=== PATIENT | female | born 1945 | race Caucasian/White ===

== ENCOUNTER → 2023-05-02 08:07 | Outpatient (CLI) | payer MEDICARE, OTHER, SELFPAY ==
[2023-05-02 08:23] LABS: Microscopic, Urine URINE MICROSCOPIC (MICROSCOPIC)
[2023-05-02 08:55] LABS: Basophils % 0.5 % (0.1-2.0); Eosinophils # 0.2 K/mm3 (0.0-0.4); Eosinophils % 2.5 % (0.1-12.0); Hemoglobin 13.3 g/dL (12.2-16.2); Lymphocytes # 1.7 K/mm3 (0.7-4.5); Lymphocytes % 24.3 % (10-50); Mean Corpuscular HGB Conc 31.6 g/dL (31.8-35.4); Mean Corpuscular Hemoglobin 27.6 pg (27.0-31.2); Mean Corpuscular Volume 87.5 fl (81-99); Mean Platelet Volume 8.3 fl (7.4-10.4); Monocytes # 0.2 K/mm3 (0.1-1.0); Monocytes % 3.6 % (1.7-9.3); Neutrophils # 4.7 K/mm3 (1.8-7.8); Platelet Count 176 K/mm3 (142-424); Red Cell Distribution Width 14.9 % (11.5-17.5); White Blood Count 6.8 K/mm3 (4.8-10.8)
[2023-05-02 08:57] LABS: Appearance,Urine CLEAR (Clear); Bilirubin,Urine Negative (Negative); Blood, Urine Negative (Negative); Color,Urine YELLOW (Yellow); Glucose,Urine (UA) 3+ (Negative); Ketones,Urine Negative (Negative); Leukocyte Esterase,Urine Negative (Negative); Nitrate,Urine Negative (Negative); PH,Urine 5.5 (5.0-8.5); Protein,Urine Negative (Negative); Specific Gravity, Urine <= 1.005 (1.005-1.030); Urobilinogen,Urine 0.2 EU/dl (0.2)
[2023-05-02 09:17] LABS: Creatinine,Urine Random 35 mg/dL (Not Estab.)
[2023-05-02 09:28] LABS: Anion Gap 7.6 mEq/L (5-15); Blood Urea Nitrogen 21 mg/dl (7-17); Calcium 9.6 mg/dl (8.4-10.2); Carbon Dioxide 34 mmol/L (22.0-30.0); Chloride 103 mmol/L (98-107); Estimated Glomerular Filt Rate 70 ml/min (>60); GFR (African American) 85 ML/MIN (>60); Glucose 150 mg/dl (74-100); Phosphorous 4.1 mg/dl (2.5-4.5); Potassium 4.6 mmoL/L (3.5-5.1); Sodium 140 mmol/L (136-145)
[2023-05-02 09:40] LABS: Intact Parathyroid Hormone 90.6 pg/mL (7.5-53.5)
[2023-05-02 09:46] LABS: 25-OH Vitamin D, Total 40.6 ng/mL (30-100)
== END ==
PROVIDERS: PCP Nurse Practitioner Family; Visit Provider Internal Medicine Nephrology
DX: N18.31 Chronic kidney disease, stage 3a (principal)
CPT/HCPCS: 36415; 80069; 81001; 82306; 82570; 83970; 84155; 85025

== ENCOUNTER → 2023-08-15 10:05 | Outpatient (CLI) | payer MEDICARE, OTHER, SELFPAY ==
[2023-08-15 11:19] LABS: Basophils % 0.4 % (0.1-2.0); Eosinophils # 0.2 K/mm3 (0.0-0.4); Eosinophils % 2.5 % (0.1-12.0); Hematocrit 45.6 % (37.0-47.0); Hemoglobin 15.4 g/dL (12.2-16.2); Lymphocytes # 2.1 K/mm3 (0.7-4.5); Lymphocytes % 23.7 % (10-50); Mean Corpuscular HGB Conc 33.8 g/dL (31.8-35.4); Mean Corpuscular Hemoglobin 30.2 pg (27.0-31.2); Mean Corpuscular Volume 89.2 fl (81-99); Mean Platelet Volume 8.6 fl (7.4-10.4); Monocytes # 0.3 K/mm3 (0.1-1.0); Monocytes % 3.5 % (1.7-9.3); Neutrophils # 6.1 K/mm3 (1.8-7.8); Neutrophils % 69.9 % (37.0-80.0); Platelet Count 164 K/mm3 (142-424); Red Blood Count 5.11 M/mm3 (4.20-5.40); Red Cell Distribution Width 14.3 % (11.5-17.5); White Blood Count 8.7 K/mm3 (4.8-10.8)
[2023-08-15 12:16] LABS: Hemoglobin A1C 7.5 % (4.0-6.0)
[2023-08-15 12:22] LABS: Alanine Aminotransferase 21 U/L (12-78); Albumin Level 4.6 g/dl (3.5-5.0); Albumin/Globulin Ratio 1.7 (1.1-1.8); Alkaline Phosphatase 100 U/L (38-126); Anion Gap 16.4 mEq/L (5-15); Aspartate Amino Transferase 24 U/L (14-36); Bilirubin,Total 0.8 mg/dl (0.2-1.3); Blood Urea Nitrogen 19 mg/dl (7-17); Calcium 9.8 mg/dl (8.4-10.2); Carbon Dioxide 28 mmol/L (22.0-30.0); Chloride 99 mmol/L (98-107); Chol/HDL Ratio 2.4 (1-3.5); Cholesterol 127 mg/dl (140-200); Estimated Glomerular Filt Rate 61 ml/min (>60); GFR (African American) 74 ML/MIN (>60); Globulin 2.7 g/dL (1.3-3.2); Glucose 143 mg/dl (74-100); HDL Cholesterol 53 mg/dl (40-60); Potassium 4.4 mmoL/L (3.5-5.1); Sodium 139 mmol/L (136-145); Total Protein,Serum 7.3 g/dl (6.3-8.2); Triglycerides 151 mg/dl (30-150); VLDL Cholesterol 30 mg/dL (0-40)
[2023-08-15 12:33] LABS: Direct LDL Cholesterol 62.44 mg/dL (100-129)
[2023-08-15 13:22] LABS: Ferritin 103 ng/ml (11.1-264)
== END ==
PROVIDERS: PCP Nurse Practitioner Family; Visit Provider Nurse Practitioner Family
DX: D50.9 Iron deficiency anemia, unspecified (principal); E11.9 Type 2 diabetes mellitus without complications; E78.5 Hyperlipidemia, unspecified; Z79.84 Long term (current) use of oral hypoglycemic drugs
CPT/HCPCS: 80053; 80061; 82728; 83036; 85025

== ENCOUNTER 2023-11-16 14:52 | Outpatient (CLI) | payer MEDICARE, OTHER, SELFPAY ==
[2023-11-16 14:59] LABS: Basophils # 0.1 K/mm3 (0-0.2); Basophils % 0.8 % (0.1-2.0); Eosinophils # 0.1 K/mm3 (0.0-0.4); Eosinophils % 1.1 % (0.1-12.0); Hematocrit 46.5 % (37.0-47.0); Hemoglobin 15.5 g/dL (12.2-16.2); Lymphocytes # 3.3 K/mm3 (0.7-4.5); Lymphocytes % 33.9 % (10-50); Mean Corpuscular HGB Conc 33.4 g/dL (31.8-35.4); Mean Corpuscular Hemoglobin 29.4 pg (27.0-31.2); Mean Corpuscular Volume 88.2 fl (81-99); Mean Platelet Volume 8.5 fl (7.4-10.4); Monocytes # 0.5 K/mm3 (0.1-1.0); Neutrophils # 5.7 K/mm3 (1.8-7.8); Neutrophils % 59.1 % (37.0-80.0); Platelet Count 190 K/mm3 (142-424); Red Blood Count 5.28 M/mm3 (4.20-5.40); Red Cell Distribution Width 14.3 % (11.5-17.5); White Blood Count 9.6 K/mm3 (4.8-10.8)
[2023-11-16 15:25] LABS: Alanine Aminotransferase 17 U/L (12-78); Albumin Level 4.5 g/dl (3.5-5.0); Albumin/Globulin Ratio 1.8 (1.1-1.8); Alkaline Phosphatase 84 U/L (38-126); Anion Gap 13.7 mEq/L (5-15); Aspartate Amino Transferase 20 U/L (14-36); Bilirubin,Total 0.7 mg/dl (0.2-1.3); Blood Urea Nitrogen 25 mg/dl (7-17); Calcium 9.7 mg/dl (8.4-10.2); Carbon Dioxide 28 mmol/L (22.0-30.0); Chloride 104 mmol/L (98-107); Chol/HDL Ratio 2.6 (1-3.5); Cholesterol 141 mg/dl (140-200); Estimated Glomerular Filt Rate 61 ml/min (>60); GFR (African American) 74 ML/MIN (>60); Globulin 2.5 g/dL (1.3-3.2); Glucose 102 mg/dl (74-100); HDL Cholesterol 55 mg/dl (40-60); Potassium 3.7 mmoL/L (3.5-5.1); Sodium 142 mmol/L (136-145); Triglycerides 151 mg/dl (30-150); VLDL Cholesterol 30 mg/dL (0-40)
[2023-11-16 15:36] LABS: Direct LDL Cholesterol 61.45 mg/dL (100-129)
[2023-11-16 15:58] LABS: Hemoglobin A1C 7.6 % (4.0-6.0)
[2023-11-16 16:13] LABS: Vitamin B12 954 pg/mL (239-931)
[2023-11-16 17:53] LABS: Ferritin 82.6 ng/ml (11.1-264)
[2023-11-21 12:22] LABS: Antinuclear Antibodies (ANA) NEGATIVE
== END 2023-11-16 23:59 ==
LOC: LAB.DROPOF 14:52
PROVIDERS: PCP Nurse Practitioner Family; Visit Provider Nurse Practitioner Family
DX: D50.9 Iron deficiency anemia, unspecified (principal); R41.3 Other amnesia; E11.9 Type 2 diabetes mellitus without complications; R68.2 Dry mouth, unspecified; E78.5 Hyperlipidemia, unspecified; Z79.899 Other long term (current) drug therapy
CPT/HCPCS: 80053; 80061; 82043; 82607; 82728; 83036; 85025; 86038

== ENCOUNTER 2024-01-07 08:48 | Outpatient (CLI) | payer MEDICARE, OTHER, SELFPAY ==
--- NOTE | 2024-01-07 08:49 | MR_ITS ---
FINAL REPORT CLINICAL HISTORY: Changes of memory with short-term memory loss. HEADACHE COMPARISON: None FINDINGS: Multiplanar MR imaging of the brain was performed without contrast. There is motion on many sequences that somewhat limits overall image quality. There is mild age-appropriate atrophy. There are scattered foci of increased T2 signal in the cerebral white matter that have a nonspecific appearance but likely represent mild chronic ischemic/gliotic changes. There is no evidence of intracranial hemorrhage or mass. No abnormal ventricular dilatation is identified. No abnormal extra-axial fluid collection is seen. No abnormality is seen on the diffusion weighted images. The posterior fossa and brainstem are unremarkable. Normal major vessel vascular flow voids are seen. There is a fluid level in the sphenoid sinus, worrisome for sinusitis. There is mild soft tissue thickening and other paranasal sinuses. IMPRESSION: Age-appropriate atrophy and mild chronic ischemic/gliotic changes. Air-fluid level is present in the sphenoid sinus, worrisome for sinusitis. Reviewed, Interpreted and Dictated by Alfie Ramires III, MD Transcribed by Maryjo Walsh Authenticated and . [facility]
== END 2024-01-07 23:59 ==
LOC: RAD 08:49
PROVIDERS: PCP Nurse Practitioner Family; Visit Provider Nurse Practitioner Family
DX: R41.3 Other amnesia (principal)
CPT/HCPCS: 70551

== ENCOUNTER 2024-01-15 12:15 | Outpatient (CLI) | payer MEDICARE, OTHER, SELFPAY ==
--- NOTE | 2024-01-15 12:19 | XR_ITS ---
FINAL REPORT TECHNIQUE: Chest PA & Lateral CLINICAL HISTORY: cough, post COVID-19 infection 1 mo ago COMPARISON: None FINDINGS: 2 views of the chest were performed. The heart size is normal. The mediastinum is within normal limits. Coarse interstitial opacities are present bilaterally, likely secondary to chronic fibrosis. There are no pleural effusions. There is no pneumothorax. The bony thorax appears intact. IMPRESSION: No acute cardiopulmonary process. Coarse interstitial opacities likely secondary to chronic fibrosis. Reviewed, Interpreted and Dictated by Clay Silva MD Transcribed by Maryjo Walsh Authenticated and [facility]
[2024-01-15 13:14] LABS: Basophils # 0.1 K/mm3 (0-0.2); Basophils % 0.9 % (0.1-2.0); Eosinophils # 0.2 K/mm3 (0.0-0.4); Eosinophils % 1.9 % (0.1-12.0); Hematocrit 46.7 % (37.0-47.0); Hemoglobin 15.1 g/dL (12.2-16.2); Lymphocytes # 2.2 K/mm3 (0.7-4.5); Lymphocytes % 24.8 % (10-50); Mean Corpuscular HGB Conc 32.4 g/dL (31.8-35.4); Mean Corpuscular Hemoglobin 29.5 pg (27.0-31.2); Mean Corpuscular Volume 91.3 fl (81-99); Mean Platelet Volume 8.5 fl (7.4-10.4); Monocytes # 0.3 K/mm3 (0.1-1.0); Neutrophils # 6.2 K/mm3 (1.8-7.8); Neutrophils % 69.3 % (37.0-80.0); Platelet Count 211 K/mm3 (142-424); Red Blood Count 5.11 M/mm3 (4.20-5.40); Red Cell Distribution Width 14.8 % (11.5-17.5)
[2024-01-15 13:35] LABS: D-Dimer 0.72 ug/mL (0.0-0.5)
[2024-01-15 13:39] LABS: Chloride 102 mmol/L (98-107); Potassium 4.2 mmoL/L (3.5-5.1); Sodium 140 mmol/L (136-145)
[2024-01-15 13:42] LABS: Alanine Aminotransferase 15 U/L (12-78); Albumin Level 4.4 g/dl (3.5-5.0); Albumin/Globulin Ratio 1.7 (1.1-1.8); Alkaline Phosphatase 90 U/L (38-126); Anion Gap 11.2 mEq/L (5-15); Aspartate Amino Transferase 22 U/L (14-36); Bilirubin,Total 0.5 mg/dl (0.2-1.3); Blood Urea Nitrogen 22 mg/dl (7-17); Calcium 10.3 mg/dl (8.4-10.2); Carbon Dioxide 31 mmol/L (22.0-30.0); Estimated Glomerular Filt Rate 70 ml/min (>60); GFR (African American) 84 ML/MIN (>60); Globulin 2.6 g/dL (1.3-3.2); Glucose 192 mg/dl (74-100); Magnesium 1.9 mg/dl (1.6-2.3)
[2024-01-15 13:48] LABS: Hemoglobin A1C 8.4 % (4.0-6.0)
[2024-01-15 14:14] LABS: Thyroid Stimulating Hormone 1.16 uIU/mL (0.465-4.68)
[2024-01-15 15:46] LABS: Vitamin B12 998 pg/mL (239-931)
== END 2024-01-15 23:59 ==
LOC: LAB 12:16
PROVIDERS: PCP Nurse Practitioner Family; Visit Provider Nurse Practitioner Family
DX: R05.9 Cough, unspecified (principal); E11.9 Type 2 diabetes mellitus without complications; R51.9 Headache, unspecified; M62.838 Other muscle spasm; E78.5 Hyperlipidemia, unspecified; Z79.84 Long term (current) use of oral hypoglycemic drugs; R79.89 Other specified abnormal findings of blood chemistry
CPT/HCPCS: 36415; 71046; 80053; 82607; 82728; 83036; 83735; 84443; 85025; 85378

== ENCOUNTER 2024-01-15 14:48 | Outpatient (POV) | payer MEDICARE, OTHER, SELFPAY | END 2024-01-15 23:59 | disposition home or self-care (01) | LOC: SC 14:48 | PROVIDERS: PCP Nurse Practitioner Family; Visit Provider Dermatology | DX: Z00.00 Encounter for general adult medical examination without abnormal findings (principal) ==

== ENCOUNTER 2024-02-11 13:44 | Outpatient (CLI) | payer MEDICARE, OTHER, SELFPAY ==
--- NOTE | 2024-02-11 13:44 | CT_ITS ---
FINAL REPORT CLINICAL HISTORY: Abnormal chest x-ray possible fibrosis FINDINGS: CT CHEST WITHOUT CONTRAST TECHNIQUE: Axial images through the chest were performed by computed tomography without contrast. This study was performed with techniques to keep radiation doses as low as reasonably achievable, (ALARA). Individualized dose reduction techniques using automated exposure control or adjustment of mA and/or kV according to the patient's size were employed. FINDINGS: There is no axillary adenopathy. There is no hilar or mediastinal adenopathy. The heart size is normal. There are dense coronary artery calcifications. There is no pericardial or pleural effusion. Limited images of the upper abdomen demonstrate multiple calcified gallstones and a partially contracted gallbladder. There is scarring or fibrosis in both lung bases. There is a 1.1 x 0.5 cm noncalcified nodule in the right lung along the course of the minor fissure. IMPRESSION: Noncalcified nodule along the course of the minor fissure, indeterminate. 3-month follow-up chest CT or PET/CT is recommended for further evaluation. Scarring or fibrosis in both lung bases. Reviewed, Interpreted and Dictated by Clay Silva MD Transcribed by Nidia Fisher Authenticated and [facility]
== END 2024-02-11 23:59 | disposition home or self-care (01) ==
LOC: RAD 13:44
PROVIDERS: PCP Nurse Practitioner Family; Visit Provider Nurse Practitioner Family
DX: R93.89 Abnormal findings on diagnostic imaging of other specified body structures (principal); R05.1 Acute cough
CPT/HCPCS: 71250

== ENCOUNTER 2024-04-02 10:39 | Outpatient (CLI) | payer MEDICARE, OTHER, SELFPAY ==
--- NOTE | 2024-04-02 10:39 | CA_ITS ---
FINAL REPORT TECHNIQUE: Color Doppler, duplex Doppler and christianson scale sonography of the bilateral neck vasculature was performed. Velocities were measured in the carotid arteries. Stenosis evaluation based on velocity criteria. CLINICAL HISTORY: Dizziness, neck pain, HLD, DM. COMPARISON: None FINDINGS: The peak systolic velocity of the right common carotid artery is 77 cm/sec and internal carotid artery 75 cm/sec. The diastolic velocity in the internal carotid artery is 26 cm/sec. The ICA/CCA ratio is 1.3. Visually, a small amount of plaque is seen. These findings are consistent with less than 50% stenosis. The external carotid artery is patent. The right vertebral artery is patent with antegrade flow. The peak systolic velocity of the left common carotid artery is 74 cm/sec and internal carotid artery 85 cm/sec. The diastolic velocity in the internal carotid artery is 31 cm/sec. The ICA/CCA ratio is 1.14. Visually, a small amount of plaque is seen. These findings are consistent with less than 50% stenosis. The external carotid artery is patent. The left vertebral artery is patent with antegrade flow. IMPRESSION: No evidence of significant carotid stenosis. Bilateral patent vertebral arteries. If indicated, CTA or MRA could further evaluate. Reviewed, Interpreted and Dictated by Alfie Ramires III, MD Transcribed by Maryjo Walsh Authenticated and [facility]
== END 2024-04-02 23:59 | disposition home or self-care (01) ==
LOC: RT 10:39
PROVIDERS: PCP Nurse Practitioner Family; Visit Provider Nurse Practitioner Family
DX: R42 Dizziness and giddiness (principal)
CPT/HCPCS: 93880

== ENCOUNTER 2024-05-07 12:30 | Outpatient (CLI) | payer MEDICARE, OTHER, SELFPAY ==
[2024-05-07 12:53] LABS: Basophils % 0.6 % (0.1-2.0); Eosinophils # 0.2 K/mm3 (0.0-0.4); Eosinophils % 2.9 % (0.1-12.0); Hematocrit 42.6 % (37.0-47.0); Lymphocytes % 28.1 % (10-50); Mean Corpuscular HGB Conc 32.8 g/dL (31.8-35.4); Mean Corpuscular Hemoglobin 29.9 pg (27.0-31.2); Mean Corpuscular Volume 91.3 fl (81-99); Mean Platelet Volume 8.6 fl (7.4-10.4); Monocytes # 0.2 K/mm3 (0.1-1.0); Monocytes % 3.2 % (1.7-9.3); Neutrophils # 4.6 K/mm3 (1.8-7.8); Neutrophils % 65.1 % (37.0-80.0); Platelet Count 167 K/mm3 (142-424); Red Blood Count 4.66 M/mm3 (4.20-5.40); Red Cell Distribution Width 14.6 % (11.5-17.5)
[2024-05-07 13:14] LABS: Alanine Aminotransferase 14 U/L (12-78); Albumin Level 4.1 g/dl (3.5-5.0); Albumin/Globulin Ratio 1.6 (1.1-1.8); Alkaline Phosphatase 86 U/L (38-126); Anion Gap 12.6 mEq/L (5-15); Aspartate Amino Transferase 17 U/L (14-36); Bilirubin,Total 0.7 mg/dl (0.2-1.3); Blood Urea Nitrogen 21 mg/dl (7-17); Calcium 9.6 mg/dl (8.4-10.2); Carbon Dioxide 29 mmol/L (22.0-30.0); Chloride 105 mmol/L (98-107); Chol/HDL Ratio 2.5 (1-3.5); Cholesterol 115 mg/dl (140-200); Estimated Glomerular Filt Rate 81 ml/min (>60); GFR (African American) 98 ML/MIN (>60); Globulin 2.6 g/dL (1.3-3.2); Glucose 129 mg/dl (74-100); HDL Cholesterol 46 mg/dl (40-60); Potassium 4.6 mmoL/L (3.5-5.1); Sodium 142 mmol/L (136-145); Total Protein,Serum 6.7 g/dl (6.3-8.2); Triglycerides 125 mg/dl (30-150); VLDL Cholesterol 25 mg/dL (0-40)
[2024-05-07 13:44] LABS: Thyroid Stimulating Hormone 2.03 uIU/mL (0.465-4.68)
[2024-05-07 15:02] LABS: Hemoglobin A1C 8.2 % (4.0-6.0)
[2024-05-07 15:32] LABS: Ferritin 78.2 ng/ml (11.1-264)
== END 2024-05-07 23:59 | disposition home or self-care (01) ==
LOC: LAB.DROPOF 12:31
PROVIDERS: PCP Nurse Practitioner Family; Visit Provider Nurse Practitioner Family
DX: E11.9 Type 2 diabetes mellitus without complications (principal); E78.5 Hyperlipidemia, unspecified; D64.9 Anemia, unspecified; D50.9 Iron deficiency anemia, unspecified
CPT/HCPCS: 80053; 80061; 82043; 82728; 83036; 84443; 85025

== ENCOUNTER 2024-06-18 11:58 | Outpatient (CLI) | payer MEDICARE, OTHER, SELFPAY ==
--- NOTE | 2024-06-18 12:01 | XR_ITS ---
FINAL REPORT CLINICAL HISTORY: cervical neck pain FINDINGS: CERVICAL SPINE 3 views were obtained. There is no acute fracture. Vertebrae are normal height. There is no malalignment. There is moderate to space narrowing at C3-4, C4-5, C5-6, and C6-7 with moderate anterior osteophyte formation throughout these levels. There is no soft tissue abnormality. IMPRESSION: Degenerative changes with no acute bony abnormality. Reviewed, Interpreted and Dictated by Clay Silva MD Transcribed by Nidia Fisher Authenticated and . [facility]
== END 2024-06-18 23:59 | disposition home or self-care (01) ==
LOC: RAD 11:59
PROVIDERS: PCP Nurse Practitioner Family; Visit Provider Nurse Practitioner Family
DX: M54.2 Cervicalgia (principal)
CPT/HCPCS: 72040

== ENCOUNTER 2024-07-10 09:38 | Outpatient (CLI) | payer MEDICARE, OTHER, SELFPAY ==
--- NOTE | 2024-07-10 09:44 | MR_ITS ---
FINAL REPORT CLINICAL HISTORY: Cervicalgia, decreased ROM of neck COMPARISON: None FINDINGS: Multi planar MR imaging was obtained of the cervical spine. There is abnormal decreased signal throughout the cervical discs. There is moderate loss of height at the C3-4 level. There is no malalignment. The cervical cord demonstrates normal signal and configuration. C2-C3: There is no evidence of significant disc bulge or protrusion. There is no significant facet hypertrophy. C3-C4: Moderate diffuse disc bulge eccentric to the left. Moderate compromise left side of the spinal canal. Moderate to high-grade left neural foraminal narrowing. C4-C5: Moderate diffuse disc bulge. Endplate hypertrophy. Moderate left neural foraminal narrowing. C5-C6: Moderate diffuse disc bulge. Moderate right neural foraminal narrowing. C6-C7: Moderate diffuse disc bulge. Axok-to-nsxpwjwg bilateral neural foraminal narrowing. C7-T1: There is no evidence of significant disc bulge or protrusion. There is no significant facet hypertrophy. IMPRESSION: Multilevel changes of degenerative disc disease with spinal canal compromise most evident on the left at C3-4 and neural foraminal compromise most evident on the right at C5-6. Reviewed, Interpreted and Dictated by Clay Silva MD Transcribed by Jennifer Hilliard Authenticated and . [facility]
== END 2024-07-10 23:59 | disposition home or self-care (01) ==
LOC: RAD 09:39
PROVIDERS: PCP Nurse Practitioner Family; Visit Provider Nurse Practitioner Family
DX: M54.2 Cervicalgia (principal); M25.78 Osteophyte, vertebrae
CPT/HCPCS: 72141

== ENCOUNTER 2024-08-11 12:02 | Outpatient (CLI) | payer MEDICARE, OTHER, SELFPAY ==
--- NOTE | 2024-08-11 12:07 | CT_ITS ---
PROCEDURE INFORMATION: Exam: CT Head Without Contrast Exam date and time: 08/11/2024 12:26 PM Age: 79 years old Clinical indication: Syncope and collapse; Additional info: Lightheadedness, unsteadiness post fall TECHNIQUE: Imaging protocol: Computed tomography of the head without contrast. Radiation optimization: All CT scans at this facility use at least one of these dose optimization techniques: automated exposure control; mA and/or kV adjustment per patient size (includes targeted exams where dose is matched to clinical indication); or iterative reconstruction. COMPARISON: MR HEAD/BRAIN WO CON 01/07/2024 8:48 AM FINDINGS: Brain: No hemorrhage. Unremarkable white matter for the patient's age. No mass effect. No evolving territorial infarct. Cerebral ventricles: No ventriculomegaly. Paranasal sinuses: Mild sinus mucosal thickening. Mastoid air cells: Visualized mastoid air cells are well aerated. Orbital cavities: Thinning of the lenses of the globes consistent with prior lens surgery. Bones: Unremarkable. No acute fracture. Soft tissues: Unremarkable. IMPRESSION: No acute intracranial abnormality seen.
== END 2024-08-11 23:59 | disposition home or self-care (01) ==
PROVIDERS: PCP Nurse Practitioner Family; Visit Provider Nurse Practitioner Family
DX: R42 Dizziness and giddiness (principal); R26.81 Unsteadiness on feet; Z91.81 History of falling
CPT/HCPCS: 70450

== ENCOUNTER 2024-09-29 15:16 | Outpatient (CLI) | payer MEDICARE, OTHER, SELFPAY ==
--- NOTE | 2024-09-29 15:21 | XR_ITS ---
FINAL REPORT CLINICAL HISTORY: cough, choking sensation FINDINGS: 2 views of the chest were obtained . The heart is normal in size. The mediastinum is within normal limits. There is mild bronchial wall thickening consistent with bronchitis. There is no pneumothorax. Osseous structures demonstrate moderate degenerative changes. IMPRESSION: Mild bronchial wall thickening consistent with bronchitis. Reviewed, Interpreted and Dictated by Alfie Ramires III, MD Transcribed by Alexia Haro Authenticated and [facility]
== END 2024-09-29 23:59 | disposition home or self-care (01) ==
LOC: LAB 15:18
PROVIDERS: PCP Nurse Practitioner Family; Visit Provider Nurse Practitioner Family
DX: R09.89 Other specified symptoms and signs involving the circulatory and respiratory systems (principal); R42 Dizziness and giddiness; R53.83 Other fatigue
CPT/HCPCS: 71046; 87635

== ENCOUNTER 2024-12-22 15:50 | Outpatient (CLI) | payer MEDICARE, OTHER, SELFPAY ==
[2024-12-22 19:29] LABS: Creatinine,Urine Random 28 mg/dL (Not Estab.)
[2024-12-22 22:59] LABS: Albumin Level 4.7 g/dl (3.5-5.0); Chloride 100 mmol/L (98-107)
[2024-12-22 23:00] LABS: Potassium 4.5 mmoL/L (3.5-5.1); Sodium 138 mmol/L (136-145)
[2024-12-22 23:02] LABS: Alanine Aminotransferase 18 U/L (12-78); Albumin/Globulin Ratio 2.2 (1.1-1.8); Anion Gap 12.5 mEq/L (5-15); Aspartate Amino Transferase 18 U/L (14-36); Blood Urea Nitrogen 28 mg/dl (7-17); Carbon Dioxide 30 mmol/L (22.0-30.0); Estimated Glomerular Filt Rate 81 ml/min (>60); GFR (African American) 98 ML/MIN (>60); Globulin 2.1 g/dL (1.3-3.2); Total Protein,Serum 6.8 g/dl (6.3-8.2)
[2024-12-22 23:03] LABS: Alkaline Phosphatase 83 U/L (38-126); Bilirubin,Total 0.4 mg/dl (0.2-1.3); Chol/HDL Ratio 2.4 (1-3.5); Cholesterol 127 mg/dl (140-200); Glucose 208 mg/dl (74-100); HDL Cholesterol 54 mg/dl (40-60); Magnesium 1.9 mg/dl (1.6-2.3); Triglycerides 162 mg/dl (30-150); VLDL Cholesterol 32 mg/dL (0-40)
[2024-12-22 23:15] LABS: Direct LDL Cholesterol 46.24 mg/dL (100-129)
[2024-12-22 23:35] LABS: Thyroid Stimulating Hormone 1.21 uIU/mL (0.465-4.68)
[2024-12-22 23:39] LABS: Ferritin 61.2 ng/ml (11.1-264)
[2024-12-22 23:41] LABS: Hemoglobin A1C 9.1 % (4.0-6.0)
== END 2024-12-22 23:59 | disposition home or self-care (01) ==
LOC: LAB.DROPOF 12-24 12:39
PROVIDERS: PCP Nurse Practitioner Family; Visit Provider Nurse Practitioner Family
DX: E11.9 Type 2 diabetes mellitus without complications (principal); E61.1 Iron deficiency; E78.5 Hyperlipidemia, unspecified
CPT/HCPCS: 80053; 80061; 82043; 82570; 82728; 83036; 83735; 84443

== ENCOUNTER 2025-02-12 07:23 | Emergency (ER) | payer MEDICARE, OTHER, SELFPAY ==
[2025-02-12] VITALS (9 sets, daily range): BP systolic 123–172; BP diastolic 65–95; PULSE 45–66; RESP 11–22; TEMP 37.1; O2SAT 92–97; BMI 38.7
--- NOTE | 2025-02-12 07:27 | ECG_ITS ---
APPROVED REPORT Exam: Resting ECG HR:59 bpm ECG Measurements Heart Rate 59 AXES VT 195 P 48 QRSd 107 QRS 46 QT 404 T 38 QTc 403 Conclusion Sinus bradycardia Electronically signed by : GIULIANA AGUAYO, 02/12/2025 15:29:36
--- OUTSIDE RECORDS SUMMARY | 2025-02-12 07:31 | XMS_ITS | Continuity of Care Document ---
Author Name [facility] Organization [facility] Care Team Providers Care Form Building Supervisor Name Role Phone [facility] Unavailable Unavailable Problems Combined list of problems from Department of [facility] [place] and [facility] facilities. It does not include entries that were removed or entered in error. Problem Status Onset Date Problem Type Date of Resolution Comments Source Diagnosis: ICD-10-CM Z71.0 Prsn encntr uk healthcare serv to consult on behalf of another person Active Diagnosis [facility] Medications Combined list of outpatient medications from Department of [facility], [place] and [facility] facilities.Medications provided include 1) outpatient medications from the last 15 months, and 2) patient-reported medications. Medication Details Route Status Patient Instructions Prescription Expires Prescription Number Last Dispense Date Ordering Provider Order Date Order Qty Source AZELASTINE HCL (AZELASTINE HCL), 137 MCG, SPRAY/PUMP, NASAL, [facility], 30 ml SQUEEZ BTL Active [id number] 4 2023 30 Pharmac y Data Transac tion Service Facilit y CEFDINIR (cefdinir), 300 MG, CAPSULE, ORAL, [facility], 60 ea. BOTTLE Active [id number] 4 2023 20 Pharmac y Data Transac tion Service Facilit y CEPHALEXIN (CEPHALEXIN MONOHYDRATE ), 500MG, CAPSULE, ORAL, [facility], 500 ea. BOTTLE Active [id number] 4 2023 30 Pharmac y Data Transac tion Service Facilit y CETIRIZINE HCL (cetirizine HCl), 10 MG, TABLET, ORAL, [facility], 90 ea. BOTTLE Active [id number] 4 2023 90 Pharmac y Data Transac tion Service Facilit y CETIRIZINE HCL (cetirizine HCl), 10 MG, TABLET, ORAL, [facility], 90 ea. BOTTLE Active [id number] 4 2023 90 Pharmac y Data Transac tion Service Facilit y DAPAGLIFLOZ IN (dapagliflo zin propanediol ), 10 MG, TABLET, ORAL, [facility], 30 ea. BOTTLE Active [id number] 4 2023 90 Pharmac y Data Transac tion Service Facilit y FLUCONAZOLE (FLUCONAZOL E), 100 MG, TABLET, ORAL, [facility], 30 ea. BOTTLE Active [id number] 4 2023 10 Pharmac y Data Transac tion Service Facilit y FLUCONAZOLE (FLUCONAZOL E), 100 MG, TABLET, ORAL, [facility], 30 ea. BOTTLE Active [id number] 4 2023 10 Pharmac y Data Transac tion Service Facilit y FLUCONAZOLE (fluconazol e), 150 MG, TABLET, ORAL, [facility], 12 ea. BLIST PACK Active [id number] 4 2023 5 Pharmac y Data Transac tion Service Facilit y JANUVIA (SITAGLIPTI N PHOSPHATE), 100MG, TABLET, ORAL, [employer] 90 ea. BOTTLE Active [id number] 4 2023 90 Pharmac y Data Transac tion Service Facilit y OXYBUTYNIN CHLORIDE ER (oxybutynin chloride), 10 MG, TAB ER 24, ORAL, [employer], 500 ea. BOTTLE Active [id number] 4 2023 90 Pharmac y Data Transac tion Service Facilit y OXYBUTYNIN CHLORIDE ER (oxybutynin chloride), 10 MG, TAB ER 24, ORAL, [employer], 500 ea. BOTTLE Active [id number] 4 2023 90 Pharmac y Data Transac tion Service Facilit y RYBELSUS (semaglutid e), 3 MG, TABLET, ORAL, TERRY NORDISK, 30 ea. BOTTLE Cancele d [id number] : 2023 0 Pharmac y Data Transac tion Service Facilit y Encounters Combined list of: 1) Encounters from Department of Veterans Affairs facilities going backup to the last 18 months, not all VA inpatient encounters are included; 2) Encounters from the Department of Defense facilities going backup to 280 months. Location Location Details Encounter Type Encounter Number Reason For Visit Attending Provider ADM Date DC Date Status Disposition Source [facility] PH1 ASSMT&MGMT NQHP [id number] Diagnos is: ICD-10- CM Z71.0 Prsn encntr hlth serv to consult on behalf of another person JAYLON MIRAMONTES 11/04 [place] [facility] Outpatient Encounter [id number] 11/[address] [place] [address] [facility] Social History Combined list of available smoking, tobacco, and other social history from Department of Defense and Veterans Affairs facilities. Social History Type Response Date Comment Sour e This section is an empty social history section. DoD
--- OUTSIDE RECORDS SUMMARY | 2025-02-12 07:31 | XMS_ITS ---
Care Plan - [facility], [facility] Created on: February 12, 2025 Kristina Herrera : 1945 Sex: Female Author Organization [facility] Address [address] [place] [id number] Phone Care Team Providers Care Insurance Business Analyst Name Role Phone Eduar ZIMMERMAN, Juan Diego Benton Unavailable [phone]
--- OUTSIDE RECORDS SUMMARY | 2025-02-12 07:31 | XMS_ITS | Encounter Summary ---
Author Name [facility] Organization [facility] Address [address] [place] [id number] Selected Encounter This section includes the information on record at [place] for the Encounter. Date/Time Encounter Type Encounter Description Reason Pro vider Source Nov 26, 2024 12:53 PM Outpatient Encounter ADMIN PAT ACTIVTIES (MASNONCT) IHE Encounter Template Text not used by VA Encounter Notes: All associated encounter notes This section contains the clinical notes associated to the Encounter. Date/Time Encounter Note(s) Provider Source Nov 26, 2024 12:53 PM CAREGIVER CERTIFIC ATE: LOCAL TITLE: CSP DENIAL NOTE STANDARD TITLE: CAREGIVER CERTIFICATE DATE OF NOTE: NOV 26, 2024@12:53 ENTRY DATE: NOV 26, 2024@12:53:17 AUTHOR: BANDAR MIRAMONTES EXP COSIGNER: URGENCY: STATUS: COMPLETED Caregiver Support Program Denial Note The individual being denied from the Program of Comprehensive Assistance for Family Caregivers is the Primary Family Caregiver applicant: KEYON KELLY Name of : ANA KELLY Reason(s) for denial: - /Caregiver withdrew application Denial date: 11/26/2024 Staff provided/attempted verbal notification of denial on: 11/26/2024 Notification letter was mailed on: 11/26/2024 [facility] staff provided the following document(s): - [facility] Howard Contact Information - Program of General Caregiver Support Services - [employer] Eligibility Criteria Fact Sheet - VA Caregiver Support Program [employer] Appeal FAQs - VA Form 10-305 Your Rights to Seek Further Review of [employer] Decisions [facility] staff provided information on the following resources and supports: - Veterans Benefits Administration (VBA) /pratik/ BANDAR MIRAMONTES LCSW Caregiver Country Sales Manager Signed: 11/26/2024 12:54 BANDAR MIRAMONTES [facility]
--- OUTSIDE RECORDS SUMMARY | 2025-02-12 07:31 | XMS_ITS | Data Portability ---
Author Organization [facility] Address [address] [place] [address] Care Team Providers Care Deputy Sheriff Name Role Phone JINA CRUMPNIE Primary Care Provider Assessment No assessment recorded. Plan of Treatment Reminders Order Date Submit Date Provider Last Modified By Organization Details Last Modified Time Details Appointments None recorded. Lab None recorded. Referral None recorded. Procedures None recorded. Surgeries None recorded. Imaging None recorded. Medication Orders betametha sone valerate 0.1 % topical ointment 2021 [address] [facility], [address], [place], [address], 12:54:42 Patient TargetsNo targets recorded. Patient Instructions Encounter Date Encounter Id Patient Instructions Last Modified By Organization Details Last Modified Time 04/25/2022 [id number] 1. Nasal debridement performed- Full risks, complications, and benefits of non-operative intervention have been thoroughly discussed. Understanding was expressed, informed consent given, and we will proceed with the discussed treatment plan. There were no questions for me at the end of the office visit. 2. Right nasal cauterization performed 3. Flexible laryngoscopy performed- Full risks, complications, and benefits of non-operative intervention have been thoroughly discussed. Understanding was expressed, informed consent given, and we will proceed with the discussed treatment plan. There were no questions for me at the end of the office visit. 4. RX: betamethasone ointment twice daily for 2 weeks 5. Recommended using sweet oil in ears monthly 6. Follow up as needed Not available 04/25/2022 12:41:58 Reason for Referral None Reported. Problems No Known Problems Procedures Surgical History Date Name Laterality Status Provider Name and Address Organization Details Recorded Time 04/25/20 22 Control Anterior Epistaxis completed FELECIA GARBER MD [address] [place], [address], [facility] 04/26/2022 12:43:56 04/25/20 22 [facility] 12:34:20 04/25/20 22 Laryngoscopy Flex completed Chacha Sahni [facility] 04/25/2022 12:41:44 section completed Nessa Plasencia [facility] 04/25/2022 11:38:22 hysterectomy completed Nessa Plasencia [facility] 04/25/2022 11:38:28 excision of basal cell carcinoma completed Nessa Plasencia [facility] 04/25/2022 11:39:04 excision of squamous cell carcinoma completed Nessa Luis Angel [facility] 04/25/2022 11:39:14 Imaging Results None recorded. Procedure Notes None recorded. Medical Equipment None Reported. Allergies Allergen ID Allergen Name Allergen Category Reaction Reaction Severity Criticality Documentation Date Start Date Code Code System Note Provider Name and Address Organization Details Recorded Time 125947 Iodinated contrast media (substanc e) medicatio n Not available Not available Not available 04/25/2022 52878 2003 SNOMED Nessagalina Plasencia [facility] 11:35:43 Medications Name Sig Start Date Stop Date Status Note LastModified by Organization Details LastModified Time amoxicillin 500 mg capsule 04/25 completed Not Available Not Available Not Available fluconazole 100 mg tablet active Not Available Not Availabl e Not Available betamethasone valerate 0.1 % topical ointment APPLY TO EARS TWICE DAILY FOR 2 WEEKS 2021 active Not Available Not Available Not Avai lable cetirizine 10 mg tablet active Not Available Not Available No t Available atorvastatin 10 mg tablet active Not Available Not Available Not Available fluconazole 150 mg tablet 04/25 completed Not Available Not Available Not Available glimepiride 1 mg tablet active Not Available Not Available No t Available nystatin-triam cinolone 100,000 unit/gram-0.1 % topical ointment active Not Available Not Available Not Available metformin 1,000 mg tablet 04/25 completed Not Available Not Available Not Available fluticasone propionate 50 mcg/actuation nasal spray,suspensi on 04/25 completed Not Available Not Available Not Available Benicar HCT 40 mg-12.5 mg tablet active Not Available Not Available Not Available duloxetine 30 mg capsule,delaye d release active Not Available Not Available No t Available Januvia 100 mg tablet active Not Available Not Available Not Available Jardiance 10 mg tablet active Not Available Not Available No t Available Vitals Date Recorded Body weight Body mass index (BMI) Body height Oxygen saturation Oxygen saturation in Arterial blood by Pulse oximetry Heart rate Systolic blood pressure Diastolic blood pressure Provider Name and Address Organization Details Last Updated DateTime 2 93531.3 6 g 40 kg/m2 156.21 cm 92 % 92 % 87 /min 102 mm[Hg] 55 mm[Hg] Nessa Luis Angel [facility] 11:43:06 Social History Question Answer Notes LastModified by Organizat ion Details LastModified Time Tobacco Smoking Status Never Smoker Nessa Luis Angel [facility] 04/25/2022 11:38:13 What Is Your Level Of Alcohol Consumption? None Information not available 04/25/2022 What Was The Date Of Your Most Recent Tobacco Screening? 04/25/2022 Information not available 04/25/2022 Do You Use Any Illicit Or Recreational Drugs? No Information not available 04/25/2022 Has Tobacco Cessation Counseling Been Provided? No Information not available 04/25/2022 Do You Or Have You Ever Used Any Other Forms Of Tobacco Or Nicotine? No Information not available 04/25/2022 Sex: Unknown Functional Status None recorded. Mental Status None recorded. Family History Relationship Description Onset Age of this Age Resolved Age Notes LastModified by Organization Details LastModified Time Father Family history of malignant neoplasm Not available 2021 11:37:56 Brother Family history of malignant neoplasm Not available 2021 11:37:56 Mother Heart disease Not available 2021 11:38:06 Sister Heart disease Not available 2021 11:38:06 Medical History Condition Response Anemia Y Diabetes Y Bleeding Disorder Y Cancer Y Sleep Disorder Y Hypertension Y Gynecological HistoryNo gynecological history recorded. Obstetrics History GPAL:G 0 P 0 0 0 0 Past Encounters Encounter ID Performer Location Encounter Start Date Encounter Closed Date Diagnosis/Indication Diagnosis SNOMED-CT Code Diagnosis ICD10 Code Diagnosis Note [id number] FELECIA GARBER MD [facility] [address] [place] [address] 04/25/2022 11:13:31 04/25/2022 12:47:00 Anterior epistaxis 158824303 R04.0 Chronic sore throat 2754 62040 J31.2 No obvious findings Change in voice 70843871 5 R49.9 Bowed vocal cords Pyogenic granuloma 2002 L98.0 Left septum? 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 Health Concerns Section Related Observation LastModified by Organization Detai ls LastModified Time None Recorded Concern Status LastModified by Organization Details LastModified Time None Recorded Advance Directives Directive None Recorded Payers Encounter Date Sequence Insurance Name Policy Number Policy Guallpa Covered Member ID Guallpa Member ID Guarantor Name 04/25/2022 1 [place] Kristina Jimenez Javier [id number] Kristina Jimenez Javier 04/25/2022 2 [employer]PS - FOR LIFE (MEDICARE SUPPLEMENT) Kristina Jimenez Javier [id number] Kristina Jimenez Javier Notes Date Note Type Note Provider Name and Address Organization Details Recorded Time 04/25/2022 text/html Kristina is a 76 year old being seen in consultation at the request of Rafaela Crump APRN for nosebleeds. Kristina states that she has recently been having issues with nosebleeds. The nosebleeds started in August. She states that the bleeding would happen weekly but at times twice daily. She believes that the bleeding started after using her CPAP machine. She was not using the humidifier with the CPAP machine. Her last nosebleed was on April 01. When she would have a nosebleed she would pinch her nose and sit down. After a few minutes she would be able to get the bleed to stop. She has a history of high blood pressure. She takes medication for that regularly. Additionally, Kristina states that her throat has been sore and she has noticed no changes in her voice. She has never used tobacco. She states that her voice is not as loud as it has been before. FELECIA GARBER MD [facility] [place], [address], [facility] 04/26/2022 12:44:33 OBGyn Episode No OBEpisode recorded.
--- OUTSIDE RECORDS SUMMARY | 2025-02-12 07:31 | XMS_ITS ---
Author Organization [facility] , [facility] Address [address] [place] [address] Phone Care Team Providers Care Director Of Materials Management Name Role Phone Eduar ZIMMERMAN, Juan Diego Benton Unavailable [phone] Plan of Treatment No Plan of Treatment Recorded Assessments Includes: Assessments for all patient encounters No Assessments Recorded Medical Equipment - Implanted Devices Includes: Current and historical Devices No Medical Equipment Recorded Medications Administered Includes: Administered Medications in patient's chart No Administered Medications Recorded Results Includes: Results from 02/13/2024 through 02/12/2025 No Results Recorded For Specified Dates History of Present Illness History of Present Illness not supported for this document type No History of Present Illness Recorded Social History No Social History Recorded - Smoking Status Unknown Medical History Includes: Medical History in patient's chart No Medical History Recorded Family History Includes: Family History in patient's chart No Family History Recorded Review of Systems Review of Systems not supported for this document type No Review of Systems Recorded Mental Status No Mental Status Recorded Functional Status No Functional Status Recorded Physical Exam Physical Exam not supported for this document type No Physical Exam Recorded Insurance Includes: Active Insurance Policies Plan Name Member ID Group # Subscriber Relationship Effect samina Dates 1 - Medicare Part B [facility] [id number] Kristina Herrera Self Clinical Notes Includes: Signed Clinical Notes starting from 10/05/2022 No Clinical Notes Recorded
[2025-02-12] MEDS: ASPIRIN 81MG CHEWABLE TABLET 324 MG PO (07:51)
[2025-02-12 08:00] LABS: Basophils % 0.6 % (0.1-2.0); Eosinophils # 0.2 Kmm3 (0.0-0.4); Eosinophils % 2.4 % (0.1-12.0); Hematocrit 40.7 % (37.0-47.0); Lymphocytes # 1.9 K/mm3 (0.7-4.5); Lymphocytes % 27.3 % (10-50); Mean Corpuscular HGB Conc 31.9 g/dL (31.8-35.4); Mean Corpuscular Hemoglobin 28.4 pg (27.0-31.2); Mean Corpuscular Volume 89.1 fl (81-99); Monocytes # 0.3 K/mm3 (0.1-1.0); Monocytes % 3.7 % (1.7-9.3); Neutrophils # 4.6 K/mm3 (1.8-7.8); Neutrophils % 65.6 % (37.0-80.0); Nucleated Red Blood Cells # 0 10^3/uL; Nucleated Red Blood Cells % 0 %; Platelet Count 166 K/mm3 (142-424); Red Blood Count 4.57 M/mm3 (4.20-5.40); Red Cell Distribution Width 14.1 % (11.5-17.5); Red Cell Distribution Width-SD 45.4 fL
[2025-02-12 08:03] LABS: Albumin Level 4.4 g/dl (3.5-5.0); Chloride 107 mmol/L (98-107); Potassium 5.3 mmoL/L (3.5-5.1); Sodium 139 mmol/L (136-145)
[2025-02-12 08:05] LABS: Alanine Aminotransferase 18 U/L (12-78); Aspartate Amino Transferase 47 U/L (14-36); Blood Urea Nitrogen 31 mg/dl (7-17); Creatinine Clearance Estimated 69 mL/min (50-200); Estimated Glomerular Filt Rate 81 ml/min (>60); GFR (African American) 98 ML/MIN (>60)
[2025-02-12 08:06] LABS: Albumin/Globulin Ratio 1.5 (1.1-1.8); Alkaline Phosphatase 29 U/L (38-126); Anion Gap 11.3 mEq/L (5-15); Bilirubin,Total 1.3 mg/dl (0.2-1.3); Calcium 9.4 mg/dl (8.4-10.2); Carbon Dioxide 26 mmol/L (22.0-30.0); Glucose 158 mg/dl (74-100); Lipase 144 U/L (23-300); Magnesium 1.9 mg/dl (1.6-2.3); Total Protein,Serum 7.4 g/dl (6.3-8.2)
--- NOTE | 2025-02-12 08:09 | HMH.EDGENADL ---
Discharge Plan Disposition Patient Disposition: Home, Self-Care Chief Complaint: Chest Pain Prescriptions Prescriptions: No Action aspirin [Adult Low Dose Aspirin] 81 mg tablet,delayed release (DR/EC) 81 mg PO DAILY ascorbic acid (vitamin C) 1,000 mg capsule 1 g PO DAILY Farxiga 10 mg tablet 10 mg PO DAILY 90 Days Qty: 90 1RF glimepiride 1 mg tablet 1 mg PO DAILY 90 Days Qty: 90 2RF fluocinolone acetonide oil [DermOtic Oil] 0.01 % drops 5 drp otic (ear) BID 7 Days Qty: 20 0RF clotrimazole 10 mg luis fernando 10 mg mucous membrane 5XD 14 Days Qty: 70 0RF atorvastatin 10 mg tablet 10 mg PO DAILY 90 Days Qty: 90 1RF cetirizine 10 mg tablet 10 mg PO DAILY 90 Days Qty: 90 1RF oxybutynin chloride 10 mg tablet extended release 24hr See Rx Instructions .ROUTE .COMPLEX Qty: 90 3RF Dose Instruction: TAKE 1 TABLET DAILY Rx Instructions: TAKE 1 TABLET DAILY nystatin-triamcinolone 100,000-0.1 unit/gram-% ointment 1 applic topical BID 90 Days Qty: 60 2RF pioglitazone 15 mg tablet 15 mg PO DAILY Qty: 90 0RF azithromycin [Zithromax Z-Amandeep] 250 mg tablet See Rx Instructions PO .COMPLEX 5 Days Qty: 6 0RF Rx Instructions: For 250 mg dose pack: take 500 mg today (day 1), then 250 mg for 4 days (days 2-5) PO Referrals Follow up/Referrals: Enma Crump APRN [Primary Care Provider] - See instructions Kevin Choudhury MD [Staff Physician] - See instructions Activity Restrictions/Add. Instructions Additional Instructions/Restrictions: Call your family doctor to establish care for this visit to the emergency department and schedule follow-up within 48 hours to ensure improvement. If you have any worsening of your condition or any other concerning signs or symptoms, return to the emergency department or your primary care doctor for further evaluation. Call cardiology in order to schedule follow-up for further evaluation of your chest pain. Clinical Impressions Clinical Impression: Chest pain Print Language Print Language: Panamanian Discharge ED Provider: Sung Law General Adult HPI General Chief complaint: Chest Pain Stated complaint: CP Time Seen by Provider: 02/12/25 07:26 Mode of Arrival: Ambulatory Source of Information: Patient Description of Symptoms (Recalled from ER Triage Doc. by RN): patient reports for one month she has intermittment chest pain and jaw pain. today she has substernal chest pain that she describes as aching. she believs she has anxiety due to loosing her one week ago. she took 162 mg of aspirin prior to arrival History of Present Illness HPI narrative: Please note that above description of symptoms, in this electronic medical record under categorization of recalled from ER triage doctor by RN are reflective of an initial nursing assessment, however, is not reflective of my full history and physical exam that was personally taken and clarified. Consequentially, this preceding description of symptoms, which may include the patient's categorized chief complaint in the EMR, do not reflect my personal clinical impression, and the ultimate description of history of present illness and patient stated complaints should be deferred to this section of the note. Unless stated otherwise or congruent with this section of the note, additional signs, symptoms, or incongruence should be interpreted as inaccurate with my clinical impression. Related Data Home Medications ?Medication ?Instructions ?Recorded ?Confirmed aspirin 81 mg tablet,delayed 81 mg PO DAILY 08/15/23 12/22/24 release (Adult Low Dose Aspirin) ascorbic acid (vitamin C) 1,000 mg 1 g PO DAILY 05/07/24 12/22/24 capsule Previous Rx's ?Medication ?Instructions ?Recorded dapagliflozin propanediol 10 mg 10 mg PO DAILY 90 days #90 tabs 07/21/24 tablet (Farxiga) glimepiride 1 mg tablet 1 mg PO DAILY 90 days #90 tabs 07/21/24 clotrimazole 10 mg luis fernando 10 mg mucous membrane 5XD 14 days 08/18/24 #70 tabs atorvastatin 10 mg tablet 10 mg PO DAILY 90 days #90 tabs 11/07/24 cetirizine 10 mg tablet 10 mg PO DAILY 90 days #90 tabs 11/07/24 oxybutynin chloride 10 mg See Rx Instructions .Route 11/07/24 tablet,extended release 24 hr .COMPLEX #90 tabs nystatin-triamcinolone 100,000 1 applic topical BID 90 days #60 11/12/24 unit/gram-0.1 % topical ointment grams fluocinolone acetonide oil 0.01 % 5 drp otic (ear) BID 7 days #20 mL 12/12/24 ear drops (DermOtic Oil) pioglitazone 15 mg tablet 15 mg PO DAILY #90 tabs 12/24/24 azithromycin 250 mg tablet See Rx Instructions PO .COMPLEX 5 01/05/25 (Zithromax Z-Amandeep) days #6 tabs Allergies Allergy/AdvReac Type Severity Reaction Status Date / Time Iodinated Contrast Media Allergy Mild Hives Verified 02/12/25 08:23 [facility] Disclaimer: The information contained in this section may have been updated after the patient was seen, as this information can be updated by other users. 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 leg Basal cell carcinoma of skin of nose Diabetes type 2, controlled Hyperlipidemia Surgical History H/O of nasal cauterization H/O breast biopsy H/O removal of cyst foot History of appendectomy History of x2 History of hysterectomy Social History Smoking Status: Never smoker alcohol intake: never current occupational status: unemployed Travel in the last 8 weeks: None Have you lived/traveled outside US in past 30 days?: No Contact w/someone who lives/traveled outside US past 30 days?: No Exposure to someone with infectious disease in past 14 days?: No Do you have a fever (greater than 100.4 F or 38 C)?: No Have you tested positive for COVID-19: No Exposed to someone with COVID-19 in past 14 days?: No Do you have a sore throat?: No Do you have a cough?: No Do you have any weakness?: No Do you have any diarrhea?: No Are you experiencing any unusual bleeding?: No Do you have any muscle aches/pain?: No Do you have any abdominal pain?: No Are you experiencing loss of taste or smell?: No Other Medical History Have you received the Pneumonia Vaccine: No ROS Obtained: Yes All systems reviewed & no additional complaints except as documented Physical Exam General General appearance: alert and in no apparent distress Head Head exam: atraumatic and normocephalic Eye Eye exam: Present normal appearance, PERRL and EOMI Neck Neck exam: Present normal inspection, full ROM and trachea midline Respiratory Respiratory exam: Absent respiratory distress, wheezes, stridor, accessory muscle use or prolonged expiratory phase Cardiovascular Cardiovascular exam: Present regular rate, normal rhythm, normal heart sounds and other (Pulses equal symmetric in upper and lower extremities) Abdominal Exam Abdominal exam: Present soft; Absent distention, tenderness or pulsatile mass Extremities Exam Extremities exam: Present edema (1+ pitting) Neurological Exam Neurological exam: Present alert, oriented X3 and CN II-XII intact; Absent motor sensory deficit Skin Skin exam: Present warm and dry; Absent diaphoresis or erythema Medical Decision Making Medical Records Medical records reviewed: Yes I reviewed the patient's medical records. Screening: Per USPSTF and CDC recommendations, given the prevalence of disease in our region, it is our hospital?s policy to screen for HIV and viral Hepatitis for all patients aged 18 and over and those with ongoing risk factors. Robert Inquiry Pt receiving controlled substance: No Robert was queried for this patient: No Vital Signs: 02/12/25 07:26 02/12/25 07:27 02/12/25 07:45 Temperature 98.8 F Temperature Source Oral Pulse Rate 59 L 58 L Pulse Rate [Right Radial] 66 Respiratory Rate 18 19 Blood Pressure 147/78 H Blood Pressure [Right Arm] 172/95 H Blood Pressure Mean [Right Arm] 120 Blood Pressure Source [Right Arm] Automatic Cuff Blood Pressure Position [Right Arm] Supine 02 Sat by Pulse Oximetry 97 92 L Oxygen Delivery Method Room Air 02/12/25 08:15 02/12/25 08:45 02/12/25 09:01 Temperature Temperature Source Pulse Rate 50 L 51 L 46 L Pulse Rate [Right Radial] Respiratory Rate 11 L 22 20 Blood Pressure 131/78 143/83 H 136/70 Blood Pressure [Right Arm] Blood Pressure Mean [Right Arm] Blood Pressure Source [Right Arm] Blood Pressure Position [Right Arm] 02 Sat by Pulse Oximetry 95 92 L 93 L Oxygen Delivery Method 02/12/25 10:00 02/12/25 10:31 Temperature Temperature Source Pulse Rate 45 L 56 L Pulse Rate [Right Radial] Respiratory Rate 17 22 Blood Pressure 123/66 136/65 Blood Pressure [Right Arm] Blood Pressure Mean [Right Arm] Blood Pressure Source [Right Arm] Blood Pressure Position [Right Arm] 02 Sat by Pulse Oximetry 96 93 L Oxygen Delivery Method Room Air Lab Data Lab Results 02/12/25 07:47: WBC 7.0, RBC 4.57, Hgb 13.0, Hct 40.7, MCV 89.1, MCH 28.4, MCHC 31.9, RDW 14.1, Plt Count 166, MPV 10.0, Neut % (Auto) 65.6, Lymph % (Auto) 27.3, Gove % (Auto) 3.7, Eos % (Auto) 2.4, Baso % (Auto) 0.6, Neut # (Auto) 4.6, Lymph # (Auto) 1.9, Gove # (Auto) 0.3, Eos # (Auto) 0.2, Baso # (Auto) 0.0, APTT 27.1, D-Dimer 1.09 H, Sodium 139, Potassium 5.3 H, Chloride 107, Carbon Dioxide 26, Anion Gap 11.3, BUN 31 H, Creatinine 0.70, Estimated Creat Clear 69, Estimated GFR 81, Est GFR ( Amer) 98, Glucose 158 H, Calcium 9.4, Magnesium 1.9, Total Bilirubin 1.3, AST 47 H, ALT 18, Alkaline Phosphatase 29 L, Troponin I 0.02, NT-Pro-B Natriuret Pep 77.1, Total Protein 7.4, Albumin 4.4, Globulin 3.0, Albumin/Globulin Ratio 1.5, Lipase 144, TSH 2.29, Thyroxine (T4) 8.0, HCV Ab LILI w/Rflx PCR Qn Negative, HIV Ag/Ab Combo Qual Negative 02/12/25 10:15: Troponin I < 0.01 02/12/25 07:47 02/12/25 07:47 Orders (Tests/Meds): ED MEDICATIONS Discontinued Medications Generic Name Dose Route Start Last Admin Trade Name Jon PRN Reason Stop Dose Admin Aspirin 324 mg 02/12/25 07:26 02/12/25 07:51 Aspirin 81mg Chewable Tablet PO 02/12/25 07:27 162 mg ONCE ONE Administration Diphenhydramine HCl 25 mg 02/12/25 08:09 02/12/25 08:14 Diphenhydramine 50mg/Ml Vial IV 02/12/25 08:10 25 mg ONCE ONE Administration Iopamidol 70 ml 02/12/25 09:28 02/12/25 09:30 Iopamidol-370 (76%);100ml Bottle IV 02/12/25 09:29 70 ml ONCE ONE Administration Methylprednisolone Sodium Succinate 125 mg 02/12/25 08:09 02/12/25 08:14 Methylprednisolone Sod Succ 125mg Vial IV 02/12/25 08:10 125 mg ONCE ONE Administration Sodium Chloride 50 ml 02/12/25 09:28 02/12/25 09:30 0.9 % Sodium Chloride 50 Ml Vial IV 02/12/25 09:29 50 ml ONCE ONE Administration Sodium Chloride 10 ml 02/12/25 09:28 02/12/25 09:30 Sodium Chloride 0.9% 10ml Syr (Rad Only) IV 02/12/25 09:29 10 ml ONCE ONE Administration ORDERS Category Date Time Status CT angio chest PE protocol Stat Cat Scan 02/12/25 09:04 Completed POCUS Point of Care (ER Only) Stat Exams 02/12/25 07:27 Completed Complete Blood Count Auto Diff Stat Lab 02/12/25 07:47 Completed Comprehensive Metabolic Panel Stat Lab 02/12/25 07:47 Completed D-Dimer Stat Lab 02/12/25 07:47 Completed HIV Combo Stat Lab 02/12/25 07:47 Completed Hepatitis C Ab Qual. W/ RFX Stat Lab 02/12/25 07:47 Completed Lipase Stat Lab 02/12/25 07:47 Completed Magnesium Stat Lab 02/12/25 07:47 Completed NT Pro Brain Natriuretic Pep. Stat Lab 02/12/25 07:47 Completed PTT [Activated Partial Thrombo Time] Stat Lab 02/12/25 07:47 Completed T4 (Thyroxine) Stat Lab 02/12/25 07:47 Completed TSH [Thyroid Stimulating Hormone] Stat Lab 02/12/25 07:47 Completed Troponin I Q3H Lab 02/12/25 10:15 Completed Troponin I Q3H Lab 02/12/25 13:30 Ordered Troponin I Stat Lab 02/12/25 07:47 Completed Medical Decision Narrative: 79-year-old female presenting with jaw pain and chest pain. She states that the chest pain started a month or 2 ago, jaw pain started over the past week. She lost her about a week ago. Some shortness of breath, some with exertion, nothing in particular makes the chest pain better or worse, it seems agitated by stress. Patient also states that she is some lower extremity swelling. No nausea, vomiting, diaphoresis, syncopal episodes. Had this pain in the past, was told that she had an enlarged heart, but never followed up or does not remember any details about it. History was obtained via conversation with patient. It should be noted that she has a history of enlarged heart, ANTWAN on sleep apnea, type 2 diabetes, hypertension, hyperlipidemia which are likely contributing to case today. On arrival, patient hemodynamically stable, alert, oriented x4, appropriate, GCS 15, moving all extremities spontaneously, pupils equal and reactive to light. Full physical exam performed and significant for 79-year-old female no acute distress. Cardiac exam with no murmurs gallops or rubs. She is borderline bradycardic, but otherwise normal. 1+ lower extremity bilateral pitting edema. Pulses equal and symmetric in upper and lower extremities. Speaking in full sentences and alert and oriented, neurologically intact. Lungs are clear and all harvey. Differential includes microvascular coronary artery disease, CHF, ACS, CA, coronary artery dissection, pneumothorax, PE, dissection, pericarditis, myocarditis, pneumothorax, aortic aneurysm, pneumonia, bronchitis, among others. Patient placed on continuous cardiac monitoring and continuous pulse ox with initial blood pressure 172/95, heart rate 59, saturation 93% on room air. Independent interpretation of EKG shows sinus bradycardia with mild ST depressions in anterior and lateral leads. No reciprocal change. WA 195, QRS 107, QTc 4 3 with normal axis. Patient was given full dose aspirin for symptomatic management and correction of underlying abnormalities. Bedside [id number] ultrasound performed. Normal EF, grossly normal wall kinetics, no evidence of regurgitation, with no evidence of effusion or abnormality. Workup independently interpreted and significant for nonactionable CBC with normal hemoglobin and nonactionable chemistry. Mildly isolated elevated BUN and potassium. D-dimer elevated. Troponin and BNP 0.02, and less than 100, respectively. Patient in observation around 7:30 AM to rule out evolving CA and determine need for hospitalization versus home-going. On reevaluation, patient states that she is currently asymptomatic while laying in bed. Intermittently having oxygen desaturations 92 to 94%, states that she has no history of COPD or any lung disease. She is on CPAP at night for ANTWAN. Because of elevated dimer, conversation had with patient regarding utility of CT scan and she is agreeable to pretreatment with Solu-Medrol and Benadryl prior to receiving CT scan she states that her allergy is hives. This was administered. Patient was allowed nearly an hour of observation time to allow medications to work. CT scan obtained. On independent interpretation, no acute PE or pneumothorax, but she does have bilateral groundglass opacities. On reevaluation, patient still resting comfortably. Because symptoms been going on for a month with normal workup today, negative delta troponin, I feel comfortable with outpatient cardiology follow-up for patient. She feels agreeable to this. Because patient at baseline without signs or symptoms of clinical decompensation, deemed appropriate for discharge. Results were relayed to patient who voiced understanding and were agreeable to outpatient management and follow up. I discussed my clinical impression with patient and answered all questions. At this time, the evidence for any other entities in the differential is insufficient to warrant any further testing or ED observation. This was explained as well. Advisory was given that persistent or worsening symptoms require further evaluation. I confirmed the understanding of this discussion. Rehab/Pre Vocational Counselor disclaimer Much of this encounter note is an electronic quality assurance group leader spoken language to printed text. Electronic quality assurance group leader of the spoken language may permit errors. Although I have reviewed the note, some errors may still exist. Procedures Limited Ultrasound Indication:: Limited cardiac ultrasound Indication: Chest pain, shortness of breath Identified cardiac views: -Cardiac parasternal long axis -Cardiac parasternal short axis Findings: -Cardiac activity present -Gross wall motion normal -Pericardial effusion absent -Right heart strain absent - EPSS 7.0 - No evidence of valvular regurgitation Impression: - Normal [id number] cardiac echo Images were saved to permanent archive The study was technically adequate CPT: 52263 This study was performed by me, and I personally interpreted all images/videos. Based on my clinical judgement, these images were adequate and did not necessitate further imaging Critical Care Critical Care Time Critical Care Time: No
[2025-02-12 08:11] LABS: Activated Partial Thrombo Time 27.1 seconds (22.8-30.6)
[2025-02-12] MEDS: METHYLPREDNISOLONE SOD SUCC 125MG VIAL 125 MG IV (08:14)
[2025-02-12] MEDS: diphenhydrAMINE 50MG/ML VIAL 25 MG IV (08:14)
[2025-02-12 08:18] LABS: D-Dimer 1.09 ug/mL (0.0-0.5)
--- NOTE | 2025-02-12 08:30 | PC.NURSE ---
Dr. Law at bedside, ordered medications to pre medicate patient due to allergy to contrast so she can get a CT Scan. patient verbalized understanding. no other needs voiced at this time
[2025-02-12 08:37] LABS: Thyroid Stimulating Hormone 2.29 uIU/mL (0.465-4.68)
--- NOTE | 2025-02-12 08:48 | PC.NURSE ---
I called lab to check on time remaining on troponin level. Nitin states It was put on the wrong analyzer and we switched it over so it will be done in [address] Law notified.
--- NOTE | 2025-02-12 09:04 | CT_ITS ---
FINAL REPORT TECHNIQUE: Axial imaging of the chest is obtained after the administration of contrast. 3-D MIP reformatted images were also obtained and reviewed per PE protocol. This study was performed with techniques to keep radiation doses as low as reasonably achievable (ALARA). Individualized dose reduction techniques using automated exposure control or adjustment of mA and/or kV according to the patient's size were employed. CLINICAL HISTORY: CP, HYPOXEMIA, DIMER COMPARISON: Prior chest CT dated 02/11/2024 FINDINGS: The pulmonary arteries are well filled. There is no evidence of pulmonary embolus. There is no aortic dissection. The heart is enlarged. There is no mediastinal, hilar, or axillary lymphadenopathy. There are new bilateral ground glass opacities present. Bilateral interlobular septal thickening is present as well, the overall appearance most consistent with congestive heart failure. There is no pleural or pericardial effusion. There is a nodule adjacent to the right minor fissure that measures 9 mm, with seen on the prior CT of 2023 and measured 11 mm at that time. Limited evaluation of the upper abdomen is without acute abnormality. No acute osseous abnormality. IMPRESSION: No evidence of pulmonary embolism or aortic dissection. Cardiomegaly, with new bilateral ground glass opacities and bilateral interlobular septal thickening, most consistent with changes of CHF. Reviewed, Interpreted and Dictated by Adrienne Moss MD Transcribed by Maryjo Walsh Authenticated and [facility]
[2025-02-12 09:07] LABS: Troponin I 0.02 ng/ml (0.00-0.034)
[2025-02-12 09:08] LABS: Hepatitis C Ab Qual. W/ RFX NEGATIVE (Negative)
--- NOTE | 2025-02-12 09:15 | PC.NURSE ---
called ct to remind them to come get patient for CT due to being pre medicated
[2025-02-12 09:16] LABS: NT Pro Brain Natriuretic Pep. 77.1 pg/mL (0-450)
[2025-02-12] MEDS: IOPAMIDOL-370 (76%);100ML BOTTLE 70 ML IV (09:30)
[2025-02-12] MEDS: SODIUM CHLORIDE 0.9% 10ML SYR (RAD ONLY) 10 ML IV (09:30)
[2025-02-12] MEDS: 0.9 % SODIUM CHLORIDE 50 ML VIAL IV (09:30)
[2025-02-12 10:43] LABS: Troponin I < 0.01 ng/ml (0.00-0.034)
[2025-02-12 11:09] LABS: HIV Combo NEGATIVE (Negative)
== END 2025-02-12 11:28 | disposition home or self-care (01) ==
PROVIDERS: Emergency Provider Emergency Medicine; PCP Nurse Practitioner Family
DX: R07.89 Other chest pain (principal); R68.84 Jaw pain; R00.1 Bradycardia, unspecified; Z11.59 Encounter for screening for other viral diseases; Z11.4 Encounter for screening for human immunodeficiency virus [HIV]
CPT/HCPCS: 71275; 80053; 83690; 83735; 83880; 84436; 84443; 84484; 85025; 85378; 85730; 86803; 87389; 93005; 96374; 96375; 99285; J1200; J2919; Q9967

== ENCOUNTER 2025-02-17 07:53 | Emergency (ER) | payer MEDICARE, OTHER, SELFPAY ==
--- OUTSIDE RECORDS SUMMARY | 2025-02-17 08:05 | XMS_ITS ---
Author Organization [facility] , [facility] Address [address] [place] [address] Phone Care Team Providers Care Career Developer Name Role Phone Eduar ZIMMERMAN, Juan Diego Benton Unavailable [phone] Plan of Treatment No Plan of Treatment Recorded Assessments Includes: Assessments for all patient encounters No Assessments Recorded Medical Equipment - Implanted Devices Includes: Current and historical Devices No Medical Equipment Recorded Medications Administered Includes: Administered Medications in patient's chart No Administered Medications Recorded Results Includes: Results from 02/18/2024 through 02/17/2025 No Results Recorded For Specified Dates History [...] samina Dates 1 - Medicare Part B [facility] [id number] Kristina Herrera Self Clinical Notes Includes: Signed Clinical Notes starting from 10/05/2022 No Clinical Notes Recorded
--- OUTSIDE RECORDS SUMMARY | 2025-02-17 08:05 | XMS_ITS | Continuity of Care Document ---
Author Name [facility] Organization [facility] Care Team Providers Care Comic Book Artist Name Role Phone [facility] Unavailable Unavailable Problems Combined list of problems from Department of [facility] and [facility] facilities. It does not include entries that were removed or entered in error. Problem Status Onset Date Problem Type Date of Resolution Comments Source Diagnosis: ICD-10-CM Z71.0 Prsn encntr [facility] serv to consult on behalf of another person Active Diagnosis [facility] Medications Combined list of outpatient medications from Department of [facility] and [facility] facilities.Medications provided include 1) outpatient medications from the last 15 months, and 2) patient-reported medications. Medication Details Route Status Patient Instructions Prescription Expires Prescription Number Last Dispense Date Ordering Provider Order Date Order Qty Source AZELASTINE HCL (AZELASTINE HCL), 137 MCG, SPRAY/PUMP, NASAL, Open [employer] MAIN, 30 ml SQUEEZ BTL Active [id number] 4 2023 30 Pharmac y Data Transac tion Service Facilit y CEFDINIR (cefdinir), 300 MG, CAPSULE, ORAL, fflick [facility], 60 ea. BOTTLE Active [id number] 4 2023 20 Pharmac y Data Transac tion Service Facilit y CEPHALEXIN (CEPHALEXIN MONOHYDRATE ), 500MG, CAPSULE, ORAL, [facility], 500 ea. BOTTLE Active [id number] 4 2023 30 Pharmac y Data Transac tion Service Facilit y CETIRIZINE HCL (cetirizine HCl), 10 MG, TABLET, ORAL, [employer], 90 ea. BOTTLE Active [id number] 4 2023 90 Pharmac y Data Transac tion Service Facilit y CETIRIZINE HCL (cetirizine HCl), 10 MG, TABLET, ORAL, [employer], 90 ea. BOTTLE Active [id number] 4 2023 90 Pharmac y Data Transac tion Service Facilit y DAPAGLIFLOZ IN (dapagliflo zin propanediol ), 10 MG, TABLET, ORAL, [facility], 30 ea. BOTTLE Active [id number] 4 2023 90 Pharmac y Data Transac tion Service Facilit y FLUCONAZOLE (FLUCONAZOL E), 100 MG, TABLET, ORAL, [employer], 30 ea. BOTTLE Active [id number] 4 2023 10 Pharmac y Data Transac tion Service Facilit y FLUCONAZOLE (FLUCONAZOL E), 100 MG, TABLET, ORAL, [employer], 30 ea. BOTTLE Active [id number] 4 2023 10 Pharmac y Data Transac tion Service Facilit y FLUCONAZOLE (fluconazol e), 150 MG, TABLET, ORAL, [facility], 12 ea. BLIST PACK Active [id number] 4 2023 5 Pharmac y Data Transac tion Service Facilit y JANUVIA (SITAGLIPTI N PHOSPHATE), 100MG, TABLET, ORAL, [employer] 90 ea. BOTTLE Active [id number] 4 2023 90 Pharmac y Data Transac tion Service Facilit y OXYBUTYNIN CHLORIDE ER (oxybutynin chloride), 10 MG, TAB ER 24, ORAL, [employer], 500 ea. BOTTLE Active [id number] 4 2023 90 Pharmac y Data Transac tion Service Facilit y OXYBUTYNIN CHLORIDE ER (oxybutynin chloride), 10 MG, TAB ER 24, ORAL, [employer], 500 ea. BOTTLE Active [id number] 4 2023 90 Pharmac y Data Transac tion Service Facilit y RYBELSUS (semaglutid e), 3 MG, TABLET, ORAL, TERRY NORDISK, 30 ea. BOTTLE Cancele d [id number] : 2023 0 Pharmac y Data Transac [...] ADM Date DC Date Status Disposition Source [facility] PH1 ASSMT&MGMT NQHP [id number] Diagnos is: ICD-10- CM Z71.0 Prsn encntr [facility] serv to consult on behalf of another person JAYLON MIRAMONTES 11/04 [place] [facility] Outpatient Encounter [id number] 11/26 [place] [facility] Social History Combined list of available smoking, tobacco, and other social history from Department of Defense and Veterans Affairs facilities. Social History Type Response Date Comment Sour e This section is an empty social history section. DoD
--- OUTSIDE RECORDS SUMMARY | 2025-02-17 08:05 | XMS_ITS ---
Care Plan - [facility], [facility] Created on: February 17, 2025 Kristina Herrera : 1945 Sex: Female Author Organization [facility] , [facility] Address [address] [place] [id number] Phone Care Team Providers Care Industrial Controls Technician Name Role Phone Eduar ZIMMERMAN, Juan Diego Benton Unavailable [phone]
[2025-02-17 08:11] VITALS: BP 142/75; PULSE 64; RESP 17; TEMP 37.1; O2SAT 98; BMI 38.7
--- NOTE | 2025-02-17 08:13 | ED_ITS ---
Discharge Plan Disposition Patient Disposition: Home, Self-Care Condition: Good Prescriptions Prescriptions: No Action aspirin [Adult Low Dose Aspirin] 81 mg tablet,delayed release (DR/EC) 81 mg PO DAILY ascorbic acid (vitamin C) 1,000 mg capsule 1 g PO DAILY Farxiga 10 mg tablet 10 mg PO DAILY 90 Days Qty: 90 1RF glimepiride 1 mg tablet 1 mg PO DAILY 90 Days Qty: 90 2RF fluocinolone acetonide oil [DermOtic Oil] 0.01 % drops 5 drp otic (ear) BID 7 Days Qty: 20 0RF clotrimazole 10 mg luis fernando 10 mg mucous membrane 5XD 14 Days Qty: 70 0RF atorvastatin 10 mg tablet 10 mg PO DAILY 90 Days Qty: 90 1RF cetirizine 10 mg tablet 10 mg PO DAILY 90 Days Qty: 90 1RF oxybutynin chloride 10 mg tablet extended release 24hr See Rx Instructions .ROUTE .COMPLEX Qty: 90 3RF Dose Instruction: TAKE 1 TABLET DAILY Rx Instructions: TAKE 1 TABLET DAILY nystatin-triamcinolone 100,000-0.1 unit/gram-% ointment 1 applic topical BID 90 Days Qty: 60 2RF pioglitazone 15 mg tablet 15 mg PO DAILY Qty: 90 0RF azithromycin [Zithromax Z-Amandeep] 250 mg tablet See Rx Instructions PO .COMPLEX 5 Days Qty: 6 0RF Rx Instructions: For 250 mg dose pack: take 500 mg today (day 1), then 250 mg for 4 days (days 2-5) PO Referrals Follow up/Referrals: Enma Crump APRN [Primary Care Provider] - See instructions Activity Restrictions/Add. Instructions Additional Instructions/Restrictions: You were evaluated in the emergency department today. As we discussed, your labs are reassuring and I feel that your rash is likely from irritation of your skin, whether it be from scratching or tight fitting pants. Monitor for any new or worsening symptoms, such as high fevers, worsening rash, or other concerns. Please follow-up closely with your primary care provider over the next week for reassessment. Keep your follow-up with cardiology as well. Return to the emergency department for new or worsening symptoms. Clinical Impressions Clinical Impression: Rash Instructions Patient Instructions: DI for Rash Print Language Print Language: Khmer Discharge ED Provider: Shayla Randolph General Adult HPI General Chief complaint: Skin/Abscess/Foreign Body Stated complaint: rash on abd, headache, poss allergic reaction Time Seen by Provider: 02/17/25 08:03 History of Present Illness HPI narrative: This patient is a 79-year-old female with a history of hypertension, hyperlipidemia, type 2 diabetes, CKD presenting to the emergency department for evaluation with concern for rash to her abdomen that she just noticed yesterday. Patient notes that she is allergic to IV contrast and has had hives in the past after receiving it. She came in 02/12/25 and received a CTA PE protocol for chest pain. She notes that she thinks that is the culprit and she is worried this could be an allergic reaction. The rash does not hurt, it does not itch. No other concerns or complaints noted. She denies any use of blood thinners, only taking aspirin occasionally as needed for pain. She is only used it once in the last couple of days. Related Data Home Medications ?Medication ?Instructions ?Recorded ?Confirmed aspirin 81 mg tablet,delayed 81 mg PO DAILY 08/15/23 12/22/24 release (Adult Low Dose Aspirin) ascorbic acid (vitamin C) 1,000 mg 1 g PO DAILY 05/07/24 12/22/24 capsule Previous Rx's ?Medication ?Instructions ?Recorded dapagliflozin propanediol 10 mg 10 mg PO DAILY 90 days #90 tabs 07/21/24 tablet (Farxiga) glimepiride 1 mg tablet 1 mg PO DAILY 90 days #90 tabs 07/21/24 clotrimazole 10 mg luis fernando 10 mg mucous membrane 5XD 14 days 08/18/24 #70 tabs atorvastatin 10 mg tablet 10 mg PO DAILY 90 days #90 tabs 11/07/24 cetirizine 10 mg tablet 10 mg PO DAILY 90 days #90 tabs 11/07/24 oxybutynin chloride 10 mg See Rx Instructions .Route 11/07/24 tablet,extended release 24 hr .COMPLEX #90 tabs nystatin-triamcinolone 100,000 1 applic topical BID 90 days #60 11/12/24 unit/gram-0.1 % topical ointment grams fluocinolone acetonide oil 0.01 % 5 drp otic (ear) BID 7 days #20 mL 12/12/24 ear drops (DermOtic Oil) pioglitazone 15 mg tablet 15 mg PO DAILY #90 tabs 12/24/24 azithromycin 250 mg tablet See Rx Instructions PO .COMPLEX 5 01/05/25 (Zithromax Z-Amandeep) days #6 tabs Allergies Allergy/AdvReac Type Severity Reaction Status Date / Time Iodinated Contrast Media Allergy Mild Hives Verified 02/12/25 08:23 [facility] Disclaimer: The information contained in this section may have been updated after the patient was seen, as this information can be updated by other users. 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 leg Basal cell carcinoma of skin of nose Diabetes type 2, controlled Hyperlipidemia Surgical History H/O of nasal cauterization H/O breast biopsy H/O removal of cyst History of appendectomy History of History of hysterectomy Social History Smoking Status: Never smoker alcohol intake: never current occupational status: unemployed Travel in the last 8 weeks?: None Have you lived/traveled outside US in past 30 days?: No Contact w/someone who lives/traveled outside US past 30 days?: No Exposure to someone with infectious disease in past 14 days?: No Do you have a fever (greater than 100.4 F or 38 C)?: No Have you tested positive for COVID-19?: No Exposed to someone with COVID-19 in past 14 days?: No Do you have a sore throat?: No Do you have a cough?: No Do you have any weakness?: No Do you have any diarrhea?: No Are you experiencing any unusual bleeding?: No Do you have any muscle aches/pain?: No Do you have any abdominal pain?: No Are you experiencing loss of taste or smell?: No Other Medical History Have you received the Pneumonia Vaccine: No ROS Obtained: Yes All systems reviewed & no additional complaints except as documented Physical Exam General General appearance: alert and in no apparent distress Head Head exam: atraumatic and normocephalic Eye Eye exam: Present normal appearance, PERRL and EOMI ENT ENT exam: Present normal exam, normal oropharynx, mucous membranes moist and normal external ear exam Neck Neck exam: Present normal inspection, full ROM and trachea midline; Absent tenderness Chest Chest inspection: Present normal inspection and symmetric chest wall rise; Absent tenderness Respiratory Respiratory exam: Present normal lung sounds bilaterally; Absent respiratory distress, wheezes, stridor or accessory muscle use Cardiovascular Cardiovascular exam: Present regular rate and normal rhythm Abdominal Exam Abdominal exam: Present soft; Absent distention, tenderness or guarding Extremities Exam Extremities exam: Present normal inspection, full ROM and normal capillary refill; Absent tenderness or edema Back Exam Back exam: Present normal inspection and full ROM; Absent tenderness Neurological Exam Neurological exam: Present alert, oriented X3, CN II-XII intact and normal gait; Absent motor sensory deficit Psychiatric Psychiatric exam: Present normal affect and normal mood Skin Skin exam: Present warm, dry and rash (Nonblanching erythematous petechial macular rash to lower abdomen and proximal bilateral thighs. No blistering, no sloughing, no bullae. Does not involve mucosa or skin folds. ) Expanded Skin Exam Body image: 2 1. rash as detailed 2. rash as detailed 3. rash as detailed 4. rash as detailed Medical Decision Making Medical Records Medical records reviewed: Yes I reviewed the patient's medical records. Screening: Per USPSTF and CDC recommendations, given the prevalence of disease in our region, it is our hospital?s policy to screen for HIV and viral Hepatitis for all patients aged 18 and over and those with ongoing risk factors. Robert Inquiry Pt receiving controlled substance: No Vital Signs: 02/17/25 08:11 02/17/25 09:18 02/17/25 10:34 Temperature 98.7 F 98.1 F Temperature Source Oral Pulse Rate 51 L 59 L Pulse Rate [Left Radial] 64 Respiratory Rate 17 18 Blood Pressure 119/56 L 127/62 Blood Pressure [Right Arm] 142/75 H Blood Pressure Mean [Right Arm] 97 02 Sat by Pulse Oximetry 98 97 Oxygen Delivery Method Room Air Room Air Room Air Lab Data Lab results reviewed: Yes I reviewed the patient's lab results. Lab Results 02/17/25 08:15: WBC 7.3, RBC 4.80, Hgb 13.4, Hct 42.8, MCV 89.2, MCH 27.9, MCHC 31.3 L, RDW 14.1, Plt Count 173, MPV 10.1, Neut % (Auto) 71.1, Lymph % (Auto) 21.1, Steele % (Auto) 4.0, Eos % (Auto) 3.0, Baso % (Auto) 0.4, Neut # (Auto) 5.2, Lymph # (Auto) 1.5, Steele # (Auto) 0.3, Eos # (Auto) 0.2, Baso # (Auto) 0.0, PT 11.0, INR 0.98, APTT 27.4, Sodium 140, Potassium 4.3, Chloride 106, Carbon Dioxide 29, Anion Gap 9.3, BUN 22 H, Creatinine 0.70, Estimated Creat Clear 69, Estimated GFR 81, Est GFR ( Amer) 98, Glucose 159 H, Calcium 9.6, Total Bilirubin 0.9, AST 27, ALT 17, Alkaline Phosphatase 60, C-Reactive Protein 7.0 H , Total Protein 7.0, Albumin 4.1, Globulin 2.9, Albumin/Globulin Ratio 1.4, Procalcitonin 0.055, Chlamy pneumoniae PCR Not detected, Adenovirus (PCR) Not detected, B. pertussis DNA (PCR) Not detected, Coronavirus OC43 (PCR) Not detected, Coronavirus HKU1 (PCR) Not detected, Coronavirus 229E (PCR) Not detected, SARS-CoV-2 (PCR) Not detected, Coronavirus NL63 (PCR) Not detected, Human Metapneumovir PCR Not detected, Influenza A (H1) PCR Not detected, Influ A (H1N1/09) PCR Not detected, Influenza A (H3) PCR Not detected, Influenza Type A (PCR) Not detected, Influenza Type B (PCR) Not detected, M. pneumoniae (PCR) Not detected, Parainfluenza 1 (PCR) Not detected, Parainfluenza 2 (PCR) Not detected, Parainfluenza 3 (PCR) Not detected, Parainfluenza 4 (PCR) Not detected, RSV (PCR) Not detected, Entero/Rhino (PCR) Not detected 02/17/25 08:15 02/17/25 08:15 Orders (Tests/Meds): ED MEDICATIONS Discontinued Medications Generic Name Dose Route Start Last Admin Trade Name Freq PRN Reason Stop Dose Admin Acetaminophen 1,000 mg 02/17/25 09:59 02/17/25 10:07 Acetaminophen 500mg Tab PO 02/17/25 10:00 1,000 mg ONCE ONE Administration Ketorolac Tromethamine 15 mg 02/17/25 09:59 02/17/25 10:07 Ketorolac 30mg/Ml Vial IV 02/17/25 10:00 15 mg ONCE ONE Administration ORDERS Category Date Time Status CBC w/Auto Diff [Complete Blood Count Auto Diff] Stat Lab 02/17/25 08:15 Completed CMP [Comprehensive Metabolic Panel] Stat Lab 02/17/25 08:15 Completed CRP [C-Reactive Protein] Stat Lab 02/17/25 08:15 Completed Full Resp Panel w/COVID ([facility]) Routine Lab 02/17/25 08:15 Completed PT INR [Prothrombin Time INR] Stat Lab 02/17/25 08:15 Completed PTT [Activated Partial Thrombo Time] Stat Lab 02/17/25 08:15 Completed Procalcitonin Stat Lab 02/17/25 08:15 Completed ECG Data Tracing #1: I reviewed this ECG and interpreted as documented below: Sinus bradycardia with a ventricular rate of [address]/T wave changes that are not changed from prior EKG. No acute STEMI. Normal intervals ECG initial impression date: 02/17/25 ECG initial impression time: 10:05 Medical Decision Narrative: In summary, this patient is a 79-year-old female presenting to the Emergency Department for evaluation of rash. Differential diagnoses considered include but are not limited to viral exanthem, coagulopathy, thrombocytopenia, vasculitis, irritation from friction (scratching vs pants), contact dermatitis, infectious etiology. Ruling out the most morbid conditions drove assessment. It should be noted patient's history includes hypertension, hyperlipidemia, diabetes, iron deficiency anemia which may or may not be at goal therapy. This complicates all aspects of care by increasing patient's risk for morbidity. I reviewed patient's past medical records and noted evaluation here 5 days ago for chest pains as detailed in HPI. She had a CTA PE protocol that was concerning for bilateral patchy groundglass opacities but otherwise workup was reassuring, and patient was able to be discharged. On exam, the patient is lying in bed in no acute distress. She is nontoxic- appearing with normal vitals on cardiac telemetry, is afebrile with no indications of sepsis or severe infection. She has no other concerns or complaints currently aside from the rash. The rash is erythematous nonblanching petechial rash to the lower abdomen and proximal thighs, does not extend to the skin folds. To me, it looks like it could be from irritation from either her pants being too tight in this area or from scratching, though she denies scratching. It is very localized and is not noted elsewhere. Workup included CBC, CMP, CRP, procalcitonin, coags. Labs were obtained that demonstrated reassuring CBC with normal blood counts, no thrombocytopenia. Reassuring chemistry with normal kidney function. She has normal coags. Inflammatory markers are not significantly elevated. On reassessment, the patient complains of headache. Headache is mild, dull, no focal neurologic deficits associated. Given this, she was given oral Tylenol and ibuprofen. Viral swab was sent and obtained and was negative. Family stresses concern over her heart rate being low on cardiac telemetry. On my review of medical records, when she was here she had sinus bradycardia on cardiac telemetry and EKG several days ago. Repeat EKG obtained here which demonstrates sinus bradycardia but no block, normal intervals. Overall, I feel we have excluded acute life-threatening pathology as a cause of the patient's rash and I feel she is appropriate for discharge home with close follow-up with PCP for monitoring and reassessment. I still feel that likely she has some irritation there of her skin from friction of some sort, whether she has been scratching her abdomen at night, friction from clothing, or other cause. I gave them instructions to monitor for any worsening of the rash or any new symptoms such as high fevers. I advised that they return to the emergency department should any issues like this arise. Critical Care Critical Care Time Critical Care Time: No
[2025-02-17 08:25] LABS: Adenovirus,PCR Not Detected (NotDetected); Basophils % 0.4 % (0.1-2.0); Bordetella Pertussis Not Detected (NotDetected); Chlamydophila Pneumoniae, PCR Not Detected (NotDetected); Coronavirus 19, PCR Not Detected (NotDetected); Coronavirus 229E Not Detected (NotDetected); Coronavirus NL63 Not Detected (NotDetected); Coronavirus OC43 Not Detected (NotDetected); Coronovirus HKU1,PCR Not Detected (NotDetected); Eosinophils # 0.2 Kmm3 (0.0-0.4); Hematocrit 42.8 % (37.0-47.0); Hemoglobin 13.4 g/dL (12.2-16.2); Human Metapneumovirus Not Detected (NotDetected); Influenza A, PCR Not Detected (NotDetected); Influenza AH1, 2009 Not Detected (NotDetected); Influenza AH1, PCR Not Detected (NotDetected); Influenza AH3,PCR Not Detected (NotDetected); Influenza B, PCR Not Detected (NotDetected); Lymphocytes # 1.5 K/mm3 (0.7-4.5); Lymphocytes % 21.1 % (10-50); Mean Corpuscular HGB Conc 31.3 g/dL (31.8-35.4); Mean Corpuscular Hemoglobin 27.9 pg (27.0-31.2); Mean Corpuscular Volume 89.2 fl (81-99); Mean Platelet Volume 10.1 fl (7.4-10.4); Monocytes # 0.3 K/mm3 (0.1-1.0); Mycoplasma Pneumoniae, PCR Not Detected (NotDetected); Neutrophils # 5.2 K/mm3 (1.8-7.8); Neutrophils % 71.1 % (37.0-80.0); Nucleated Red Blood Cells # 0 10^3/uL; Nucleated Red Blood Cells % 0 %; Parainfluenza 1, PCR Not Detected (NotDetected); Parainfluenza 2, PCR Not Detected (NotDetected); Parainfluenza 3, PCR Not Detected (NotDetected); Parainfluenza 4, PCR Not Detected (NotDetected); Platelet Count 173 K/mm3 (142-424); Red Cell Distribution Width 14.1 % (11.5-17.5); Red Cell Distribution Width-SD 46.3 fL; Respiratory Syncytial Virus Not Detected (NotDetected); Rhinovirus/Enterovirus Not Detected (NotDetected); White Blood Count 7.3 K/mm3 (4.8-10.8)
[2025-02-17 08:35] LABS: Albumin Level 4.1 g/dl (3.5-5.0); Chloride 106 mmol/L (98-107)
[2025-02-17 08:36] LABS: Potassium 4.3 mmoL/L (3.5-5.1); Sodium 140 mmol/L (136-145)
[2025-02-17 08:37] LABS: Activated Partial Thrombo Time 27.4 seconds (22.8-30.6); INR 0.98 (0.9-1.1)
[2025-02-17 08:38] LABS: Alanine Aminotransferase 17 U/L (12-78); Albumin/Globulin Ratio 1.4 (1.1-1.8); Alkaline Phosphatase 60 U/L (38-126); Anion Gap 9.3 mEq/L (5-15); Aspartate Amino Transferase 27 U/L (14-36); Bilirubin,Total 0.9 mg/dl (0.2-1.3); Blood Urea Nitrogen 22 mg/dl (7-17); Carbon Dioxide 29 mmol/L (22.0-30.0); Creatinine Clearance Estimated 69 mL/min (50-200); Estimated Glomerular Filt Rate 81 ml/min (>60); GFR (African American) 98 ML/MIN (>60); Globulin 2.9 g/dL (1.3-3.2)
[2025-02-17 08:39] LABS: Calcium 9.6 mg/dl (8.4-10.2); Glucose 159 mg/dl (74-100)
[2025-02-17 09:18] VITALS: BP 119/56; PULSE 51; O2SAT 97
[2025-02-17 09:20] LABS: Procalcitonin 0.055 ng/mL (0.0-2.0)
--- NOTE | 2025-02-17 10:04 | ECG_ITS ---
APPROVED REPORT Exam: Resting ECG HR:49 bpm ECG Measurements Heart Rate 49 AXES WV 194 P 55 QRSd 104 QRS 46 QT 426 T 50 QTc 397 Conclusion SINUS BRADYCARDIA Nonspecific ST changes without acute STEMI Electronically signed by : ЮЛИЯ HAWK, 02/17/2025 14:40:40
[2025-02-17] MEDS: KETOROLAC 30MG/ML VIAL 15 MG IV (10:07)
[2025-02-17] MEDS: ACETAMINOPHEN 500MG TAB 1000 MG PO (10:07)
[2025-02-17 10:34] VITALS: BP 127/62; PULSE 59; RESP 18; TEMP 36.7; O2SAT 97
== END 2025-02-17 10:42 | disposition home or self-care (01) ==
PROVIDERS: Emergency Provider Emergency Medicine; PCP Nurse Practitioner Family
DX: R51.9 Headache, unspecified (principal); R21 Rash and other nonspecific skin eruption; R00.1 Bradycardia, unspecified
CPT/HCPCS: 80053; 84145; 85025; 85610; 85730; 86140; 87633; 93005; 96374; 99284; J1885

== ENCOUNTER 2025-03-16 15:42 | Emergency (ER) | payer MEDICARE, OTHER, SELFPAY ==
--- OUTSIDE RECORDS SUMMARY | 2025-03-16 15:53 | XMS_ITS | Continuity of Care Document ---
Author Name [facility] Organization [facility] Care Team Providers Care Game Author Name Role Phone [facility] Unavailable Unavailable Problems Combined list of problems from Department of [facility] and [facility] facilities. It does not include entries that were removed or entered in error. Problem Status Onset Date Problem Type Date of Resolution Comments Source Diagnosis: ICD-10-CM Z71.0 Prsn encntr [facility] serv to consult on behalf of another person Active Diagnosis [facility] Medications Combined list of outpatient medications from Department of [facility] and [facility] facilities.Medications provided include 1) outpatient medications from the last 15 months, and 2) patient-reported medications. Medication Details Route Status Patient Instructions Prescription Expires Prescription Number Last Dispense Date Ordering Provider Order Date Order Qty Source AZELASTINE HCL (AZELASTINE HCL), 137 MCG, SPRAY/PUMP, NASAL, Style for [employer], 30 ml SQUEEZ BTL Active [id number] 4 2023 30 Pharmac y Data Transac tion Service Facilit y CEFDINIR (cefdinir), 300 MG, CAPSULE, ORAL, [facility] [facility], 60 ea. BOTTLE Active [id number] 4 2023 20 Pharmac y Data Transac tion Service Facilit y CEPHALEXIN (CEPHALEXIN MONOHYDRATE ), 500MG, CAPSULE, ORAL, [facility], 500 ea. BOTTLE Active [id number] 4 2023 30 Pharmac y Data Transac tion Service Facilit y DAPAGLIFLOZ IN (dapagliflo zin propanediol ), 10 MG, TABLET, ORAL, [employer] [facility], 30 ea. BOTTLE Active [id number] 4 2023 90 Pharmac y Data Transac tion Service Facilit y FLUCONAZOLE (FLUCONAZOL E), 100 MG, TABLET, ORAL, [employer], 30 ea. BOTTLE Active [id number] 4 2023 10 Pharmac y Data Transac tion Service Facilit y FLUCONAZOLE (FLUCONAZOL E), 100 MG, TABLET, ORAL, [employer], 30 ea. BOTTLE Active [id number] 2023 10 Pharmac y Data Transac tion Service Facilit y FLUCONAZOLE (fluconazol e), 150 MG, TABLET, ORAL, [employer], 12 ea. BLIST PACK Active [id number] 4 2023 5 Pharmac y Data Transac tion Service Facilit y JANUVIA (SITAGLIPTI N PHOSPHATE), 100MG, TABLET, ORAL, [employer] 90 ea. BOTTLE Active [id number] 4 2023 90 Pharmac y Data Transac tion Service Facilit y RYBELSUS (semaglutid e), 3 MG, TABLET, ORAL, TERRY NORDISK, 30 ea. BOTTLE Cancele d [id number] : 2023 0 Pharmac y Data Transac tion Service Facilit y Encounters Combined list of: 1) Encounters from Department of Veterans Affairs facilities going backup to the last 18 months, not all [place] inpatient encounters are included; 2) Encounters from the Department of Defense facilities going backup to 280 months. Location Location Details Encounter Type Encounter Number Reason For Visit Attending Provider ADM Date DC Date Status Disposition Source [facility] PH1 ASSMT&MGMT NQHP - [id number] Diagnos is: ICD-10- CM Z71.0 Prsn encntr [facility] serv to consult on behalf of another person JAYLON MIRAMONTES 11/04 [place] [facility] Outpatient Encounter [id number] 11[place] [facility] Social History Combined list of available smoking, tobacco, and other social history from Department of Defense and Veterans Affairs facilities. Social History Type Response Date Comment Sourc e This section is an empty social history section. DoD
--- OUTSIDE RECORDS SUMMARY | 2025-03-16 15:53 | XMS_ITS | Data Portability ---
Author Organization EMILY - YAHIR Malone [facility] CLOSED Address [address] [place] [address] Care Team Providers Care Grip Boss Name Role Phone JINA CRUMPNIE Primary Care Provider [phone] Assessment No assessment recorded. Plan of Treatment Reminders Order Date Submit Date Provider Last Modified By Organization Details Last Modified Time Details Appointments None recorded. Lab None recorded. Referral None recorded. Procedures None recorded. Surgeries None recorded. Imaging None recorded. Medication Orders betametha sone valerate 0.1 % topical ointment 2021 022 [facility], [address], [place], [address], 12:54:42 Patient TargetsNo targets recorded. Patient Instructions Encounter Date Encounter Id Patient Instructions Last Modified By Organization Details Last Modified Time 04/25/2022 [id number] 1. Nasal debridement performed- Full risks, complications, [...] ears monthly 6. Follow up as needed [email or web address] Not available 04/25/2022 12:41:58 Reason for Referral None Reported. Problems No Known Problems Procedures Surgical History Date Name Laterality Status Provider Name and Address Organization Details Recorded Time 04/25/20 22 Control Anterior Epistaxis completed FELECIA GARBER MD [address] [place], [address], [facility] 04/26/2022 12:43:56 04/25/20 22 [facility] 12:34:20 04/25/20 22 Laryngoscopy Flex completed Chacha Sahni [facility] 04/25/2022 12:41:44 section completed Nessa Plasencia [facility] 04/25/2022 11:38:22 hysterectomy completed Nessa Plasencia [facility] 04/25/2022 11:38:28 excision of basal cell carcinoma completed Nessa Plasencia [facility] 04/25/2022 11:39:04 excision of squamous cell carcinoma completed Nessa Luis Angel [facility] 04/25/2022 11:39:14 Imaging Results None recorded. Procedure Notes None recorded. Medical Equipment None Reported. Allergies Allergen ID Allergen Name Allergen Category Reaction Reaction Severity Criticality Documentation Date Start Date Code Code System Note Provider Name and Address Organization Details Recorded Time 548432 Iodinated contrast media (substanc e) medicatio n Not available Not available Not available 04/25/2022 54885 2003 SNOMED Nessagalina Plasencia [facility] 11:35:43 Medications Name Sig Start Date [...] blood by Pulse oximetry Heart rate Systolic And Diastolic Provider Name and Address Organization Details Last Updated DateTime 2 10820.3 6 g 40 kg/m2 156.21 cm 92 % 92 % 87 /min 102/55 mm[Hg] Nessa Plasencia [facility] 11:43:06 Social History Question Answer Notes LastModified by [employer] Details LastModified Time Tobacco Smoking Status Never Smoker Nessa Plasencia [facility] 04/25/2022 11:38:13 What Was The Date Of Your Most Recent Tobacco Screening? 04/25/2022 Information not available 04/25/2022 Has Tobacco Cessation Counseling Been Provided? No Information not available 04/25/2022 Sex: Unknown Functional Status Question Answer Note LastModified by [employer] Details LastModified Time Do you use any illicit or recreational drugs? No Information not available 04/25/2022 Do you or have you ever used any other forms of tobacco or nicotine? No Information not available 04/25/2022 What is your level of alcohol consumption? None Information not available 04/25/2022 Mental Status None recorded. Family History Relationship [...] SNOMED-CT Code Diagnosis ICD10 Code Diagnosis Note [id number] FELECIA GARBER MD [facility] [address] [place] [address] 04/25/2022 11:13:31 04/25/2022 12:47:00 Anterior epistaxis 332325312 R04.0 Chronic sore throat 2754 80587 J31.2 No obvious findings Change in voice 16561007 5 R49.9 Bowed vocal cords Pyogenic granuloma 2002 L98.0 Left septum? cauterized Eczema of external auditory canal 33856962 H60.549 Health Concerns Section Related Observation LastModified by Organization Detai ls LastModified Time None Recorded Concern Status LastModified by Organization Details LastModified Time None Recorded Advance Directives Directive None Recorded Payers Insurance Date Sequence Insurance Name Policy Number Policy Guallpa Covered Member ID Guallpa Member ID Guarantor Name 02/12/2024 2 [employer] - FOR LIFE (MEDICARE SUPPLEMENT) Kristina Jimenez Javier [id number] Kristina Jimenez Javier 02/06/2024 1 [place]ARE[place] Kristina Jimenez Javier [id number] Kristina Jimenez Javier Notes Date Note Type [...] it has been before. FELECIA GARBER MD [facility] [place], [address], [facility] 04/26/2022 12:44:33 OBGyn Episode No OBEpisode recorded.
[2025-03-16 16:01] VITALS: BP 143/86; PULSE 77; RESP 20; TEMP 36.7; O2SAT 94; BMI 38.5
[2025-03-16 16:05] VITALS: BP 125/86; PULSE 73; O2SAT 92
[2025-03-16 16:17] LABS: Basophils % 0.1 % (0.1-2.0); Eosinophils # 0.1 Kmm3 (0.0-0.4); Eosinophils % 0.8 % (0.1-12.0); Hematocrit 44.2 % (37.0-47.0); Hemoglobin 13.7 g/dL (12.2-16.2); Immature Granulocytes # 0.03 10^3uL; Immature Granulocytes % 0.3 %; Lymphocytes # 1.8 K/mm3 (0.7-4.5); Lymphocytes % 16.6 % (10-50); Mean Corpuscular Hemoglobin 27.8 pg (27.0-31.2); Mean Corpuscular Volume 89.7 fl (81-99); Mean Platelet Volume 10.5 fl (7.4-10.4); Monocytes # 0.4 K/mm3 (0.1-1.0); Monocytes % 3.6 % (1.7-9.3); Neutrophils # 8.4 K/mm3 (1.8-7.8); Neutrophils % 78.6 % (37.0-80.0); Nucleated Red Blood Cells # 0 10^3/uL; Nucleated Red Blood Cells % 0 %; Platelet Count 187 K/mm3 (142-424); Red Blood Count 4.93 M/mm3 (4.20-5.40); Red Cell Distribution Width 14.2 % (11.5-17.5); Red Cell Distribution Width-SD 46.5 fL; White Blood Count 10.7 K/mm3 (4.8-10.8)
[2025-03-16 16:17] LABS: Microscopic, Urine URINE MICROSCOPIC (MICROSCOPIC)
[2025-03-16 16:18] LABS: Albumin Level 4.7 g/dl (3.5-5.0); Chloride 103 mmol/L (98-107); Potassium 3.6 mmoL/L (3.5-5.1); Sodium 141 mmol/L (136-145)
[2025-03-16 16:20] LABS: Alanine Aminotransferase 30 U/L (12-78); Aspartate Amino Transferase 29 U/L (14-36); Blood Urea Nitrogen 20 mg/dl (7-17); Creatinine Clearance Estimated 69 mL/min (50-200); Estimated Glomerular Filt Rate 81 ml/min (>60); GFR (African American) 98 ML/MIN (>60)
[2025-03-16 16:21] LABS: Appearance,Urine CLEAR (Clear); Bilirubin,Urine Negative (Negative); Blood, Urine Negative (Negative); Color,Urine YELLOW (Yellow); Glucose,Urine (UA) 2+ (Negative); Ketones,Urine Negative (Negative); Leukocyte Esterase,Urine Negative (Negative); Nitrate,Urine Negative (Negative); PH,Urine 5.5 (5.0-8.5); Protein,Urine Negative (Negative); Specific Gravity, Urine 1.015 (1.005-1.030); Urobilinogen,Urine 0.2 EU/dl (0.2)
[2025-03-16 16:21] LABS: Albumin/Globulin Ratio 1.8 (1.1-1.8); Alkaline Phosphatase 83 U/L (38-126); Anion Gap 10.6 mEq/L (5-15); Bilirubin,Total 0.6 mg/dl (0.2-1.3); Calcium 10.1 mg/dl (8.4-10.2); Carbon Dioxide 31 mmol/L (22.0-30.0); Globulin 2.6 g/dL (1.3-3.2); Glucose 250 mg/dl (74-100); Lipase 106 U/L (23-300); Total Protein,Serum 7.3 g/dl (6.3-8.2)
--- NOTE | 2025-03-16 16:22 | CT_ITS ---
PROCEDURE INFORMATION: Exam: CT Abdomen And Pelvis Without Contrast Exam date and time: 03/16/2025 4:29 PM Age: 79 years old Clinical indication: Abdominal pain; Additional info: Abd pain brbpr TECHNIQUE: Imaging protocol: Computed tomography of the abdomen and pelvis without contrast. Radiation optimization: All CT scans at this facility use at least one of these dose optimization techniques: automated exposure control; mA and/or kV adjustment per patient size (includes targeted exams where dose is matched to clinical indication); or iterative reconstruction. COMPARISON: CT ANGIO CHEST PE PROTOCOL 02/12/2025 9:28 AM FINDINGS: Liver: Normal. No mass. Gallbladder and biliary ducts: Multiple dependent stones are seen in the gallbladder, no definite pericholecystic fluid noted. The gallbladder is partly contracted. Pancreas: Normal. No ductal dilation. Spleen: Normal. No splenomegaly. Adrenal glands: Normal. No mass. Kidneys and ureters: Normal. No hydronephrosis. Stomach and bowel: There is concentric thickening of the descending colon with some adjacent inflammation. This extends to the junction with the sigmoid colon the sigmoid is devoid of stool otherwise is unremarkable. Appendix: No evidence of appendicitis. Intraperitoneal space: Unremarkable. No free air. No significant fluid collection. Vasculature: Unremarkable. No abdominal aortic aneurysm. Lymph nodes: Unremarkable. No enlarged lymph nodes. Urinary bladder: Unremarkable as visualized. Reproductive: Unremarkable as visualized. Bones/joints: Unremarkable. No acute fracture. Soft tissues: Unremarkable. IMPRESSION: 1. Concentric thickening of the descending colon, underlying colitis suspected, etiologies include infectious as well as ischemic and inflammatory causes. Correlate with clinical signs, symptom and history. 2. Cholelithiasis without definite acute cholecystitis.
--- NOTE | 2025-03-16 16:23 | HMH.EDGENADL ---
Discharge Plan Disposition Patient Disposition: Home, Self-Care Condition: Good Prescriptions Prescriptions: New amoxicillin-pot clavulanate 875-125 mg tablet 1 tab PO BID Qty: 20 0RF ondansetron 4 mg tablet,disintegrating 4 mg PO Q8H PRN (Reason: nausea and vomiting) 4 Days Qty: 12 0RF No Action aspirin [Adult Low Dose Aspirin] 81 mg tablet,delayed release (DR/EC) 81 mg PO DAILY ascorbic acid (vitamin C) 1,000 mg capsule 1 g PO DAILY Farxiga 10 mg tablet 10 mg PO DAILY 90 Days Qty: 90 1RF glimepiride 1 mg tablet 1 mg PO DAILY 90 Days Qty: 90 2RF fluocinolone acetonide oil [DermOtic Oil] 0.01 % drops 5 drp otic (ear) BID 7 Days Qty: 20 0RF nitroglycerin 0.4 mg tablet, sublingual 0.4 mg sublingual Q5M PRN (Reason: chest pain) Qty: 25 0RF Rx Instructions: do not exceed 3 doses per episode Januvia 100 mg tablet 100 mg PO DAILY Qty: 90 3RF nystatin-triamcinolone 100,000-0.1 unit/gram-% ointment 1 applic topical BID 90 Days Qty: 60 2RF atorvastatin 10 mg tablet 10 mg PO DAILY 90 Days Qty: 90 1RF cetirizine 10 mg tablet 10 mg PO DAILY 90 Days Qty: 90 1RF oxybutynin chloride 10 mg tablet extended release 24hr See Rx Instructions .ROUTE .COMPLEX Qty: 90 3RF Dose Instruction: TAKE 1 TABLET DAILY Rx Instructions: TAKE 1 TABLET DAILY (DME) Blood Glucose Test Strip See Rx Instructions .Route Qty: 100 3RF Rx Instructions: As directed once daily Accu-Chek pioglitazone 15 mg tablet See Rx Instructions .ROUTE .COMPLEX Qty: 90 3RF Dose Instruction: TAKE 1 TABLET DAILY Rx Instructions: TAKE 1 TABLET DAILY Referrals Follow up/Referrals: Ramu Melgar II, MD [Staff Physician] - See instructions Enma Crump APRN [Primary Care Provider] - See instructions Activity Restrictions/Add. Instructions Additional Instructions/Restrictions: You were evaluated in the emergency department today. Please spanish moss picker your prescriptions and take them as prescribed. Take Tylenol and ibuprofen every 4-6 hours as needed for pain. Follow-up closely with your primary care provider. I am also recommending follow-up with GI. Return to the emergency department right away for new or worsening symptoms. Clinical Impressions Clinical Impression: Diverticulitis, Colitis Instructions Patient Instructions: DI for Diverticulitis, DI for Acute Abdominal Pain, DI for Colitis Print Language Print Language: Tajik Discharge ED Provider: Shayla Randolph General Adult HPI General Chief complaint: Abdominal Pain Stated complaint: bleeding from rectum, cramps, vomiting, diarrhea Time Seen by Provider: 03/16/25 15:48 Mode of Arrival: Ambulatory Source of Information: Patient Description of Symptoms (Recalled from ER Triage Doc. by RN): Patient presents to ED with a diversticulitis flare up. Patient reports a low grade fever, abd pain, and bloody stools that started yesterday. History of Present Illness HPI narrative: This patient is a 79-year-old female with a history of diverticulitis, hypertension, hyperlipidemia, type 2 diabetes, CKD presenting to the emergency department for evaluation with concern for lower abdominal pain/cramping and bright red blood when she wipes. Patient has that she think she is having a flareup of diverticulitis. She states she has not had a flareup in a long time but she did have an issue with rectal bleeding with a prior flare of diverticulitis. She notes symptoms started yesterday around midnight and she has had subjective fevers, lower abdominal cramping, bright red blood per rectum, nausea, and vomiting. No other concerns or complaints noted. Related Data Home Medications ?Medication ?Instructions ?Recorded ?Confirmed aspirin 81 mg tablet,delayed 81 mg PO DAILY 08/15/23 03/04/25 release (Adult Low Dose Aspirin) ascorbic acid (vitamin C) 1,000 mg 1 g PO DAILY 05/07/24 03/04/25 capsule Previous Rx's ?Medication ?Instructions ?Recorded dapagliflozin propanediol 10 mg 10 mg PO DAILY 90 days #90 tabs 07/21/24 tablet (Farxiga) glimepiride 1 mg tablet 1 mg PO DAILY 90 days #90 tabs 07/21/24 atorvastatin 10 mg tablet 10 mg PO DAILY 90 days #90 tabs 11/07/24 cetirizine 10 mg tablet 10 mg PO DAILY 90 days #90 tabs 11/07/24 oxybutynin chloride 10 mg See Rx Instructions .Route 11/07/24 tablet,extended release 24 hr .COMPLEX #90 tabs fluocinolone acetonide oil 0.01 % 5 drp otic (ear) BID 7 days #20 mL 12/12/24 ear drops (DermOtic Oil) nitroglycerin 0.4 mg sublingual 0.4 mg sublingual Q5M PRN chest 03/04/25 tablet pain #25 tabs nystatin-triamcinolone 100,000 1 applic topical BID 90 days #60 03/04/25 unit/gram-0.1 % topical ointment grams sitagliptin phosphate 100 mg 100 mg PO DAILY #90 tabs 03/04/25 tablet (Januvia) blood sugar diagnostic (Blood #100 ea 03/09/25 Glucose Test strips) pioglitazone 15 mg tablet See Rx Instructions .Route 03/13/25 .COMPLEX #90 tabs amoxicillin 875 mg-potassium 1 tab PO BID #20 tabs 03/16/25 clavulanate 125 mg tablet ondansetron 4 mg disintegrating 4 mg PO Q8H PRN nausea and 03/16/25 tablet vomiting 4 days #12 tabs Allergies Allergy/AdvReac Type Severity Reaction Status Date / Time Iodinated Contrast Media Allergy Mild Hives Verified 03/04/25 15:06 [facility] Disclaimer: The information contained in this section may have been updated after the patient was seen, as this information can be updated by other users. 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 Basal cell carcinoma of leg Basal cell carcinoma of skin of nose Diabetes type 2, controlled Hyperlipidemia Surgical History H/O of nasal cauterization H/O breast biopsy H/O removal of cyst History of appendectomy History of History of hysterectomy Social History Smoking Status: Never smoker alcohol intake: never current occupational status: unemployed Travel in the last 8 weeks?: None Have you lived/traveled outside US in past 30 days?: No Contact w/someone who lives/traveled outside US past 30 days?: No Exposure to someone with infectious disease in past 14 days?: No Do you have a fever (greater than 100.4 F or 38 C)?: No Have you tested positive for COVID-19?: No Exposed to someone with COVID-19 in past 14 days?: No Do you have a sore throat?: No Do you have a cough?: No Do you have any weakness?: No Do you have any diarrhea?: No Are you experiencing any unusual bleeding?: No Do you have any muscle aches/pain?: No Do you have any abdominal pain?: No Are you experiencing loss of taste or smell?: No Other Medical History Have you received the Pneumonia Vaccine: No ROS Obtained: Yes All systems reviewed & no additional complaints except as documented Physical Exam General General appearance: alert and in no apparent distress Head Head exam: atraumatic and normocephalic Eye Eye exam: Present normal appearance, PERRL and EOMI ENT ENT exam: Present normal exam, normal oropharynx, mucous membranes moist and normal external ear exam Neck Neck exam: Present normal inspection, full ROM and trachea midline; Absent tenderness Chest Chest inspection: Present normal inspection and symmetric chest wall rise; Absent tenderness Respiratory Respiratory exam: Present normal lung sounds bilaterally; Absent respiratory distress, wheezes, stridor or accessory muscle use Cardiovascular Cardiovascular exam: Present regular rate and normal rhythm Abdominal Exam Abdominal exam: Present soft and tenderness (LLQ ); Absent distention, guarding, rebound or rigidity Extremities Exam Extremities exam: Present normal inspection, full ROM and normal capillary refill; Absent tenderness or edema Back Exam Back exam: Present normal inspection and full ROM; Absent tenderness Neurological Exam Neurological exam: Present alert, oriented X3, CN II-XII intact and normal gait; Absent motor sensory deficit Psychiatric Psychiatric exam: Present normal affect and normal mood Skin Skin exam: Present warm and dry Medical Decision Making Medical Records Medical records reviewed: Yes I reviewed the patient's medical records. Screening: Per USPSTF and CDC recommendations, given the prevalence of disease in our region, it is our hospital?s policy to screen for HIV and viral Hepatitis for all patients aged 18 and over and those with ongoing risk factors. Robert Inquiry Pt receiving controlled substance: No Vital Signs: 03/16/25 16:01 03/16/25 16:05 03/16/25 17:05 Temperature 98.0 F Temperature Source Oral Pulse Rate 73 61 Pulse Rate [Right Brachial] 77 Respiratory Rate 20 Blood Pressure 125/86 116/62 Blood Pressure [Right Arm] 143/86 H Blood Pressure Mean Blood Pressure Mean [Right Arm] 105 Blood Pressure Source Blood Pressure Source [Right Arm] Automatic Cuff Blood Pressure Position Blood Pressure Position [Right Arm] Supine 02 Sat by Pulse Oximetry 94 L 92 L 94 L Oxygen Delivery Method Room Air 03/16/25 17:30 03/16/25 18:00 03/16/25 18:41 Temperature 98.7 F Temperature Source Oral Pulse Rate 54 L 66 60 Pulse Rate [Right Brachial] Respiratory Rate 20 Blood Pressure 112/51 L 107/55 L 112/58 L Blood Pressure [Right Arm] Blood Pressure Mean 79 Blood Pressure Mean [Right Arm] Blood Pressure Source Automatic Cuff Blood Pressure Source [Right Arm] Blood Pressure Position Sitting Blood Pressure Position [Right Arm] 02 Sat by Pulse Oximetry 93 L 94 L Oxygen Delivery Method Room Air Room Air Lab Data Lab results reviewed: Yes I reviewed the patient's lab results. Lab Results 03/16/25 15:46: Urine Color Yellow, Urine Appearance Clear, Urine pH 5.5, Ur Specific [place] 1.015, Urine Protein Negative, Urine Glucose (UA) 2+, Urine Ketones Negative, Urine Blood Negative, Urine Nitrate Negative, Urine Bilirubin Negative, Urine Urobilinogen 0.2, Ur Leukocyte Esterase Negative, Urine RBC None, Urine WBC Occasional, Ur Squamous Epith Cells Occasional, Urine Bacteria None 03/16/25 15:55: WBC 10.7, RBC 4.93, Hgb 13.7, Hct 44.2, MCV 89.7, MCH 27.8, MCHC 31.0 L, RDW 14.2, Plt Count 187, MPV 10.5 H, Neut % (Auto) 78.6, Lymph % (Auto) 16.6, Miner % (Auto) 3.6, Eos % (Auto) 0.8, Baso % (Auto) 0.1, Neut # (Auto) 8.4 H, Lymph # (Auto) 1.8, Miner # (Auto) 0.4, Eos # (Auto) 0.1, Baso # (Auto) 0.0, Sodium 141, Potassium 3.6, Chloride 103, Carbon Dioxide 31 H, Anion Gap 10.6, BUN 20 H, Creatinine 0.70, Estimated Creat Clear 69, Estimated GFR 81, Est GFR ( Amer) 98, Glucose 250 H, Calcium 10.1, Total Bilirubin 0.6, AST 29, ALT 30, Alkaline Phosphatase 83, Total Protein 7.3, Albumin 4.7, Globulin 2.6, Albumin/Globulin Ratio 1.8, Lipase 106, HCV Ab LILI w/Rflx PCR Qn Negative, HIV Ag/Ab Combo Qual Negative 03/16/25 17:44: Lactate 1.4 03/16/25 15:55 03/16/25 15:55 Orders (Tests/Meds): ED MEDICATIONS Discontinued Medications Generic Name Dose Route Start Last Admin Trade Name Freq PRN Reason Stop Dose Admin Acetaminophen 1,000 mg 03/16/25 16:11 03/16/25 16:25 Acetaminophen 1,000mg/100ml Vial IV 03/16/25 16:12 1,000 mg ONCE ONE Administration Amoxicillin/Clavulanate Potassium 1 each 03/16/25 18:37 03/16/25 18:40 Amoxicillin/Clavulanate Potassium 875/125mg Tablet PO 03/16/25 18:38 1 each ONCE ONE Administration Lactated Ringer's 1,000 mls @ 999 mls/hr 03/16/25 16:11 03/16/25 16:24 Lactated Ringer's 1000 Ml Bag IV 03/16/25 17:11 999 mls/hr .Q1H1M ONE Administration Ketorolac Tromethamine 15 mg 03/16/25 16:11 03/16/25 16:25 Ketorolac 30mg/Ml Vial IV 03/16/25 16:12 15 mg ONCE ONE Administration Ondansetron HCl 4 mg 03/16/25 16:11 03/16/25 16:25 Ondansetron 4mg/2ml Vial IV 03/16/25 16:12 4 mg ONCE ONE Administration ORDERS Category Date Time Status CT abdomen pelvis wo con Stat Cat Scan 03/16/25 16:22 Completed Complete Blood Count Auto Diff Stat Lab 03/16/25 15:55 Completed Comprehensive Metabolic Panel Stat Lab 03/16/25 15:55 Completed HIV Combo Stat Lab 03/16/25 15:55 Completed Hepatitis C Ab Qual. W/ RFX Stat Lab 03/16/25 15:55 Completed Lactic Acid Stat Lab 03/16/25 17:44 Completed Lipase Stat Lab 03/16/25 15:55 Completed UA [Urinalysis and Microscopic] Stat Lab 03/16/25 15:46 Completed Medical Decision Narrative: In summary, this patient is a 79-year-old female presenting to the Emergency Department for evaluation of lower abdominal cramping, nausea, vomiting, and bright red blood per rectum when she wipes. Differential diagnoses considered include but are not limited to hemorrhoids, anal fissure, diverticulitis, colitis. Ruling out the most morbid conditions drove assessment. It should be noted patient's history includes hypertension, hyperlipidemia, type 2 diabetes, obesity, diverticulitis which may or may not be at goal therapy. This complicates all aspects of care by increasing patient's risk for morbidity. On exam, the patient is lying in bed in no acute distress with normal vitals on cardiac telemetry. She has left lower quadrant tenderness but no rebound or guarding. No rigidity. She is nontoxic-appearing. Workup included CBC, CMP, lipase, lactic acid, urinalysis. I wanted to obtain a CT abdomen and pelvis with IV contrast to evaluate this, however she states that she has had reactions to contrast in the past and is refusing it today. She was given a bolus of IV fluids as well as IV Toradol, acetaminophen, and Zofran for symptomatic improvement. I independently interpreted CT scan prior to the radiologist read and noted inflammation of the colon, colitis versus diverticulitis. They noted colitis, but she does have history of diverticulosis and diverticulitis in the past. Please see their read for final interpretation. Labs were obtained that demonstrated reassuring CBC with no significant leukocytosis though she does have a mild neutrophilic predominance. Chemistry is reassuring with kidney function that is normal, normal liver enzymes, normal lipase. Urinalysis is not concerning for infection.. Hemoglobin is normal and patient is hemodynamically stable here with no significant rectal bleeding noted while in the ED. On reassessment, patient had good improvement after administration of interventions above and is feeling much better. I feel she is appropriate for discharge home with prescriptions for Augmentin and Zofran as well as instructions for supportive care. I gave her instructions to follow-up closely with primary care as well as with GI. She was discharged with strict return precautions. Critical Care Critical Care Time Critical Care Time: No
[2025-03-16] MEDS: LACTATED RINGERS 1000ML 1,000 ML 999 ML IV (16:24)
[2025-03-16] MEDS: ACETAMINOPHEN 1,000MG/100ML VIAL 1000 MG IV (16:25)
[2025-03-16] MEDS: ONDANSETRON 4MG/2ML VIAL 4 MG IV (16:25)
[2025-03-16] MEDS: KETOROLAC 30MG/ML VIAL 15 MG IV (16:25)
[2025-03-16 16:31] LABS: WBC,Urine Occasional #/hpf (0-3)
[2025-03-16 16:32] LABS: Squamous Epithelial Cell,Urine Occasional #/hpf (0-5)
[2025-03-16 17:05] VITALS: BP 116/62; PULSE 61; O2SAT 94
[2025-03-16 17:30] VITALS: BP 112/51; PULSE 54; O2SAT 93
[2025-03-16 18:00] VITALS: BP 107/55; PULSE 66; O2SAT 94
[2025-03-16 18:07] LABS: Lactic Acid 1.4 mmol/L (0.7-2.1)
[2025-03-16 18:17] LABS: HIV Combo NEGATIVE (Negative)
[2025-03-16 18:25] LABS: Hepatitis C Ab Qual. W/ RFX NEGATIVE (Negative)
[2025-03-16] MEDS: AMOXICILLIN/CLAVULANATE POTASSIUM 875/125MG TABLET 1 EACH PO (18:40)
[2025-03-16 18:41] VITALS: BP 112/58; PULSE 60; RESP 20; TEMP 37.1; O2SAT 95
== END 2025-03-16 18:49 | disposition home or self-care (01) ==
PROVIDERS: Emergency Provider Emergency Medicine; PCP Nurse Practitioner Family
DX: R10.32 Left lower quadrant pain (principal); K57.92 Diverticulitis of intestine, part unspecified, without perforation or abscess without bleeding; K52.9 Noninfective gastroenteritis and colitis, unspecified; K62.5 Hemorrhage of anus and rectum; R11.2 Nausea with vomiting, unspecified
CPT/HCPCS: 74176; 80053; 81001; 83605; 83690; 85025; 86803; 87389; 96361; 96374; 96375; 99285; J0131; J1885; J2405; J7120

== ENCOUNTER 2025-04-15 07:05 | Outpatient (CLI) | payer MEDICARE, OTHER, SELFPAY ==
--- NOTE | 2025-04-15 | CA_ITS ---
APPROVED REPORT Exam: Pharmacologic Technologist: Linnea Conklin Ht: 5 ft 1 in Wt: 202 lbs BSA: 1.90 m2 HR: 53 bpm BP: 116/68 mmHg Stress Test Details Test: Lexiscan HR Resting HR: 53 bpm Max Heart Rate (APMHR): 143.258195 bpm Max HR Achieved: 81 bpm Target HR (85% APMHR): 121.175499 bpm % of APMHR: 56.64 Recovery HR: 75 bpm BP Resting BP: 116.0/68.0 mmHg Max BP: 122.0/51.0 mmHg Recovery BP: 119.0/64.0 mmHg ECG Resting ECG: Sinus bradycardia, 46. Stress ECG Conclusion Symptoms: None Arrhythmias/Ectopy: - Lexiscan Electronically signed by : Myah Campuzano MD 04/15/2025 22:50:27
--- OUTSIDE RECORDS SUMMARY | 2025-04-15 07:07 | XMS_ITS | Continuity of Care Document ---
Author Name [facility] Organization [facility] Care Team Providers Care Motor Transport Inspector Name Role Phone [facility] Unavailable Unavailable Problems Combined list of problems from Department [facility] and [facility] facilities. It does not include entries that were removed or entered in error. Problem Status Onset Date Problem Type Date of Resolution Comments Source Diagnosis: ICD-10-CM Z71.0 Prsn encntr th serv to consult on behalf of another person Active Diagnosis [facility] Medications Combined list of outpatient medications from Department of [facility] and [facility] facilities.Medications provided include 1) outpatient medications from the last 15 months, and 2) patient-reported medications. Medication Details Route Status Patient Instructions Prescription Expires Prescription Number Last Dispense Date Ordering Provider Order Date Order Qty Source AZELASTINE HCL (AZELASTINE HCL), 137 MCG, SPRAY/PUMP, NASAL, APOTEX MAIN, 30 ml SQUEEZ BTL Active [id number] 4 2023 30 Pharmac y Data Transac tion Service Facilit y CEFDINIR (cefdinir), 300 MG, CAPSULE, ORAL, BLUEPOINT LABOR, 60 ea. BOTTLE Active [id number] 4 2023 20 Pharmac y Data Transac tion Service Facilit y CEPHALEXIN (CEPHALEXIN MONOHYDRATE ), 500MG, CAPSULE, ORAL, TEVA USA, 500 ea. BOTTLE Active [id number] 4 2023 30 Pharmac y Data Transac tion Service Facilit y DAPAGLIFLOZ IN (dapagliflo zin propanediol ), 10 MG, TABLET, ORAL, PRASCO LABS, 30 ea. BOTTLE Active [id number] 4 2023 90 Pharmac y Data Transac tion Service Facilit y FLUCONAZOLE (FLUCONAZOL E), 100 MG, TABLET, ORAL, BLUEPOINT LABOR, 30 ea. BOTTLE Active [id number] 4 05/31/ 2024 10 Pharmac y Data Transac tion Service Facilit y FLUCONAZOLE (FLUCONAZOL E), 100 MG, TABLET, ORAL, BLUEPOINT LABOR, 30 ea. BOTTLE Active [id number] 4 2023 10 Pharmac y Data Transac tion Service Facilit y RYBELSUS (semaglutid e), 3 MG, TABLET, ORAL, TERRY NORDISK, 30 ea. BOTTLE Cancele d [id number] : 2023 0 Pharmac y Data Transac tion Service Facilit y Encounters Combined list of: 1) Encounters from [facility] facilities going backup to the last 18 months, not all [place] inpatient encounters are included; 2) Encounters from the Department of [facility] facilities going backup to 280 months. Location Location Details Encounter Type Encounter Number Reason For Visit Attending Provider ADM Date DC Date Status Disposition Source [facility] PH1 ASSMT&MGMT NQHP 21-30 [id number] Diagnos is: ICD-10- CM Z71.0 Prsn encntr hlth serv to consult on behalf of another person JAYLON MIRAMONTES 11/04 [place] [facility] Outpatient Encounter [id number] 11/26 [place] [facility] Social History Combined list of available smoking, tobacco, and other social history from Department of Defense and Veterans Affairs facilities. Social History Type Response Date Comment Sour e This section is an empty social history section. DoD
--- OUTSIDE RECORDS SUMMARY | 2025-04-15 07:08 | XMS_ITS | Referral Summary ---
Author Organization [facility] [employer] Address [address] [place] [address] Care Team Providers Care Felt Carbonizer Name Role Phone Enma Crump VENITA Primary Care Provider Encounters Date Type Department Care Team Description 02/10/2025 8:00 AM EDT Office Visit [facility] Orthoped[facility] - [address] [address] Alejandro Herrera MD Primary osteoarthritis of right knee (Primary Dx) from Last 3 Months Allergies Active Allergy Reactions Criticality Noted Date Comments Iodinated Contrast Media 08/07/2023 Shellfish Containing Products High 2018 Medications atorvastatin (LIPITOR) 10 MG tablet Take 10 mg by mouth daily. 09/01/2022 Active cetirizine (ZyrTEC) 10 MG tablet 07/10/2022 Active Farxiga 10 mg tablet Take 10 mg by mouth daily. 08/22/2022 Active DULoxetine (CYMBALTA) 30 MG capsule Take 30 mg by mouth daily. 07/17/2022 Active Jardiance 10 mg tablet 07/10/2022 Active fluticasone propionate (FLONASE) 50 mcg/actuation nasal spray SMARTSIG:Sp ray(s) Both Nares 08/31/2022 Active glimepiride (AMARYL) 1 MG tablet Take 1 mg by mouth daily. 07/17/2022 Active ibuprofen (ADVIL,MOTRIN) 400 MG tablet 07/10/2022 Activ e nystatin-triamci nolone (MYCOLOG) 100,000-0.1 unit/gram-% ointment 07/10/2022 Active Benicar HCT 40-12.5 mg per tablet Take 1 tablet by mouth daily. 07/17/2022 Active GaviLyte-G 236-22.74-6.74 -5.86 gram solution Take by mouth. 08/23/2022 Active Clenpiq 10 mg-3.5 gram -12 gram/160 mL Soln Take by mouth. 08/07/2022 Active tobramycin-dexam ethasone (TOBRADEX) 0.3-0.1 % ophthalmic solution SMARTSIG:In Eye(s) 08/30/2022 Active Januvia 100 mg tablet Take 100 mg by mouth daily. 09/01/2022 Active oxybutynin (DITROPAN-XL) 10 MG 24 hr tablet Take 1 tablet (10 mg total) by mouth daily. 05/07/2024 Active aspirin 81 MG EC tablet Take 1 tablet (81 mg total) by mouth daily. Active Active Problems Problem Noted Date Diagnosed Date Primary localized osteoarthritis of left knee Primary osteoarthritis of right knee 09/19/2022 Social History Tobacco Use Types Packs/Day Years Used Date Smoking Tobacco: Never Smokeless Tobacco: Never Tobacco Cessation:Counseling Given: Not Answered Alcohol Use Standard Drinks/Week Comments Never 0 (1 standard drink = 0.6 oz pur e alcohol) Interpersonal Safety Answer Date Record ed Family or friends hurt you Not on file 11/09 Family or friends insult you Not on file Family or friends threaten you Not on file 0 11/09/2023 Family or friends scream or curse at you Not on file 11/09/2023 Housing Stability Answer Date Recorded Living situation today Not on file Living situation problems Not on file 2023 Family and Community Support Answer Emmanuel e Recorded Help with Day to Day Activities Not on file 11/09/2023 Feeling Lonely or Isolated Not on file 11/09 Educational Attainment Answer Date Stanley rded Speak language other than Sami at home Not on file 11/09/2023 Want help with school or training Not on file 11/09/2023 Depression Answer Date Recorded PHQ-2 Risk Not on file 11/09/2023 Disabilities Answer Date Recorded Difficulty concentrating Not on file 024 Difficulty doing errands alone Not on file 0 11/09/2023 Substance Use Answer Date Recorded Used prescription meds for non-medical reasons N ot on file 11/09/2023 Used illegal drugs past 12 months Not on file 11/09/2023 Comments Unknown Sex and Gender Information Value Date Recorded Sex Assigned at Not on file Legal Sex Female 7:27 PM CDT Gender Identity Not on file Sexual Orientation Not on file Last Filed Vital Signs Vital Sign Reading Time Taken Comments Blood Pressure 119/79 02/10/2025 8:10 AM EDT Pulse 56 02/10/2025 8:10 AM EDT Temperature 36.6 C (97.9 F) 02/06/2024 2:57 AM EDT Respiratory Rate 18 12/30/2024 8:19 AM EDT Oxygen Saturation 94% 02/06/2024 2:57 AM EDT Inhaled Oxygen Concentration - - Weight 93 kg (205 lb) 02/10/2025 8:10 AM EDT Height 154.9 cm (5' 1 ) 02/10/2025 8:10 AM EDT Body Mass Index 38.73 02/10/2025 8:10 AM EDT Plan of Treatment Upcoming Encounters Date Type Department Care Team (Late st Contact Info) Description 04/21/2025 10:00 AM EDT Office Visit [facility] [address] [phone] Alejandro Herrera MD [address] [place] [address] 05/12/2025 8:15 AM EDT Office Visit [facility] [address] [phone] Tiara Goel PA-C [address] [place] [address] 07/28/2025 11:45 AM EDT Appointment [address] [place] [phone] Procedures Procedure Name Priority Date/Time Associated Diagnosis Comments MM DIGITAL MAMMO SCREEN WITH NANETTE BILATERAL Routine 07/25/2024 11:50 AM EDT Visit for screening mammogram from Last 3 Months or Most Recently Relevant to Health Maintenance Results * MM digital mammo screen with nanette bilateral (07/25/2024 11:50 AM EDT) Anatomical Region Laterality Modality Breast Bilateral Mammography 07/25/2024 2:21 PM EDT Impressions 07/25/2024 2:26 PM EDT FINAL IMPRESSION: Stable mammogram. No findings suspicious for malignancy. Bi-RADS: ACR BI-RADS 1: Negative. RECOMMENDATIONS: Annual screening mammography. This report will serve as the order for the recommended imaging studies/procedures. A letter including results and recommendations was sent to the patient. Density notification was included for all patients. Patient information was entered into a reminder system with a target due date for the next mammogram. At our facility, a twenty-nine palms marker is positioned over a visible skin lesion and a linear marker is used to indicate a scar. A triangular marker is placed on a self reported palpable finding. Note: Mammography does not detect approximately 10-15% of breast cancers. An annual clinical breast exam by the patient's breast care physician and regular monthly self breast exams by the patient are integral parts of breast cancer screening, in addition to annual mammography. A normal mammogram does not completely exclude the presence of breast cancer, especially if there is an abnormal finding on physical exam. When clinically indicated, a biopsy should not be deferred because of a normal mammogram report. Narrative 07/25/2024 2:26 PM EDT PROCEDURE: Digital screening mammogram with Digital Breast Tomosynthesis (DBT). REASON FOR EXAM: Routine screening. FAMILY HISTORY: Intermediate risk family history of breast cancer. COMPARISON STUDY: 2022 through 2015 from [facility] FINDINGS: Craniocaudal and mediolateral oblique images of both breasts were obtained in 2D and DBT modes. Synthesized views were reconstructed from DBT data. The breast tissue is almost entirely fatty. There is no evidence of dominant mass, architectural distortion, or suspicious calcifications. The mammogram was interpreted with the benefit of computer aided detection (CAD). us Enma Crump WHEEL BUFFER IMG MAMMOGRAPHY ORDERABLES F inal Result from Last 3 Months or Most Recently Relevant to Health Maintenance Insurance MEDICARE PART A [employer] [facility] Care Teams Felt Carbonizer Relationship Specialty Start Date End Date Enma Crump APRN [address] [address] PCP - General Nurse Practitioner 09/19/22
--- OUTSIDE RECORDS SUMMARY | 2025-04-15 07:08 | XMS_ITS | Data Portability ---
Author Organization [facility] Address [address] [facility] [address] [place] [address] Care Team Providers Care Baggage Security Checker Name Role Phone RAFAELA CRUMP Primary Care Provider Assessment No assessment recorded. Plan of Treatment Reminders Order Date Submit Date Provider Last Modified By Organization Details Last Modified Time Details Appointments None recorded. Lab None recorded. Referral None recorded. Procedures None recorded. Surgeries None recorded. Imaging None recorded. Medication Orders betametha sone valerate 0.1 % topical ointment 2021 022 [address] [facility], [address] [facility], [place], [address], 12:54:42 Patient TargetsNo targets recorded. Patient Instructions Encounter Date Encounter Id Patient Instructions Last Modified By Organization Details Last Modified Time 04/25/2022 [id number] 1. Nasal debridement performed- Full risks, complications, [...] ears monthly 6. Follow up as needed [email or web address] Not available 04/25/2022 12:41:58 Reason for Referral None Reported. Problems No Known Problems Procedures Surgical History Date Name Laterality Status Provider Name and Address Organization Details Recorded Time 04/25/20 22 Control Anterior Epistaxis completed FELECIA GARBER MD [address] [place] [address], [phone], [facility] 04/26/2022 12:43:56 04/25/20 22 [facility] 12:34:20 04/25/20 22 [facility]oscopy [facility] 04/25[facility]22 12:41:44 section completed Nessa Plasencia [facility] 04/25/2022 11:38:22 hysterectomy completed Nessa Plasencia [facility] 04/25/2022 11:38:28 excision of basal cell carcinoma completed Nessa Luis Angel [facility] 04/25/2022 11:39:04 excision of squamous cell carcinoma completed Nessa [facility] 04/25/2022 11:39:14 Imaging Results None recorded. Procedure Notes None recorded. Medical Equipment None Reported. Allergies Allergen ID Allergen Name Allergen Category Reaction Reaction Severity Criticality Documentation Date Start Date Code Code System Note Provider Name and Address Organization Details Recorded Time 305563 Iodinated contrast media (substanc e) medicatio n Not available Not available Not available 04/25/2022 216492003 SNOMED Nessa Luis Angel [facility] 11:35:43 Medications Name Sig Start [...] Address Organization Details Last Updated DateTime 2 64108.3 6 g 40 kg/m2 156.21 cm 92 % 92 % 87 /min 102 mm[Hg] 55 mm[Hg] Nessa Luis Angel [facility] 11:43:06 Social History Question Answer Notes LastModified by Krush Details LastModified Time Tobacco Smoking Status Never Smoker Nessa Plasencia [facility] 04/25/2022 11:38:13 What Was The Date Of Your Most Recent Tobacco Screening? 04/25/2022 Information not available 04/25/2022 Has Tobacco Cessation Counseling Been Provided? No Information not available 04/25/2022 Sex: Unknown Functional Status Question Answer Note LastModified by Krush Details LastModified Time Do you use any [...] available 2021 11:38:06 Medical History Condition Response Diabetes Y Bleeding Disorder Y Anemia Y Cancer Y Hypertension Y Sleep Disorder Y Gynecological HistoryNo gynecological history recorded. Obstetrics History GPAL:G 0 P 0 0 0 0 Past Encounters Encounter ID Performer Location Encounter Start Date Encounter Closed Date Diagnosis/Indication Diagnosis SNOMED-CT Code Diagnosis ICD10 Code Diagnosis Note [id number] FELECIA GARBER MD [facility] [address] [place] [address] 04/25/2022 11:13:31 04/25/2022 12:47:00 Anterior epistaxis 136131934 R04.0 Chronic sore throat 2754 [address] J31.2 No obvious findings Change in voice 58725897 5 R49.9 Bowed vocal cords Pyogenic granuloma 2002 L98.0 Left septum cauterized Eczema of external auditory canal 20632947 H60.549 Health Concerns Section Related Observation LastModified by Organization Detai ls LastModified Time None Recorded Concern Status LastModified by Organization Details LastModified Time None Recorded Advance Directives Directive None Recorded Payers Insurance Date Sequence Insurance Name Policy Number Policy Guallpa Covered Member ID Guallpa Member ID Guarantor Name 02/12/2024 2 FOR LIFE ( - MEDICARE SUPPLEMENT) Kristina Jimenez Javier [id number] Kristina Jimenez Javier 02/06/2024 1 [place] Kristina Jimenez Javier [id number] Kristina Jimenez Javier Notes Date Note [...] it has been before. FELECIA GARBER MD [address] [place] [address], [phone], [facility] 04/26/2022 12:44:33 OBGyn Episode No OBEpisode recorded.
--- OUTSIDE RECORDS SUMMARY | 2025-04-15 07:08 | XMS_ITS | Encounter Summary ---
Author Organization [facility] Address [address] [place] [address] Care Team Providers Care Room Worker Name Role Phone Stephanie Wolfe MD Primary Care Provider [phone] Enma Crump APRN Primary Care Provider [phone] Reason for Referral * Mammography (Routine) - Closed Specialty Diagnoses / Procedures Referred By Contac t Referred To Contact Diagnoses Visit for screening mammogram Procedures MM digital mammo screen with estefany bilateral Enma Crump APRN [address] [place] [address] Phone: tel: fax: Referral ID Status Reason Start Date Expiration Date Visits Re quested Visits Authorized [id number] Closed 07/24/2023 01/20/2024 1 1 Encounter Details Date Type Department Care Team (Late st Contact Info) Description 07/21/2022 Outside Orders [facility] Breast [address] [phone] Enma Crump APRN [address] [address] Visit for screening mammogram (Primary Dx) Social History Tobacco Use Types Packs/Day Years Used Date Smoking Tobacco: Never Assessed Comments Unknown Sex and Gender Information Value Date Recorded Sex Assigned at Not on file Legal Sex Female 7:27 PM CDT Gender Identity Not on file Sexual Orientation Not on file documented as of this encounter Plan of Treatment Upcoming Encounters Date Type Department Care Team (Late st Contact Info) Description 04/21/2025 10:00 AM EDT Office Visit [address] [phone] Alejandro Herrera MD [address] [place] [address] 05/12/2025 8:15 AM EDT Office Visit [address] [phone] Tiara Goel PA-C [address] [place] [address] 07/28/2025 11:45 AM EDT Appointment [facility] Breast [address] [phone] documented as of this encounter Results * MM digital mammo screen with estefany bilateral (07/24/2023 11:46 AM EDT) Anatomical Region Laterality Modality Breast Bilateral Mammography 07/24/2023 1:18 PM EDT Impressions 07/24/2023 1:21 PM EDT FINAL IMPRESSION: ACR BI-RADS 1: Negative. RECOMMENDATIONS: Routine annual screening mammography. A letter including results and recommendations was sent to the patient. Density notification was provided to patients with type 3 or 4 breast tissue pattern. Patient information entered into a reminder system with a target due date for the next mammogram. At our facility, a nuiqsut marker is positioned over a visible skin [...] deferred because of a normal mammogram report. cc: Narrative 07/24/2023 1:21 PM EDT PROCEDURE: Bilateral digital screening mammogram with tomosynthesis. REASON FOR EXAM: Routine screening. FAMILY HISTORY: Intermediate family history of breast cancer. COMPARISON STUDY: [facility] FINDINGS: Craniocaudal and mediolateral oblique images of both breasts were obtained in 2D, C-view, and 3D modes. The breast tissue is almost entirely fatty. There is no evidence of dominant mass, architectural distortion, or suspicious calcifications. No significant interval change. This examination was reviewed with the benefit of computer-aided detection (CAD). Enma Crump APRN IM MAMMOGRAPHY ORDERABLES F inal Result documented in this encounter Visit Diagnoses Diagnosis Visit for screening mammogram- Primary Visit for screening mammogram documented in this encounter Care Teams Room Worker Relationship Specialty Start Date End Date Stephanie Wolfe MD [address] [address] PCP - General Family Medicine 09/12/22 09/18/22 Enma Crump APRN [address] [address] PCP - General Nurse Practitioner 09/19/22 documented as of this encounter
--- OUTSIDE RECORDS SUMMARY | 2025-04-15 07:08 | XMS_ITS | Clinical Summary ---
Author Organization Healthcare Address [address] [place] [address] Care Team Providers Care Motion Designer Name Role Phone Enma Crump VENITA Primary Care Provider [phone] Allergies Active Allergy Reactions Criticality Noted Date Comments Iv Contrast Other - please docum ent in the comment field Low 05/01/2023 Shellfish Allergy Other - please docum ent in the comment field High 06/24/2019 Medications acetaminophen (Tylenol 8 Hour) 650 MG ER tablet Take 1 tablet (650 mg) by mouth every 8 (eight) hours if needed. Do not crush, chew, or split. Active Ferrous Sulfate (IRON SUPPLEMENT PO) Take by mouth. Active glimepiride (Amaryl) 1 MG tablet Take 1 tablet (1 mg) by mouth 1 (one) time each day before breakfast. Active dapagliflozin (Farxiga) 10 MG tablet Take 1 tablet (10 mg) by mouth 1 (one) time each day. Active SITagliptin (Januvia) 100 MG tablet Take 1 tablet (100 mg) by mouth 1 (one) time each day. Active atorvastatin (Lipitor) 10 MG tablet Take 1 tablet (10 mg) by mouth 1 (one) time each day. Active cetirizine (ZyrTEC) 10 MG tablet Take 1 tablet (10 mg) by mouth 1 (one) time each day. Active Probiotic Product (PROBIOTIC-10 PO) Take by mouth. Active Active Problems Problem Noted Date Diagnosed Date CKD (chronic kidney disease) stage 2, GFR 60-89 ml/min 05/07/2023 Family History Medical History Relation Name Comments Cancer Father Hypertension Mother Relation Name Status Comments Father Mother Social History Tobacco Use Types Packs/Day Years Used Date Smoking Tobacco: Never Passive Smoke Exposure: Never Smokeless Tobacco: Never Alcohol Use Standard Drinks/Week Comments Never 0 (1 standard drink = 0.6 oz pur e alcohol) Comments Unknown Sex and Gender Information Value Date Recorded Sex Assigned at Not on file Legal Sex Female 7:35 PM EDT Gender Identity Not on file Sexual Orientation Not on file Last Filed Vital Signs Vital Sign Reading Time Taken Comments Blood Pressure 137/85 05/07/2023 1:53 PM EDT Pulse 72 05/07/2023 1:53 PM EDT Temperature - - Respiratory Rate - - Oxygen Saturation - - Inhaled Oxygen Concentration - - Weight 95.7 kg (211 lb) 05/07/2023 1:53 PM EDT Height 156.2 cm (5' 1.5 ) 05/07/2023 1:53 PM EDT Body Mass Index 39.22 05/07/2023 1:53 PM EDT Plan of Treatment Health Maintenance Due Date Last Done Comments [facility]-Bone Density Scan 1945 [facility]-Depression Screening 1945 [facility]-/Child/Adol SDOH Screenings 1945 [facility]- SDOH Screenings 1965 [facility]-Adult SDOH Screenings 1965 [facility]-Pneumococcal Vaccine: 50+ Years (1 of 1 - PCV) 1997 [facility]-Zoster Vaccines (1 of 2) 1997 [facility]-RSV Vaccine: 60+ Years or (1 - 1-dose 75+ series) 2022 [id number] Vaccine ( - season) 2024 11/15/2021, 12/24/2020, 11/26/2020 [facility]-Influenza Vaccine (Season Ended) 2025 08/23/2019 [facility]-DTaP,Tdap,and Td Vaccines (2 - Td or Tdap) 03/14/2031 03/14/2021, 02/12/1996 HPV Vaccines Aged Out No longer eligi ble based on patient's age to complete this topic [facility]-HIB Vaccines Aged Out No longer e ligible based on patient's age to complete this topic [facility]-Hepatitis A Vaccines Aged Out No longer eligible based on patient's age to complete this topic [facility]-IPV Vaccines Aged Out No longer e ligible based on patient's age to complete this topic [facility]-Rotavirus Vaccines Aged Out No lo nger eligible based on patient's age to complete this topic [place] [address] Care Teams Motion Designer Relationship Specialty Start Date End Date Enma Crump APRN [address] [place] [address] PCP - General 05/01/23
--- OUTSIDE RECORDS SUMMARY | 2025-04-15 07:08 | XMS_ITS | Clinical Summary ---
Author Organization [employer] Address [address] [place] [address] Care Team Providers Care Medical Social Consultant Name Role Phone Crump, Enma VENITA Primary Care Provider Allergies Active Allergy Reactions Criticality Noted Date [...] knee Primary osteoarthritis of right knee 09/19/2022 Encounters Date Type Department Care Team Description 02/10/2025 8:00 AM EDT Office Visit [facility] Orth[facility] - [address] [phone] Alejandro Herrera MD Primary osteoarthritis of right knee (Primary Dx) from Last 3 Months Family History Medical History Relation Name Comments Cancer Other High blood pressure Other Breast cancer Sister Relation Name Status Comments Other Sister Social History Tobacco Use Types Packs/Day Years [...] Date Stanley rded Speak language other than Cameroonian at home Not on file 11/09/2023 Want [...] Description 04/21/2025 10:00 AM EDT Office Visit [address] [phone] Alejandro Herrera MD [address] [place] [address] 05/12/2025 8:15 AM EDT Office Visit [address] [phone] Tiara Goel PA-C [address] [place] [address] 07/28/2025 11:45 AM EDT Appointment [address] [place] [phone] Health Maintenance Due Date Last Done Comments Medicare Initial AWV G0438 DXA SCAN 1945 Depression Screening (12+) 1959 Hepatitis C Screening 1965 Pneumococcal 50+ years (1 of 1 - PCV) 1997 Shingles Vaccine (Zoster) (1 of 2) 1997 Respiratory Syncytial Virus (RSV) Adult or (1 - 1-dose 75+ series) 2022 COVID-19 VACCINE ( - 2023-2 5 season) 2024 11/15/2021, 12/24/2020, 11/26/2020 Falls Risk Screening 10/22/2024 Influenza Vaccine (Season Ended) 2025 08/23/20 Tobacco Cessation Counseling and Screening (12+) 02/10/2026 02/10/2025 DTAP/TDAP/TD VACCINES (3 - T d or Tdap) 03/14/2031 03/14/2021, 02/12/1996 Breast Cancer Screening Discontinued 07/25/20, 07/24/2023, 07/21/2022, Additional history exists Procedures Procedure Name Priority Date/Time Associated Diagnosis [...] the next mammogram. At our facility, a [place] marker is positioned over a visible skin [...] cancer. COMPARISON STUDY: 2022 through 2015 from [facility] FINDINGS: Craniocaudal and mediolateral oblique images of both breasts were obtained in 2D and DBT modes. Synthesized views were reconstructed from DBT data. The breast tissue is almost entirely fatty. There is no evidence of dominant mass, architectural distortion, or suspicious calcifications. The mammogram was interpreted with the benefit of computer aided detection (CAD). Enma Crump APRN [facility] MAMMOGRAPHY ORDERABLES F inal Result from Last 3 Months or Most Recently Relevant to Health Maintenance Insurance MEDICARE PART A B [employer] Care Teams Medical Social Consultant Relationship Specialty Start Date End Date Enma Crump, [employer] SALES EXECUTIVE [address] [place] [address] PCP - General Nurse Practitioner 09/19/22
--- OUTSIDE RECORDS SUMMARY | 2025-04-15 07:08 | XMS_ITS | Encounter Summary ---
Author Organization [facility] Address [address] [place] [address] Care Team Providers Care Hair Spinner Name Role Phone Enma Crump APRN Primary Care Provider [phone] Reason for Referral * Mammography (Routine) - Authorized Specialty Diagnoses / Procedures Referred By Contac t Referred To Contact Radiology Diagnoses Visit for screening mammogram Procedures MM digital mammo screen with estefany bilateral Enma Crump APRN [address] [place] [phone] Phone: tel: fax: [facility] [address] [facility] [address] [place] [phone] Phone: tel: fax: Referral ID Status Reason Start Date Expiration Date V isits Requested Visits Authorized [id number] Authorized 07/28/2025 07/28/2026 1 1 Encounter Details Date Type Department Care Team (Late st Contact Info) Description 07/25/2024 Outside Orders [facility] [address] [facility] [address] [place] [address] Enma Crump APRN [address] [place] [phone] Visit for screening mammogram (Primary Dx) Social History Tobacco Use Types Packs/Day Years Used Date Smoking Tobacco: Never Smokeless Tobacco: Never Alcohol Use Standard [...] Date Stanley rded Speak language other than Syriac at home Not on file 11/09/2023 Want [...] Description 04/21/2025 10:00 AM EDT Office Visit [facility] [address] [phone] Alejandro Herrera MD [address] [place] [address] 05/12/2025 8:15 AM EDT Office Visit [facility] [phone] Tiara Goel PA-C [address] [place] [address] 07/28/2025 11:45 AM EDT Appointment [address] [place] [phone] Scheduled Orders Name Type Priority Associated Diagnoses Orde r Schedule MM digital mammo screen with estefany bilateral Imaging Routine Visit for screening mammogram Expected: 07/28/2025, Expires: 07/28/2026 documented as of this encounter Visit Diagnoses Diagnosis Visit for screening mammogram- Primary documented in this encounter Care Teams Hair Spinner Relationship Specialty Start Date End Date Enma Crump APRN [address] [address] PCP - General Nurse Practitioner 09/19/22 documented as of this encounter
--- NOTE | 2025-04-15 07:30 | NM_ITS ---
APPROVED REPORT Exam: Nuclear Stress Test Indication: Chest pain, SOB, Abnormal EKG, DM, High cholesterol, Family history Patient Location: Outpatient Stress Tech: Linnea Conklin [place] Tech:Carito Oquendo, ARRT, RT (R)(N) Ht: 5 ft 1 in Wt: 200 lbs Bra Size: 40C HR: 52 bpm BP: 116/68 mmHg BSA: 1.89 m2 TID: 1.08 BMI: 37.7 History: Chest pain, SOB, Abnormal EKG, DM, High cholesterol, Family history Procedure: Patient received 0.4 mg of intravenous Lexiscan, resting heart rate 52 bpm, resting blood pressure 116/68 mmHg, with Lexiscan maximum heart rate achieved was 84 bpm which is % of the maximum predicted heart rate and blood pressure was 122/51 mmHg. With Lexiscan, patient denied any complaint of chest pain. Cardiac Stress and Resting SPECT Images: Cardiac Stress and Resting SPECT images were obtained using technetium 99m Myoview 29.6 mCi stress and 10.27 mCi at rest. Resting and stress imaging in supine and prone positions demonstrate no evidence of fixed or reversible perfusion defects. Gated imaging demonstrates normal global and regional LV systolic function. LVEF is calculated at 65%. Conclusion: No evidence of fixed or reversible perfusion defects. Gated imaging demonstrates normal global and regional LV systolic function. LVEF is calculated at 65%. Electronically signed by : Myah Campuzano MD 04/15/2025 22:41:56
[2025-04-15] MEDS: SODIUM CHLORIDE 0.9% 10ML SYR (RAD ONLY) 10 ML IV ×2 (09:17)
[2025-04-15] MEDS: ISOTOPE MYOVIEW (PER STUDY) 1 DOSE IV (09:17)
[2025-04-15] MEDS: REGADENOSON 0.4MG/5ML SYRINGE 0.4 MG IV (09:17)
--- NOTE | 2025-04-15 09:30 | CA_ITS ---
APPROVED REPORT EXAM: Comprehensive 2D, Doppler, and color-flow Echocardiogram Watchmaking Teacher: Brenda Lance RVT Ht: 5 ft 2 in Wt: 204lbs BSA: 1.93 BP: 142/83 mmHg Indications: ABNORMAL EKG,CHEST PAIN,SHORTNESS OF BREATH 2D Dimensions IVSd 2.50 cm F: 0.6-1.0 LVEF (Visual) 50.00 % PWd 0.90 cm F: 0.6 - 1.0 LA Volume 31.40 mL LVDd 3.22 cm F: 3.9 - 5.3 LA Volume Index 16.27 mL/m2 (M/F) 16-34 LVDs 2.43 cm F: 2.2 - 3.5 M-Mode Dimensions LA Diam 3.25 cm (1.9-4.0) TAPSE 2.06 (<1.7) LV Diastology E Decel Time 220 (160-240 msec) E/A Ratio 0.7 Aortic Valve JAYNA Index 0.94 cm2/m2 AoV Peak Terry. 146.0 (50-130 cm/s) AO Peak GR. 8.50 mmHg AO Mean GR. 4.80 (<5 mmHg) AO VTI 33.5 (18-25 cm) JANYA (VTI) 1.86 (2.5-4.5 cm2) Mitral Valve MV E Max Terry. 59.0 (40-130 cm/s) MV A Velocity 83.0 (40-130 cm/s) E/A Ratio 0.71 MV PHT 64.0 ms Pulmonary Valve PV Peak Velocity 79.0 (50-150 cm/s) Left Ventricle The left ventricle is normal size. The left ventricular systolic function is normal. The left ventricular ejection fraction is within the normal range. There is increased LV wall thickness. There is normal LV segmental wall motion. Transmitral Doppler flow pattern suggests impaired LV relaxation. LVEF is 60%. Right Ventricle The right ventricle is normal size. The right ventricular systolic function is normal. Atria Left atrium is mildly dilated. Right atrium is mildly dilated. There is no Doppler evidence of interatrial shunt. Aortic Valve The aortic valve is mildly thickened. There is no aortic valvular stenosis. Trace aortic regurgitation. Mitral Valve The mitral valve is normal in structure. No evidence of mitral valve stenosis. Mild mitral regurgitation. Tricuspid Valve Tricuspid valve is grossly normal in structure and function. Trace tricuspid regurgitation. There is insufficient TR jet to estimate RVSP. Pulmonic Valve The pulmonary valve is normal in structure. Trace pulmonic regurgitation. Great Vessels The aortic root is normal in size. IVC is normal in size and collapses >50% with inspiration. Pericardium There is no pericardial effusion. Other Information Study Quality: Fair Conclusion Normal biventricular systolic function. Mild biatrial dilation. Mild MR, mild PI. Electronically signed by : Myah Campuzano MD 04/18/2025 14:22:53
== END 2025-04-15 23:59 | disposition home or self-care (01) ==
LOC: RAD 07:06
PROVIDERS: PCP Nurse Practitioner Family; Visit Provider Physician Assistant
DX: I08.8 Other rheumatic multiple valve diseases (principal); R00.1 Bradycardia, unspecified; E11.9 Type 2 diabetes mellitus without complications; E78.5 Hyperlipidemia, unspecified; N18.9 Chronic kidney disease, unspecified; R94.31 Abnormal electrocardiogram [ECG] [EKG]; E78.00 Pure hypercholesterolemia, unspecified
CPT/HCPCS: 78452; 93017; 93018; 93306; A9502; J2785

== ENCOUNTER 2025-05-15 13:29 | Outpatient (CLI) | payer MEDICARE, OTHER, SELFPAY ==
--- OUTSIDE RECORDS SUMMARY | 2025-04-21 10:00 | XMS_ITS | Encounter Summary ---
Author Organization [employer] ([place], [place], [place], [place]) Address [address] [place] [address] Care Team Providers Care Testing Projects Administrator Name Role Phone Enma Crump APRN Primary Care Provider Reason for Referral * Consultation (Routine) - Authorized Specialty Diagnoses / Procedures Referred By Sonia t Referred To Contact Physical Therapy Diagnoses Left shoulder pain, unspecified chronicity Glenohumeral arthritis, left Arthritis of left acromioclavicular joint Rotator cuff tendonitis, left Ciro Guardado PA-C [address] [place] [address] Phone: tel: fax: [facility] OP Physical Therapy [address] [place] [phone] Phone: tel: fax: Referral ID Status Reason Start Date Expiration Date Visits Requested Visits Authorized [id number] Authorized Specialty Services Required 04/21/2025 10/21/2025 99 99 Reason for Visit * Reason Comments Shoulder Pain Left shoulder Encounter Details Date Type Department Care Team (Late st Contact Info) Description 04/21/2025 10:00 AM EDT Office Visit [facility] Orthopedics - [address] [phone] Alejandro Herrera MD [address] [place] [address] Left shoulder pain, unspecified chronicity (Primary Dx); Glenohumeral arthritis, left; Arthritis of left acromioclavicular joint; Rotator cuff tendonitis, left Social History Tobacco Use Types Packs/Day Years Used Date Smoking Tobacco: Never Smokeless Tobacco: Never Alcohol Use Standard Drinks/Week Comments Never 0 (1 standard drink = 0.6 oz pur e alcohol) Family and Community Support Answer Emmanuel e Recorded Help with Day to Day Activities Not on file 11/09/2023 Feeling Lonely or Isolated Not on file 11/09 Educational Attainment Answer Date Stanley rded Speak language other than [place]al[place] at home Not on file 11/09/2023 Want help with school or training Not on file 11/09/2023 Substance Use Answer Date Recorded Used prescription meds for non-medical reasons N ot on file 11/09/2023 Used illegal drugs past 12 months Not on file 11/09/2023 Comments Unknown Sex and Gender Information Value Date Recorded Sex Assigned at Not on file Legal Sex Female 7:27 PM CDT Gender Identity Not on file Sexual Orientation Not on file documented as of this encounter Last Filed Vital Signs Vital Sign Reading Time Taken Comments Blood Pressure 120/76 04/21/2025 9:56 AM EDT Pulse 69 04/21/2025 9:56 AM EDT Temperature - - Respiratory Rate - - Oxygen Saturation - - Inhaled Oxygen Concentration - - Weight 93 kg (205 lb) 04/21/2025 9:56 AM EDT Height 154.9 cm (5' 1 ) 04/21/2025 9:56 AM EDT Body Mass Index 38.73 04/21/2025 9:56 AM EDT documented in this encounter Progress Notes * Alejandro Herrera MD - 04/21/2025 10:00 AM EDT NAME: Kristina Hrerera CSN: [id number] : 1945 PCP: Enma Crump APRN REASON FOR VISIT Shoulder Pain (Left shoulder) Is this Worker's Comp? No HPI Kristina Herrera is a 79 y.o. female Established patient presents for a new complaint of acute on chronic left shoulder pain. She deniesany precipitating event or injury. She reports that the pain has been present for one month. She reports that her pain is located deep within the joint, posteriorly, and radiates into the biceps. Shedescribes her pain as throbbing. She reports that she has increased pain while driving. She reportstemporary relief with tiger balm and tylenol. She rates her pain as 4/10 today at rest; worse with nonspecific movements of her shoulder. CURRENT MEDICATIONS Current Outpatient Medications Medication Instructions aspirin 81 mg, oral, Daily atorvastatin (LIPITOR) 10 mg, oral, Daily Benicar HCT 40-12.5 mg per tablet 1 tablet, oral, Daily cetirizine (ZyrTEC) 10 MG tablet No dose, route, or frequency recorded. Clenpiq 10 mg-3.5 gram -12 gram/160 mL Soln oral DULoxetine (CYMBALTA) 30 mg, oral, Daily Farxiga 10 mg, oral, Daily fluticasone propionate (FLONASE) 50 mcg/actuation nasal spray SMARTSIG:[place](s) Both Nares GaviLyte-G 236-22.74-6.74 -5.86 gram solution oral glimepiride (AMARYL) 1 mg, oral, Daily ibuprofen (ADVIL,MOTRIN) 400 MG tablet No dose, route, or frequency recorded. Januvia 100 mg, oral, Daily Jardiance 10 mg tablet No dose, route, or frequency recorded. nystatin-triamcinolone (MYCOLOG) 100,000-0.1 unit/gram-% ointment No dose, route, or frequency recorded. oxybutynin (DITROPAN-XL) 10 mg, oral, Daily tobramycin-dexamethasone (TOBRADEX) 0.3-0.1 % ophthalmic solution SMARTSIG:[place](s) ALLERGIES Allergies Allergen Reactions Shellfish Containing Products Iodinated Contrast Media PAST MEDICAL/SURGICAL HISTORY Past Medical History: Diagnosis Date Cancer (HCC) Basil Cell, Squamous Cell, Diabetes mellitus (HCC) Hyperlipidemia Past Surgical History: Procedure Laterality Date APPENDECTOMY SECTION x2 COLONOSCOPY HYSTERECTOMY SOCIAL HISTORY Social History Tobacco Use Smoking status: Never Smokeless tobacco: Never Substance Use Topics Alcohol use: Never Drug use: Never FAMILY HISTORY Family History Problem Relation Name Age of Onset Breast cancer Sister 60 Cancer Other High blood pressure Other REVIEW OF SYSTEMS General: No recent fever or chills, no recent weight loss or weight gain, no insomnia HEENT: No change in vision, no glasses/contacts, no hearing loss, no tinnitus, no vertigo, no congestion/sinus issues CVS: No chest pain, no palpitations, no edema, no varicose veins Resp: No dyspnea, no wheezing, no cough, no hemoptysis GI: No dysphagia, no nausea, no vomiting, no heart burn, no constipation, no diarrhea : No dysuria, no hematuria, no nocturia, no history of chronic UTI Musculoskeletal: See HPI Derm: No rash, no abrasions, no skin discoloration, no history or MRSA Neuro: See HPI Endo: No cold/heat intolerance Heme: No abnormal bruising or bleeding Psych: No depression, no anxiety, no fatigue, no mood swings. Scribe Attestation: Khadijah English RTR acted as a scribe and transcribed components of the current encounter under the direction of the Attending Provider. I have not been involved in providing any clinical treatments or patient care. Electronically Signed, KEVIN Robins OBJECTIVE Vitals: 04/21/25 0956 BP: 120/76 Pulse: 69 Weight: 93 kg (205 lb) Height: 1.549 m (5' 1 ) Physical Exam Vitals reviewed. Constitutional: Appearance: Normal appearance. HENT: Head: Normocephalic and atraumatic. Skin: General: Skin is warm and dry. Capillary Refill: Capillary refill takes less than 2 seconds. Findings: No bruising or erythema. Neurological: Mental Status: alert and oriented to person, place, and time. Gait: Gait abnormal. Psychiatric: Mood and Affect: Mood normal. Behavior: Behavior normal. Ortho Exam Left Shoulder Exam Appearance: - Swelling, - deformity, - skin tenting, - scapular winging Palpation: + Crepitus, Tender to palpation: posterior and anterior cuff and tricep Testing: + mild Empty Can, - Drop Arm, - Impingement, + Subscap lift off, - Apprehension, -Sulcus sign, -Speeds, - O'Briens, ROM: 170 degrees of AFE, 70 ER, IR normal, wrist and elbow ROM WNL Strength: 4+/5 Supraspinatus, 5/5 Subscapularis, 4+/5 infraspinatus Neurovascular: Intact Skin: normal appearance with no obvious discoloration or wounds IMAGING/OUTSIDE REPORTS X-Rays were performed and interpreted today in office of left shoulder, 3 views non-weight bearing revealing: XR shoulder complete 2 views min left Narrative: HISTORY: acute on chronic left shoulder pain without injury Impression: degenerative changes of acromioclavicular and glenohumeral joint spaces including narrowing and sclerotic changes. No acute bony abnormalities. Images personally reviewed and dictated by Ciro Guardado PA-C under direct supervision of Dr. Alejandro Herrera in office today. ASSESSMENT Problem List Items Addressed This Visit Musculoskeletal and Integument Glenohumeral arthritis, left Relevant Medications methylPREDNISolone acetate (DEPO-MEDROL) injection 80 mg (Completed) (Start on 04/21/2025 11:00 AM) lidocaine (XYLOCAINE) injection 1% (Completed) (Start on 04/21/2025 11:00 AM) Other Relevant Orders Arthrocentsis aspiration/inj major jt/bursa w/o us AMB REFERRAL TO PHYSICAL THERAPY EVALUATE, TREAT AND PLAN OF CARE Arthritis of left acromioclavicular joint Relevant Medications methylPREDNISolone acetate (DEPO-MEDROL) injection 80 mg (Completed) (Start on 04/21/2025 11:00 AM) lidocaine (XYLOCAINE) injection 1% (Completed) (Start on 04/21/2025 11:00 AM) Other Relevant Orders Arthrocentsis aspiration/inj major jt/bursa w/o us AMB REFERRAL TO PHYSICAL THERAPY EVALUATE, TREAT AND PLAN OF CARE Rotator cuff tendonitis, left Relevant Medications methylPREDNISolone acetate (DEPO-MEDROL) injection 80 mg (Completed) (Start on 04/21/2025 11:00 AM) lidocaine (XYLOCAINE) injection 1% (Completed) (Start on 04/21/2025 11:00 AM) Other Relevant Orders Arthrocentsis aspiration/inj major jt/bursa w/o us AMB REFERRAL TO PHYSICAL THERAPY EVALUATE, TREAT AND PLAN OF CARE Other Visit Diagnoses Left shoulder pain, unspecified chronicity - Primary Relevant Medications methylPREDNISolone acetate (DEPO-MEDROL) injection 80 mg (Completed) (Start on 04/21/2025 11:00 AM) lidocaine (XYLOCAINE) injection 1% (Completed) (Start on 04/21/2025 11:00 AM) Other Relevant Orders XR shoulder complete 2 views min left (Completed) Arthrocentsis aspiration/inj major jt/bursa w/o us AMB REFERRAL TO PHYSICAL THERAPY EVALUATE, TREAT AND PLAN OF CARE Arthritis of shoulder Discussed pathophysiology, anatomy, progression and treatment options of shoulder joint osteoarthritis. Osteoarthritis is commonly known as wear and tear in a joint. These symptoms can occur after trauma, but most of the time they occur as the patient ages. There is no definitive non- surgical treatment for arthritis and thus treatment focuses on modifying the patient's symptoms with conservative treatments, including ice, rest, NSAIDs, cortisone injections and PT. If patient does not respond to adequate conservative therapy or pain from osteoarthritis is affecting the patient's daily living, then surgical intervention may be appropriate. Surgical intervention includes but is not limited to the following: arthroscopic debridement, total shoulder arthroplasty, reverse total shoulder arthroplasty. Patient verbalized their understanding. PLAN Return in about 6 weeks (around 06/02/2025) for Recheck of shoulder s/p left shoulder injection and PT. Rest Ice Elevate Watch for s/s of infection return to clinic if seen HEP: per PT Physical Therapy ordered Diabetes education: Yes - The risk and benefits of a cortisone injection were discussed with the patient in depth before proceeding. Patient was instructed to closely monitor blood glucose levels over the next week due to levels increasing with steroid injection therapy. Patient verbally acknowledges understanding and consent was obtained. Patient agrees to adjust medications or seek treatment if levels or symptoms of hyperglycemia are not controllable. Allergy to Iodine/Betadine/Shell fish: no Allergy to latex adhesive: no Allergy to steroids: no Recent Covid vaccine within the last two weeks: no Currently taking antibiotics: no Current infections or wounds: no Recent fractures or scheduled surgeries: no Steroid: Left Subacromial bursa Injection: Indication: left Shoulder pain Consent: The risks, benefits, and alternatives of procedure were discussed with the patient including but not limited to pain, infection, and bleeding, and verbal consent was obtained. Prep: The site was identified as the left Shoulder. The site was prepped with sterile manner. The skin overlying the area was anesthetized with ethyl chloride spray. Procedure: Needle inserted into affected left Subacromial bursa, a needle was inserted, and the site was injected with 1cc of 1% lidocaine and 1cc of 80mg Depo-medrol Post-procedure: The patient tolerated the procedure well without complications. Post injection instructions were given and questions were answered. Adverse effects: None. Injection performed by: Ciro Guardado PA-C Scribe Attestation: Isabelle English CMA/LXMO acted as a scribe and transcribed components of the current encounter under the direction of the Attending Provider. I have not been involved in providing any clinical treatments or patient care. Electronically SignedIsabelle CMA/LXMO PA Attestation: ICiro PA-C examined, discussed diagnosis and treatment options, acted as a scribe and transcribed components of the current encounter under the direction of the AttendingProvider. Electronically Signed, Ciro Guardado PA-C 04/21/2025 Ciro Guardado PA-C scribing for Alejandro Herrera MD I, Alejandro Herrera MD, have read and agree with the documentation that has been completed regarding this visit. By signing this record, I attest that the documentation was completed in my physical presence and is an accurate record of the encounter. Electronically Signed, Alejandro Herrera MD 04/21/2025 10:46 AM EDT Ana Coelho: [facility] is undergoing an EHR transition as of this date of service. There may be a delay in uploading older paper and EHR chart data to this new system. The above encounter has been documented to the best of the provider's working knowledge of the EHR in conjunction with medical information provided by the patient (and/or the patient's family member). documented in this encounter Plan of Treatment Upcoming Encounters Date Type Department Care Team (Late st Contact Info) Description 05/21/2025 3:45 PM EDT Treatment [facility] OP Physical Therapy [address] [place] [phone] Christiano [place], PT 05/25/2025 4:15 PM EDT Treatment [facility] OP Physical Therapy [address] [place] [phone] Christiano [place], PT 05/28/2025 3:45 PM EDT Treatment [facility] OP Physical Therapy [address] [place] [phone] Christiano [place], PT 06/01/2025 4:15 PM EDT Treatment [facility] OP Physical Therapy [address] [place] [phone] Christiano [place], PT 06/02/2025 8:30 AM EDT Office Visit [facility] Orthopedics - [address] [phone] Alejandro Herrera MD [address] [place] [address] 06/04/2025 3:45 PM EDT Treatment [facility] OP Physical Therapy [address] [place] [phone] Christiano [place], PT 07/28/2025 11:45 AM EDT Appointment [address] [place] [address] Scheduled Orders Name Type Priority Associated Diagnoses Orde r Schedule Arthrocentsis aspiration/inj major jt/bursa w/o us Procedures Routine Left shoulder pain, unspecified chronicity Glenohumeral arthritis, left Arthritis of left acromioclavicular joint Rotator cuff tendonitis, left Ordered: 04/21/2025 Scheduled Referrals Name Type Priority Associated Diagnoses Orde r Schedule AMB REFERRAL TO PHYSICAL THERAPY EVALUATE, TREAT AND PLAN OF CARE Outpatient Referral Routine Left shoulder pain, unspecified chronicity Glenohumeral arthritis, left Arthritis of left acromioclavicular joint Rotator cuff tendonitis, left Expected: 04/21/2025, Expires: 04/21/2026 documented as of this encounter Procedures Procedure Name Priority Date/Time Associated Diagnosis Comments XR SHOULDER COMPLETE 2 VIEWS MIN LEFT Routine 04/21/2025 10:05 AM EDT Left shoulder pain, unspecified chronicity documented in this encounter Results * XR shoulder complete 2 views min left (04/21/2025 10:05 AM EDT) Anatomical Region Laterality Modality X-Ray Impressions 04/21/2025 10:29 AM EDT degenerative changes of acromioclavicular and glenohumeral joint spaces including narrowing and sclerotic changes. No acute bony abnormalities. Images personally reviewed and dictated by Ciro Guardado PA-C under direct supervision of Dr. Alejandro Herrera in office today. Narrative 04/21/2025 10:29 AM EDT HISTORY: acute on chronic left shoulder pain without injury us Alejandro Herrera MD IMG DIAGNOSTIC IMAGING ORDERAB LES Final Result documented in this encounter Visit Diagnoses Diagnosis Left shoulder pain, unspecified chronicity- Primary Glenohumeral arthritis, left Arthritis of left acromioclavicular joint Rotator cuff tendonitis, left documented in this encounter Administered Medications Inactive Administered Medications - up to 3 most recent administrations Medication Order MAR Action Action Date Dose Rate Site lidocaine (XYLOCAINE) injection 1% 1 mL Once, intra-articular, On Sun04/21/25 at 1100, For 1 doseIndications:Left shoulder pain, unspecified chronicity,Glenohumeral arthritis, left,Arthritis of left acromioclavicular joint,Rotator cuff tendonitis, left Given 04/21/2025 10:44 AM EDT 1 mL Left Shoulder methylPREDNISolone acetate (DEPO-MEDROL) injection 80 mg 80 mg Once, intra-articular, On Sun04/21/25 at 1100, For 1 doseIndications:Left shoulder pain, unspecified chronicity,Glenohumeral arthritis, left,Arthritis of left acromioclavicular joint,Rotator cuff tendonitis, left Given 04/21/2025 10:44 AM EDT 80 mg Left Shoulder documented in this encounter Care Teams Testing Projects Administrator Relationship Specialty Start Date End Date Enma Crump APRN [address] [address] PCP - General Nurse Practitioner 09/19/22 documented as of this encounter
--- OUTSIDE RECORDS SUMMARY | 2025-04-21 10:05 | XMS_ITS | Encounter Summary ---
Author Organization [employer] ([place], [place], [place], [place]) Address [address] [place] [address] Care Team Providers Care Tank Terminal Gauger Name Role Phone CrumpEnma troy VENITA Primary Care Provider [phone] Encounter Details Date Type Department Care Team (Late st Contact Info) Description 04/21/2025 10:05 AM EDT Ancillary Procedure [facility] Orthopedics - [address] [phone] Alejandro Herrera MD [address] [place] [address] Social History Tobacco Use Types Packs/Day Years [...] Date Stanley rded Speak language other than Azerbaijani at home Not on file 11/09/2023 Want [...] Info) Description 05/21/2025 3:45 PM EDT Treatment [facility] OP Physical Therapy [address] [place] [phone] Christiano [place], PT 05/25/2025 4:15 PM EDT Treatment [facility] OP Physical Therapy [address] [place] [phone] Christiano [place], PT 05/28/2025 3:45 PM EDT Treatment [facility] OP Physical Therapy [address] [place] [phone] Christiano [place], PT 06/01/2025 4:15 PM EDT Treatment [facility] OP Physical Therapy [address] [place] [phone] Christiano [place], PT 06/02/2025 8:30 AM EDT Office Visit [facility] Orthopedics - [address] [phone] Alejandro Herrera MD [address] [place] [address] 06/04/2025 3:45 PM EDT Treatment [facility] Physical Therapy [address] [place] [phone] Christiano [place], PT 07/28/2025 11:45 AM EDT Appointment [address] [place] [phone] documented as of this encounter Procedures Procedure [...] on filedocumented in this encounter Care Teams Tank Terminal Gauger Relationship Specialty Start Date End Date Enma Crump, AIRCRAFT RESTORER [address] [phone] PCP - General Nurse Practitioner 09/19/22 documented as of this encounter
--- OUTSIDE RECORDS SUMMARY | 2025-04-28 08:45 | XMS_ITS | Encounter Summary ---
Author Organization [email or web address] ([place], [place], [place], [place]) Address [address] [place] [address] Care Team Providers Care Chief Sustainability Officer Name Role Phone Enma Crump APRN Primary Care Provider [phone] Reason for Visit * Consultation (Routine) - Authorized Specialty Diagnoses / Procedures Referred By Sonia hodges Referred To Contact Physical Therapy Diagnoses Left shoulder pain, unspecified chronicity Glenohumeral arthritis, left Arthritis of left acromioclavicular joint Rotator cuff tendonitis, left Ciro Guardado PA-C [address] [place] [address] Phone: tel: fax: [facility] OP Physical Therapy [address] [place] [phone] Phone: tel: fax: Referral ID Status Reason Start Date Expiration Date Visits Requested Visits Authorized [id number] Authorized Specialty Services Required 04/21/2025 10/21/2025 99 99 Encounter Details Date Type Department Care Team (Latest Contact Info) Description 04/28/2025 8:45 AM EDT Evaluation [facility] OP Physical Therapy [address] [place] [phone] Christiano Morfin PT Left shoulder pain, [...] Date Stanley rded Speak language other than Chinese at home Not on file 11/09/2023 Want [...] fluticasone propionate (FLONASE) 50 mcg/actuation nasal spray SMARTSIG:[place](s) Both Nares GaviLyte-G 236-22.74-6.74 -5.86 gram solution [...] recently and is following up with her medical microbiologist to go over her test results next [...] Treatment (min): Physical Therapy Evaluation: Low Complexity (36750) Therapeutic Exercise (04901) 10 minutes ASSESSMENT Patient is a 79 [...] address the below stated problems/goals,using Therapeutic Exercise (59212), Therapeutic Activity (92421), Manual Therapy (70419), Neuromuscular Re-education (19873), and Hot/Cold Packs 1x/Day. Skilled intervention required [...] questions, Pt/CG demonstrated carry-over, and Handouts provided [employer] Goals: Patient will improve L shoulder strength [...] 3:45 PM EDT Treatment [facility] OP Physical Therapy [address] [place] [phone] Christiano Morfin, PT 05/25/2025 4:15 PM EDT Treatment [facility] OP Physical Therapy [address] [place] [phone] Christiano Morfin, PT 05/28/2025 3:45 PM EDT Treatment [facility] OP Physical Therapy [address] [place] [phone] Christiano Morfin, PT 06/01/2025 4:15 PM EDT Treatment [facility] OP Physical Therapy [address] [place] [phone] Christiano Morfin, PT 06/02/2025 8:30 AM EDT Office Visit [facility] Orthopedics - [address] [phone] Alejandro Herrera MD [address] [place] [address] 06/04/2025 3:45 PM EDT Treatment [facility] OP Physical Therapy [address] [place] [phone] Christiano Morfin, PT 07/28/2025 11:45 AM EDT Appointment [facility] [address] [facility] [address] [place] [address] documented as of this encounter Visit Diagnoses Diagnosis Left shoulder pain, unspecified chronicity- Primary Glenohumeral arthritis, left Arthritis of left acromioclavicular joint Rotator cuff tendonitis, left documented in this encounter Care Teams Chief Sustainability Officer Relationship Specialty Start Date End Date Enma Crump, STUDENT [address] [address] PCP - General Nurse Practitioner 09/19/22 documented as of this encounter
--- OUTSIDE RECORDS SUMMARY | 2025-04-30 08:45 | XMS_ITS | Encounter Summary ---
Author Organization [employer] ([place], [place], [place], [place]) Address [address] [place] [address] Care Team Providers Care Administrative Medical Director Name Role Phone Enma Crump APRN Primary Care Provider [phone] Reason for Visit * Consultation (Routine) - Authorized Specialty Diagnoses / Procedures Referred By Sonia hodges Referred To Contact Physical Therapy Diagnoses Left shoulder pain, unspecified chronicity Glenohumeral arthritis, left Arthritis of left acromioclavicular joint Rotator cuff tendonitis, left Ciro Guardado PA-C [address] [place] [phone] Phone: tel: fax: [facility] OP Physical Therapy [address] [place] [phone] Phone: tel: fax: Referral ID Status Reason Start Date Expiration Date Visits Requested Visits Authorized [id number] Authorized Specialty Services Required 04/21/2025 10/21/2025 99 99 Encounter Details Date Type Department Care Team (Latest Contact Info) Description 04/30/2025 8:45 AM EDT Treatment [facility] OP Physical Therapy [address] [place] [phone] Christiano Morfin PT Left shoulder pain, [...] Date Stanley rded Speak language other than Samoan at home Not on file 11/09/2023 Want [...] Progress Notes * Christiano Morfin, PT - 04/30/2025 8:45 AM EDT Images from the original note were not included. Outpatient Physical Therapy Treatment Note 04/30/2025 Time In: 844 Time Out: 924 Kristina Herrera 1945 79 y.o. 1. Left shoulder pain, unspecified chronicity 2. Glenohumeral arthritis, left 3. Arthritis of left acromioclavicular joint 4. Rotator cuff tendonitis, left Referring Physician: Ciro Guardado PA-C Insurance: Payor: MEDICARE / Plan: MEDICARE PART A B / Product Type: *No Product type* / SUBJECTIVE Patient reports her shoulders are feeling pretty good today. Pain: 0/10 OBJECTIVE INTERVENTIONS Therapeutic Exercise Sets x Repetitions Weight/Resistance Cues/Comments HEP Tband Rows/Extensions 3 x 10 RTB [] Tband IR/ER (B) 3 x 10 RTB [] Pulleys 2'/2' Flex/scap [] UBE 2'/2' Level 1 [] Fwd/Lat Raises 3 x 10 Ball Rollouts (LLE only) 2'/2' Flex/scap Blue physioball [] [] [] [] ASSESSMENT Patient completed exercises to improve bilateral shoulder mobility and strength. Patient performed tband series completed at her last session in addition to the pulleys, UBE, ball rollouts, and forward/lateral raises. Patient noted having some popping in her R shoulder during pulleys in the scaption plane, but reported this as tolerable. She tolerated overall treatment with mild difficulty and minimal reports of increased pain. Patient took rest breaks as needed throughout the session due to fatigue and reported feeling very tired at the end. Will continue to progress as tolerated. Patient will continue to benefit from skilled physical therapy services to return to premorbid mobility, strength and overall function. PLAN Interventions: Continue Therapeutic Exercise (18952) Prognosis: Good Patient requires follow-up: Yes Total Treatment (min): 40' Timed Treatment (min): Therapeutic Exercise (20341) 40 minutes Electronically signed: Christiano Morfin, PT 04/30/2025, 11:22 AM documented in this encounter Plan of Treatment Upcoming Encounters Date Type Department Care Team (Late st Contact Info) Description 05/21/2025 3:45 PM EDT Treatment [facility] OP Physical Therapy [address] [place] [phone] Christiano Morfin, PT 05/25/2025 4:15 PM EDT Treatment [facility] OP Physical Therapy [address] [place] [phone] Christiano Morfin, PT 05/28/2025 3:45 PM EDT Treatment [facility] OP Physical Therapy [address] [place], [place] [phone] Christiano Morfin, PT 06/01/2025 4:15 PM EDT Treatment [facility] OP Physical Therapy [address] [place] [phone] Christiano Morfin, PT 06/02/2025 8:30 AM EDT Office Visit [facility] Orthopedics - [place] [phone] Alejandro Herrera MD [address] [place] [phone] 06/04/2025 3:45 PM EDT Treatment [facility] OP Physical Therapy [address] [place] [phone] Christiano Morfin, PT 07/28/2025 11:45 AM EDT Appointment [address] [place] [phone] documented as of this encounter Visit Diagnoses Diagnosis Left shoulder pain, unspecified chronicity- Primary Glenohumeral arthritis, left Arthritis of left acromioclavicular joint Rotator cuff tendonitis, left documented in this encounter Care Teams Administrative Medical Director Relationship Specialty Start Date End Date Enma Crump, VENITA [address] [address] PCP - General Nurse Practitioner 09/19/22 documented as of this encounter
--- OUTSIDE RECORDS SUMMARY | 2025-05-05 08:45 | XMS_ITS | Encounter Summary ---
Author Organization [employer] ([place], [place], [place], [place]) Address [address] [place] [address] Care Team Providers Care Hand Hardener Name Role Phone Enma Crump APRN Primary Care Provider [phone] Reason for Visit * Consultation (Routine) - Authorized Specialty Diagnoses / Procedures Referred By Sonia hodges Referred To Contact Physical Therapy Diagnoses Left shoulder pain, unspecified chronicity Glenohumeral arthritis, left Arthritis of left acromioclavicular joint Rotator cuff tendonitis, left Ciro Guardado PA-C [address] [place] [address] Phone: tel: fax: [facility] OP Physical Therapy [address] [place] [phone] Phone: tel: fax: Referral ID Status Reason Start Date Expiration Date Visits Requested Visits Authorized [id number] Authorized Specialty Services Required 04/21/2025 10/21/2025 99 99 Encounter Details Date Type Department Care Team (Latest Contact Info) Description 05/05/2025 8:45 AM EDT Treatment [facility] OP Physical Therapy [address] [place] [phone] Eric Loza PTA Left shoulder pain, unspecified chronicity (Primary Dx); [...] Date Stanley rded Speak language other than Australian at home Not on file 11/09/2023 Want [...] as of this encounter Progress Notes * Saadclaudiaumair Loza, DIRECTOR OF CONSTRUCTION - 05/05/2025 8:45 AM EDT Images from the original note were not included. Outpatient Physical Therapy Treatment Note 05/05/2025 Time In: 844 Time Out: 927 Kristina Herrera 1945 79 y.o. 1. Left shoulder pain, unspecified chronicity 2. Glenohumeral arthritis, left 3. Arthritis of left acromioclavicular joint 4. Rotator cuff tendonitis, left Referring Physician: Ciro Guardado PA-C Insurance: Payor: MEDICARE / Plan: MEDICARE PART A B / Product Type: *No Product type* / SUBJECTIVE Patient reports there is really no pain in her shoulder at the moment. She reports earlier this morning she had a catch in her shoulder. Pain: 0/10 OBJECTIVE INTERVENTIONS Therapeutic Exercise Sets x Repetitions Weight/Resistance Cues/Comments HEP Tband Rows/Extensions 3 x 10 RTB [] Tband IR/ER (B) 3 x 10 RTB [] Pulleys 2'/2' Flex/scap [] UBE 2'/2' Level 1 [] Fwd/Lat Raises 3 x 10 Ball Rollouts (B) 2'/2' Flex/scap Blue physioball [] No moneys 2 x 10 R TB [] Drivers 2 x 10 R TB [] Horizontal pull aparts 2 x 10 R TB [] Landmine Press (B) 2 x 10 Flexion/ABD ASSESSMENT Interventions performed this session to promote bilateral shoulder mobility and strength. Therex progressed this session by implementing drivers, no moneys and horizontal pull aparts to further strengthen surrounding GH joint musculature. Patient tolerated interventions well overall with no complaints of increased pain by end of session. Therex completed with mild difficulty requiring small rest periods throughout session as needed due to fatigue. Will continue to progress patient as she can tolerate. Skilled PT services required to return patient to premorbid level of function. PLAN Interventions: Continue Therapeutic Exercise (22231) Prognosis: Good Patient requires follow-up: Yes Total Treatment (min): 43 Timed Treatment (min): Therapeutic Exercise (55971) 43 minutes Electronically signed: Eric Loza PTA 05/05/2025,9:30 AM documented in this encounter Plan of Treatment Upcoming Encounters Date Type Department Care Team (Late st Contact Info) Description 05/21/2025 3:45 PM EDT Treatment [facility] OP Physical Therapy [address] [place] [phone] Christiano Morfin, PT 05/25/2025 4:15 PM EDT Treatment [facility] OP Physical Therapy [address] [place] [phone] Christiano Morfin, PT 05/28/2025 3:45 PM EDT Treatment [facility] OP Physical Therapy [address] [place], [place] [phone] Christiano Morfin, PT 06/01/2025 4:15 PM EDT Treatment [facility] OP Physical Therapy [address] [place] [phone] Christiano Morfin, PT 06/02/2025 8:30 AM EDT Office Visit [facility] - [place] [phone] Alejandro Herrera MD [address] [place] [address] 06/04/2025 3:45 PM EDT Treatment [facility] OP Physical Therapy [address] [place] [phone] Christiano Morfin, PT 07/28/2025 11:45 AM EDT Appointment [facility] [address] [facility] [address] [place] [address] documented as of this encounter Visit Diagnoses Diagnosis Left shoulder pain, unspecified chronicity- Primary Glenohumeral arthritis, left Arthritis of left acromioclavicular joint Rotator cuff tendonitis, left documented in this encounter Care Teams Hand Hardener Relationship Specialty Start Date End Date Enma Crump, CAMPUS REP [address] [address] PCP - General Nurse Practitioner 09/19/22 documented as of this encounter
--- OUTSIDE RECORDS SUMMARY | 2025-05-08 08:45 | XMS_ITS | Encounter Summary ---
Author Organization [employer] ([place], [place], [place], [place]) Address [address] [place] [address] Care Team Providers Care Project Manager Interior Design Name Role Phone Enma Crump APRN Primary Care Provider [phone] Reason for Visit * Consultation (Routine) - Authorized Specialty Diagnoses / Procedures Referred By Sonia hodges Referred To Contact Physical Therapy Diagnoses Left shoulder pain, unspecified chronicity Glenohumeral arthritis, left Arthritis of left acromioclavicular joint Rotator cuff tendonitis, left Ciro Guardado PA-C [address] [place] [address] Phone: tel: fax: [facility] OP Physical Therapy [address] [place] [phone] Phone: tel: fax: Referral ID Status Reason Start Date Expiration Date Visits Requested Visits Authorized [id number] Authorized Specialty Services Required 04/21/2025 10/21/2025 99 99 Encounter Details Date Type Department Care Team (Latest Contact Info) Description 05/08/2025 8:45 AM EDT Treatment [facility] OP Physical Therapy [address] [place] [phone] Christiano Morfin PT Left shoulder pain, [...] Date Stanley rded Speak language other than Belgian at home Not on file 11/09/2023 Want [...] overall function. PLAN Interventions: Continue Therapeutic Exercise (96764) Prognosis: Good Patient requires follow-up: Yes Total Treatment (min): 41' Timed Treatment (min): Therapeutic Exercise (90396) 40 minutes Electronically signed: Christiano Morfin, PT 05/08/2025,9:28 AM documented in this encounter Plan of Treatment Upcoming Encounters Date Type Department Care Team (Late st Contact Info) Description 05/21/2025 3:45 PM EDT Treatment [facility] OP Physical Therapy [address] [place], [place] [phone] Christiano Morfin, PT 05/25/2025 4:15 PM EDT Treatment [facility] OP Physical Therapy [address] [place], [place] [phone] Christiano Morfin, PT 05/28/2025 3:45 PM EDT Treatment [facility] OP Physical Therapy [address] [place], [place] [phone] Christiano Morfin, PT 06/01/2025 4:15 PM EDT Treatment [facility] OP Physical Therapy [address] [place] [phone] Christiano Morfin, PT 06/02/2025 8:30 AM EDT Office Visit [facility] Orthopedics - [place] [phone] Alejandro [facility] [place] [address] 06/04/2025 3:45 PM EDT Treatment [facility] OP Physical Therapy [address] [place] [phone] Christiano Morfin, PT 07/28/2025 11:45 AM EDT Appointment [address] [phone] documented as of this encounter Visit Diagnoses Diagnosis Left shoulder pain, unspecified chronicity- Primary Glenohumeral arthritis, left Arthritis of left acromioclavicular joint Rotator cuff tendonitis, left documented in this encounter Care Teams Project Manager Interior Design Relationship Specialty Start Date End Date Enma Crump, GALLERY ASSISTANT [address] [address] PCP - General Nurse Practitioner 09/19/22 documented as of this encounter
--- OUTSIDE RECORDS SUMMARY | 2025-05-14 15:45 | XMS_ITS | Encounter Summary ---
Author Organization [employer] ([place], [place], [place], [place]) Address [address] [place] [address] Care Team Providers Care Tool Repairer Name Role Phone Enma Crump APRN Primary Care Provider [phone] Reason for Visit * Consultation (Routine) - Authorized Specialty Diagnoses / Procedures Referred By Sonia hodges Referred To Contact Physical Therapy Diagnoses Left shoulder pain, unspecified chronicity Glenohumeral arthritis, left Arthritis of left acromioclavicular joint Rotator cuff tendonitis, left Ciro Guardado PA-C [address] [place] [address] Phone: tel: fax: [facility] OP Physical Therapy [address] [place] [phone] Phone: tel: fax: Referral ID Status Reason Start Date Expiration Date Visits Requested Visits Authorized [id number] Authorized Specialty Services Required 04/21/2025 10/21/2025 99 99 Encounter Details Date Type Department Care Team (Latest Contact Info) Description 05/14/2025 3:45 PM EDT Treatment [facility] OP Physical Therapy [address] [place] [phone] Christiano Morfin PT Left shoulder pain, [...] Date Stanley rded Speak language other than Kyrgyz at home Not on file 11/09/2023 Want [...] overall function. PLAN Interventions: Continue Therapeutic Exercise (85627) Prognosis: Good Patient requires follow-up: Yes Total Treatment (min): 43' Timed Treatment (min): Therapeutic Exercise (66559) 43 minutes Electronically signed: Christiano Morfin, AFSHAN 05/14/2025, 4:19 PM documented in this encounter Plan of Treatment Upcoming Encounters Date Type Department Care Team (Late st Contact Info) Description 05/21/2025 3:45 PM EDT Treatment [facility] OP Physical Therapy [address] [place] [phone] Christiano Morfin, PT 05/25/2025 4:15 PM EDT Treatment [facility] OP Physical Therapy [address] [place] [phone] Christiano Morfin, PT 05/28/2025 3:45 PM EDT Treatment [facility] OP Physical Therapy [address] [place] [phone] Christiano Morfin, PT 06/01/2025 4:15 PM EDT Treatment [facility] OP Physical Therapy [address] [place] [phone] Chrisitano Morfin, PT 06/02/2025 8:30 AM EDT Office Visit [facility] Orthopedics - [address] [phone] Alejandro Herrera MD [address] [place] [address] 06/04/2025 3:45 PM EDT Treatment [facility] OP Physical Therapy [address] [place] [phone] Mandieumair Christiano, PT 07/28/2025 11:45 AM EDT Appointment [address] [phone] documented as of this encounter Visit Diagnoses Diagnosis Left shoulder pain, unspecified chronicity- Primary Glenohumeral arthritis, left Arthritis of left acromioclavicular joint Rotator cuff tendonitis, left documented in this encounter Care Teams Tool Repairer Relationship Specialty Start Date End Date Enma Crump, VENITA [address] [address] PCP - General Nurse Practitioner 09/19/22 documented as of this encounter
[2025-05-15 13:46] LABS: Hematocrit 43.3 % (37.0-47.0); Hemoglobin 13.6 g/dL (12.2-16.2); Immature Granulocytes % 0.2 %; Mean Corpuscular HGB Conc 31.4 g/dL (31.8-35.4); Mean Corpuscular Hemoglobin 28.1 pg (27.0-31.2); Mean Corpuscular Volume 89.5 fl (81-99); Nucleated Red Blood Cells % 0 %; Platelet Count 176 K/mm3 (142-424); Red Blood Count 4.84 M/mm3 (4.20-5.40); Red Cell Distribution Width-SD 46.5 fL; White Blood Count 8.1 K/mm3 (4.8-10.8)
[2025-05-15 14:43] LABS: Thyroid Stimulating Hormone 1.06 uIU/mL (0.465-4.68)
[2025-05-15 15:02] LABS: Vitamin B12 871 pg/mL (239-931)
[2025-05-15 15:09] LABS: Ferritin 64.7 ng/ml (11.1-264)
--- OUTSIDE RECORDS SUMMARY | 2025-05-18 13:31 | XMS_ITS | Continuity of Care Document ---
Author Name [facility] Organization [facility] Care Team Providers Care Community Life Director Name Role Phone [facility] Unavailable Unavailable Problems Combined list of problems from [facility] and [facility] facilities. It does not include entries that were removed or entered in error. Problem Status Onset Date Problem Type Date of Resolution Comments Source Diagnosis: ICD-10-CM Z71.0 Prsn encntr th serv to consult on behalf of another person Active Diagnosis [facility] Medications Combined list of outpatient medications from [facility] and [facility] facilities.Medications provided include 1) outpatient medications from the last 15 months, and 2) patient-reported medications. Medication Details Route Status Patient Instructions Prescription Expires Prescription Number Last Dispense Date Ordering Provider Order Date Order Qty Source AZELASTINE HCL (AZELASTINE HCL), 137 MCG, SPRAY/PUMP, NASAL, APOTEX MAIN, 30 ml SQUEEZ BTL Active [id number] 2023 30 Pharmac y Data Transac tion Service Facilit y CEPHALEXIN (CEPHALEXIN MONOHYDRATE ), 500MG, CAPSULE, ORAL, TEVA [place], 500 ea. BOTTLE Active [id number] 4 2023 30 Pharmac y Data Transac tion Service Facilit y DAPAGLIFLOZ IN (dapagliflo zin propanediol ), 10 MG, TABLET, ORAL, [facility], 30 ea. BOTTLE Active [id number] 4 2023 90 Pharmac y Data Transac tion Service Facilit y FLUCONAZOLE (FLUCONAZOL E), 100 MG, TABLET, ORAL, Basketball [place], 30 ea. BOTTLE Active [id number] 4 2023 10 Pharmac y Data Transac tion Service Facilit y Encounters Combined list of: 1) Encounters from [facility] facilities going backup to the last 18 months, not all VA inpatient encounters are included; 2) Encounters from the Department [facility] facilities going backup to 280 months. Location Location Details Encounter Type Encounter Number Reason For Visit Attending Provider ADM Date DC Date Status Disposition Source [facility] PH1 ASSMT&MGMT NQHP [id number] Diagnos is: ICD-10- CM Z71.0 Prsn encntr hlth serv to consult on behalf of another person JAYLON MIRAMONTES 11/04 [place] [facility] Outpatient Encounter [id number] 11/26 [place] [facility] Social History Combined list of available smoking, tobacco, and other social history from Department of Defense and Veterans Affairs facilities. Social History Type Response Date Comment Sourc e This section is an empty social history section. DoD
--- OUTSIDE RECORDS SUMMARY | 2025-05-18 13:38 | XMS_ITS | Encounter Summary ---
Author Organization [facility] Address [address] [place] [address] Care Team Providers Care Slabber Name Role Phone Ayden Wolfe MD Primary Care Provider Encounter Details Date Type Department Care Team (Late st Contact Info) Description 07/17/2018 External CPT II ULTRASOUND TECHNOLOGIST - [facility] Social History Tobacco Use Types Packs/Day Years Used Date Smoking Tobacco: Never Smokeless Tobacco: Never Alcohol Use Standard Drinks/Week Comments No 0 (1 standard drink = 0.6 oz pur e alcohol) Comments No Sex and Gender Information Value Date Recorded Sex Assigned at Not on file Legal Sex Female 10:17 AM EDT Gender Identity Not on file Sexual Orientation Not on file Occupation Industry Job Start Date Job End Date Homemaker Not on file Not on file Not on file documented as of this encounter Plan of Treatment Scheduled Procedures Name Priority Associated Diagnoses Date/Ti me LEFT HEART CATH w/cors Atypical chest pain documented as of this encounter Visit Diagnoses Not on filedocumented in this encounter Care Teams Slabber Relationship Specialty Start Date End Date Ayden Wolfe MD [address] [place] [address] PCP - General Internal Medicine 07/13/16 documented as of this encounter
--- OUTSIDE RECORDS SUMMARY | 2025-05-18 13:38 | XMS_ITS | Encounter Summary ---
Author Organization [facility] ([place], [place], [place], [place]) Address [address] [place] [address] Care Team Providers Care Assistant Manager Retail Name Role Phone Enma Crump FIELD CLERK Primary Care Provider Encounter Details Date Type Department Care Team (Latest Contact Info) Description 05/14/2025 Travel Social History Tobacco Use Types Packs/Day Years [...] Date Stanley rded Speak language other than Slovenian at home Not on file 11/09/2023 Want [...] Info) Description 05/21/2025 3:45 PM EDT Treatment [facility] [address] [place] [phone] Christiano Morfin PT 05/25/2025 4:15 PM EDT Treatment [facility] [address] [place] [phone] Christiano Morfin, PT 05/28/2025 3:45 PM EDT Treatment [facility] [address] [place] [phone] Christiano Morfin, PT 06/01/2025 4:15 PM EDT Treatment [facility] [address] [place] [phone] Christiano Morfin, PT 06/02/2025 8:30 AM EDT Office Visit [facility] - [address] [phone] Alejandro Herrera MD [address] [place] [address] 06/04/2025 3:45 PM EDT Treatment [facility] [address] [place] [phone] Christiano Morfin, PT 07/28/2025 11:45 AM EDT Appointment [address] [phone] documented as of this encounter Visit Diagnoses Not on filedocumented in this encounter Care Teams Assistant Manager Retail Relationship Specialty Start Date End Date Enma Crump, FIELD CLERK [address] [address] PCP - General Nurse Practitioner 09/19/22 documented as of this encounter
--- OUTSIDE RECORDS SUMMARY | 2025-05-18 13:38 | XMS_ITS | Data Portability ---
Author Organization [facility] Address [address] [facility] [address] [place] [address] Care Team Providers Care Chief Business Officer Name Role Phone RAFAELA HINOJOSA Primary Care Provider Assessment No assessment recorded. Plan of Treatment Reminders Order Date Submit Date Provider Last Modified By Organization Details Last Modified Time Details Appointments None recorded. Lab None recorded. Referral None recorded. Procedures None recorded. Surgeries None recorded. Imaging None recorded. Medication Orders betametha sone valerate 0.1 % topical ointment 2021 [address] [facility] , [place], [address], 12:54:42 Patient TargetsNo targets recorded. Patient Instructions Encounter Date Encounter Id Patient Instructions Last Modified By Organization Details Last Modified Time 04/25/2022 [id number] 1. Nasal debridement performed- Full risks, complications, [...] ears monthly 6. Follow up as needed [email or web address] Not available 04/25/2022 12:41:58 Reason for Referral None Reported. Problems No Known Problems Procedures Surgical History Date Name Laterality Status Provider Name and Address Organization Details Recorded Time 04/25/20 22 Control Anterior Epistaxis completed FELECIA GARBER MD [address] [place] [address], [phone], [facility] 04/26/2022 12:43:56 04/25/20 22 [facility] 12:34:20 04/25/20 22 [facility]oscopy [facility]22 12:41:44 section completed Nessa Plasencia [facility] 04/25/2022 11:38:22 hysterectomy completed Nessa Plasencia [facility] 04/25/2022 11:38:28 excision of basal cell carcinoma completed Nessa [place] [facility] 04/25/2022 11:39:04 excision of squamous cell carcinoma completed Nessa [facility] 04/25/2022 11:39:14 Imaging Results None recorded. Procedure Notes None recorded. Medical Equipment None Reported. Allergies Allergen ID Allergen Name Allergen Category Reaction Reaction Severity Criticality Documentation Date Start Date Code Code System Note Provider Name and Address Organization Details Recorded Time 433740 Iodinated contrast media (substanc e) medicatio n Not available Not available Not available 04/25/2022 [id number] SNOMED Nessa Luis Angel [facility] 11:35:43 Medications Name Sig Start Date [...] Address Organization Details Last Updated DateTime 2 20397.3 6 g 40 kg/m2 156.21 cm 92 % 92 % 87 /min 102/55 mm[Hg] Nessa Luis Angel [facility] 2 11:43:06 Social History Question Answer Notes LastModified by JDLab Details LastModified Time Tobacco Smoking Status Never Smoker Nessagalina Esquivelier [facility] 04/25/2022 11:38:13 What Was The Date Of Your Most Recent Tobacco Screening? 04/25/2022 Information not available 04/25/2022 Has Tobacco Cessation Counseling Been Provided? No Information not available 04/25/2022 Sex: Unknown Functional Status Question Answer Note LastModified by [email or web address] Details LastModified Time Do you use any [...] SNOMED-CT Code Diagnosis ICD10 Code Diagnosis Note [id number] FELECIA GARBER MD [place] [facility] [address] [place] [address] 04/25/2022 11:13:31 04/25/2022 12:47:00 Anterior epistaxis 642220145 R04.0 Chronic sore throat 2754 76590 J31.2 No obvious findings Change in voice 96613258 5 R49.9 Bowed vocal cords Pyogenic granuloma 2002 L98.0 Left septum cauterized Eczema of external auditory canal 86044111 H60.549 Health Concerns Section Related Observation LastModified by Organization Detai ls LastModified Time None Recorded Concern Status LastModified by Organization Details LastModified Time None Recorded Advance Directives Directive None Recorded Payers Insurance Date Sequence Insurance Name Policy Number Policy Guallpa Covered Member ID Guallpa Member ID Guarantor Name 04/22/2025 2 FOR LIFE ( - MEDICARE SUPPLEMENT) Kristina Herrera [id number] Kristina Herrera 04/22/2025 1 [place] Kristina Herrera [id number] Kristina Herrera OBGyn Episode No OBEpisode recorded.
--- OUTSIDE RECORDS SUMMARY | 2025-05-18 13:38 | XMS_ITS | Encounter Summary ---
Author Organization [facility] Address [address] [place] [address] Care Team Providers Care Dermatology Sales Representative Name Role Phone Ayden Wolfe MD Primary Care Provider [phone] Encounter Details Date Type Department Care Team (Late st Contact Info) Description 01/17/2016 External CPT II HUMAN SERVICES PROGRAM SPECIALIST - [facility] Social History Tobacco Use [...] on filedocumented in this encounter Care Teams Dermatology Sales Representative Relationship Specialty Start Date End Date Ayden Wolfe MD [address] [place] [address] PCP - General Internal Medicine 07/13/16 documented as of this encounter
--- OUTSIDE RECORDS SUMMARY | 2025-05-18 13:38 | XMS_ITS | Encounter Summary ---
Author Organization [facility] Address [address] [place] [address] Care Team Providers Care Pipe Threading Machine Operator Name Role Phone Ayden Wolfe MD Primary Care Provider [phone] Encounter Details Date Type Department Care Team (Late st Contact Info) Description 03/27/2017 External CPT II TOP KNITTER - [facility] Social History Tobacco Use [...] on filedocumented in this encounter Care Teams Pipe Threading Machine Operator Relationship Specialty Start Date End Date Ayden Wolfe MD [address] [place] [address] PCP - General Internal Medicine 07/13/16 documented as of this encounter
--- OUTSIDE RECORDS SUMMARY | 2025-05-18 13:38 | XMS_ITS | Encounter Summary ---
Author Organization [facility] Address [address] [place] [address] Care Team Providers Care Truck Chauffeur Name Role Phone Ayden Wolfe MD Primary Care Provider [phone] Encounter Details Date Type Department Care Team (Late st Contact Info) Description 03/31/2015 External CPT II FINGER BUFF SEWER - [facility] Social History Tobacco Use [...] on filedocumented in this encounter Care Teams Truck Chauffeur Relationship Specialty Start Date End Date Ayden Wolfe MD [address] [place] [address] PCP - General Internal Medicine 07/13/16 documented as of this encounter
--- OUTSIDE RECORDS SUMMARY | 2025-05-18 13:38 | XMS_ITS | Encounter Summary ---
Author Organization [facility] Address [address] [place] [address] Care Team Providers Care Hob Grinder Name Role Phone Ayden Wolfe MD Primary Care Provider [phone] Encounter Details Date Type Department Care Team (Late st Contact Info) Description 05/28/2017 External CPT II GAS DISTRIBUTION PLANT OPERATOR - [facility] Social History Tobacco Use [...] on filedocumented in this encounter Care Teams Hob Grinder Relationship Specialty Start Date End Date Ayden Wolfe MD [address] [place] [address] PCP - General Internal Medicine 07/13/16 documented as of this encounter
--- OUTSIDE RECORDS SUMMARY | 2025-05-18 13:38 | XMS_ITS | Encounter Summary ---
Author Organization [facility] Address [address] [place] [address] Care Team Providers Care Teacher Cclc Name Role Phone Ayden Wolfe MD Primary Care Provider [phone] Encounter Details Date Type Department Care Team (Late st Contact Info) Description 01/23/2019 External CPT II DOWEL PIN WORKER - [facility] Social History Tobacco Use [...] on filedocumented in this encounter Care Teams Teacher Cclc Relationship Specialty Start Date End Date Ayden Wolfe MD [address] [place] [address] PCP - General Internal Medicine 07/13/16 documented as of this encounter
--- OUTSIDE RECORDS SUMMARY | 2025-05-18 13:38 | XMS_ITS | Encounter Summary ---
Author Organization [email or web address] ([place], [place], [place], [place]) Address [address] [place] [address] Care Team Providers Care Bioinformatician Name Role Phone Stephanie Wolfe MD Primary Care Provider Enma Crump APRN Primary Care Provider [phone] Reason for Referral * Mammography (Routine) - Closed Specialty Diagnoses / Procedures Referred By [facility] t Referred To Contact Diagnoses Visit for screening mammogram Procedures MM digital mammo screen with estefany bilateral Enma Crump APRN [address] [place] [address] Phone: tel: fax: Referral ID Status Reason Start Date Expiration Date Visits Re quested Visits Authorized [id number] Closed 07/24/2023 01/20/2024 1 1 Encounter Details Date Type Department Care Team (Late st Contact Info) Description 07/21/2022 Outside Orders [facility] [address] [place] [phone] Enma Crump APRN [address] [address] Visit for screening mammogram (Primary [...] Info) Description 05/21/2025 3:45 PM EDT Treatment [facility] [address] [place] [phone] Christiano Morfin, PT 05/25/2025 4:15 PM EDT Treatment [facility] [address] [place] [phone] Christiano Morfin, PT 05/28/2025 3:45 PM EDT Treatment [facility] [address] [place] [phone] Christiano Morfin, PT 06/01/2025 4:15 PM EDT Treatment [facility] [address] [place] [phone] Christiano Morfin, PT 06/02/2025 8:30 AM EDT Office Visit [facility] - [address] [phone] Alejandro Herrera MD [address] [place] [address] 06/04/2025 3:45 PM EDT Treatment [facility] [address] [place] [phone] Christiano Morfin, PT 07/28/2025 11:45 AM EDT Appointment [facility] [address] [facility] [address] [place] [phone] documented as of this encounter Results [...] the next mammogram. At our facility, a [place] marker is positioned over a visible skin [...] family history of breast cancer. COMPARISON STUDY: [facility] FINDINGS: Craniocaudal and mediolateral oblique images of both breasts were obtained in 2D, C-view, and 3D modes. The breast tissue is almost entirely fatty. There is no evidence of dominant mass, architectural distortion, or suspicious calcifications. No significant interval change. This examination was reviewed with the benefit of computer-aided detection (CAD). Enma Crump APRN [facility] MAMMOGRAPHY ORDERABLES F inal Result documented in this encounter Visit Diagnoses Diagnosis Visit for screening mammogram- Primary Visit for screening mammogram documented in this encounter Care Teams Bioinformatician Relationship Specialty Start Date End Date Stephanie Wolfe MD [address] [address] PCP - General Family Medicine 09/12/22 09/18/22 Enma Crump APRN [address] [address] PCP - General Nurse Practitioner 09/19/22 documented as of this encounter
--- OUTSIDE RECORDS SUMMARY | 2025-05-18 13:38 | XMS_ITS | Clinical Summary ---
Author Organization [facility] Address [address] [place] [address] Care Team Providers Care Automatic Thread Winder Name Role Phone Ayden Wolfe MD Primary Care Provider [phone] Allergies Active Allergy Reactions Criticality Noted Date Comments Contrast Dye (Echo Or Unknown Ct/Mr) Rash Low 07/13/2016 Medications cetirizine (ZyrTEC) 10 MG tablet Take 1 tablet by mouth daily. 04/30/2016 Active aspirin 81 MG tablet Take 1 tablet by mouth daily. 05/13/2015 Active calcium citrate-vitamin d (GNP CALCIUM CITRATE+D MAXIMUM) 315-250 MG-UNIT tablet tablet Take 1 tablet by mouth daily. 05/13/2015 Active Multiple Vitamins-Minera ls (MULTIVITAMIN PO) Take by mouth Daily. Active TWINRIX 720-20 injection 09/26/2018 Active fluticasone (FLONASE) 50 MCG/ACT nasal spray 1 spray by Each Nare route Daily. 10/01/2018 Active glimepiride (AMARYL) 1 MG tablet Take 1 tablet by mouth Daily. 09/27/2018 Active Cyanocobalamin (CVS VITAMIN B-12) [address] 1 tablet under the tongue Daily. Active metFORMIN (GLUCOPHAGE) 1000 MG tablet Take 1 tablet by mouth 2 (Two) Times a Day With Meals. 04/29/2021 Active fluconazole (DIFLUCAN) 150 MG tablet 06/20/2021 Active olmesartan-hydr ochlorothiazide (BENICAR HCT) 40-12.5 MG per tablet Take 1 tablet by mouth Daily. 05/30/2021 Active Januvia 100 MG tablet Take 1 tablet by mouth Daily. 06/20/2021 Active atorvastatin (LIPITOR) 10 MG tablet Take 1 tablet by mouth Daily. 06/20/2021 Active Turmeric Curcumin 500 MG capsule Take 1 capsule by mouth Daily. Active Active Problems Problem Noted Date Diagnosed Date Hyperlipidemia LDL goal <70 12/22/2016 Overview (12/22/2016): High intensity statin therapy indicated given the presence of type 2 diabetes Assessment & Plan (12/22/2016 5:40 PM EST): Further recommendations regarding statin therapy to be made following coronary angiography Abnormal nuclear stress test 12/22/2016 Overview (12/22/2016): Pharmacologic nuclear stress (12/22/2016): Large partially reversible anterior defect consistent with ischemia versus breast attenuation. Normal LVEF. Atypical chest pain 12/13/2016 Overview (12/22/2016): Echo (12/22/2016): LVEF 65%. Grade 1 diastolic dysfunction with mild LVH. No significant valvular abnormality Pharmacologic nuclear stress (12/22/2016): Large partially reversible anterior defect consistent with ischemia versus breast attenuation. Normal LVEF. Assessment & Plan (12/22/2016 5:42 PM EST): The patient's chest pain symptoms are atypical due to their sporadic and typically nonexertional nature. Stress testing performed today showed a large anterior wall defect consistent with either breast attenuation or anterior wall ischemia/infarct. Given the patient's symptoms, risk factors including age, hypertension, hyperlipidemia, type 2 diabetes, I am recommending cardiac catheterization to define her anatomy. Essential hypertension 11/23/2016 Assessment & Plan (12/22/2016 5:39 PM EST): Mildly elevated at her first visit with me today. Reassess at the time of cardiac catheterization Obesity (BMI 35.0-39.9 without comorbidity) 06/23 Obstructive sleep apnea Menopause Hiatal hernia GERD (gastroesophageal reflux disease) Environmental allergies Type 2 diabetes mellitus Depression Pulmonary nodule Anxiety Sleep apnea Skin cancer Hypertension Diabetes mellitus Hyperlipidemia Resolved Problems Problem Noted Date Diagnosed Date Resolved Date Enlarged heart 12/22/2016 Family History Medical History Relation Name Comments Esophageal cancer Brother Hodgkin's lymphoma Father Bone cancer Maternal Grandfather Diabetes Maternal Grandmother Heart failure Mother congestive Hypertension Mother Breast cancer Sister 1 Heart attack Sister 1 Relation Name Status Comments Brother Father Maternal Grandfather Maternal Grandmother Mother Sister 1 Sister 2 Alive Social History Tobacco Use Types Packs/Day Years Used Date Smoking Tobacco: Never Smokeless Tobacco: Never Alcohol Use Standard Drinks/Week Comments No 0 (1 standard drink = 0.6 oz pur e alcohol) Abuse Screen Answer Date Recorded Unsafe at Home or Work/School Not on file Feels Threatened by Someone? Not on file 06/2023 Does Anyone Keep You from Co ntacting Others or Doint Things Outside the Home? Not on file 07/30/2023 Physical Sign of Abuse Present Not on file 1 Housing Stability Answer Date Recorded Current Living Arrangements Not on file 06/2023 Potentially Unsafe Housing Conditions Not on hansel e 07/30/2023 Family and Community Support Answer Emmanuel e Recorded Help with Day-to-Day Activities Not on file 07/30/2023 Lonely or Isolated Not on file 07/30/2023 Employment Answer Date Recorded Do you want help finding or keeping work or a brittney b? Not on file 07/30/2023 Disabilities Answer Date Recorded Concentrating, Remembering, or Making Decisions Difficulty Not on file 07/30/2023 Doing Errands Independently Difficulty Not on fi le 07/30/2023 Education Answer Date Recorded Help with school or training? Not on file Preferred Language Not on file 07/30/2023 Comments No Sex and Gender Information Value Date Recorded Sex Assigned at Not on file Legal Sex Female 10:17 AM EDT Gender Identity Not on file Sexual Orientation Not on file Occupation Industry Job Start Date Job End Date Homemaker Not on file Not on file Not on file Last Filed Vital Signs Vital Sign Reading Time Taken Comments Blood Pressure 150/68 06/22/2021 2:27 PM EDT Pulse 86 12/22/2016 1:12 PM EST Temperature 36.7 C (98.1 F) 10/05/2014 12:05 PM EST Respiratory Rate - - Oxygen Saturation 96% 12/13/2016 10:16 AM EST Inhaled Oxygen Concentration - - Weight 101 kg (223 lb) 06/22/2021 2:27 PM EDT Height 154.9 cm (5' 1 ) 06/22/2021 2:27 PM EDT Body Mass Index 42.14 06/22/2021 2:27 PM EDT Plan of Treatment Scheduled Procedures Name Priority Associated Diagnoses Date/Ti me LEFT HEART CATH w/cors Atypical chest pain Health Maintenance Due Date Last Done Comments COLOGUARD 1992 COLON CANCER SCREENING 5 YEA R SIGMOIDOSCOPY 1992 [address] COLONOGRAPHY 1992 FIT Testing (1 year) 1992 Pneumococcal Vaccine 50+ (1 of 1 - PCV) 1997 ZOSTER VACCINE (1 of 2) 1997 FECAL OCCULT BLOOD TEST 09/16/2015 09/16/2014 ANNUAL PHYSICAL 07/12/2016 HEPATITIS C SCREENING 07/12/2016 DXA SCAN 05/02/2019 05/02/2017, 05/02/2017 LIPID PANEL 04/28/2020 04/28/2019, 12/21, 07/11/2018, Additional history exists RSV Vaccine - Adults (1 - 1- dose 75+ series) 2022 COVID-19 Vaccine (2 - 2023-2 5 season) 2024 12/24/2020 COLONOSCOPY 10/01/2024 10/01/2014 COLORECTAL CANCER SCREENING 10/01/2024 INFLUENZA VACCINE 07/22/2025 07/17/2018, , 08/29/2017, Additional history exists TDAP/TD VACCINES (3 - Td or Tdap) 03/14/2031 021, 02/12/1996 HEMOGLOBIN A1C Discontinued 04/28/2019, 040 01/2019, 01/16/2019, Additional history exists MAMMOGRAM Discontinued 07/20/2021, 01/20, 02/04/2019, Additional history exists Procedures Procedure Name Priority Date/Time Associated Diagnosis Comments SCANNED - MAMMO 07/20/2021 SCANNED - DEXA 05/02/2017 LIPID PANEL Routine 12/22/2016 2:09 PM EST Hyperlipidemia LDL goal <70 HEMOGLOBIN A1C Routine 09/17/2014 6:18 AM EST OCCULT BLOOD X 3, STOOL Routine 09/16/2014 5:57 PM EST from Last 3 Months or Most Recently Relevant to Health Maintenance Results * SCANNED - MAMMO (07/20/2021) Anatomical Region Laterality Modality Other Yomi Bravo MD CHART REVIEW TABS Arlin l Result * SCANNED - DEXA (05/02/2017) Anatomical Region Laterality Modality Other Yomi Bravo MD CHART REVIEW TABS Arlin l Result * Lipid Panel (12/22/2016 2:09 PM EST) Total Cholesterol 173 0 - 200 mg/dL 12/22/2016 7:25 PM EST [facility] Triglycerides 142 0 - 150 mg/dL 12/22/2016 7:25 PM EST [facility] HDL Cholesterol 52 40 - 60 mg/dL 12/22/2016 7:25 PM EST [facility] LDL Cholesterol 108 0 - 130 mg/dL 12/22/2016 7:25 PM EST [facility] Blood Venipuncture / Unknown 12/22/2016 2:09 PM EST 12/22/2016 2:09 PM EST Narrative [facility] - 12/22/2016 7:25 PM EST Cholesterol Reference Ranges: Desirable < 200 mg/dL Borderline 200-239 mg/dL High Risk > 239 mg/dL Triglyceride Reference Ranges: Normal < 150 mg/dL Borderline 150-199 mg/dL High 200-499 mg/dL Very High > 499 mg/dL HDL Reference Ranges: Low < 40 mg/dL High > 59 mg/dL LDL Reference Ranges: Optimal < 100 mg/dL Near Optimal 100-129 mg/dL Borderline 130-159 mg/dL High 160-189 mg/dL Very High > 189 mg/dL Luis Thurman IV, MD LAB BLOOD ORDERA BLES Final Result [facility]
[address] [place] [address], * (ABNORMAL) Hemoglobin A1c (09/17/2014 6:18 AM EST) Hemoglobin A1C 7.4(H) 4.00 - 6.00 % [facility] Comment: DF by IF @ 09/17/2014 08:13 The [place] [employer] recommends maintenance of Hemoglobin A1C at 7.0% or lower. Goals for Hemoglobin A1C reduction may need to be modified if hypoglycemia is a problem. Mean Bld Glu Estim. 162 mg/dL [facility] Blood specimen (specimen) 09/17/2014 6:18 AM EST Narrative [facility] - 09/17/2014 8:14 AM EST Specimen Type: Blood Hansel Spence MD LAB BLOOD ORDERABLES Final Resu lt Performing Organization Address [facility] Co de Phone Number [facility] [address] [place] [address], * (ABNORMAL) Occult blood x 3, stool (09/16/2014 5:57 PM EST) Fecal Occult Blood Positive(A) Negative [facility] OB Date 1 [id number] [facility] Comment:Testing performed by nursing personnel. Fecal Occult Blood No specimen received. Negative , No specimen received. [facility] Fecal Occult Blood No specimen received. Negative , No specimen received. [facility] Stool specimen (specimen) 09/16/2014 5:57 PM EST Narrative [facility] - 09/17/2014 11:19 AM EST Specimen Type: Stool Zachary Venegas MD BODY FLUIDS AND STOOLS ORDERAB LES Final Result Performing Organization Address [facility] Co de Phone Number [facility] [address] [place] [address], from Last 3 Months or Most Recently Relevant to Health Maintenance Insurance MEDICARE A & B [facility] Care Teams Automatic Thread Winder Relationship Specialty Start Date End Date Ayden Wolfe MD [address] [place] [address] PCP - General Internal Medicine 07/13/16
--- OUTSIDE RECORDS SUMMARY | 2025-05-18 13:38 | XMS_ITS | Encounter Summary ---
Author Organization [facility] Address [address] [place] [address] Care Team Providers Care Literacy Teacher Name Role Phone Ayden Wolfe MD Primary Care Provider [phone] Encounter Details Date Type Department Care Team (Late st Contact Info) Description 12/26/2017 External CPT II LEARNING AND DEVELOPMENT CONSULTANT - [facility] Social History Tobacco Use [...] on filedocumented in this encounter Care Teams Literacy Teacher Relationship Specialty Start Date End Date Ayden Wolfe MD [address] [place] [address] PCP - General Internal Medicine 07/13/16 documented as of this encounter
--- OUTSIDE RECORDS SUMMARY | 2025-05-18 13:38 | XMS_ITS | Encounter Summary ---
Author Organization [facility] Address [address] [place] [address] Care Team Providers Care Electrical Integrator Name Role Phone Ayden Wolfe MD Primary Care Provider [phone] Encounter Details Date Type Department Care Team (Late st Contact Info) Description 04/28/2016 External CPT II DEPUTY CORONER - [facility] Social History Tobacco Use [...] on filedocumented in this encounter Care Teams Electrical Integrator Relationship Specialty Start Date End Date Ayden Wolfe MD [address] [place] [address] PCP - General Internal Medicine 07/13/16 documented as of this encounter
--- OUTSIDE RECORDS SUMMARY | 2025-05-18 13:38 | XMS_ITS | Clinical Summary ---
Author Organization [facility] Address [address] [place] [address] Care Team Providers Care Rough Planer Tender Name Role Phone Enma Crump VENITA Primary Care Provider [phone] Allergies Active Allergy Reactions Criticality Noted Date [...] or (1 - 1-dose 75+ series) 2022 [id number] Vaccine (4 - season) 2024 11/15/2021, 12/24/2020, 11/26/2020 UKY-Influenza Vaccine (#1) 2025 08/23/2019 UKY-DTaP,Tdap,and Td Vaccines (2 - [...] age to complete this topic [place] [id number] Care Teams Rough Planer Tender Relationship Specialty Start Date End Date Enma Crump APRN [address] [place] [address] PCP - General 05/01/23
--- OUTSIDE RECORDS SUMMARY | 2025-05-18 13:38 | XMS_ITS | Encounter Summary ---
Author Organization [employer] ([place], [place], [place], [place]) Address [address] [place] [address] Care Team Providers Care Systems Requirements Planner Name Role Phone Enma Crump GARDEN WORKER Primary Care Provider Encounter Details Date Type Department Care Team (Latest Contact Info) Description 05/08/2025 Travel Social History Tobacco Use Types Packs/Day [...] Date Stanley rded Speak language other than Ukrainian at home Not on file 11/09/2023 Want [...] Info) Description 05/21/2025 3:45 PM EDT Treatment [facility] [address] [place] [phone] Christiano Morfin PT 05/25/2025 4:15 PM EDT Treatment [facility] [address] [place] [phone] Christiano Morfin, PT 05/28/2025 3:45 PM EDT Treatment [facility] [address] [place] [phone] Christiano Morfin, PT 06/01/2025 4:15 PM EDT Treatment [facility] [address] [place] [phone] Christiano Morfin, PT 06/02/2025 8:30 AM EDT Office Visit [facility] - [address] [phone] Alejandro Herrera MD [address] [place] [phone] 06/04/2025 3:45 PM EDT Treatment [facility] [address] [place] [phone] Christiano Morfin, PT 07/28/2025 11:45 AM EDT Appointment [address] [phone] documented as of this encounter Visit Diagnoses Not on filedocumented in this encounter Care Teams Systems Requirements Planner Relationship Specialty Start Date End Date Enma Crump, GARDEN WORKER [address] [address] PCP - General Nurse Practitioner 09/19/22 documented as of this encounter
--- OUTSIDE RECORDS SUMMARY | 2025-05-18 13:39 | XMS_ITS | Referral Summary ---
Author Organization [employer] ([place] Address [address] [place] [address] Care Team Providers Care Weaving Machine Operator Name Role Phone TheronEnma VENITA Primary Care Provider Encounters Date Type Department Care Team Description 05/14/2025 Travel 05/14/2025 3:45 PM EDT Treatment [facility] [address] [place] [phone] Christiano Morfin, PT Left shoulder pain, unspecified chronicity (Primary Dx); Glenohumeral arthritis, left; Arthritis of left acromioclavicular joint; Rotator cuff tendonitis, left 05/08/2025 Travel 05/08/2025 8:45 AM EDT Treatment [facility] [address] [place] [phone] Christiano Morfin, PT Left shoulder pain, unspecified chronicity (Primary Dx); Glenohumeral arthritis, left; Arthritis of left acromioclavicular joint; Rotator cuff tendonitis, left 05/05/2025 Travel 05/05/2025 8:45 AM EDT Treatment [facility] [address] [place] [phone] Eric Loza, OMAR Left shoulder pain, unspecified chronicity (Primary Dx); Glenohumeral arthritis, left; Arthritis of left acromioclavicular joint; Rotator cuff tendonitis, left 04/30/2025 Travel 04/30/2025 8:45 AM EDT Treatment [facility] [address] [place] [phone] Christiano Morfin, PT Left shoulder pain, unspecified chronicity (Primary Dx); Glenohumeral arthritis, left; Arthritis of left acromioclavicular joint; Rotator cuff tendonitis, left 04/28/2025 Travel 04/28/2025 8:45 AM EDT Evaluation [facility] [address] [place] [phone] Christiano Morfin, PT Left shoulder pain, unspecified chronicity (Primary Dx); Glenohumeral arthritis, left; Arthritis of left acromioclavicular joint; Rotator cuff tendonitis, left 04/21/2025 10:05 AM EDT Ancillary Procedure [facility] [address] [phone] Alejandro Herrera MD 04/21/2025 10:00 AM EDT Office Visit [facility] [phone] Alejandro Herrera MD Left shoulder pain, unspecified chronicity (Primary Dx); Glenohumeral arthritis, left; Arthritis of left acromioclavicular joint; Rotator cuff tendonitis, left from Last 3 Months Allergies Active Allergy [...] (81 mg total) by mouth daily. Active Hospital, Clinic, or Other Facility Administered Medication Ordered Dose Route Frequency Start Date End Date Status methylPREDNISolone acetate (DEPO-MEDROL) injection 80 mgIndications:Left shoulder pain, unspecified chronicity,Glenohumeral arthritis, left,Arthritis of left acromioclavicular joint,Rotator cuff tendonitis, left 80 mg IAtc Once 04/21/2025 04/21/2025 Ended lidocaine (XYLOCAINE) injection 1%Indications:Left shoulder pain, unspecified chronicity,Glenohumeral arthritis, left,Arthritis of left acromioclavicular joint,Rotator cuff tendonitis, left 1 mL IAtc Once 04/21/2025 04/21/2025 Ended Active Problems Problem Noted Date Diagnosed Date Glenohumeral arthritis, left 04/21/2025 Arthritis of left acromioclavicular joint 07/01/ 2025 Rotator cuff tendonitis, left 04/21/2025 Primary localized osteoarthritis of left knee Primary [...] Date Stanley rded Speak language other than Greek at home Not on file 11/09/2023 Want [...] Pulse 69 04/21/2025 9:56 AM EDT Temperature 36.6 C (97.9 F) 02/06/2024 2:57 AM EDT Respiratory Rate 18 12/30/2024 8:19 AM EDT Oxygen Saturation 94% 02/06/2024 2:57 AM EDT Inhaled Oxygen Concentration - - Weight 93 kg (205 lb) 04/21/2025 9:56 AM EDT Height 154.9 cm (5' 1 ) 04/21/2025 9:56 AM EDT Body Mass Index 38.73 04/21/2025 9:56 AM EDT Plan of Treatment Upcoming Encounters Date Type Department Care Team (Late st Contact Info) Description 05/21/2025 3:45 PM EDT Treatment [facility] [address] [place] [phone] Christiano Morfin PT 05/25/2025 4:15 PM EDT Treatment [facility] [address] [place] [phone] Christiano Morfin, PT 05/28/2025 3:45 PM EDT Treatment [facility] [address] [place] [phone] Christiano Morfin, PT 06/01/2025 4:15 PM EDT Treatment [facility] [address] [place] [phone] Christiano Morfin, PT 06/02/2025 8:30 AM EDT Office Visit [facility] - [address] [phone] Alejandro Herrera MD [address] [place] [phone] 06/04/2025 3:45 PM EDT Treatment [facility] [address] [place] [phone] Shelbie Christiano, PT 07/28/2025 11:45 AM EDT Appointment [address] [place] [phone] Procedures Procedure Name Priority Date/Time Associated Diagnosis Comments XR SHOULDER COMPLETE 2 VIEWS MIN LEFT Routine 04/21/2025 10:05 AM EDT Left shoulder pain, unspecified chronicity MM DIGITAL MAMMO SCREEN WITH NANETTE BILATERAL Routine 07/25/2024 11:50 AM EDT Visit for screening mammogram from Last 3 Months or Most Recently Relevant to Health Maintenance Results * XR shoulder complete 2 views [...] IMG DIAGNOSTIC IMAGING ORDERAB LES Final Result * MM digital mammo screen with nanette [...] the next mammogram. At our facility, a ekwok marker is positioned over a visible skin [...] cancer. COMPARISON STUDY: 2022 through 2015 from [facility] FINDINGS: Craniocaudal and mediolateral oblique images of both breasts were obtained in 2D and DBT modes. Synthesized views were reconstructed from DBT data. The breast tissue is almost entirely fatty. There is no evidence of dominant mass, architectural distortion, or suspicious calcifications. The mammogram was interpreted with the benefit of computer aided detection (CAD). Enma Crump JOB RECRUITER IMG MAMMOGRAPHY ORDERABLES F inal Result from Last 3 Months or Most Recently Relevant to Health Maintenance Insurance MEDICARE PART A B [facility] Care Teams Weaving Machine Operator Relationship Specialty Start Date End Date Enma Crump APRN [address] [address] PCP - General Nurse Practitioner 09/19/22
--- OUTSIDE RECORDS SUMMARY | 2025-05-18 13:39 | XMS_ITS | Encounter Summary ---
Author Organization [employer] ([place], [place], [place], [place]) Address [address] [place] [address] Care Team Providers Care Lens Edger Name Role Phone Enma Crump BILLING SPEC Primary Care Provider [phone] Encounter Details Date Type Department Care Team (Latest Contact Info) Description 04/28/2025 Travel Social History Tobacco Use Types Packs/Day [...] Date Stanley rded Speak language other than Italian at home Not on file 11/09/2023 Want [...] Info) Description 05/21/2025 3:45 PM EDT Treatment [facility] [address] [place] [phone] Christiano Morfin PT 05/25/2025 4:15 PM EDT Treatment [facility] [address] [place] [phone] Christiano Morfin, PT 05/28/2025 3:45 PM EDT Treatment [facility] [address] [place] [phone] Christiano Morfin, PT 06/01/2025 4:15 PM EDT Treatment [facility] [address] [place] [phone] Christiano Morfin, PT 06/02/2025 8:30 AM EDT Office Visit [facility] - [address] [phone] Alejandro Herrera MD [address] [place] [phone] 06/04/2025 3:45 PM EDT Treatment [facility] [address] [place] [phone] Christiano Morfin, PT 07/28/2025 11:45 AM EDT Appointment [address] [phone] documented as of this encounter Visit Diagnoses Not on filedocumented in this encounter Care Teams Lens Edger Relationship Specialty Start Date End Date Enma Crump, BILLING SPEC [address] [address] PCP - General Nurse Practitioner 09/19/22 documented as of this encounter
--- OUTSIDE RECORDS SUMMARY | 2025-05-18 13:39 | XMS_ITS | Encounter Summary ---
Author Organization [employer] ([place], [place], [place], [place]) Address [address] [place] [address] Care Team Providers Care Editorial Assistant Name Role Phone Enma Crump APRN Primary Care Provider Reason for Referral * Mammography (Routine) - Authorized Specialty Diagnoses / Procedures Referred By Contac t Referred To Contact Radiology Diagnoses Visit for screening mammogram Procedures MM digital mammo screen with estefany bilateral Enma Crump APRN [address] [place] [phone] Phone: tel: fax: [facility] [address] [facility] [address] [place] [phone] Phone: tel: fax: Referral ID Status Reason Start Date Expiration Date V isits Requested Visits Authorized [id number] Authorized 07/28/2025 07/28/2026 1 1 Encounter Details Date Type Department Care Team (Late st Contact Info) Description 07/25/2024 Outside Orders [facility] [address] [place] [phone] Enma Crump APRN [address] [place] [phone] Visit for screening mammogram (Primary Dx) [...] Date Stanley rded Speak language other than Yemeni at home Not on file 11/09/2023 Want [...] Info) Description 05/21/2025 3:45 PM EDT Treatment [facility] [address] [place] [phone] Christiano Morfin, PT 05/25/2025 4:15 PM EDT Treatment [facility] [address] [place] [phone] Christiano Morfin, PT 05/28/2025 3:45 PM EDT Treatment [facility] [address] [place] [phone] Christiano Morfin, PT 06/01/2025 4:15 PM EDT Treatment [facility] [address] [place] [phone] Christiano Morfin, PT 06/02/2025 8:30 AM EDT Office Visit [facility] - [address] [phone] Alejandro Herrera MD [address] [place] [address] 06/04/2025 3:45 PM EDT Treatment [facility] [address] [place] [phone] Christiano Morfin, PT 07/28/2025 11:45 AM EDT Appointment [facility] [address] [place] [phone] Scheduled Orders Name Type Priority Associated Diagnoses Orde r Schedule MM digital mammo screen with estefany bilateral Imaging Routine Visit for screening mammogram Expected: 07/28/2025, Expires: 07/28/2026 documented as of this encounter Visit Diagnoses Diagnosis Visit for screening mammogram- Primary documented in this encounter Care Teams Editorial Assistant Relationship Specialty Start Date End Date Enma Crump, VENITA [address] [address] PCP - General Nurse Practitioner 09/19/22 documented as of this encounter
--- OUTSIDE RECORDS SUMMARY | 2025-05-18 13:39 | XMS_ITS | Encounter Summary ---
Author Organization [employer] ([place], [place], [place], [place]) Address [address] [place] [address] Care Team Providers Care Garden Implement Mechanic Name Role Phone Enma Crump PURCHASING ADMINISTRATOR Primary Care Provider [phone] Encounter Details Date Type Department Care Team (Latest Contact Info) Description 04/30/2025 Travel Social History Tobacco Use Types Packs/Day [...] Date Stanley rded Speak language other than Vietnamese at home Not on file 11/09/2023 Want [...] Info) Description 05/21/2025 3:45 PM EDT Treatment [facility] Therapy [address] [place] [phone] Christiano Morfin PT 05/25/2025 4:15 PM EDT Treatment [facility] Therapy [address] [place] [phone] Christiano Morfin, PT 05/28/2025 3:45 PM EDT Treatment [facility] Therapy [address] [place] [phone] Christiano Morfin, PT 06/01/2025 4:15 PM EDT Treatment [facility] Therapy [address] [place] [phone] Christiano Morfin, PT 06/02/2025 8:30 AM EDT Office Visit [facility] - [address] [phone] Alejandro Herrera MD [address] [place] [address] 06/04/2025 3:45 PM EDT Treatment [facility] Therapy [address] [place] [phone] Christiano Morfin, PT 07/28/2025 11:45 AM EDT Appointment [address] [phone] documented as of this encounter Visit Diagnoses Not on filedocumented in this encounter Care Teams Garden Implement Mechanic Relationship Specialty Start Date End Date Enma Crump, PURCHASING ADMINISTRATOR [address] [address] PCP - General Nurse Practitioner 09/19/22 documented as of this encounter
--- OUTSIDE RECORDS SUMMARY | 2025-05-18 13:39 | XMS_ITS | Clinical Summary ---
Author Organization [employer] ([place], [place], [place], [place]) Address [address] [place] [address] Care Team Providers Care Vmware Architect Name Role Phone Theron Enma VENITA Primary Care Provider Allergies Active [...] left 04/21/2025 Arthritis of left acromioclavicular joint 2024 Rotator cuff tendonitis, left 04/21/2025 Primary localized osteoarthritis of left knee Primary osteoarthritis of right knee 09/19/2022 Encounters Date Type Department Care Team Description 05/14/2025 3:45 PM EDT Treatment [facility] [address] [place] [phone] Christiano Morfin, PT Left shoulder pain, unspecified chronicity (Primary Dx); Glenohumeral arthritis, left; Arthritis of left acromioclavicular joint; Rotator cuff tendonitis, left 05/14/2025 Travel 05/08/2025 8:45 AM EDT Treatment [facility] [address] [place] [phone] Christiano Morfin, PT Left shoulder pain, unspecified chronicity (Primary Dx); Glenohumeral arthritis, left; Arthritis of left acromioclavicular joint; Rotator cuff tendonitis, left 05/08/2025 Travel 05/05/2025 8:45 AM EDT Treatment [facility] [address] [place] [phone] Denia Eric, SENIOR TECHNICAL MANAGER Left shoulder pain, unspecified chronicity (Primary Dx); Glenohumeral arthritis, left; Arthritis of left acromioclavicular joint; Rotator cuff tendonitis, left 05/05/2025 Travel 04/30/2025 8:45 AM EDT Treatment [facility] [address] [place], [place] [phone] Christiano Morfin, PT Left shoulder pain, unspecified chronicity (Primary Dx); Glenohumeral arthritis, left; Arthritis of left acromioclavicular joint; Rotator cuff tendonitis, left 04/30/2025 Travel 04/28/2025 8:45 AM EDT Evaluation [facility] [address] [place], [place] [phone] Christiano Morfin, PT Left shoulder pain, unspecified chronicity (Primary Dx); Glenohumeral arthritis, left; Arthritis of left acromioclavicular joint; Rotator cuff tendonitis, left 04/28/2025 Travel 04/21/2025 10:05 AM EDT Ancillary Procedure [facility] [address] [phone] Alejandro Herrera MD 04/21/2025 10:00 AM EDT Office Visit [facility] [address] [phone] Alejandro Herrera MD Left shoulder pain, unspecified chronicity (Primary Dx); Glenohumeral arthritis, left; Arthritis of left acromioclavicular joint; Rotator cuff tendonitis, left from Last 3 Months Family History Medical [...] Treatment [facility] [address] [place] [phone] Christiano Morfin, AFSHAN 05/25/2025 4:15 PM EDT Treatment [facility] [address] [place] [phone] Christiano Morfin, PT 05/28/2025 3:45 PM EDT Treatment [facility] [address] [place] [phone] Christiano Morfin, PT 06/01/2025 4:15 PM EDT Treatment [facility] [address] [place] [phone] Christiano Morfin, PT 06/02/2025 8:30 AM EDT Office Visit [facility] - [address] [phone] Alejandro Herrera MD [address] [place] [address] 06/04/2025 3:45 PM EDT Treatment [facility] [address] [place] [phone] Christiano Morfin, PT 07/28/2025 11:45 AM EDT Appointment [address] [phone] Health Maintenance Due Date Last Done Comments Medicare Initial AWV G0438 DXA SCAN 1945 Depression Screening (12+) 1959 Hepatitis C Screening 1965 Pneumococcal 50+ years (1 of 1 - PCV) 1997 Shingles Vaccine (Zoster) (1 of 2) 1997 Respiratory Syncytial Virus (RSV) Adult or (1 - 1-dose 75+ series) 2022 COVID-19 VACCINE (4 - 2023-2 5 season) 2024 11/15/2021, 12/24/2020, 11/26/2020 Falls Risk Screening 10/22/2024 Influenza Vaccine (#1) 2025 08/23/2019 Tobacco Cessation Counseling and Screening (12+) 04/21/2026 04/21/2025 DTAP/TDAP/TD VACCINES (3 - T d or [...] the next mammogram. At our facility, a [place] marker is positioned over a visible skin [...] cancer. COMPARISON STUDY: 2022 through 2015 from [facility] FINDINGS: Craniocaudal and mediolateral oblique images of both breasts were obtained in 2D and DBT modes. Synthesized views were reconstructed from DBT data. The breast tissue is almost entirely fatty. There is no evidence of dominant mass, architectural distortion, or suspicious calcifications. The mammogram was interpreted with the benefit of computer aided detection (CAD). Enma Crump APRN [facility] [place] F inal Result from Last 3 Months or Most Recently Relevant to Health Maintenance Insurance MEDICARE PART A B [employer] Care Teams Vmware Architect Relationship Specialty Start Date End Date Enma Crump, VENITA [address] [place] [address] PCP - General Nurse Practitioner 09/19/22
--- OUTSIDE RECORDS SUMMARY | 2025-05-18 13:39 | XMS_ITS | Encounter Summary ---
Author Organization [employer] ([place], [place], [place], [place]) Address [address] [place] [address] Care Team Providers Care Lead Software Qa Engineer Name Role Phone Enma Crump MANAGER HOME HEALTHCARE Primary Care Provider Encounter Details Date Type Department Care Team (Latest Contact Info) Description 05/05/2025 Travel Social History Tobacco Use Types Packs/Day [...] Date Stanley rded Speak language other than Telugu at home Not on file 11/09/2023 Want [...] Info) Description 05/21/2025 3:45 PM EDT Treatment [facility] [address] [place] [phone] Christiano Morfin PT 05/25/2025 4:15 PM EDT Treatment [facility] [address] [place] [phone] Christiano Morfin, PT 05/28/2025 3:45 PM EDT Treatment [facility] [address] [place] [phone] Christiano Morfin, PT 06/01/2025 4:15 PM EDT Treatment [facility] [address] [place] [phone] Christiano Morfin, PT 06/02/2025 8:30 AM EDT Office Visit [facility] - [address] [phone] Alejandro Herrera MD [address] [place] [phone] 06/04/2025 3:45 PM EDT Treatment [facility] [address] [place] [phone] Christiano Morfin, PT 07/28/2025 11:45 AM EDT Appointment [address] [phone] documented as of this encounter Visit Diagnoses Not on filedocumented in this encounter Care Teams Lead Software Qa Engineer Relationship Specialty Start Date End Date Enma Crump, MANAGER HOME HEALTHCARE [address] [address] PCP - General Nurse Practitioner 09/19/22 documented as of this encounter
== END 2025-05-15 23:59 | disposition home or self-care (01) ==
LOC: LAB.DROPOF 05-18 13:31
PROVIDERS: PCP Nurse Practitioner Family; Visit Provider Nurse Practitioner Family
DX: E78.5 Hyperlipidemia, unspecified (principal); R23.3 Spontaneous ecchymoses; R20.0 Anesthesia of skin; R20.2 Paresthesia of skin; D50.9 Iron deficiency anemia, unspecified
CPT/HCPCS: 82180; 82607; 82728; 84443; 85025

== ENCOUNTER 2025-06-16 09:32 | Outpatient (CLI) | payer MEDICARE, OTHER, SELFPAY ==
--- OUTSIDE RECORDS SUMMARY | 2025-04-21 10:00 | XMS_ITS | Encounter Summary ---
Author Organization [employer] ([place], [place], [place], [place]) Address [address] [place] [address] Care Team Providers Care Manager Training Name Role Phone Enma Crump APRN Primary Care Provider Reason for Referral * Consultation (Routine) - Authorized Specialty Diagnoses / Procedures Referred By Sonia t Referred To Contact Physical Therapy Diagnoses Left shoulder pain, unspecified chronicity Glenohumeral arthritis, left Arthritis of left acromioclavicular joint Rotator cuff tendonitis, left Ciro Guardado PA-C [address] [place] [address] Phone: tel: fax: [facility] OP Physical Therapy [address] [place] [phone] Phone: tel: fax: Referral ID Status Reason Start Date Expiration Date Visits Requested Visits Authorized [id number] Authorized Specialty Services Required 04/21/2025 10/21/2025 99 99 Reason for Visit * Reason Comments Shoulder Pain Left shoulder Encounter Details Date Type Department Care Team (Late st Contact Info) Description 04/21/2025 10:00 AM EDT Office Visit [facility] Orthopedics - [address] [phone] Alejandro Herrera MD [address] [place] [address] Left shoulder pain, unspecified chronicity (Primary [...] Date Stanley rded Speak language other than [place] Citizen at home Not on file 11/09/2023 Want [...] - 04/21/2025 10:00 AM EDT NAME: Kristina Herrera CSN: [id number] : 1945 PCP: Enma Crump APRN REASON [...] fluticasone propionate (FLONASE) 50 mcg/actuation nasal spray SMARTSIG:[place](s) Both Nares GaviLyte-G 236-22.74-6.74 -5.86 gram solution [...] patient care. Electronically SignedIsabelle CMA/LXMO PA Attestation: Ciro English PA-C examined, discussed diagnosis and treatment options, acted as a scribe and transcribed components of the current encounter under the direction of the AttendingProvider. Electronically Signed, Ciro Guardado PA-C 04/21/2025 Ciro Guardado PA-C scribing for Alejandro Herrera MD IAlejandro MD, have read and agree with the [...] Care Team (Late st Contact Info) Description 07/28/2025 11:45 AM EDT Appointment [facility] [address] [place] [address] 09/08/2025 8:00 AM EST Office Visit [facility] Orthopedics - [address] [phone] Alejandro Herrera MD [address] [place] [address] Scheduled Orders Name Type Priority Associated Diagnoses [...] Shoulder documented in this encounter Care Teams Manager Training Relationship Specialty Start Date End Date Enma Crump, VENITA [address] [address] PCP - General Nurse Practitioner 09/19/22 documented as of this encounter
--- OUTSIDE RECORDS SUMMARY | 2025-04-21 10:05 | XMS_ITS | Encounter Summary ---
Author Organization [employer] ([place], [place], [place], [place]) Address [address] [place] [address] Care Team Providers Care Dairy Equipment Specialist Name Role Phone CrumpEnma troy VENITA Primary Care Provider [phone] Encounter Details Date Type Department Care Team (Late st Contact Info) Description 04/21/2025 10:05 AM EDT Ancillary Procedure [facility] Orthopedics - [address] [phone] Alejandro Herrera MD [address] [place] [address] Social History Tobacco Use Types Packs/Day Years [...] Date Stanley rded Speak language other than Dominican at home Not on file 11/09/2023 Want [...] Info) Description 07/28/2025 11:45 AM EDT Appointment [facility] [address] [facility] [address] [place] [address] 09/08/2025 8:00 AM EST Office Visit [facility] Orthopedics - [address] [phone] Alejandro Herrera MD [address] [place] [address] documented as of this encounter Procedures Procedure [...] Result documented in this encounter Visit Diagnoses Not on filedocumented in this encounter Care Teams Dairy Equipment Specialist Relationship Specialty Start Date End Date Enma Crump, VENITA [address] [place] [address] PCP - General Nurse Practitioner 09/19/22 documented as of this encounter
--- OUTSIDE RECORDS SUMMARY | 2025-04-28 08:45 | XMS_ITS | Encounter Summary ---
Author Organization [employer] ([place], [place], [place], [place]) Address [address] [place] [address] Care Team Providers Care Sustainable Products Marketing Manager Name Role Phone Enma Crump APRN Primary Care Provider [phone] Reason for Visit * Consultation (Routine) - Authorized Specialty Diagnoses / Procedures Referred By Sonia hodges Referred To Contact Physical Therapy Diagnoses Left shoulder pain, unspecified chronicity Glenohumeral arthritis, left Arthritis of left acromioclavicular joint Rotator cuff tendonitis, left Ciro Guardado PA-C [address] [place] [address] Phone: tel: fax: [facility] OP Physical Therapy [address] [place] [phone] Phone: tel: fax: Referral ID Status Reason Start Date Expiration Date Visits Requested Visits Authorized [id number] Authorized Specialty Services Required 04/21/2025 10/21/2025 99 99 Encounter Details Date Type Department Care Team (Latest Contact Info) Description 04/28/2025 8:45 AM EDT Evaluation [facility] OP Physical Therapy [address] [place] [phone] Christiano Morfin PT Left shoulder pain, unspecified chronicity (Primary Dx); [...] Date Stanley rded Speak language other than Cambodian at home Not on file 11/09/2023 Want [...] on file documented as of this encounter Progress Notes * Christiano Morfin, PT - 04/28/2025 8:45 AM EDT Images from the original note were not included. Outpatient Therapy Services Physical Therapy Evaluation Date of Service: 04/28/2025 Time In: 847 Time Out: 925 Patient name: Kristina Herrera : 1945, 79 y.o. Medical Diagnosis: 1. Left shoulder pain, unspecified chronicity AMB REFERRAL TO PHYSICAL THERAPY EVALUATE, TREAT AND PLAN OF CARE 2. Glenohumeral arthritis, left AMB REFERRAL TO PHYSICAL THERAPY EVALUATE, TREAT AND PLAN OF CARE 3. Arthritis of left acromioclavicular joint AMB REFERRAL TO PHYSICAL THERAPY EVALUATE, TREAT AND PLAN OF CARE 4. Rotator cuff tendonitis, left AMB REFERRAL TO PHYSICAL THERAPY EVALUATE, TREAT AND PLAN OF CARE Referring Provider: Ciro Guardado PA-C Payor: MEDICARE / Plan: MEDICARE PART A B / Product Type: *No Product type* / Date of Onset: 04/21/2025 Past Medical History: Diagnosis Date Cancer (HCC) Basil Cell, Squamous Cell, Diabetes mellitus (HCC) Hyperlipidemia Past Surgical History: Procedure Laterality Date APPENDECTOMY SECTION x2 COLONOSCOPY HYSTERECTOMY Contraindications/Precautions: none to note Current Outpatient Medications Medication Instructions aspirin 81 [...] fluticasone propionate (FLONASE) 50 mcg/actuation nasal spray SMARTSIG:[place](s) Both Nares GaviLyte-G 236-22.74-6.74 -5.86 gram solution [...] (TOBRADEX) 0.3-0.1 % ophthalmic solution SMARTSIG:[place](s) Allergies Allergen Reactions Shellfish Containing Products Iodinated Contrast Media Previous Physical Therapy: yes, low back pain and legs Prior Functional Status: independent Personal Information Marital Status: Resides with: No One, daughter comes to stay with her Signs of Abuse: No Hand Dominance: Right Work Status: Retired SUBJECTIVE Patient reports to the clinic with complaints of bilateral shoulder pain. She states her R shoulderhas been hurting for years, but her L shoulder hurts much worse. She cannot recall an initial injury for her R shoulder, but notes she was supposed to have surgery on it years ago, but was unable to due to her oxygen levels being too low. She states she is thankful she did not go through with the surgery as her shoulder pain has improved since this time. Patient does recall injuring her L shoulder a few weeks ago when she was holding onto the sink, bent over to pick something up from the ground, and felt a pop. She did not feel her pain was getting better, but she had an injection when she went to the ortho MD and feels this has helped. She reports having arthritis in both shoulders. She notes lifting increases in her pain in addition to simple daily movements. She notes that she has beenexperiencing bradycardia in addition to chest pain recently and is following up with her reel winder to go over her test results next week. Pain Current: 2/10 Least: 0/10 Worst: 8/10 Description: Aching Aggravating factors: lifting, movement Relieving factors: arthritis tylenol, tiger balm OBJECTIVE There were no vitals taken for this visit. Test/Measurements Shoulder ROM (degrees) LEFT RIGHT Flexion 156 161 Abduction 160 151 Internal Rotation T12 T12 External Rotation 75 78 Strength Shoulder/Scapula LEFT RIGHT Flexion 4/5 4/5 Abduction 4/5 4/5 External Rotation 4/5 4/5 Internal Rotation 4/5 4+/5 Special Tests Shoulder Right/Left/Bilateral +/- Full Can Bilateral - Empty Can Right - and Left + Drop Arm Bilateral - Shoulder Shrug Sign Bilateral - Horn Blower's Sign (ER lag) Bilateral - Subscapularis Lift Off Bilateral + Belly Press Bilateral - Rock Lenin Left + Functional Outcome Measure: QuickDASH: 27.3% Other: TTP along bilateral upper traps, L deltoid insertion, L infraspinatus, R proximal biceps tendon INTERVENTIONS Therapeutic Exercise Sets x Repetitions Weight/Resistance Cues/Comments HEP Tband Rows/Extensions 3 x 10 RTB [] Tband IR/ER 3 x 10 RTB [] [] [] [] [] [] [] Total Treatment (min): 38' Timed Treatment (min): Physical Therapy Evaluation: Low Complexity (83629) Therapeutic Exercise (68985) 10 minutes ASSESSMENT Patient is a 79 YO female who reports to PT with complaints of L > R shoulder pain. Patient's shoulder AROM is similar bilaterally, but reports slight increases in pain at end ranges. Patient's shoulder strength is also comparable bilaterally, but reports increased pain with resistance of the LUE when compared to the R. Patient demonstrated postitive tests for the L shoulder with empty can, subscap lift off and rock lenin, which indicate a possible rotator cuff pathology. Patient's QuickDASH is 27.3%, which is a decrease in subjective UE function for completing ADLs and recreational activities. Patient was educated on exercises to perform for her HEP to begin strengthening scapular m usculature. Patient will benefit from skilled physical therapy services to return to premorbid mobility, strength and overall function. Overall rehab potential is Good. The patient was educated and verbalized understanding regarding their diagnosis, prognosis, and plan of care. The patient demonstrates a good understanding of the risks, benefits, precautions/contraindications, & prognosis of their skilled rehabilitation episodeof care. Barriers to Rehab: No Learning Barriers PLAN OF CARE Kristina Herrera requires skilled physical therapy services to address the below stated problems/goals,using Therapeutic Exercise (75683), Therapeutic Activity (21811), Manual Therapy (07542), Neuromuscular Re-education (07614), and Hot/Cold Packs 1x/Day. Skilled intervention required to decrease pain, increase strength, improve motor control, improve functional mobility, learn home exercise program, and return to premorbid state. Prognosis: Good Problems: Pain Decreased strength Tenderness to palpation Decreased functional mobility Patient Goal: Decreased Pain Improve Mobility Improve Strength Avoid Surgery Resume ADL's w/o Symptoms Learn Home Exercise Program Patient Education: Eval results/Plan of Care, Disease Process, Body mechanics, HEP, Pt/CG verbalized understanding, Pt/CG asked approp questions, Pt/CG demonstrated carry-over, and Handouts provided Senior Living Goals: Patient will improve L shoulder strength to 4+/5 in all planes for improved ability to care for jfreat grandchild in 12 weeks. Patient will demonstrate full L shoulder AROM with no reports of increases in pain for improved ability to wash her hair in 12 weeks. QuickDASH will improve to 10% for significant improvement in subjective UE function for completing ADLs in 12 weeks. Patient will demonstrate ability to lift 10# with no reports of increased shoulder pain for improved ability to lift a gallon of milk in 12 weeks. Patient will be independent with discharge home exercise program to improve self-care ADL's and household ADL's. Plan of Care Certification Date: 04/28/2025 - 07/21/2025 Frequency/Duration: 2x/Week for 12 weeks Electronically signed by: Christiano Morfin PT 04/28/2025, 10:40 AM EDT This therapy plan of care has been sent to the referring provider for awareness and their review. Cosigned by Ciro Guardado PA-C at 04/28/2025 10:55 AM EDT documented in this encounter Plan of Treatment Upcoming Encounters Date Type Department Care Team (Late st Contact Info) Description 07/28/2025 11:45 AM EDT Appointment [facility] [address] [facility] [address] [place] [address] 09/08/2025 8:00 AM EST Office Visit [facility] Orthopedics - [address] [phone] Alejandro Herrera MD [address] [place] [address] documented as of this encounter Visit Diagnoses Diagnosis Left shoulder pain, unspecified chronicity- Primary Glenohumeral arthritis, left Arthritis of left acromioclavicular joint Rotator cuff tendonitis, left documented in this encounter Care Teams Sustainable Products Marketing Manager Relationship Specialty Start Date End Date Enma Crump APRN [address] [address] PCP - General Nurse Practitioner 09/19/22 documented as of this encounter
--- OUTSIDE RECORDS SUMMARY | 2025-04-30 08:45 | XMS_ITS | Encounter Summary ---
Author Organization [employer] ([place], [place], [place], [place]) Address [address] [place] [address] Care Team Providers Care Hearing Aid Consultant Name Role Phone Enma Crump APRN Primary Care Provider [phone] Reason for Visit * Consultation (Routine) - Authorized Specialty Diagnoses / Procedures Referred By Sonia hodges Referred To Contact Physical Therapy Diagnoses Left shoulder pain, unspecified chronicity Glenohumeral arthritis, left Arthritis of left acromioclavicular joint Rotator cuff tendonitis, left Ciro Guardado PA-C [address] [place] [address] Phone: tel: fax: [facility] OP Physical Therapy [address] [place] [phone] Phone: tel: fax: Referral ID Status Reason Start Date Expiration Date Visits Requested Visits Authorized [id number] Authorized Specialty Services Required 04/21/2025 10/21/2025 99 99 Encounter Details Date Type Department Care Team (Latest Contact Info) Description 04/30/2025 8:45 AM EDT Treatment [facility] OP Physical Therapy [address] [place] [phone] Christiano Morfin PT Left shoulder pain, [...] Date Stanley rded Speak language other than Austrian at home Not on file 11/09/2023 Want [...] overall function. PLAN Interventions: Continue Therapeutic Exercise (73693) Prognosis: Good Patient requires follow-up: Yes Total Treatment (min): 40' Timed Treatment (min): Therapeutic Exercise (89078) 40 minutes Electronically signed: Christiano Morfin PT 04/30/2025, 11:22 AM documented in this encounter Plan of Treatment Upcoming Encounters Date Type Department Care Team (Late st Contact Info) Description 07/28/2025 11:45 AM EDT Appointment [address] [place] [phone] 09/08/2025 8:00 AM EST Office Visit [facility] Orthopedics - [address] [phone] Alejandro Herrera MD [address] [place] [phone] documented as of this encounter Visit Diagnoses Diagnosis Left shoulder pain, unspecified chronicity- Primary Glenohumeral arthritis, left Arthritis of left acromioclavicular joint Rotator cuff tendonitis, left documented in this encounter Care Teams Hearing Aid Consultant Relationship Specialty Start Date End Date Enma Crump APRN [address] [address] PCP - General Nurse Practitioner 09/19/22 documented as of this encounter
--- OUTSIDE RECORDS SUMMARY | 2025-05-05 08:45 | XMS_ITS | Encounter Summary ---
Author Organization [employer] ([place], [place], [place], [place]) Address [address] [place] [address] Care Team Providers Care Nuclear Power Reactor Operator Name Role Phone Enma Crump APRN Primary Care Provider [phone] Reason for Visit * Consultation (Routine) - Authorized Specialty Diagnoses / Procedures Referred By Sonia hodges Referred To Contact Physical Therapy Diagnoses Left shoulder pain, unspecified chronicity Glenohumeral arthritis, left Arthritis of left acromioclavicular joint Rotator cuff tendonitis, left Ciro Guardado PA-C [address] [place] [address] Phone: tel: fax: [facility] OP Physical Therapy [address] [place] [phone] Phone: tel: fax: Referral ID Status Reason Start Date Expiration Date Visits Requested Visits Authorized [id number] Authorized Specialty Services Required 04/21/2025 10/21/2025 99 99 Encounter Details Date Type Department Care Team (Latest Contact Info) Description 05/05/2025 8:45 AM EDT Treatment [facility] OP Physical Therapy [address] [place] [phone] Eric Loza PTA Left shoulder pain, [...] Date Stanley rded Speak language other than Maldivian at home Not on file 11/09/2023 Want [...] this encounter Progress Notes * Saadclaudiaumair Loza, PSYCHIATRIC REGISTERED NURSE - 05/05/2025 8:45 AM EDT Images from [...] of function. PLAN Interventions: Continue Therapeutic Exercise (23145) Prognosis: Good Patient requires follow-up: Yes Total Treatment (min): 43 Timed Treatment (min): Therapeutic Exercise (33149) 43 minutes Electronically signed: Eric Loza PTA 05/05/2025,9:30 AM documented in this encounter Plan of Treatment Upcoming Encounters Date Type Department Care Team (Late st Contact Info) Description 07/28/2025 11:45 AM EDT Appointment [facility] [address] [facility] [address] [place] [phone] 09/08/2025 8:00 AM EST Office Visit [facility] - [address] [phone] Alejandro Herrera MD [address] [place] [address] documented as of this encounter Visit Diagnoses Diagnosis Left shoulder pain, unspecified chronicity- Primary Glenohumeral arthritis, left Arthritis of left acromioclavicular joint Rotator cuff tendonitis, left documented in this encounter Care Teams Nuclear Power Reactor Operator Relationship Specialty Start Date End Date Enma Crump APRN [address] [address] PCP - General Nurse Practitioner 09/19/22 documented as of this encounter
--- OUTSIDE RECORDS SUMMARY | 2025-05-08 08:45 | XMS_ITS | Encounter Summary ---
Author Organization [employer] ([place], [place], [place], [place]) Address [address] [place] [address] Care Team Providers Care Immigration Patrol Inspector Name Role Phone Enma Crump APRN Primary Care Provider [phone] Reason for Visit * Consultation (Routine) - Authorized Specialty Diagnoses / Procedures Referred By Sonia hodges Referred To Contact Physical Therapy Diagnoses Left shoulder pain, unspecified chronicity Glenohumeral arthritis, left Arthritis of left acromioclavicular joint Rotator cuff tendonitis, left Ciro Guardado PA-C [address] [place] [address] Phone: tel: fax: [facility] OP Physical Therapy [address] [place] [phone] Phone: tel: fax: Referral ID Status Reason Start Date Expiration Date Visits Requested Visits Authorized [id number] Authorized Specialty Services Required 04/21/2025 10/21/2025 99 99 Encounter Details Date Type Department Care Team (Latest Contact Info) Description 05/08/2025 8:45 AM EDT Treatment [facility] OP Physical Therapy [address] [place] [phone] Christiano Morfin PT Left shoulder pain, [...] Date Stanley rded Speak language other than Afghan at home Not on file 11/09/2023 Want [...] Progress Notes * Christiano Morfin, PT - 05/08/2025 8:45 AM EDT Images from the original note were not included. Outpatient Physical Therapy Treatment Note 05/08/2025 Time In: 846 Time Out: 927 Kristina Herrera 1945 79 y.o. 1. Left shoulder pain, unspecified chronicity 2. Glenohumeral arthritis, left 3. Arthritis of left acromioclavicular joint 4. Rotator cuff tendonitis, left Referring Physician: Ciro Guardado PA-C Insurance: Payor: MEDICARE / Plan: MEDICARE PART A B / Product Type: *No Product type* / SUBJECTIVE Patient reports she has no shoulder pain at this time. She notes she feels she is getting stronger and she is sleeping better at night. Pain: 0/10 OBJECTIVE INTERVENTIONS Therapeutic Exercise Sets x Repetitions Weight/Resistance Cues/Comments HEP Tband Rows/Extensions 3 x 10 RTB [] Tband IR/ER (B) 3 x 10 RTB [] Pulleys 2'/2' Flex/scap [] UBE 3'/3' Level 2 [] Fwd/Lat Raises 3 x 10 Ball Rollouts (B) 2'/2' Flex/scap Blue physioball [] No moneys 2 x 10 RTB [] Drivers 2 x 10 RTB [] Horizontal pull aparts 2 x 10 RTB [] Landmine Press (B) 2 x 10 Flexion/ABD ASSESSMENT Patient completed exercises to improve bilateral shoulder mobility and strength. Therex was continued from last session due to recent progressions to improve exercise tolerance. She tolerated overalltreatment with mild difficulty and minimal reports of increased pain. Patient took rest breaks as needed throughout the session due to fatigue and reported feeling very tired at the end. Will continue to progress as tolerated. Patient will continue to benefit from skilled physical therapy services to return to premorbid mobility, strength and overall function. PLAN Interventions: Continue Therapeutic Exercise (96320) Prognosis: Good Patient requires follow-up: Yes Total Treatment (min): 41' Timed Treatment (min): Therapeutic Exercise (21356) 40 minutes Electronically signed: Christiano Morfin PT 05/08/2025,9:28 AM documented in this encounter Plan of Treatment Upcoming Encounters Date Type Department Care Team (Late st Contact Info) Description 07/28/2025 11:45 AM EDT Appointment [address] [place] [phone] 09/08/2025 8:00 AM EST Office Visit [facility] Orthopedics - [address] [phone] Alejandro Herrera MD [address] [place] [address] documented as of this encounter Visit Diagnoses Diagnosis Left shoulder pain, unspecified chronicity- Primary Glenohumeral arthritis, left Arthritis of left acromioclavicular joint Rotator cuff tendonitis, left documented in this encounter Care Teams Immigration Patrol Inspector Relationship Specialty Start Date End Date Enma Crump APRN [address] [address] PCP - General Nurse Practitioner 09/19/22 documented as of this encounter
--- OUTSIDE RECORDS SUMMARY | 2025-05-14 15:45 | XMS_ITS | Encounter Summary ---
Author Organization [employer] ([place], [place], [place], [place]) Address [address] [place] [address] Care Team Providers Care Public Information Director Name Role Phone Enma Crump APRN Primary Care Provider [phone] Reason for Visit * Consultation (Routine) - Authorized Specialty Diagnoses / Procedures Referred By Sonia hodges Referred To Contact Physical Therapy Diagnoses Left shoulder pain, unspecified chronicity Glenohumeral arthritis, left Arthritis of left acromioclavicular joint Rotator cuff tendonitis, left Ciro Guardado PA-C [address] [place] [address] Phone: tel: fax: [facility] Therapy [address] [place] [phone] Phone: tel: fax: Referral ID Status Reason Start Date Expiration Date Visits Requested Visits Authorized [id number] Authorized Specialty Services Required 04/21/2025 10/21/2025 99 99 Encounter Details Date Type Department Care Team (Latest Contact Info) Description 05/14/2025 3:45 PM EDT Treatment [facility] OP Physical Therapy [address] [place] [phone] Christiano Morfin PT Left shoulder pain, [...] Date Stanley rded Speak language other than Ugandan at home Not on file 11/09/2023 Want [...] of this encounter Progress Notes * Christiano Shelbie, PT - 05/14/2025 3:45 PM EDT Images from the original note were not included. Outpatient Physical Therapy Treatment Note 05/14/2025 Time In: 1534 Time Out: 1617 Kristina Herrera 1945 79 y.o. 1. Left shoulder pain, unspecified chronicity 2. Glenohumeral arthritis, left 3. Arthritis of left acromioclavicular joint 4. Rotator cuff tendonitis, left Referring Physician: Ciro Guardado PA-C Insurance: Payor: MEDICARE / Plan: MEDICARE PART A B / Product Type: *No Product type* / SUBJECTIVE Patient reports she is very tired today after watching her great grandson this week. She notes she has had some aches and pains when performing some house work such as taking down her curtains and washing them over the last few days. Pain: 0/10 OBJECTIVE INTERVENTIONS Therapeutic Exercise Sets x Repetitions Weight/Resistance Cues/Comments HEP Tband Rows/Extensions 3 x 10 RTB [] Tband IR/ER (B) 3 x 10 RTB [] Pulleys 2'/2' Flex/scap [] UBE 3'/3' Level 2 [] Fwd/Lat Raises 3 x 10 Towel Slides (B) 3 x 10 Flex with a forward step [] No Moneys 3 x 10 RTB [] Drivers 3 x 10 RTB [] Horizontal Pull Aparts 3 x 10 RTB [] Landmine Press (B) 3 x 10 Flexion/ABD Step Aways 5 x 15 sec ASSESSMENT Patient completed exercises to improve bilateral shoulder mobility and strength. Therex was progressed by increasing repetitions for no moneys, drivers, horizontal pull aparts and the landmine press for improved shoulder strength and endurance. Ball rollouts on the table were progressed to towel slides on the wall with a step for improved shoulder mobility during reaching tasks. A step away stretch was also added to stretch the shoulder girdle and the patient stated this felt good. She tolerated overall treatment with mild difficulty and minimal reports of increased pain. Patient took rest breaks as needed throughout the session due to fatigue and reported feeling very tired at the end. Will continue to progress as tolerated. Patient will continue to benefit from skilled physical therapy services to return to premorbid mobility, strength and overall function. PLAN Interventions: Continue Therapeutic Exercise (90289) Prognosis: Good Patient requires follow-up: Yes Total Treatment (min): 43' Timed Treatment (min): Therapeutic Exercise (63852) 43 minutes Electronically signed: Christiano Morfin PT 05/14/2025, 4:19 PM documented in this encounter Plan of Treatment Upcoming Encounters Date Type Department Care Team (Late st Contact Info) Description 07/28/2025 11:45 AM EDT Appointment [address] [place] [phone] 09/08/2025 8:00 AM EST Office Visit [facility] Orthopedics - [address] [phone] Alejandro Herrera MD [address] [place] [address] documented as of this encounter Visit Diagnoses Diagnosis Left shoulder pain, unspecified chronicity- Primary Glenohumeral arthritis, left Arthritis of left acromioclavicular joint Rotator cuff tendonitis, left documented in this encounter Care Teams Public Information Director Relationship Specialty Start Date End Date Enma Crump, ORACLE APPLICATION CONSULTANT [address] [address] PCP - General Nurse Practitioner 09/19/22 documented as of this encounter
--- OUTSIDE RECORDS SUMMARY | 2025-05-25 16:15 | XMS_ITS | Encounter Summary ---
Author Organization [employer] ([place], [place], [place], [place]) Address [address] [place] [address] Care Team Providers Care Operations Welder Name Role Phone Enma Crump APRN Primary Care Provider [phone] Reason for Visit * Consultation (Routine) - Authorized Specialty Diagnoses / Procedures Referred By Sonia hodges Referred To Contact Physical Therapy Diagnoses Left shoulder pain, unspecified chronicity Glenohumeral arthritis, left Arthritis of left acromioclavicular joint Rotator cuff tendonitis, left Ciro Guardado PA-C [address] [place] [phone] Phone: tel: fax: [facility] Therapy [address] [place] [phone] Phone: tel: fax: Referral ID Status Reason Start Date Expiration Date Visits Requested Visits Authorized [id number] Authorized Specialty Services Required 04/21/2025 10/21/2025 99 99 Encounter Details Date Type Department Care Team (Latest Contact Info) Description 05/25/2025 4:15 PM EDT Treatment [facility] Therapy [address] [place] [phone] Christiano Morfin PT Left shoulder pain, [...] Date Stanley rded Speak language other than Panamanian at home Not on file 11/09/2023 Want [...] Progress Notes * Christiano Morfin, PT - 05/25/2025 4:15 PM EDT Images from the original note were not included. Outpatient Physical Therapy Treatment Note 05/25/2025 Time In: 1615 Time Out: 1655 Kristina Herrera 1945 79 y.o. 1. Left shoulder pain, unspecified chronicity 2. Glenohumeral arthritis, left 3. Arthritis of left acromioclavicular joint 4. Rotator cuff tendonitis, left Referring Physician: Ciro Guardado PA-C Insurance: Payor: MEDICARE / Plan: MEDICARE PART A B / Product Type: *No Product type* / SUBJECTIVE Patient reports her L shoulder has been bothering her when bending over to do tasks over the past few days but has no pain currently. She notes her knees are hurting a lot today and requests to sit during her exercises if possible. Pain: 0/10 OBJECTIVE INTERVENTIONS Therapeutic Exercise Sets x Repetitions Weight/Resistance Cues/Comments HEP Tband Rows/Extensions 3 x 10 GTB [] Tband IR/ER (B) 3 x 10 GTB [] Pulleys 2'/2' Flex/scap [] UBE 3'/3' Level 2 [] Fwd/Lat Raises 3 x 10 Towel Slides (B) 3 x 10 Not today Flex with a forward step [] No Moneys 3 x 10 GTB [] Drivers 3 x 10 RTB [] Horizontal Pull Aparts 3 x 10 GTB [] Landmine Press (B) 3 x 10 Flexion/ABD Not today Step Aways 5 x 15 sec *performed seated ball rollouts this date ASSESSMENT Patient completed exercises to improve bilateral shoulder mobility and strength. All exercises werecompleted in sitting this date to accommodate patient's increased knee pain when standing. Therex was progressed by increasing resistance for tband exercises for improved shoulder girdle strength and stability. She tolerated overall treatment with mild difficulty and minimal reports of increased pain. Patient took rest breaks as needed throughout the session due to fatigue and reported feeling very tired at the end. Will continue to progress as tolerated. Patient will continue to benefit from skilled physical therapy services to return to premorbid mobility, strength and overall function. PLAN Interventions: Continue Therapeutic Exercise (36266) Prognosis: Good Patient requires follow-up: Yes Total Treatment (min): 40' Timed Treatment (min): Therapeutic Exercise ([id number]) 40 minutes Electronically signed: Christiano Morfin PT 05/25/2025, 4:56 PM documented in this encounter Plan of Treatment Upcoming Encounters Date Type Department Care Team (Late st Contact Info) Description 07/28/2025 11:45 AM EDT Appointment [facility] [address] [facility] [address] [place] [phone] 09/08/2025 8:00 AM EST Office Visit [facility] - [address] [phone] Alejandro Herrera MD [address] [place] [phone] documented as of this encounter Visit Diagnoses Diagnosis Left shoulder pain, unspecified chronicity- Primary Glenohumeral arthritis, left Arthritis of left acromioclavicular joint Rotator cuff tendonitis, left documented in this encounter Care Teams Operations Welder Relationship Specialty Start Date End Date Enma Crump APRN [address] [place] [phone] PCP - General Nurse Practitioner 09/19/22 documented as of this encounter
--- OUTSIDE RECORDS SUMMARY | 2025-06-02 08:30 | XMS_ITS | Encounter Summary ---
Author Organization [employer] ([place], [place], [place], [place]) Address [address] [place] [address] Care Team Providers Care Conveyor System Dispatcher Name Role Phone Enma Crump MENTAL HEALTH AIDE Primary Care Provider [phone] Reason for Visit * Reason Comments Follow-up Left shoulder Injections Right knee injection Encounter Details Date Type Department Care Team (Late st Contact Info) Description 06/02/2025 8:30 AM EDT Office Visit [facility] Orthopedics - [address] [address] Alejandro Herrera MD [address] [place] [address] Primary osteoarthritis of right knee (Primary Dx); Rotator cuff tendonitis, left Social History Tobacco [...] Date Stanley rded Speak language other than Tanzanian at home Not on file 11/09/2023 Want [...] Sign Reading Time Taken Comments Blood Pressure 138/76 06/02/2025 8:28 AM EDT Pulse 60 06/02/2025 8:28 AM EDT Temperature - - Respiratory Rate 18 06/02/2025 8:28 AM EDT Oxygen Saturation - - Inhaled Oxygen Concentration - - Weight 89.4 kg (197 lb) 06/02/2025 8:28 AM EDT Height 154.9 cm (5' 1 ) 06/02/2025 8:28 AM EDT Body Mass Index 37.22 06/02/2025 8:28 AM EDT documented in this encounter Progress Notes * Alejandro Herrera MD - 06/02/2025 8:30 AM EDT NAME: Kristina Herrera CSN: [id number] : 1945 PCP: Enma Crump APRN REASON FOR VISIT Follow-up (Left shoulder ) and Injections (Right knee injection ) HPI Kristina Herrera is a 79 y.o. female presents today for a follow-up on the left shoulder S/P attending physical therapy and cortisone injection received on 04/21/25. She states she has been going to PTfor her shoulder and her shoulder is doing well. She reports the PT has caused her knee to hurt and she would like to get an injection in her right knee. She states previous injection on 02/10/25 helped for about 3 months. She rates pain as 5 out of10 today . She would like to proceed with injection today. Interval HPI: 04/21/25: Established patient presents for a new complaint of acute on chronic left shoulder pain. She denies any precipitating event or injury. She reports that the pain has been present for one month. She reports that her pain is located deep within the joint, posteriorly, and radiates into the biceps. She describes her pain as throbbing. She reports that she has increased pain while driving. She reports temporary relief with tiger balm and tylenol. She [...] fluticasone propionate (FLONASE) 50 mcg/actuation nasal spray SMARTSIG:[place](s) Both Nares GaviLyte-G 236-22.74-6.74 -5.86 gram solution [...] depression, no anxiety, no fatigue, no mood swings Scribe Attestation: I, Sasha Yu RTR acted as a scribe and transcribed components of the current encounter under the direction of the Attending Provider. I have not been involved in providing any clinical treatments or patient care. Electronically Signed, Sasha uY RTR OBJECTIVE Vitals: 06/02/25 0828 BP: 138/76 Pulse: 60 Resp: 18 Weight: 89.4 kg (197 lb) Height: 1.549 m (5' 1 ) [...] appearance with no obvious discoloration or wounds Right Knee Exam General: Awake, Alert, Oriented x3, Well developed Appearance: - effusion, + localized swelling, +varus deformity, -masses Tenderness to palpation: + Medial joint line, -Lateral joint line, +Patellofemoral joint, -MCL, -LCL, -Posterior, - Quad Tendon, - Patellar Tendon, -Hamstring, - Gastrocnemius ROM: 120 degrees of Flexion, Full Extension, +crepitus Strength: 4/5 Testing: -Bharati, -Daina, -Posterior drawer, -Valgus stress, -Varus stress Neurovascular: NVI, -Homans Skin: normal appearance with no discoloration or wounds Gait: abnormal IMAGING/OUTSIDE REPORTS Imaging reviewed today in office from previous encounter ASSESSMENT Problem List Items Addressed This Visit Musculoskeletal and Integument Primary osteoarthritis of right knee - Primary Relevant Medications methylPREDNISolone acetate (DEPO-MEDROL) injection 80 mg (Completed) (Start on 06/02/2025 9:00 AM) Other Relevant Orders Arthrocentsis aspiration/inj major jt/bursa w/o us Rotator cuff tendonitis, left PLAN Return in about 3 months (around 09/02/2025) for right knee injection 06/02/25. Continue formal therapy for left shoulder Continue injections as needed for knee pain every 3 months Return sooner if needed for new or worsening symptoms PROCEDURE Diabetes education: Yes - The risk and [...] or symptoms of hyperglycemia are not controllable. A1c 7.9 Allergy to Iodine/Betadine/Shell fish: yes contrast dye Allergy to latex/adhesive: no Allergy to steroids: no Allergy to lidocaine: no Recent Covid vaccine within the last two weeks: no Currently taking antibiotics: no Current infections or wounds: no Recent fractures or scheduled surgeries: no Steroid: right Knee Injection: Indication: right Knee pain Consent: The risks, benefits, and alternatives of procedure were discussed with the patient including but not limited to pain, infection, and bleeding. All questions were answered and informed consent was obtained. Prep: The injection site was identified as noted above and confirmed with patient as correct extremity. The site was prepped in a standard sterile manner. The skin overlying the area was anesthetizedwith ethyl chloride. Procedure: The needle was inserted into above injection site, then was injected with 1cc of 1% lidocaine and 1cc of 80mg Depo-medrol Post-procedure: The patient tolerated the procedure well without complications. Post injection instructions were given and questions were answered to the best of my knowledge. Adverse effects: None. Lidocaine [id number] 12/31/26 Instructions provided for post injection care: Ice as needed Rest as needed Watch for signs of infection, return to clinic if symptoms appear Return to clinic if symptoms worsen or new symptoms occur Injection performed by: Nicole Persaud PA-C Scribe Attestation: Sasha English RTR acted as a scribe and transcribed components of the current encounter under the direction of the Attending Provider. I have not been involved in providing any clinical treatments or patient care. Electronically SignedSasha RTR SONJA Attestation: Nicole English PA-C examined, discussed diagnosis and treatment options, acted as a scribe and transcribed components of the current encounter under the direction of the Attending Provider. Electronically SignedNicole PA-C 06/02/2025 Nicole Persaud PA-C scribing for Alejandro Herrera MD IAlejandro MD, have read and agree with the documentation that has been completed regarding this visit. By signing this record, I attest that the documentation was completed in my physical presence and is an accurate record of the encounter. Electronically Signed, Alejandro Herrera MD 06/02/2025 8:43 AM EDT Ana DIAZ / MAREK is undergoing an EHR [...] Info) Description 07/28/2025 11:45 AM EDT Appointment [address] [place] [phone] 09/08/2025 8:00 AM EST Office Visit [facility] Orthopedics - [address] [address] Alejandro Herrera MD [address] [place] [address] Scheduled Orders Name Type Priority Associated Diagnoses Orde r Schedule Arthrocentsis aspiration/inj major jt/bursa w/o us Procedures Routine Primary osteoarthritis of right knee Ordered: 06/02/2025 documented as of this encounter Visit Diagnoses Diagnosis Primary osteoarthritis of right knee- Primary Rotator cuff tendonitis, left documented in this encounter Administered Medications Inactive Administered Medications - up to 3 most recent administrations Medication Order MAR Action Action Date Dose Rate Site methylPREDNISolone acetate (DEPO-MEDROL) injection 80 mg 80 mg Once, intra-articular, On Sun06/02/25 at 0900, For 1 doseIndications:Primary osteoarthritis of right knee Given 06/02/2025 8:41 AM EDT 80 mg documented in this encounter Care Teams Conveyor System Dispatcher Relationship Specialty Start Date End Date Enma Crump APRN [address] [address] PCP - General Nurse Practitioner 09/19/22 documented as of this encounter
--- OUTSIDE RECORDS SUMMARY | 2025-06-16 09:34 | XMS_ITS | Continuity of Care Document ---
Author Name [facility] Organization [facility] Care Team Providers Care Oracle Database Consultant Name Role Phone [facility] Unavailable Unavailable Problems Combined list of problems from [facility] and [facility] facilities. It does not include entries that were removed or entered in error. Problem Status Onset Date Problem Type Date of Resolution Comments Source Diagnosis: ICD-10-CM Z71.0 Prsn encntr hlth serv to consult on behalf of another person Active Diagnosis [facility] Medications Combined list of outpatient medications from [facility] and [facility] facilities.Medications provided include 1) outpatient medications from the last 15 months, and 2) patient-reported medications. Medication Details Route Status Patient Instructions Prescription Expires Prescription Number Last Dispense Date Ordering Provider Order Date Order Qty Source DAPAGLIFLOZ IN (dapagliflo zin propanediol ), 10 MG, TABLET, ORAL, [facility], 30 ea. BOTTLE Active [id number] 2023 90 Pharmac y Data Transac tion Service Facilit y FLUCONAZOLE (FLUCONAZOL E), 100 MG, TABLET, ORAL, [facility], 30 ea. BOTTLE Active [id number] 4 2023 10 Pharmac y Data Transac tion Service Facilit y Encounters Combined list of: 1) Encounters from Department of Veterans Affairs facilities going backup to the last 18 months, not all [place] inpatient encounters are included; 2) Encounters from the Department [facility] facilities going backup to 280 months. Location Location Details Encounter Type Encounter Number Reason For Visit Attending Provider ADM Date DC Date Status Disposition Source [facility] PH1 ASSMT&MGMT NQHP [id number] Diagnos is: ICD-10- CM Z71.0 Prsn encntr hlth serv to consult on behalf of another person JAYLON MIRAMONTES 11/04 [place] [facility] Outpatient Encounter [id number] 11/26 [place] [facility] Social History Combined list of available smoking, tobacco, and other social history from Department of Defense and Veterans Affairs facilities. Social History Type Response Date Comment [facility] e This section is an empty social history section. DoD
--- OUTSIDE RECORDS SUMMARY | 2025-06-16 09:35 | XMS_ITS | Encounter Summary ---
Author Organization [facility] Address [address] [place] [address] Care Team Providers Care Electric Motor Analyst Name Role Phone Ayden Wolfe MD Primary Care Provider [phone] Encounter Details Date Type Department Care Team (Late st Contact Info) Description 07/17/2018 External CPT II BOARD ATTENDANT - [facility] Social History Tobacco Use [...] on filedocumented in this encounter Care Teams Electric Motor Analyst Relationship Specialty Start Date End Date Ayden Wolfe MD [address] [place] [address] PCP - General Internal Medicine 07/13/16 documented as of this encounter
--- OUTSIDE RECORDS SUMMARY | 2025-06-16 09:35 | XMS_ITS | Encounter Summary ---
Author Organization [employer] ([place], [place], [place], [place]) Address [address] [place] [address] Care Team Providers Care Pharmaceutical Scientist Name Role Phone Enma Crump APRN Primary Care Provider Encounter Details Date Type [...] Date Stanley rded Speak language other than Guatemalan at home Not on file 11/09/2023 Want [...] Info) Description 07/28/2025 11:45 AM EDT Appointment [facility] Breast Care [address] [facility] [address] [place] [phone] 09/08/2025 8:00 AM EST Office Visit [facility] Orthopedics - [address] [address] Alejandro Herrera MD [address] [place] [address] documented as of this encounter Visit Diagnoses Not on filedocumented in this encounter Care Teams Pharmaceutical Scientist Relationship Specialty Start Date End Date Theron Enma, FREIGHT RATE SPECIALIST [address] [address] PCP - General Nurse Practitioner 09/19/22 documented as of this encounter
--- OUTSIDE RECORDS SUMMARY | 2025-06-16 09:35 | XMS_ITS | Encounter Summary ---
Author Organization [employer] ([place], [place], [place], [place]) Address [address] [place] [address] Care Team Providers Care Transitional Kindergarten Teacher Name Role Phone Stephanie Wolfe MD Primary Care Provider [phone] Enma Crump APRN Primary Care Provider [phone] Reason for Referral * Mammography (Routine) - Closed Specialty Diagnoses / Procedures Referred By [facility] t Referred To Contact Diagnoses Visit for screening mammogram Procedures MM digital mammo screen with estefany bilateral Enma Crump APRN [address] [place] [address] Phone: tel: fax: Referral ID Status Reason Start Date Expiration Date Visits Re quested Visits Authorized [id number] Closed 07/24/2023 01/20/2024 1 1 Encounter Details Date Type Department Care Team (Late st Contact Info) Description 07/21/2022 Outside Orders [facility] Breast [address] [place] [phone] Enma Crump APRN [address] [address] Visit for screening mammogram (Primary [...] Info) Description 07/28/2025 11:45 AM EDT Appointment [facility] [address] [facility] [address] [place] [address] 09/08/2025 8:00 AM EST Office Visit [facility] Orthopedics - [address] [address] Alejandro Herrera MD [address] [place] [address] documented as of this encounter Results * [...] the next mammogram. At our facility, a [place] marker is positioned over a visible skin [...] family history of breast cancer. COMPARISON STUDY: [facility] FINDINGS: Craniocaudal and mediolateral oblique [...] mammogram documented in this encounter Care Teams Transitional Kindergarten Teacher Relationship Specialty Start Date End Date Stephanie Wolfe MD [address] [address] PCP - General Family Medicine 09/12/22 09/18/22 Enma Crump APRN [address] [address] PCP - General Nurse Practitioner 09/19/22 documented as of this encounter
--- OUTSIDE RECORDS SUMMARY | 2025-06-16 09:35 | XMS_ITS | Clinical Summary ---
Author Organization [facility] Address [address] [place] [address] Care Team Providers Care Organ Fixer Name Role Phone Ayden Wolfe MD Primary Care Provider [phone] Allergies Active Allergy Reactions Criticality Noted Date [...] - 200 mg/dL 12/22/2016 7:25 PM EST [facility] Triglycerides 142 0 - 150 mg/dL 12/22/2016 7:25 PM EST [facility] HDL Cholesterol 52 40 - 60 mg/dL 12/22/2016 7:25 PM EST [facility] LDL Cholesterol 108 0 - 130 mg/dL 12/22/2016 7:25 PM EST [facility] Blood Venipuncture / Unknown 12/22/2016 2:09 PM EST 12/22/2016 2:09 PM EST Narrative [facility] - 12/22/2016 7:25 PM EST [...] MD LAB BLOOD ORDERA BLES Final Result [facility]
[address] [place] [address], * (ABNORMAL) Hemoglobin A1c (09/17/2014 6:18 AM EST) Hemoglobin A1C 7.4(H) 4.00 - 6.00 % [facility] Comment: DF by IF @ 09/17/2014 08:13 The [place] [employer] recommends maintenance of Hemoglobin A1C at 7.0% or lower. Goals for Hemoglobin A1C reduction may need to be modified if hypoglycemia is a problem. Mean Bld Glu Estim. 162 mg/dL [facility] Blood specimen (specimen) 09/17/2014 6:18 AM EST Narrative [facility] - 09/17/2014 8:14 AM EST Specimen Type: Blood Hansel Spence MD LAB BLOOD ORDERABLES Final Resu lt Performing Organization Address [facility] Co de Phone Number [facility] [address] [place] [address], * (ABNORMAL) Occult blood x 3, stool (09/16/2014 5:57 PM EST) Fecal Occult Blood Positive(A) Negative [facility] OB Date 1 [id number] [facility] Comment:Testing performed by nursing personnel. Fecal Occult Blood No specimen received. Negative , No specimen received. [facility] Fecal Occult Blood No specimen received. Negative , No specimen received. [facility] Stool specimen (specimen) 09/16/2014 5:57 PM EST Narrative [facility] - 09/17/2014 11:19 AM EST Specimen Type: Stool Zachary Venegas MD BODY FLUIDS AND STOOLS ORDERAB LES Final Result Performing Organization Address [facility] Co de Phone Number [facility] [address] [place] [address], from Last 3 Months or Most Recently Relevant to Health Maintenance Insurance MEDICARE A & B [facility] Care Teams Organ Fixer Relationship Specialty Start Date End Date Ayden Wolfe MD [address] [place] [address] PCP - General Internal Medicine 07/13/16
--- OUTSIDE RECORDS SUMMARY | 2025-06-16 09:35 | XMS_ITS | Encounter Summary ---
Author Organization [facility] Address [address] [place] [address] Care Team Providers Care Burlap Man Name Role Phone Ayden Wolfe MD Primary Care Provider [phone] Encounter Details Date Type Department Care Team (Late st Contact Info) Description 01/23/2019 External CPT II VP HUMAN RESOURCES - [facility] Social History Tobacco Use [...] on filedocumented in this encounter Care Teams Burlap Man Relationship Specialty Start Date End Date Ayden Wolfe MD [address] [place] [address] PCP - General Internal Medicine 07/13/16 documented as of this encounter
--- OUTSIDE RECORDS SUMMARY | 2025-06-16 09:35 | XMS_ITS | Encounter Summary ---
Author Organization [employer] ([place], [place], [place], [place]) Address [address] [place] [address] Care Team Providers Care Pharmaceutical Assistant Name Role Phone Enma Crump APRN [...] Date Stanley rded Speak language other than Belizean at home Not on file 11/09/2023 Want [...] Info) Description 07/28/2025 11:45 AM EDT Appointment [facility] Breast Care [address] [facility] [address] [place] [phone] 09/08/2025 8:00 AM EST Office Visit [facility] Orthopedics - [address] [address] Alejandro Herrera MD [address] [place] [address] documented as of this encounter Visit Diagnoses Not on filedocumented in this encounter Care Teams Pharmaceutical Assistant Relationship Specialty Start Date End Date Theron Enma, PIE FILLING MIXER [address] [address] PCP - General Nurse Practitioner 09/19/22 documented as of this encounter
--- OUTSIDE RECORDS SUMMARY | 2025-06-16 09:35 | XMS_ITS | Encounter Summary ---
Author Organization [facility] Address [address] [place] [address] Care Team Providers Care Flight Engineer Instructor Name Role Phone Ayden Wolfe MD Primary Care Provider [phone] Encounter Details Date Type Department Care Team (Late st Contact Info) Description 12/26/2017 External CPT II FAMILY LAW ATTORNEY - [facility] Social History Tobacco Use [...] on filedocumented in this encounter Care Teams Flight Engineer Instructor Relationship Specialty Start Date End Date Ayden Wolfe MD [address] [place] [address] PCP - General Internal Medicine 07/13/16 documented as of this encounter
--- OUTSIDE RECORDS SUMMARY | 2025-06-16 09:35 | XMS_ITS ---
Laboratory report Created on: May 22, 2025 KEYON KELLY : 1945 Sex: Female Author Organization Unknown PROBLEMS Problems List Code Description RESULTS Laboratory Orders Date Order Code Test 2025-05-15 [id number] VITAMIN C Laboratory Results Date LOINC Test Value Unit Reference Range Interpre tation 2025-05-15 1903-4 VITAMIN C .8 MG/DL 0.4-2.0
--- OUTSIDE RECORDS SUMMARY | 2025-06-16 09:36 | XMS_ITS | Encounter Summary ---
Author Organization [facility] Address [address] [place] [address] Care Team Providers Care Student Career Development Specialist Name Role Phone Ayden Wolfe MD Primary Care Provider [phone] Encounter Details Date Type Department Care Team (Late st Contact Info) Description 03/27/2017 External CPT II WALL CRANE OPERATOR - [facility] Social History Tobacco [...] on filedocumented in this encounter Care Teams Student Career Development Specialist Relationship Specialty Start Date End Date Ayden Wolfe MD [address] [place] [address] PCP - General Internal Medicine 07/13/16 documented as of this encounter
--- OUTSIDE RECORDS SUMMARY | 2025-06-16 09:36 | XMS_ITS | Encounter Summary ---
Author Organization [facility] Address [address] [place] [address] Care Team Providers Care Meter Readers Supervisor Name Role Phone Ayden Wolfe MD Primary Care Provider [phone] Encounter Details Date Type Department Care Team (Late st Contact Info) Description 05/28/2017 External CPT II TILE TRIMMER - [facility] Social History Tobacco Use [...] on filedocumented in this encounter Care Teams Meter Readers Supervisor Relationship Specialty Start Date End Date Ayden Wolfe MD [address] [place] [address] PCP - General Internal Medicine 07/13/16 documented as of this encounter
--- OUTSIDE RECORDS SUMMARY | 2025-06-16 09:37 | XMS_ITS | Encounter Summary ---
Author Organization [employer] ([place], [place], [place]) Address [address] [place] [address] Care Team Providers Care Local Driver Name Role Phone Enma Crump APRN Primary Care Provider [phone] Encounter Details Date Type Department Care Team [...] Date Stanley rded Speak language other than Uzbek at home Not on file 11/09/2023 Want [...] Info) Description 07/28/2025 11:45 AM EDT Appointment [facility] Breast Care [address] [facility] [address] [place] [phone] 09/08/2025 8:00 AM EST Office Visit [facility] Orthopedics - [address] [address] Alejandro Herrera MD [address] [place] [address] documented as of this encounter Visit Diagnoses Not on filedocumented in this encounter Care Teams Local Driver Relationship Specialty Start Date End Date Theron Enma, MANAGER PLAN [address] [address] PCP - General Nurse Practitioner 09/19/22 documented as of this encounter
--- OUTSIDE RECORDS SUMMARY | 2025-06-16 09:37 | XMS_ITS | Referral Summary ---
Author Organization [employer] ([place], [place], [place], [place]) Address [address] [place] [address] Care Team Providers Care Vessel Specialist Name Role Phone CrumpEnma troy VENITA Primary Care Provider Encounters Date Type Department Care Team Description 06/02/2025 8:30 AM EDT Office Visit [facility] - [address] [phone] Alejandro Herrera MD Primary osteoarthritis of right knee (Primary Dx); Rotator cuff tendonitis, left 05/25/2025 Travel 05/25/2025 4:15 PM EDT Treatment [facility] [address] [place] [phone] Christiano Morfin, PT Left shoulder pain, unspecified chronicity (Primary Dx); Glenohumeral arthritis, left; Arthritis of left acromioclavicular joint; Rotator cuff tendonitis, left 05/14/2025 Travel 05/14/2025 3:45 PM EDT Treatment [facility] [address] [place] [phone] Christiano Morfin, PT Left shoulder pain, unspecified chronicity (Primary Dx); Glenohumeral arthritis, left; Arthritis of left acromioclavicular joint; Rotator cuff tendonitis, left 05/08/2025 Travel 05/08/2025 8:45 AM EDT Treatment [facility] [address] [place] [phone] Christiano Morfin, PT Left shoulder pain, unspecified chronicity (Primary Dx); Glenohumeral arthritis, left; Arthritis of left acromioclavicular joint; Rotator cuff tendonitis, left 05/05/2025 Travel 05/05/2025 8:45 AM EDT Treatment [facility] [address] [place] [phone] Eric Loza, INFANT TEACHER Left shoulder pain, unspecified chronicity (Primary Dx); Glenohumeral arthritis, left; Arthritis of left acromioclavicular joint; Rotator cuff tendonitis, left 04/30/2025 Travel 04/30/2025 8:45 AM EDT Treatment [facility] [address] [place] [phone] Christiano Morfin, PT Left shoulder pain, unspecified chronicity (Primary Dx); Glenohumeral arthritis, left; Arthritis of left acromioclavicular joint; Rotator cuff tendonitis, left 04/28/2025 Travel 04/28/2025 8:45 AM EDT Evaluation [facility] [address] [place] [phone] Christiano Morfin, PT Left shoulder pain, unspecified chronicity (Primary Dx); Glenohumeral arthritis, left; Arthritis of left acromioclavicular joint; Rotator cuff tendonitis, left 04/21/2025 10:05 AM EDT Ancillary Procedure [facility] [address] [phone] Alejandro Herrera MD 04/21/2025 10:00 AM EDT Office Visit [facility] [address] [phone] Alejandro Herrera MD Left shoulder pain, unspecified [...] Date Status methylPREDNISolone acetate (DEPO-MEDROL) injection 80 mgIndications:Primary osteoarthritis of right knee 80 mg IAtc Once 06/02/2025 06/02/2025 Ended Active Problems Problem Noted Date Diagnosed [...] Pulse 60 06/02/2025 8:28 AM EDT Temperature 36.6 C (97.9 F) 02/06/2024 2:57 AM EDT Respiratory Rate 18 06/02/2025 8:28 AM EDT Oxygen Saturation 94% 02/06/2024 2:57 AM EDT Inhaled Oxygen Concentration - - Weight 89.4 kg (197 lb) 06/02/2025 8:28 AM EDT Height 154.9 cm (5' 1 ) 06/02/2025 8:28 AM EDT Body Mass Index 37.22 06/02/2025 8:28 AM EDT Plan of Treatment Upcoming Encounters Date Type Department Care Team (Late st Contact Info) Description 07/28/2025 11:45 AM EDT Appointment [facility] Breast Care [address] [facility] [address] [place] [address] 09/08/2025 8:00 AM EST Office Visit [facility] - [address] [phone] Alejandro Herrera MD [address] [place] [address] Procedures Procedure Name Priority Date/Time Associated Diagnosis [...] the next mammogram. At our facility, a kaguy[place] marker is positioned over a visible skin [...] cancer. COMPARISON STUDY: 2022 through 2015 from [facility] FINDINGS: Craniocaudal and mediolateral oblique images of both breasts were obtained in 2D and DBT modes. Synthesized views were reconstructed from DBT data. The breast tissue is almost entirely fatty. There is no evidence of dominant mass, architectural distortion, or suspicious calcifications. The mammogram was interpreted with the benefit of computer aided detection (CAD). Enma Crump APRN [facility] MAMMOGRAPHY ORDERABLES F inal Result from Last 3 Months or Most Recently Relevant to Health Maintenance Insurance MEDICARE [place] [address] [address] [employer] Care Teams Vessel Specialist Relationship Specialty Start Date End Date Enma Crump, PHYSICIAN LIAISON [address] [place] [address] PCP - General Nurse Practitioner 09/19/22
--- OUTSIDE RECORDS SUMMARY | 2025-06-16 09:37 | XMS_ITS | Clinical Summary ---
Author Organization Healthcare Address [address] [place] [address] Care Team Providers Care Flume Maker Name Role Phone Enma Crump VENITA Primary Care Provider [phone] Allergies Active Allergy Reactions Criticality Noted Date [...] or (1 - 1-dose 75+ series) 2022 [id number] Vaccine (4 - season) 2024 11/15/2021, 12/24/2020, [...] age to complete this topic [place] [address] Care Teams Flume Maker Relationship Specialty Start Date End Date Enma Crump APRN [address] [place] [address] PCP - General 05/01/23
--- OUTSIDE RECORDS SUMMARY | 2025-06-16 09:37 | XMS_ITS | Encounter Summary ---
[facility] Address [address] [place] [address] Care Team Providers Care Contestant Coordinator Name Role Phone Ayden Wolfe MD Primary Care Provider [phone] Encounter Details Date Type Department Care Team (Late st Contact Info) Description 04/28/2016 External CPT II DAIRY DEPARTMENT MANAGER - [facility] Social History Tobacco Use [...] on filedocumented in this encounter Care Teams Contestant Coordinator Relationship Specialty Start Date End Date Ayden Wolfe MD [address] [place] [address] PCP - General Internal Medicine 07/13/16 documented as of this encounter
--- OUTSIDE RECORDS SUMMARY | 2025-06-16 09:37 | XMS_ITS | Encounter Summary ---
Author Organization [employer] ([place], [place], [place], [place]) Address [address] [place] [address] Care Team Providers Care Gravity Prospecting Supervisor Name Role Phone Enma Crump APRN Primary Care Provider Encounter Details Date Type Department Care Team (Latest Contact Info) Description 05/25/2025 Travel Social History Tobacco Use Types Packs/Day [...] Date Stanley rded Speak language other than Central African at home Not on file 11/09/2023 Want [...] Info) Description 07/28/2025 11:45 AM EDT Appointment [facility] Breast Care [address] [facility] [address] [place] [phone] 09/08/2025 8:00 AM EST Office Visit [facility] Orth[facility] - [address] [phone] Alejandro Herrera MD [address] [place] [address] documented as of this encounter Visit Diagnoses Not on filedocumented in this encounter Care Teams Gravity Prospecting Supervisor Relationship Specialty Start Date End Date Theron Enma, NEON LIGHT INSTALLER [address] [address] PCP - General Nurse Practitioner 09/19/22 documented as of this encounter
--- OUTSIDE RECORDS SUMMARY | 2025-06-16 09:37 | XMS_ITS | Encounter Summary ---
[facility] Organization [facility] Address [address] [place] [address] Care Team Providers Care Teacher'S Aide Name Role Phone Ayden Wolfe MD Primary Care Provider [phone] Encounter Details Date Type Department Care Team (Late st Contact Info) Description 01/17/2016 External CPT II SINGLE END SEWER - [facility] Social History Tobacco [...] on filedocumented in this encounter Care Teams Teacher'S Aide Relationship Specialty Start Date End Date Ayden Wolfe MD [address] [place] [address] PCP - General Internal Medicine 07/13/16 documented as of this encounter
--- OUTSIDE RECORDS SUMMARY | 2025-06-16 09:37 | XMS_ITS | Encounter Summary ---
[facility] Address [address] [place] [address] Care Team Providers Care Head Bander And Liner Operator Name Role Phone Ayden Wolfe MD Primary Care Provider [phone] Encounter Details Date Type Department Care Team (Late st Contact Info) Description 03/31/2015 External CPT II THIRD LOADER - [facility] Social History Tobacco Use [...] on filedocumented in this encounter Care Teams Head Bander And Liner Operator Relationship Specialty Start Date End Date Ayden Wolfe MD [address] [place] [address] PCP - General Internal Medicine 07/13/16 documented as of this encounter
--- OUTSIDE RECORDS SUMMARY | 2025-06-16 09:37 | XMS_ITS | Encounter Summary ---
Author Organization [employer] ([place], [place], [place], [place]) Address [address] [place] [address] Care Team Providers Care Chief Commercial Officer Name Role Phone Enma Crump APRN Primary Care Provider [phone] Encounter Details Date Type Department Care Team [...] Date Stanley rded Speak language other than Prydeinig at home Not on file 11/09/2023 Want [...] Info) Description 07/28/2025 11:45 AM EDT Appointment [facility] Breast Care [address] [facility] [address] [place] [phone] 09/08/2025 8:00 AM EST Office Visit [facility] Orth[facility] - [address] [phone] Alejandro Herrera MD [address] [place] [address] documented as of this encounter Visit Diagnoses Not on filedocumented in this encounter Care Teams Chief Commercial Officer Relationship Specialty Start Date End Date Theron Enma, MATERIALS PLANNING MANAGER [address] [address] PCP - General Nurse Practitioner 09/19/22 documented as of this encounter
--- OUTSIDE RECORDS SUMMARY | 2025-06-16 09:37 | XMS_ITS | Encounter Summary ---
Author Organization [employer] ([place], [place], [place], [place]) Address [address] [place] [address] Care Team Providers Care Dog Daycare Provider Name Role Phone Enma Crump APRN Primary [...] Date Stanley rded Speak language other than Guamanian at home Not on file 11/09/2023 Want [...] Info) Description 07/28/2025 11:45 AM EDT Appointment [facility] Breast Care [address] [facility] [address] [place] [phone] 09/08/2025 8:00 AM EST Office Visit [facility] - [address] [phone] Alejandro Herrera MD [address] [place] [address] documented as of this encounter Visit Diagnoses Not on filedocumented in this encounter Care Teams Dog Daycare Provider Relationship Specialty Start Date End Date Theron Enma, RECEPTIONIST CLERK [address] [address] PCP - General Nurse Practitioner 09/19/22 documented as of this encounter
--- OUTSIDE RECORDS SUMMARY | 2025-06-16 09:37 | XMS_ITS | Clinical Summary ---
Author Organization [employer] ([place], [place], [place], [place]) Address [address] [place] [address] Care Team Providers Care Laboratory Immunologist Name Role Phone Theron Enma VENITA Primary [...] Description 06/02/2025 8:30 AM EDT Office Visit [facility] Orthopedics - [address] [phone] Alejandro Herrera MD Primary osteoarthritis of right knee (Primary Dx); Rotator cuff tendonitis, left 05/25/2025 4:15 PM EDT Treatment [facility] [address] [place] [phone] Christiano Morfin, PT Left shoulder pain, unspecified chronicity (Primary Dx); Glenohumeral arthritis, left; Arthritis of left acromioclavicular joint; Rotator cuff tendonitis, left 05/25/2025 Travel 05/14/2025 3:45 PM EDT Treatment [facility] Therapy [address] [place] [phone] Christiano Morfin, PT Left shoulder pain, unspecified chronicity (Primary Dx); Glenohumeral arthritis, left; Arthritis of left acromioclavicular joint; Rotator cuff tendonitis, left 05/14/2025 Travel 05/08/2025 8:45 AM EDT Treatment [facility] [address] [place] [phone] Christiano Morfin, PT Left shoulder pain, unspecified chronicity (Primary Dx); Glenohumeral arthritis, left; Arthritis of left acromioclavicular joint; Rotator cuff tendonitis, left 05/08/2025 Travel 05/05/2025 8:45 AM EDT Treatment [facility] [address] [place] [phone] Eric Loza, CONFIGURATION MANAGEMENT ANALYST Left shoulder pain, unspecified chronicity (Primary Dx); Glenohumeral arthritis, left; Arthritis of left acromioclavicular joint; Rotator cuff tendonitis, left 05/05/2025 Travel 04/30/2025 8:45 AM EDT Treatment [facility] [address] [place] [phone] Christiano Morfin, PT Left shoulder pain, unspecified chronicity (Primary Dx); Glenohumeral arthritis, left; Arthritis of left acromioclavicular joint; Rotator cuff tendonitis, left 04/30/2025 Travel 04/28/2025 8:45 AM EDT Evaluation [facility] Therapy [address] [place] [phone] Christiano Morfin, PT Left shoulder pain, unspecified chronicity (Primary Dx); Glenohumeral arthritis, left; Arthritis of left acromioclavicular joint; Rotator cuff tendonitis, left 04/28/2025 Travel 04/21/2025 10:05 AM EDT Ancillary Procedure [facility] - [address] [phone] Alejandro Herrera MD 04/21/2025 10:00 AM EDT Office Visit [facility] Orthopedics - [address] [phone] Alejandro Herrera MD Left shoulder pain, unspecified [...] Date Stanley rded Speak language other than Martiniquais at home Not on file 11/09/2023 Want [...] Info) Description 07/28/2025 11:45 AM EDT Appointment [facility] [address] [facility] [address] [place] [address] 09/08/2025 8:00 AM EST Office Visit [facility] Orth[facility] - [address] [phone] Alejandro Herrera MD [address] [place] [address] Health Maintenance Due Date Last Done Comments [...] 08/23/2019 Tobacco Cessation Counseling and Screening (12+) 06/02/2026 06/02/2025 DTAP/TDAP/TD VACCINES (3 - T d or Tdap) 03/14/2031 03/14/2021, 02/12/1996 Breast Cancer Screening Discontinued 07/25/20 24, 07/24/2023, 07/21/2022, Additional history exists Procedures Procedure [...] the next mammogram. At our facility, a seneca-cay[place] marker is positioned over a visible skin [...] 2022 through 2015 from [facility] FINDINGS: Craniocaudal and mediolateral oblique images of both breasts were obtained in 2D and DBT modes. Synthesized views were reconstructed from DBT data. The breast tissue is almost entirely fatty. There is no evidence of dominant mass, architectural distortion, or suspicious calcifications. The mammogram was interpreted with the benefit of computer aided detection (CAD). Enma Crump APRN [facility] MAMMOGRAPHY ORDERABLES F inal Result from Last 3 Months or Most Recently Relevant to Health Maintenance Insurance [place]IC[place] [address] [place] [address] [employer] Care Teams Laboratory Immunologist Relationship Specialty Start Date End Date Enma Crump APRN [address] [address] PCP - General Nurse Practitioner 09/19/22
--- OUTSIDE RECORDS SUMMARY | 2025-06-16 09:37 | XMS_ITS | Encounter Summary ---
Author Organization [employer] ([place], [place], [place], [place]) Address [address] [place] [address] Care Team Providers Care Method Consultant Name Role Phone Enma Crump APRN Primary Care Provider [phone] Reason for Referral * Mammography (Routine) - Authorized Specialty Diagnoses / Procedures Referred By Contac t Referred To Contact Radiology Diagnoses Visit for screening mammogram Procedures MM digital mammo screen with estefany bilateral Enma Crump APRN [address] [place] [address] Phone: tel: fax: [facility] [address] [facility] [address] [place] [phone] Phone: tel: fax: Referral ID Status Reason Start Date Expiration Date V isits Requested Visits Authorized [id number] Authorized 07/28/2025 07/28/2026 1 1 Encounter Details Date Type Department Care Team (Late st Contact Info) Description 07/25/2024 Outside Orders [facility] [address] [place] [phone] Enma Crump APRN [address] [place] [address] Visit for screening mammogram (Primary Dx) [...] Date Stanley rded Speak language other than Croatian at home Not on file 11/09/2023 Want [...] Info) Description 07/28/2025 11:45 AM EDT Appointment [facility] [address] [facility] [address] [place] [phone] 09/08/2025 8:00 AM EST Office Visit [facility] Orthoped[facility] - [address] [phone] Alejandro Herrera MD [address] [place] [address] Scheduled Orders Name Type Priority Associated Diagnoses Orde r Schedule MM digital mammo screen with estefany bilateral Imaging Routine Visit for screening mammogram Expected: 07/28/2025, Expires: 07/28/2026 documented as of this encounter Visit Diagnoses Diagnosis Visit for screening mammogram- Primary documented in this encounter Care Teams Method Consultant Relationship Specialty Start Date End Date Enma Crump APRN [address] [place] [address] PCP - General Nurse Practitioner 09/19/22 documented as of this encounter
--- NOTE | 2025-06-16 10:30 | MM_ITS ---
PROCEDURE INFORMATION: Exam: MG Bilateral Diagnostic Breast Tomosynthesis Exam date and time: 06/16/2025 10:07 AM Age: 80 years old Clinical indication: Prior Right breast bruising; Positive family history of breast cancer: Sister TECHNIQUE: Imaging protocol: Bilateral Diagnostic tomosynthesis and 2D mammography including computer-aided detection (CAD) when performed. Unilateral or bilateral exam. COMPARISON: 1. MG MM DIGITAL MAMMO SCREEN WITH NANETTE BILATERAL 07/25/2024 11:45 AM 2. MG MM DIGITAL MAMMO SCREEN WITH NANETTE BILATERAL 07/24/2023 11:40 AM FINDINGS: MAMMOGRAPHY: Breast composition: The breasts are almost entirely fatty. Breast mammogram findings: There is no stellate mass, architectural distortion or suspicious microcalcifications in either breast to suggest malignancy. No skin thickening or axillary adenopathy. IMPRESSION: No mammographic evidence of malignancy. Further evaluation of a palpable abnormality should be based on clinical grounds regardless of radiographic findings or lack thereof. ASSESSMENT: BI-RADS Category 1: Negative.
== END 2025-06-16 23:59 | disposition home or self-care (01) ==
LOC: RAD 09:33
PROVIDERS: PCP Nurse Practitioner Family; Visit Provider Nurse Practitioner Family
DX: N64.4 Mastodynia (principal); R23.3 Spontaneous ecchymoses; R23.4 Changes in skin texture; L29.9 Pruritus, unspecified; Z80.3 Family history of malignant neoplasm of breast
CPT/HCPCS: 77062; 77066; G0279

== ENCOUNTER 2025-07-10 14:42 | Outpatient (CLI) | payer MEDICARE, OTHER, SELFPAY ==
--- OUTSIDE RECORDS SUMMARY | 2025-07-10 14:44 | XMS_ITS | Clinical Summary ---
Author Organization [facility] Address [address] [place] [address] Care Team Providers Care Medical Office Technologist Name Role Phone Ayden Wolfe MD Primary Care Provider [phone] Allergies Active Allergy Reactions Criticality Noted Date [...] (1 - 1- dose 75+ series) 2022 COLONOSCOPY 10/01/2024 10/01/2014 COLORECTAL CANCER SCREENING 10/01/2024 INFLUENZA VACCINE 05/22/2025 07/17/2018, , 08/29/2017, Additional history exists COVID-19 Vaccine (2 - 2024-2 6 season) 2025 12/24/2020 TDAP/TD VACCINES (3 - Td or Tdap) [...] - 200 mg/dL 12/22/2016 7:25 PM EST [facility] Triglycerides 142 0 - 150 mg/dL 12/22/2016 7:25 PM EST [facility] HDL Cholesterol 52 40 - 60 mg/dL 12/22/2016 7:25 PM EST [facility] LDL Cholesterol 108 0 - 130 mg/dL 12/22/2016 7:25 PM EST [facility] Blood Venipuncture / Unknown 12/22/2016 2:09 PM EST 12/22/2016 2:09 PM EST Narrative [facility] - 12/22/2016 7:25 PM EST Cholesterol [...] MD LAB BLOOD ORDERA BLES Final Result [facility]
[address] [place] [address], * (ABNORMAL) Hemoglobin A1c (09/17/2014 6:18 AM EST) Hemoglobin A1C 7.4(H) 4.00 - 6.00 % [facility] Comment: DF by IF @ 09/17/2014 08:13 The [place] [employer] recommends maintenance of Hemoglobin A1C at 7.0% or lower. Goals for Hemoglobin A1C reduction may need to be modified if hypoglycemia is a problem. Mean Bld Glu Estim. 162 mg/dL [facility] Blood specimen (specimen) 09/17/2014 6:18 AM EST Narrative [facility] - 09/17/2014 8:14 AM EST Specimen Type: Blood Hansel Spence MD LAB BLOOD ORDERABLES Final Resu lt Performing Organization Address [facility] Co de Phone Number [facility] [address] [place] [address], * (ABNORMAL) Occult blood x 3, stool (09/16/2014 5:57 PM EST) Fecal Occult Blood Positive(A) Negative [facility] OB Date 1 [id number] [facility] Comment:Testing performed by nursing personnel. Fecal Occult Blood No specimen received. Negative , No specimen received. [facility] Fecal Occult Blood No specimen received. Negative , No specimen received. [facility] Stool specimen (specimen) 09/16/2014 5:57 PM EST Narrative [facility] - 09/17/2014 11:19 AM EST Specimen Type: Stool Zachary Venegas MD BODY FLUIDS AND STOOLS ORDERAB LES Final Result Performing Organization Address [facility] Co de Phone Number [facility] [address] [place] [address], from Last 3 Months or Most Recently Relevant to Health Maintenance Insurance MEDICARE A & B [facility] Care Teams Medical Office Technologist Relationship Specialty Start Date End Date Ayden Wolfe MD [address] [place] [address] PCP - General Internal Medicine 07/13/16
--- OUTSIDE RECORDS SUMMARY | 2025-07-10 14:44 | XMS_ITS | Encounter Summary ---
Author Organization [facility] Address [address] [place] [address] Care Team Providers Care Plumber Cub Name Role Phone Ayden Wolfe MD Primary Care Provider [phone] Encounter Details Date Type Department Care Team (Late st Contact Info) Description 01/23/2019 External CPT II ACETYLENE OPERATOR - [facility] Social History Tobacco [...] on filedocumented in this encounter Care Teams Plumber Cub Relationship Specialty Start Date End Date Ayden Wolfe MD [address] [place] [address] PCP - General Internal Medicine 07/13/16 documented as of this encounter
--- NOTE | 2025-07-10 14:45 | CT_ITS ---
FINAL REPORT TECHNIQUE: Noncontrast exam This study was performed with techniques to keep radiation doses as low as reasonably achievable, (ALARA). Individualized dose reduction techniques using automated exposure control or adjustment of mA and/or kV according to the patient''s size were employed. CLINICAL HISTORY: dizziness COMPARISON: none FINDINGS: No abnormal density is seen. Ventricles are normal. There is no hemorrhage. No mass effect is seen. Sphenoid sinusitis noted. Bone windows show no evidence of fracture. IMPRESSION: No acute intracranial abnormality. Sphenoid sinusitis. Reviewed, Interpreted and Dictated by Pop Montano MD Transcribed by Jennifer Hilliard Authenticated and [facility]
--- OUTSIDE RECORDS SUMMARY | 2025-07-10 14:45 | XMS_ITS | Clinical Summary ---
Author Organization Healthcare Address [address] [place] [address] Care Team Providers Care Healthcare Or Medical Name Role Phone Enma Crump VENITA Primary Care Provider [phone] Allergies Active Allergy Reactions Criticality Noted Date [...] or (1 - 1-dose 75+ series) 2022 [id number] Vaccine (4 - 2024- season) 2025 11/15/2021, 12/24/2020, 11/26/2020 UKY-Influenza Vaccine (#1) 2025 [...] age to complete this [place] [id number] Care Teams Healthcare Or Medical Relationship Specialty Start Date End Date Enma Crump APRN [address] [place] [address] PCP - General 05/01/23
--- OUTSIDE RECORDS SUMMARY | 2025-07-10 14:45 | XMS_ITS | Encounter Summary ---
[facility] Address [address] [place] [address] Care Team Providers Care Tank Setter Helper Name Role Phone Ayden Wolfe MD Primary Care Provider [phone] Encounter Details Date Type Department Care Team (Late st Contact Info) Description 01/17/2016 External CPT II TRY OUT PERSON - [facility] Social History Tobacco Use [...] filedocumented in this encounter Care Teams Tank Setter Helper Relationship Specialty Start Date End Date Ayden Wolfe MD [address] [place] [address] PCP - General Internal Medicine 07/13/16 documented as of this encounter
--- OUTSIDE RECORDS SUMMARY | 2025-07-10 14:45 | XMS_ITS | Encounter Summary ---
Author Organization [facility] Address [address] [place] [address] Care Team Providers Care Soundscriber Mechanic Name Role Phone Ayden Wolfe MD Primary Care Provider [phone] Encounter Details Date Type Department Care Team (Late st Contact Info) Description 07/17/2018 External CPT II STRATEGIC CLIENT EXECUTIVE - [facility] Social History Tobacco Use [...] on filedocumented in this encounter Care Teams Soundscriber Mechanic Relationship Specialty Start Date End Date Ayden Wolfe MD [address] [place] [address] PCP - General Internal Medicine 07/13/16 documented as of this encounter
--- OUTSIDE RECORDS SUMMARY | 2025-07-10 14:45 | XMS_ITS | Encounter Summary ---
Author Organization [facility] Address [address] [place] [address] Care Team Providers Care Sweeper Driver Name Role Phone Ayden Wolfe MD Primary Care Provider [phone] Encounter Details Date Type Department Care Team (Late st Contact Info) Description 04/28/2016 External CPT II BULK FILLER - [facility] Social History Tobacco Use [...] on filedocumented in this encounter Care Teams Sweeper Driver Relationship Specialty Start Date End Date Ayden Wolfe MD [address] [place] [address] PCP - General Internal Medicine 07/13/16 documented as of this encounter
--- OUTSIDE RECORDS SUMMARY | 2025-07-10 14:45 | XMS_ITS | Encounter Summary ---
Author Organization [facility] Address [address] [place] [address] Care Team Providers Care Electric Frying Pan Repairer Name Role Phone Ayden Wolfe MD Primary Care Provider [phone] Encounter Details Date Type Department Care Team (Late st Contact Info) Description 12/26/2017 External CPT II SUPERVISOR NUCLEAR MEDICINE - [facility] Social History Tobacco Use [...] filedocumented in this encounter Care Teams Electric Frying Pan Repairer Relationship Specialty Start Date End Date Ayden Wolfe MD [address] [place] [address] PCP - General Internal Medicine 07/13/16 documented as of this encounter
--- OUTSIDE RECORDS SUMMARY | 2025-07-10 14:45 | XMS_ITS | Encounter Summary ---
Author Organization [facility] Address [address] [place] [address] Care Team Providers Care Aligner Name Role Phone Ayden Wolfe MD Primary Care Provider [phone] Encounter Details Date Type Department Care Team (Late st Contact Info) Description 03/27/2017 External CPT II FIELD PROJECT MANAGER - [facility] Social History Tobacco [...] on filedocumented in this encounter Care Teams Aligner Relationship Specialty Start Date End Date Ayden Wolfe MD [address] [place] [address] PCP - General Internal Medicine 07/13/16 documented as of this encounter
--- OUTSIDE RECORDS SUMMARY | 2025-07-10 14:45 | XMS_ITS | Encounter Summary ---
Author Organization [facility] Address [address] [place] [address] Care Team Providers Care Stripper And Printer Name Role Phone Ayden Wolfe MD Primary Care Provider [phone] Encounter Details Date Type Department Care Team (Late st Contact Info) Description 05/28/2017 External CPT II MOTOR CARRIER INSPECTOR - [facility] Social History Tobacco Use [...] on filedocumented in this encounter Care Teams Stripper And Printer Relationship Specialty Start Date End Date Ayden Wolfe MD [address] [place] [address] PCP - General Internal Medicine 07/13/16 documented as of this encounter
--- OUTSIDE RECORDS SUMMARY | 2025-07-10 14:45 | XMS_ITS | Encounter Summary ---
[facility] Organization [facility] Address [address] [place] [address] Care Team Providers Care Guide Excursion Name Role Phone Ayden Wolfe MD Primary Care Provider [phone] Encounter Details Date Type Department Care Team (Late st Contact Info) Description 03/31/2015 External CPT II DOUGH BRAKER - [facility] Social History Tobacco Use [...] on filedocumented in this encounter Care Teams Guide Excursion Relationship Specialty Start Date End Date Ayden Wolfe MD [address] [place] [address] PCP - General Internal Medicine 07/13/16 documented as of this encounter
== END 2025-07-10 23:59 | disposition home or self-care (01) ==
LOC: RAD 14:43
PROVIDERS: PCP Nurse Practitioner Family; Visit Provider Nurse Practitioner Family
DX: J32.3 Chronic sphenoidal sinusitis (principal); R42 Dizziness and giddiness; R26.81 Unsteadiness on feet
CPT/HCPCS: 70450

== ENCOUNTER 2025-08-12 08:34 | Outpatient (CLI) | payer MEDICARE, OTHER, SELFPAY ==
[2025-08-12 13:08] LABS: Coronavirus 19, PCR Not Detected (NotDetected); Influenza A, PCR Not Detected (NotDetected); Influenza B, PCR Not Detected (NotDetected); Microscopic, Urine URINE MICROSCOPIC (MICROSCOPIC)
[2025-08-12 14:15] LABS: Bilirubin,Urine Negative (Negative); Color,Urine YELLOW (Yellow); Glucose,Urine (UA) 3+ (Negative); Ketones,Urine Negative (Negative); Leukocyte Esterase,Urine Negative (Negative); PH,Urine 5.0 (5.0-8.5); Protein,Urine Negative (Negative); Specific Gravity, Urine 1.020 (1.005-1.030); Urobilinogen,Urine 0.2 EU/dl (0.2)
[2025-08-12 15:22] LABS: Bacteria,Urine Trace /lpf
--- OUTSIDE RECORDS SUMMARY | 2025-08-14 08:38 | XMS_ITS | Encounter Summary ---
Author Organization [employer] ([place], [place], [place], [place]) Address [address] [place] [address] Care Team Providers Care Transformation Consultant Name Role Phone Stephanie Wolfe MD Primary Care Provider [phone] Enma Crump APRN Primary Care Provider [phone] Reason for Referral * Mammography (Routine) - Closed Specialty Diagnoses / Procedures Referred By Contterra t Referred To Contact Diagnoses Visit for screening mammogram Procedures MM digital mammo screen with estefany bilateral Enma Crump APRN [address] [place] [address] Phone: tel: fax: Referral ID Status Reason Start Date Expiration Date Visits Re quested Visits Authorized [id number] Closed 07/24/2023 01/20/2024 1 1 Encounter Details Date Type Department Care Team (Late st Contact Info) Description 07/21/2022 Outside Orders [facility] [address] [place] [phone] Enma Crump APRN [address] [address] Visit for screening mammogram (Primary [...] Care Team (Late st Contact Info) Description 09/08/2025 8:00 AM EST Office Visit [facility] Orthopedics - [address] [address] Alejandro Herrera MD [address] [place] [address] documented as of this encounter Results * [...] the next mammogram. At our facility, a [place] marker is positioned over a visible skin [...] family history of breast cancer. COMPAR[facility] STUD[facility]: [facility] FINDINGS: Craniocaudal and mediolateral oblique [...] mammogram documented in this encounter Care Teams Transformation Consultant Relationship Specialty Start Date End Date Stephanie Wolfe MD [address] [address] PCP - General Family Medicine 09/12/22 09/18/22 Enma Crump APRN [address] [address] PCP - General Nurse Practitioner 09/19/22 documented as of this encounter
--- OUTSIDE RECORDS SUMMARY | 2025-08-14 08:38 | XMS_ITS | Encounter Summary ---
Author Organization [facility] Address [address] [place] [address] Care Team Providers Care Social Director Name Role Phone Ayden Wolfe MD Primary Care Provider [phone] Encounter Details Date Type Department Care Team (Late st Contact Info) Description 01/23/2019 External CPT II FORGE TENDER - [facility] Social History Tobacco Use [...] on filedocumented in this encounter Care Teams Social Director Relationship Specialty Start Date End Date Ayden Wolfe MD [address] [place] [address] PCP - General Internal Medicine 07/13/16 documented as of this encounter
--- OUTSIDE RECORDS SUMMARY | 2025-08-14 08:39 | XMS_ITS | Clinical Summary ---
Author Organization [facility] Address [address] [place] [address] Care Team Providers Care Duct Maker Name Role Phone Ayden Wolfe MD Primary Care Provider [phone] Allergies Active Allergy Reactions Criticality Noted Date [...] - 200 mg/dL 12/22/2016 7:25 PM EST [facility] Triglycerides 142 0 - 150 mg/dL 12/22/2016 7:25 PM EST [facility] HDL Cholesterol 52 40 - 60 mg/dL 12/22/2016 7:25 PM EST [facility] LDL Cholesterol 108 0 - 130 mg/dL 12/22/2016 7:25 PM EST [facility] Blood Venipuncture / Unknown 12/22/2016 2:09 PM EST 12/22/2016 2:09 PM EST Narrative [facility] - 12/22/2016 7:25 PM EST [...] MD LAB BLOOD ORDERA BLES Final Result [facility]
[address] [place] [address], * (ABNORMAL) Hemoglobin A1c (09/17/2014 6:18 AM EST) Hemoglobin A1C 7.4(H) 4.00 - 6.00 % [facility] Comment: DF by IF @ 09/17/2014 08:13 The [place] [employer] recommends maintenance of Hemoglobin A1C at 7.0% or lower. Goals for Hemoglobin A1C reduction may need to be modified if hypoglycemia is a problem. Mean Bld Glu Estim. 162 mg/dL [facility] Blood specimen (specimen) 09/17/2014 6:18 AM EST Narrative [facility] - 09/17/2014 8:14 AM EST Specimen Type: Blood Hansel Spence MD LAB BLOOD ORDERABLES Final Resu lt Performing Organization Address [facility] Co de Phone Number [facility] [address] [place] [address], * (ABNORMAL) Occult blood x 3, stool (09/16/2014 5:57 PM EST) Fecal Occult Blood Positive(A) Negative [facility] OB Date 1 [id number] [facility] Comment:Testing performed by nursing personnel. Fecal Occult Blood No specimen received. Negative , No specimen received. [facility] Fecal Occult Blood No specimen received. Negative , No specimen received. [facility] Stool specimen (specimen) 09/16/2014 5:57 PM EST Narrative [facility] - 09/17/2014 11:19 AM EST Specimen Type: Stool Zachary Venegas MD BODY FLUIDS AND STOOLS ORDERAB LES Final Result Performing Organization Address [facility] Co de Phone Number [facility] [address] [place] [address], from Last 3 Months or Most Recently Relevant to Health Maintenance Insurance MEDICARE A & [facility] Care Teams Duct Maker Relationship Specialty Start Date End Date Ayden Wolfe MD [address] [place] [address] PCP - General Internal Medicine 07/13/16
--- OUTSIDE RECORDS SUMMARY | 2025-08-14 08:39 | XMS_ITS | Encounter Summary ---
Author Organization [facility] Address [address] [place] [address] Care Team Providers Care Harness Preparer Name Role Phone Ayden Wolfe MD Primary Care Provider [phone] Encounter Details Date Type Department Care Team (Late st Contact Info) Description 12/26/2017 External CPT II CHAR FILTER OPERATOR HELPER - [facility] Social History Tobacco Use [...] on filedocumented in this encounter Care Teams Harness Preparer Relationship Specialty Start Date End Date Ayden Wolfe MD [address] [place] [address] PCP - General Internal Medicine 07/13/16 documented as of this encounter
--- OUTSIDE RECORDS SUMMARY | 2025-08-14 08:39 | XMS_ITS | Encounter Summary ---
Author Organization [facility] Address [address] [place] [address] Care Team Providers Care General Activities Therapist Name Role Phone Ayden Wolfe MD Primary Care Provider [phone] Encounter Details Date Type Department Care Team (Late st Contact Info) Description 07/17/2018 External CPT II FLAP LINING BINDER - [facility] Social History Tobacco Use [...] on filedocumented in this encounter Care Teams General Activities Therapist Relationship Specialty Start Date End Date Ayden Wolfe MD [address] [place] [address] PCP - General Internal Medicine 07/13/16 documented as of this encounter
--- OUTSIDE RECORDS SUMMARY | 2025-08-14 08:40 | XMS_ITS | Encounter Summary ---
Author Organization [facility] Address [address] [place] [address] Care Team Providers Care Nursery Teacher Name Role Phone Ayden Wolfe MD Primary Care Provider [phone] Encounter Details Date Type Department Care Team (Late st Contact Info) Description 05/28/2017 External CPT II ECOLOGIST - [facility] Social History Tobacco Use [...] on filedocumented in this encounter Care Teams Nursery Teacher Relationship Specialty Start Date End Date Ayden Wolfe MD [address] [place] [address] PCP - General Internal Medicine 07/13/16 documented as of this encounter
--- OUTSIDE RECORDS SUMMARY | 2025-08-14 08:40 | XMS_ITS | Encounter Summary ---
Author Organization [facility] Address [address] [place] [address] Care Team Providers Care Nurse Aide Name Role Phone Ayden Wolfe MD Primary Care Provider [phone] Encounter Details Date Type Department Care Team (Late st Contact Info) Description 03/27/2017 External CPT II CLINICAL TRIAL MANAGER - [facility] Social History Tobacco [...] on filedocumented in this encounter Care Teams Nurse Aide Relationship Specialty Start Date End Date Ayden Wolfe MD [address] [place] [address] PCP - General Internal Medicine 07/13/16 documented as of this encounter
--- OUTSIDE RECORDS SUMMARY | 2025-08-14 08:41 | XMS_ITS | Encounter Summary ---
[facility] Address [address] [place] [address] Care Team Providers Care Clinical Haematologist Name Role Phone Ayden Wolfe MD Primary Care Provider [phone] Encounter Details Date Type Department Care Team (Late st Contact Info) Description 03/31/2015 External CPT II BIOMASS BOILER OPERATOR - [facility] Social History Tobacco [...] on filedocumented in this encounter Care Teams Clinical Haematologist Relationship Specialty Start Date End Date Ayden Wolfe MD [address] [place] [address] PCP - General Internal Medicine 07/13/16 documented as of this encounter
--- OUTSIDE RECORDS SUMMARY | 2025-08-14 08:41 | XMS_ITS | Encounter Summary ---
Author Organization [facility] Address [address] [place] [address] Care Team Providers Care Business Information Analyst Name Role Phone Ayden Wolfe MD Primary Care Provider [phone] Encounter Details Date Type Department Care Team (Late st Contact Info) Description 01/17/2016 External CPT II HAIR OR BEAUTY SALON MANAGER - [facility] Social History Tobacco [...] on filedocumented in this encounter Care Teams Business Information Analyst Relationship Specialty Start Date End Date Ayden Wolfe MD [address] [place] [address] PCP - General Internal Medicine 07/13/16 documented as of this encounter
--- OUTSIDE RECORDS SUMMARY | 2025-08-14 08:41 | XMS_ITS | Clinical Summary ---
Author Organization [facility] Address [address] [place] [address] Care Team Providers Care Wool Tamper Name Role Phone Enma Crump VENITA Primary Care Provider [phone] Allergies Active Allergy Reactions Criticality Noted Date [...] [facility]-Bone Density Scan 1945 [facility]-Depression Screening 1945 [facility]-Infant/Child/Adol SDOH Screenings 1945 [facility]- SDOH Screenings 1965 [facility]-Adult SDOH Screenings 1965 [facility]-Pneumococcal Vaccine: 50+ Years (1 of 1 - PCV) 1997 [facility]-Zoster Vaccines (1 of 2) 1997 [facility]-RSV Vaccine: 60+ Years or (1 - 1-dose 75+ series) 2022 [id number] Vaccine (4 - 2024- season) 2025 11/15/2021, [...] age to complete this topic [place] [address] Care Teams Wool Tamper Relationship Specialty Start Date End Date Enma Crump APRN [address] [place] [address] PCP - General 05/01/23
--- OUTSIDE RECORDS SUMMARY | 2025-08-14 08:42 | XMS_ITS | Clinical Summary ---
Author Organization [employer] ([place], [place], [place], [place]) Address [address] [place] [address] Care Team Providers Care Product Engineer Name Role Phone Theron Enma VENITA Primary Care Provider [phone] Allergies Active Allergy Reactions Criticality Noted Date [...] Description 06/02/2025 8:30 AM EDT Office Visit [facility] Orthopedics - [address] [address] Alejandro Herrera MD Primary osteoarthritis of right knee (Primary Dx); Rotator cuff tendonitis, left 05/25/2025 4:15 PM EDT Treatment [facility] Physical Therapy [address] [place], [place] [phone] Christiano Morfin, PT Left shoulder pain, unspecified chronicity (Primary Dx); Glenohumeral arthritis, left; Arthritis of left acromioclavicular joint; Rotator cuff tendonitis, left 05/25/2025 Travel 05/14/2025 3:45 PM EDT Treatment [facility] Physical Therapy [address] [place] [phone] Christiano Morfin, PT Left shoulder pain, unspecified chronicity (Primary Dx); Glenohumeral arthritis, left; Arthritis of left acromioclavicular joint; Rotator cuff tendonitis, left 05/14/2025 Travel from Last 3 Months Family History Medical [...] Date Stanley rded Speak language other than Citizen Of [place] at home Not on file 11/09/2023 Want [...] Description 09/08/2025 8:00 AM EST Office Visit [facility] Orthopedics - [address] [address] Alejandro Herrera MD [address] [place] [address] Health Maintenance Due Date Last Done Comments Medicare Initial AWV G0438 DXA SCAN 1945 Depression Screening (12+) 1959 Hepatitis C Screening 1965 Pneumococcal 50+ years (1 of 1 - PCV) 1997 Shingles Vaccine (Zoster) (1 of 2) 1997 Respiratory Syncytial Virus (RSV) Adult or (1 - 1-dose 75+ series) 2022 Falls Risk Screening 10/22/2024 COVID-19 VACCINE (4 - 2024-2 6 season) 2025 11/15/2021, 12/24/2020, 11/26/2020 Influenza Vaccine (#1) 2025 08/23/2019 Tobacco Cessation [...] the next mammogram. At our facility, a red devil marker is positioned over a visible skin [...] cancer. COMPARISON STUDY: 2022 through 2015 from [facility] FINDINGS: Craniocaudal and mediolateral oblique images of both breasts were obtained in 2D and DBT modes. Synthesized views were reconstructed from DBT data. The breast tissue is almost entirely fatty. There is no evidence of dominant mass, architectural distortion, or suspicious calcifications. The mammogram was interpreted with the benefit of computer aided detection (CAD). Enma Crump APRN IMG MAMMOGRAPHY ORDERABLES F inal Result from Last 3 Months or Most Recently Relevant to Health Maintenance Insurance MEDICARE PART A B [employer] Care Teams Product Engineer Relationship Specialty Start Date End Date Enma Crump, DIETIST [address] [id number] PCP - General Nurse Practitioner 09/19/22
--- OUTSIDE RECORDS SUMMARY | 2025-08-14 08:42 | XMS_ITS | Referral Summary ---
Author Organization [employer] ([place], [place], [place], [place]) Address [address] [place] [address] Care Team Providers Care Supervisor Taping Name Role Phone CrumpEnma troy VENITA Primary Care Provider Encounters Date Type Department Care Team Description 06/02/2025 8:30 AM EDT Office Visit [facility] Orthopedics - [address] [address] Alejandro Herrera MD Primary osteoarthritis of right knee (Primary Dx); Rotator cuff tendonitis, left 05/25/2025 Travel 05/25/2025 4:15 PM EDT Treatment [facility] Physical Therapy [address] [place] [phone] Christiano Morfin, PT Left shoulder pain, unspecified chronicity (Primary Dx); Glenohumeral arthritis, left; Arthritis of left acromioclavicular joint; Rotator cuff tendonitis, left 05/14/2025 Travel 05/14/2025 3:45 PM EDT Treatment [facility] OP Physical Therapy [address] [place] [phone] Christiano Morfin, PT Left shoulder pain, [...] Date Stanley rded Speak language other than [place] at home Not on file 11/09/2023 Want [...] Description 09/08/2025 8:00 AM EST Office Visit [facility] Orthopedics - [address] [address] Alejandro Herrera MD [address] [place] [address] Procedures Procedure Name Priority Date/Time Associated Diagnosis [...] the next mammogram. At our facility, a [place] marker is positioned over a visible skin [...] cancer. COMPARISON STUDY: 2022 through 2015 from [facility] FINDINGS: Craniocaudal [...] Health Maintenance Insurance MEDICARE PART A B Care Teams Supervisor Taping Relationship Specialty Start Date End Date Enma Crump, SENIOR SYSTEM OPERATOR [address] [address] PCP - General Nurse Practitioner 09/19/22
--- OUTSIDE RECORDS SUMMARY | 2025-08-14 08:42 | XMS_ITS | Encounter Summary ---
[facility] Address [address] [place] [address] Care Team Providers Care Footwear Machinery Instructor Name Role Phone Ayden Wolfe MD Primary Care Provider [phone] Encounter Details Date Type Department Care Team (Late st Contact Info) Description 04/28/2016 External CPT II AGENT PRODUCER - [facility] Social History Tobacco Use [...] on filedocumented in this encounter Care Teams Footwear Machinery Instructor Relationship Specialty Start Date End Date Ayden Wolfe MD [address] [place] [address] PCP - General Internal Medicine 07/13/16 documented as of this encounter
--- OUTSIDE RECORDS SUMMARY | 2025-08-14 08:43 | XMS_ITS | Encounter Summary ---
Author Organization [employer] ([place], [place], [place], [place]) Address [address] [place] [address] Care Team Providers Care Commissioned Police Officer Name Role Phone Enma Crump APRN Primary Care Provider Reason for Referral * Mammography (Routine) - Authorized Specialty Diagnoses / Procedures Referred By Contac t Referred To Contact Radiology Diagnoses Visit for screening mammogram Procedures MM digital mammo screen with estefany bilateral Enma Crump APRN [address] [place] [address] Phone: tel: fax: [facility] [address] [facility] [address] [place] [phone] Phone: tel: fax: Referral ID Status Reason Start Date Expiration Date V isits Requested Visits Authorized [id number] Authorized 07/28/2025 07/28/2026 1 1 Encounter Details Date Type Department Care Team (Late st Contact Info) Description 07/25/2024 Outside Orders [facility] [address] [place] [phone] Enma Crump APRN [address] [place] [address] Visit for screening mammogram (Primary Dx) [...] Date Stanley rded Speak language other than Singaporean at home Not on file 11/09/2023 Want [...] Description 09/08/2025 8:00 AM EST Office Visit [facility] Orthopedics - [address] [address] Alejandro Herrera MD [address] [place] [address] Scheduled Orders Name Type Priority Associated Diagnoses Orde r Schedule MM digital mammo screen with estefany bilateral Imaging Routine Visit for screening mammogram Expected: 07/28/2025, Expires: 07/28/2026 documented as of this encounter Visit Diagnoses Diagnosis Visit for screening mammogram- Primary documented in this encounter Care Teams Commissioned Police Officer Relationship Specialty Start Date End Date Enma Crump APRN [address] [place] [address] PCP - General Nurse Practitioner 09/19/22 documented as of this encounter
== END 2025-08-12 23:59 ==
LOC: LAB.DROPOF 08-14 08:35
PROVIDERS: PCP Nurse Practitioner Family; Visit Provider Nurse Practitioner Family
DX: N39.0 Urinary tract infection, site not specified (principal); R05.1 Acute cough
CPT/HCPCS: 81001; 87086; 87631

== ENCOUNTER 2025-08-17 16:48 | Outpatient (CLI) | payer MEDICARE, OTHER, SELFPAY ==
--- OUTSIDE RECORDS SUMMARY | 2025-08-18 15:03 | XMS_ITS | Encounter Summary ---
Author Organization [facility] Address [address] [place] [address] Care Team Providers Care Siebel Administrator Name Role Phone Ayden Wolfe MD Primary Care Provider [phone] Encounter Details Date Type Department Care Team (Late st Contact Info) Description 03/27/2017 External CPT II ANATOMICAL EMBALMER - [facility] Social History Tobacco Use [...] on filedocumented in this encounter Care Teams Siebel Administrator Relationship Specialty Start Date End Date Ayden Wolfe MD [address] [place] [address] PCP - General Internal Medicine 07/13/16 documented as of this encounter
--- OUTSIDE RECORDS SUMMARY | 2025-08-18 15:03 | XMS_ITS | Clinical Summary ---
Author Organization [facility] Address [address] [place] [address] Care Team Providers Care Colorist Dyer Name Role Phone Enma Crump VENITA Primary Care Provider [phone] Allergies Active Allergy Reactions Criticality Noted Date [...] or (1 - 1-dose 75+ series) 2022 [id number] Vaccine (4 - 2024- season) 2025 11/15/2021, [...] age to complete this [place] [id number] Care Teams Colorist Dyer Relationship Specialty Start Date End Date Enma Crump APRN [address] [place] [address] PCP - General 05/01/23
--- OUTSIDE RECORDS SUMMARY | 2025-08-18 15:03 | XMS_ITS | Encounter Summary ---
[facility] Organization [facility] Address [address] [place] [address] Care Team Providers Care Schedule Announcer Name Role Phone Ayden Wolfe MD Primary Care Provider [phone] Encounter Details Date Type Department Care Team (Late st Contact Info) Description 04/28/2016 External CPT II COCOA BEAN ROASTER - [facility] Social History Tobacco Use [...] on filedocumented in this encounter Care Teams Schedule Announcer Relationship Specialty Start Date End Date Ayden Wolfe MD [address] [place] [address] PCP - General Internal Medicine 07/13/16 documented as of this encounter
--- OUTSIDE RECORDS SUMMARY | 2025-08-18 15:03 | XMS_ITS | Encounter Summary ---
Author Organization [employer] ([place], [place], [place], [place]) Address [address] [place] [address] Care Team Providers Care Hot Pond Operator Name Role Phone Stephanie Wolfe MD Primary Care Provider [phone] Enma Crump APRN Primary Care Provider [phone] Reason for Referral * Mammography (Routine) - Closed Specialty Diagnoses / Procedures Referred By Contterra t Referred To Contact Diagnoses Visit for screening mammogram Procedures MM digital mammo screen with estefany bilateral Enma Crump APRN [address] [place] [address] Phone: tel: fax: Referral ID Status Reason Start Date Expiration Date Visits Re quested Visits Authorized [id number] Closed 07/24/2023 01/20/2024 1 1 Encounter Details Date Type Department Care Team (Late st Contact Info) Description 07/21/2022 Outside Orders [facility] Breast [address] [place] [address] Enma Crump APRN [address] [address] Visit for screening mammogram (Primary [...] Description 09/08/2025 8:00 AM EST Office Visit [facility] Orthopedics - [address] [address] Alejandro Herrera MD [address] [place] [address] documented as of this encounter Results * [...] the next mammogram. At our facility, a [place] marker is positioned over a visible skin [...] family history of breast cancer. COMPARISON STUDY: [facility] FINDINGS: Craniocaudal and mediolateral oblique [...] mammogram documented in this encounter Care Teams Hot Pond Operator Relationship Specialty Start Date End Date Stephanie Wolfe MD [address] [address] PCP - General Family Medicine 09/12/22 09/18/22 Enma Crump APRN [address] [address] PCP - General Nurse Practitioner 09/19/22 documented as of this encounter
--- OUTSIDE RECORDS SUMMARY | 2025-08-18 15:03 | XMS_ITS | Encounter Summary ---
Author Organization [facility] Address [address] [place] [address] Care Team Providers Care Color Blender Name Role Phone Ayden Wolfe MD Primary Care Provider [phone] Encounter Details Date Type Department Care Team (Late st Contact Info) Description 12/26/2017 External CPT II WELCOME DESK AGENT - [facility] Social History Tobacco Use [...] on filedocumented in this encounter Care Teams Color Blender Relationship Specialty Start Date End Date Ayden Wolfe MD [address] [place] [address] PCP - General Internal Medicine 07/13/16 documented as of this encounter
--- OUTSIDE RECORDS SUMMARY | 2025-08-18 15:03 | XMS_ITS | Encounter Summary ---
Author Organization [facility] Address [address] [place] [address] Care Team Providers Care Care Transitions Nurse Name Role Phone Ayden Wolfe MD Primary Care Provider [phone] Encounter Details Date Type Department Care Team (Late st Contact Info) Description 07/17/2018 External CPT II SALVAGE MECHANIC - [facility] Social History Tobacco Use [...] on filedocumented in this encounter Care Teams Care Transitions Nurse Relationship Specialty Start Date End Date Ayden Wolfe MD [address] [place] [address] PCP - General Internal Medicine 07/13/16 documented as of this encounter
--- OUTSIDE RECORDS SUMMARY | 2025-08-18 15:03 | XMS_ITS | Encounter Summary ---
Author Organization [employer] ([place], [place], [place], [place]) Address [address] [place] [address] Care Team Providers Care Stack Yield Engineer Name Role Phone Enma Crump APRN Primary Care Provider Reason for Referral * Mammography (Routine) - Authorized Specialty Diagnoses / Procedures Referred By Contac t Referred To Contact Radiology Diagnoses Visit for screening mammogram Procedures MM digital mammo screen with estefany bilateral Enma Crump APRN [address] [place] [address] Phone: tel: fax: [facility] Breast [facility] [address] [facility] [address] [place] [address] Phone: tel: fax: Referral ID Status Reason Start Date Expiration Date V isits Requested Visits Authorized [id number] Authorized 07/28/2025 07/28/2026 1 1 Encounter Details Date Type Department Care Team (Late st Contact Info) Description 07/25/2024 Outside Orders [facility] Breast [address] [place] [address] [place] [address] Enma Crump APRN [address] [place] [address] Visit for screening mammogram (Primary Dx) [...] Date Stanley rded Speak language other than South Korean at home Not on file 11/09/2023 Want [...] Description 09/08/2025 8:00 AM EST Office Visit [facility] Orthopedics - [address] [address] Alejandro Herrera MD [address] [place] [address] Scheduled Orders Name Type Priority Associated Diagnoses Orde r Schedule MM digital mammo screen with estefany bilateral Imaging Routine Visit for screening mammogram Expected: 07/28/2025, Expires: 07/28/2026 documented as of this encounter Visit Diagnoses Diagnosis Visit for screening mammogram- Primary documented in this encounter Care Teams Stack Yield Engineer Relationship Specialty Start Date End Date Enma Crump APRN [address] [place] [address] PCP - General Nurse Practitioner 09/19/22 documented as of this encounter
--- OUTSIDE RECORDS SUMMARY | 2025-08-18 15:03 | XMS_ITS | Clinical Summary ---
Author Organization [facility] Address [address] [place] [address] Care Team Providers Care Health And Safety Manager Name Role Phone Ayden Wolfe MD Primary Care Provider [phone] Allergies Active Allergy Reactions Criticality Noted Date [...] - 200 mg/dL 12/22/2016 7:25 PM EST [facility] Triglycerides 142 0 - 150 mg/dL 12/22/2016 7:25 PM EST [facility] HDL Cholesterol 52 40 - 60 mg/dL 12/22/2016 7:25 PM EST [facility] LDL Cholesterol 108 0 - 130 mg/dL 12/22/2016 7:25 PM EST [facility] Blood Venipuncture / Unknown 12/22/2016 2:09 PM EST 12/22/2016 2:09 PM EST Narrative [facility] - 12/22/2016 7:25 PM EST [...] MD LAB BLOOD ORDERA BLES Final Result [facility]
[address] [place] [address], * (ABNORMAL) Hemoglobin A1c (09/17/2014 6:18 AM EST) Hemoglobin A1C 7.4(H) 4.00 - 6.00 % [facility] Comment: DF by IF @ 09/17/2014 08:13 The [place] [employer] recommends maintenance of Hemoglobin A1C at 7.0% or lower. Goals for Hemoglobin A1C reduction may need to be modified if hypoglycemia is a problem. Mean Bld Glu Estim. 162 mg/dL [facility] Blood specimen (specimen) 09/17/2014 6:18 AM EST Narrative [facility] - 09/17/2014 8:14 AM EST Specimen Type: Blood Hansel Spence MD LAB BLOOD ORDERABLES Final Resu lt Performing Organization Address [facility] Co de Phone Number [facility] [address] [place] [address], * (ABNORMAL) Occult blood x 3, stool (09/16/2014 5:57 PM EST) Fecal Occult Blood Positive(A) Negative [facility] OB Date 1 [id number] [facility] Comment:Testing performed by nursing personnel. Fecal Occult Blood No specimen received. Negative , No specimen received. [facility] Fecal Occult Blood No specimen received. Negative , No specimen received. [facility] Stool specimen (specimen) 09/16/2014 5:57 PM EST Narrative [facility] - 09/17/2014 11:19 AM EST Specimen Type: Stool Zachary Venegas MD BODY FLUIDS AND STOOLS ORDERAB LES Final Result Performing Organization Address [facility] Co de Phone Number [facility] [address] [place] [address], from Last 3 Months or Most Recently Relevant to Health Maintenance Insurance MEDICARE A & B [facility] Care Teams Health And Safety Manager Relationship Specialty Start Date End Date Ayden Wolfe MD [address] [place] [address] PCP - General Internal Medicine 07/13/16
--- OUTSIDE RECORDS SUMMARY | 2025-08-18 15:03 | XMS_ITS | Referral Summary ---
Author Organization [employer] ([place], [place], [place], [place]) Address [address] [place] [address] Care Team Providers Care Clinic Md Associate Name Role Phone CrumpEnma troy VENITA Primary Care Provider Encounters Date Type Department Care Team Description 06/02/2025 8:30 AM EDT Office Visit [facility] Orthopedics - [address] [address] Alejandro Herrera MD Primary osteoarthritis of right knee (Primary Dx); Rotator cuff tendonitis, left 05/25/2025 Travel 05/25/2025 4:15 PM EDT Treatment [facility] OP Physical Therapy [address] [place] [address] Christiano Morfin, PT Left shoulder pain, [...] Date Stanley rded Speak language other than Sudanese at home Not on file 11/09/2023 Want [...] Description 09/08/2025 8:00 AM EST Office Visit [facility] Orthopedics - [address] [address] Alejandro Herrera MD [address] [place] [address] Procedures Procedure Name Priority Date/Time Associated [...] the next mammogram. At our facility, a [place] marker is positioned over a visible skin [...] cancer. COMPARISON STUDY: 2022 through 2015 from [facility] FINDINGS: Craniocaudal and mediolateral oblique images of [...] Health Maintenance Insurance MEDICARE [place] [address] [place] [address] [employer] Care Teams Clinic Md Associate Relationship Specialty Start Date End Date Enma Crump, VENITA [address] [address] PCP - General Nurse Practitioner 09/19/22
--- OUTSIDE RECORDS SUMMARY | 2025-08-18 15:03 | XMS_ITS | Encounter Summary ---
Author Organization [facility] Address [address] [place] [id number] Care Team Providers Care Home Health Manager Name Role Phone Ayden Wolfe MD Primary Care Provider [phone] Encounter Details Date Type Department Care Team (Late st Contact Info) Description 01/23/2019 External CPT II INDUSTRIAL CHEMISTRY TEACHER - [facility] Social History Tobacco Use [...] on filedocumented in this encounter Care Teams Home Health Manager Relationship Specialty Start Date End Date Ayden Wolfe MD [address] [place] [address] PCP - General Internal Medicine 07/13/16 documented as of this encounter
--- OUTSIDE RECORDS SUMMARY | 2025-08-18 15:03 | XMS_ITS | Encounter Summary ---
Author Organization [facility] Address [address] [place] [address] Care Team Providers Care Manager Utilization Management Name Role Phone Ayden Wolfe MD Primary Care Provider [phone] Encounter Details Date Type Department Care Team (Late st Contact Info) Description 01/17/2016 External CPT II JAVA DEVELOPMENT MANAGER - [facility] Social History Tobacco [...] on filedocumented in this encounter Care Teams Manager Utilization Management Relationship Specialty Start Date End Date Ayden Wolfe MD [address] [place] [address] PCP - General Internal Medicine 07/13/16 documented as of this encounter
--- OUTSIDE RECORDS SUMMARY | 2025-08-18 15:03 | XMS_ITS | Encounter Summary ---
[facility] Address [address] [place] [address] Care Team Providers Care Drywall Worker Name Role Phone Ayden Wolfe MD Primary Care Provider [phone] Encounter Details Date Type Department Care Team (Late st Contact Info) Description 03/31/2015 External CPT II TIME CLOCK MECHANIC - [facility] Social History Tobacco [...] on filedocumented in this encounter Care Teams Drywall Worker Relationship Specialty Start Date End Date Ayden Wolfe MD [address] [place] [address] PCP - General Internal Medicine 07/13/16 documented as of this encounter
--- OUTSIDE RECORDS SUMMARY | 2025-08-18 15:03 | XMS_ITS | Clinical Summary ---
Author Organization [employer] ([place], [place], [place], [place]) Address [address] [place] [address] Care Team Providers Care Beaver Trapper Name Role Phone Theron Enma VENITA Primary [...] Description 06/02/2025 8:30 AM EDT Office Visit [facility] Orthopedics - [address] [address] Alejandro Herrera MD Primary osteoarthritis of right knee (Primary Dx); Rotator cuff tendonitis, left 05/25/2025 4:15 PM EDT Treatment [facility] OP Physical Therapy [address] [place] [address] Christiano Morfin, PT Left shoulder pain, unspecified chronicity (Primary Dx); Glenohumeral arthritis, left; Arthritis of left acromioclavicular joint; Rotator cuff tendonitis, left 05/25/2025 Travel from Last 3 Months Family History [...] Description 09/08/2025 8:00 AM EST Office Visit [facility] Orthopedics - [address] [address] Alejandro Herrera MD [address] [place] [address] Health Maintenance Due Date Last Done Comments [...] the next mammogram. At our facility, a [place] marker is positioned over a visible skin [...] cancer. COMPARISON STUDY: 2022 through 2015 from [facility] FINDINGS: Craniocaudal and mediolateral oblique images of both breasts were obtained in 2D and DBT modes. Synthesized views were reconstructed from DBT data. The breast tissue is almost entirely fatty. There is no evidence of dominant mass, architectural distortion, or suspicious calcifications. The mammogram was interpreted with the benefit of computer aided detection (CAD). Enma Crump APRN [facility] MAMMOGRAPHY ORDERABLES F inal Result from Last 3 Months or Most Recently Relevant to Health Maintenance Insurance MEDICARE PART A B [employer] Care Teams Beaver Trapper Relationship Specialty Start Date End Date Enma Crump APRN [address] [address] PCP - General Nurse Practitioner 09/19/22
--- OUTSIDE RECORDS SUMMARY | 2025-08-18 15:03 | XMS_ITS | Encounter Summary ---
Author Organization [facility] Address [address] [place] [address] Care Team Providers Care Bartender Name Role Phone Ayden Wolfe MD Primary Care Provider [phone] Encounter Details Date Type Department Care Team (Late st Contact Info) Description 05/28/2017 External CPT II WINE MERCHANT - [facility] Social History Tobacco Use [...] on filedocumented in this encounter Care Teams Bartender Relationship Specialty Start Date End Date Ayden Wolfe MD [address] [place] [address] PCP - General Internal Medicine 07/13/16 documented as of this encounter
== END 2025-08-17 23:59 | disposition home or self-care (01) ==
LOC: LAB.DROPOF 08-18 14:49
PROVIDERS: PCP Nurse Practitioner Family; Visit Provider Nurse Practitioner Family
DX: R82.90 Unspecified abnormal findings in urine (principal)
CPT/HCPCS: 87086

== ENCOUNTER 2025-09-01 13:32 | Outpatient (CLI) | payer MEDICARE, OTHER, SELFPAY ==
--- NOTE | 2025-09-01 13:30 | CT_ITS ---
FINAL REPORT TECHNIQUE: Noncontrast exam This study was performed with techniques to keep radiation doses as low as reasonably achievable, (ALARA). Individualized dose reduction techniques using automated exposure control or adjustment of mA and/or kV according to the patient''s size were employed. CLINICAL HISTORY: unsteadiness, fall heading head COMPARISON: 07/10/2025 FINDINGS: No abnormal density is seen. Ventricles are normal. There is no hemorrhage. No mass effect is seen. Mild sphenoid sinusitis again noted. Mild mucosal thickening of the left maxillary sinus. Bone windows show no evidence of fracture. IMPRESSION: No acute intracranial abnormality. Redemonstration of sphenoid sinusitis. Reviewed, Interpreted and Dictated by Pop Montano MD Transcribed by Jennifer Hilliard Authenticated and . [facility]
--- OUTSIDE RECORDS SUMMARY | 2025-09-01 13:37 | XMS_ITS | Encounter Summary ---
Author Organization [facility] Address [address] [place] [address] Care Team Providers Care Product Scientist Name Role Phone Ayden Wolfe MD Primary Care Provider [phone] Encounter Details Date Type Department Care Team (Late st Contact Info) Description 01/23/2019 External CPT II RENT AND MISCELLANEOUS REMITTANCE CLERK - [facility] Social History Tobacco Use [...] on filedocumented in this encounter Care Teams Product Scientist Relationship Specialty Start Date End Date Ayden Wolfe MD [address] [place] [address] PCP - General Internal Medicine 07/13/16 documented as of this encounter
--- OUTSIDE RECORDS SUMMARY | 2025-09-01 13:37 | XMS_ITS | Clinical Summary ---
Author Organization [facility] Address [address] [place] [address] Care Team Providers Care Vp Global Marketing [employer] Name Role Phone Enma Crump VENITA Primary Care Provider [phone] Allergies Active Allergy Reactions Criticality Noted Date [...] or (1 - 1-dose 75+ series) 2022 [id number] Vaccine (4 - 2024- season) 2025 11/15/2021, [...] age to complete this [place] [address] Care Teams Vp Global Marketing [employer] Relationship Specialty Start Date End Date Enma Crump APRN [address] [place] [address] PCP - General 05/01/23
--- OUTSIDE RECORDS SUMMARY | 2025-09-01 13:37 | XMS_ITS | Encounter Summary ---
Author Organization [facility] Address [address] [place] [address] Care Team Providers Care Proof Inspector Name Role Phone Ayden Wolfe MD Primary Care Provider [phone] Encounter Details Date Type Department Care Team (Late st Contact Info) Description 03/27/2017 External CPT II CUSTOMER ACCOUNT TECHNICIAN - [facility] Social History Tobacco Use [...] on filedocumented in this encounter Care Teams Proof Inspector Relationship Specialty Start Date End Date Ayden Wolfe MD [address] [place] [address] PCP - General Internal Medicine 07/13/16 documented as of this encounter
--- OUTSIDE RECORDS SUMMARY | 2025-09-01 13:37 | XMS_ITS | Clinical Summary ---
Author Organization [employer] ([place], [place], [place], [place], [place]) Address [address] [place] [address] Care Team Providers Care Willow Machine Operator Name Role Phone Enma Crump APRN Primary Care Provider Allergies Active Allergy Reactions [...] Description 06/02/2025 8:30 AM EDT Office Visit [facility] Orthopedics - [address] [address] Alejandro Herrera MD Primary osteoarthritis of right knee (Primary Dx); Rotator cuff tendonitis, left from Last 3 [...] Date Stanley rded Speak language other than Venezuelan at home Not on file 11/09/2023 Want [...] Description 09/08/2025 8:00 AM EST Office Visit [facility] Orthopedics - [address] [address] Alejandro Herrera MD [address] [place] [address] Health Maintenance Due Date Last Done Comments Medicare Initial AWV [id number] DXA SCAN 1945 Depression Screening (12+) 1959 Hepatitis C Screening 1965 Pneumococcal 50+ years (1 of 1 - PCV) 1997 Shingles Vaccine (Zoster) (1 of 2) 1997 Respiratory Syncytial Virus (RSV) Adult or (1 - 1-dose 75+ series) 2022 Falls Risk Screening 10/22/2024 COVID-19 VACCINE ( - 2024-2 6 season) 2025 11/15/2021, 12/24/2020, [...] the next mammogram. At our facility, a [place] marker is positioned over a visible skin [...] cancer. COMPARISON STUDY: 2022 through 2015 from [facility] FINDINGS: Craniocaudal and mediolateral oblique images of both breasts were obtained in 2D and DBT modes. Synthesized views were reconstructed from DBT data. The breast tissue is almost entirely fatty. There is no evidence of dominant mass, architectural distortion, or suspicious calcifications. The mammogram was interpreted with the benefit of computer aided detection (CAD). Enma Crump APRN IM MAMMOGRAPHY ORDERABLES F inal Result from Last 3 Months or Most Recently Relevant to Health Maintenance Insurance MEDICARE PART A B [employer] Care Teams Willow Machine Operator Relationship Specialty Start Date End Date Enma Crump APRN [address] [address] PCP - General Nurse Practitioner 09/19/22
--- OUTSIDE RECORDS SUMMARY | 2025-09-01 13:37 | XMS_ITS | Encounter Summary ---
[facility] Address [address] [place] [address] Care Team Providers Care Design Agent Name Role Phone Ayden Wolfe MD Primary Care Provider [phone] Encounter Details Date Type Department Care Team (Late st Contact Info) Description 01/17/2016 External CPT II SALON/SPA MANAGER - [facility] Social History Tobacco [...] on filedocumented in this encounter Care Teams Design Agent Relationship Specialty Start Date End Date Ayden Wolfe MD [address] [place] [address] PCP - General Internal Medicine 07/13/16 documented as of this encounter
--- OUTSIDE RECORDS SUMMARY | 2025-09-01 13:37 | XMS_ITS | Encounter Summary ---
Author Organization [facility] Address [address] [place] [address] Care Team Providers Care Senior Warehouse Clerk Name Role Phone Ayden Wolfe MD Primary Care Provider Encounter Details Date Type Department Care Team (Late st Contact Info) Description 04/28/2016 External CPT II AIR CONDITIONING SPECIALIST - [facility] Social History Tobacco [...] on filedocumented in this encounter Care Teams Senior Warehouse Clerk Relationship Specialty Start Date End Date Ayden Wolfe MD [address] [place] [address] PCP - General Internal Medicine 07/13/16 documented as of this encounter
--- OUTSIDE RECORDS SUMMARY | 2025-09-01 13:37 | XMS_ITS | Clinical Summary ---
Author Organization [facility] Address [address] [place] [address] Care Team Providers Care Care Specialist Name Role Phone Ayden Wolfe MD Primary Care Provider [phone] Allergies Active Allergy Reactions Criticality Noted Date [...] - 200 mg/dL 12/22/2016 7:25 PM EST [facility] Triglycerides 142 0 - 150 mg/dL 12/22/2016 7:25 PM EST [facility] HDL Cholesterol 52 40 - 60 mg/dL 12/22/2016 7:25 PM EST [facility] LDL Cholesterol 108 0 - 130 mg/dL 12/22/2016 7:25 PM EST [facility] Blood Venipuncture / Unknown 12/22/2016 2:09 PM EST 12/22/2016 2:09 PM EST Narrative [facility] - 12/22/2016 7:25 PM [...] MD LAB BLOOD ORDERA BLES Final Result [facility]
[address] [place] [address], * (ABNORMAL) Hemoglobin A1c (09/17/2014 6:18 AM EST) Hemoglobin A1C 7.4(H) 4.00 - 6.00 % [facility] Comment: DF by IF @ 09/17/2014 08:13 The [place] [employer] recommends maintenance of Hemoglobin A1C at 7.0% or lower. Goals for Hemoglobin A1C reduction may need to be modified if hypoglycemia is a problem. Mean Bld Glu Estim. 162 mg/dL [facility] Blood specimen (specimen) 09/17/2014 6:18 AM EST Narrative [facility] - 09/17/2014 8:14 AM EST Specimen Type: Blood Hansel Spence MD LAB BLOOD ORDERABLES Final Resu lt Performing Organization Address [facility] Co de Phone Number [facility] [address] [place] [address], * (ABNORMAL) Occult blood x 3, stool (09/16/2014 5:57 PM EST) Fecal Occult Blood Positive(A) Negative [facility] OB Date 1 [id number] [facility] Comment:Testing performed by nursing personnel. Fecal Occult Blood No specimen received. Negative , No specimen received. [facility] Fecal Occult Blood No specimen received. Negative , No specimen received. [facility] Stool specimen (specimen) 09/16/2014 5:57 PM EST Narrative [facility] - 09/17/2014 11:19 AM EST Specimen Type: Stool Zachary Venegas MD BODY FLUIDS AND STOOLS ORDERAB LES Final Result Performing Organization Address [facility] Co de Phone Number [facility] [address] [place] [address], from Last 3 Months or Most Recently Relevant to Health Maintenance Insurance MEDICARE A & B [facility] Care Teams Care Specialist Relationship Specialty Start Date End Date Ayden Wolfe MD [address] [place] [address] PCP - General Internal Medicine 07/13/16
--- OUTSIDE RECORDS SUMMARY | 2025-09-01 13:37 | XMS_ITS | Referral Summary ---
Author Organization [employer] ([place], [place], [place], [place], [place]) Address [address] [place] [address] Care Team Providers Care Curriculum Facilitator Name Role Phone Enma Crump EYE DROPPER ASSEMBLER Primary Care Provider Encounters Date Type Department Care Team Description 06/02/2025 8:30 AM EDT Office Visit [facility] Orthopedics - [address] [address] Alejandro Herrera MD Primary osteoarthritis [...] Description 09/08/2025 8:00 AM EST Office Visit [facility] Orthopedics - [address] [address] Alejandro Herrrea MD [address] [place] [address] Procedures Procedure Name Priority Date/Time Associated Diagnosis [...] the next mammogram. At our facility, a [place] marker is positioned over a visible [...] 2022 through 2015 from [facility] FINDINGS: Craniocaudal and mediolateral oblique images of both breasts were obtained in 2D and DBT modes. Synthesized views were reconstructed from DBT data. The breast tissue is almost entirely fatty. There is no evidence of dominant mass, architectural distortion, or suspicious calcifications. The mammogram was interpreted with the benefit of computer aided detection (CAD). Enma Crump APRN [facility] ORDERABLES F inal Result from Last 3 Months or Most Recently Relevant to Health Maintenance Insurance MEDICARE PART A B [employer] Care Teams Curriculum Facilitator Relationship Specialty Start Date End Date Enma Crump, EYE DROPPER ASSEMBLER [address] [place] [address] PCP - General Nurse Practitioner 09/19/22
--- OUTSIDE RECORDS SUMMARY | 2025-09-01 13:37 | XMS_ITS | Encounter Summary ---
Author Organization [facility] Address [address] [place] [address] Care Team Providers Care Marketing Production Coordinator Name Role Phone Ayden Wolfe MD Primary Care Provider [phone] Encounter Details Date Type Department Care Team (Late st Contact Info) Description 05/28/2017 External CPT II BATCH OR CONTINUOUS STILL OPERATOR - [facility] Social History Tobacco [...] on filedocumented in this encounter Care Teams Marketing Production Coordinator Relationship Specialty Start Date End Date Ayden Wolfe MD [address] [place] [address] PCP - General Internal Medicine 07/13/16 documented as of this encounter
--- OUTSIDE RECORDS SUMMARY | 2025-09-01 13:37 | XMS_ITS | Encounter Summary ---
Author Organization [facility] Address [address] [place] [address] Care Team Providers Care Content Strategy Lead Name Role Phone Ayden Wolfe MD Primary Care Provider [phone] Encounter Details Date Type Department Care Team (Late st Contact Info) Description 03/31/2015 External CPT II TRUCK DRIVER RUBBISH COLLECTOR - [facility] Social History Tobacco Use [...] on filedocumented in this encounter Care Teams Content Strategy Lead Relationship Specialty Start Date End Date Ayden Wolfe MD [address] [place] [address] PCP - General Internal Medicine 07/13/16 documented as of this encounter
--- OUTSIDE RECORDS SUMMARY | 2025-09-01 13:37 | XMS_ITS | Encounter Summary ---
Author Organization [facility] Address [address] [place] [address] Care Team Providers Care Habilitative Interventionist Name Role Phone Ayden Wolfe MD Primary Care Provider [phone] Encounter Details Date Type Department Care Team (Late st Contact Info) Description 07/17/2018 External CPT II ENVIRONMENTAL DESIGNER - [facility] Social History Tobacco Use [...] on filedocumented in this encounter Care Teams Habilitative Interventionist Relationship Specialty Start Date End Date Ayden Wolfe MD [address] [place] [address] PCP - General Internal Medicine 07/13/16 documented as of this encounter
--- OUTSIDE RECORDS SUMMARY | 2025-09-01 13:37 | XMS_ITS | Encounter Summary ---
Author Organization [facility] Address [address] [place] [address] Care Team Providers Care Warp Splitter Name Role Phone Ayden Wolfe MD Primary Care Provider Encounter Details Date Type Department Care Team (Late st Contact Info) Description 12/26/2017 External CPT II GRINDER SET UP OPERATOR JIG - [facility] Social History Tobacco Use [...] on filedocumented in this encounter Care Teams Warp Splitter Relationship Specialty Start Date End Date Ayden Wolfe MD [address] [place] [address] PCP - General Internal Medicine 07/13/16 documented as of this encounter
--- NOTE | 2025-09-01 13:42 | XR_ITS ---
FINAL REPORT CLINICAL HISTORY: right shoulder pain post fall COMPARISON: None FINDINGS: Three views of the right shoulder show no evidence of acute displaced fracture or dislocation of the visualized bony architecture. Moderate degenerative changes of the glenohumeral and acromioclavicular joints. IMPRESSION: Degenerative changes without acute findings. Reviewed, Interpreted and Dictated by Pop Montano MD Transcribed by Jennifer Hilliard Authenticated and [facility]
== END 2025-09-01 23:59 | disposition home or self-care (01) ==
PROVIDERS: PCP Nurse Practitioner Family; Visit Provider Nurse Practitioner Family
DX: M19.011 Primary osteoarthritis, right shoulder (principal); J32.3 Chronic sphenoidal sinusitis; R26.81 Unsteadiness on feet; W10.8XXA Fall (on) (from) other stairs and steps, initial encounter
CPT/HCPCS: 70450; 73030

== ENCOUNTER 2025-09-21 11:22 | Outpatient (CLI) | payer MEDICARE, OTHER, SELFPAY ==
--- OUTSIDE RECORDS SUMMARY | 2025-09-08 08:15 | XMS_ITS | Encounter Summary ---
Author Organization [employer] ([place], [place], [place], [place], [place]) Address [address] [place] [address] Care Team Providers Care Drum Straightener Name Role Phone CrumpEnma troy CT MANAGER Primary Care Provider [phone] Encounter Details Date Type Department Care Team (Late st Contact Info) Description 09/08/2025 8:15 AM EST Ancillary Procedure [facility] Orthopedics - [address] [address] Alejandor Herrera MD [address] [place] [address] Social History Tobacco Use Types Packs/Day Years [...] Date Stanley rded Speak language other than Lithuanian at home Not on file 11/09/2023 Want [...] Care Team (Late st Contact Info) Description 09/22/2025 8:00 AM EST Office Visit [facility] Orth[facility] - [address] [phone] Alejandro Herrera MD [address] [place] [address] documented as of this encounter Procedures Procedure [...] Goel PAC under the supervision of Dr Herrera us Alejandro Herrera MD IMG DIAGNOSTIC IMAGING ORDERAB LES Final Result documented in this encounter Visit Diagnoses Not on filedocumented in this encounter Care Teams Drum Straightener Relationship Specialty Start Date End Date Enma Crump, CT MANAGER [address] [address] PCP - General Nurse Practitioner 09/19/22 documented as of this encounter
--- OUTSIDE RECORDS SUMMARY | 2025-09-08 09:15 | XMS_ITS | Encounter Summary ---
Author Organization [employer] ([place], [place], [place], [place], [place]) Address [address] [place] [address] Care Team Providers Care Epidemiology Internship Name Role Phone Enma Crump APRN Primary Care Provider Encounter Details Date Type Department Care Team (Late st Contact Info) Description 09/08/2025 9:15 AM EST Office Visit [facility] Orthopedics - [address] [address] Alejandro Herrera MD [address] [place] [address] Primary osteoarthritis of right knee (Primary Dx) Social History Tobacco Use Types [...] Date Stanley rded Speak language other than Indian at home Not on file 11/09/2023 Want [...] as of this encounter Progress Notes * Alejandro Herrera MD - 09/08/2025 9:15 AM EST Images from the original note were not included. NAME: Kristina Herrera CSN: [id number] : 1945 PCP: Enma Crump APRN REASON FOR VISIT Follow-up (Right knee pain, DOI: 09/07/25) HPI Kristina Herrera is a 80 y.o. female who presents today for a follow-up injection in right Knee Patient's previous injection date: 06/02/25 Previous injection lasted 2 months Patient rates their pain today as 4 out of 10 Patient reports the following new injuries or issues: She stopped taking an antibotic yesterday for an ear infection, she also fell last Sunday onto her knee. She denies buckling symptoms. She reports that the injections were doing well before the fall. Since the fall her pain has increased considerably and she has been takng OTC arthritis medications for pain relief. The pain is the worst in the front of her knee. It does not radiate. CURRENT MEDICATIONS Current Outpatient Medications Medication Instructions [...] fluticasone propionate (FLONASE) 50 mcg/actuation nasal spray SMARTSIG:Leivasy(s) Both Nares GaviLyte-G 236-22.74-6.74 -5.86 gram solution [...] skin discoloration, no history or MRSA Neuro: No headaches, no seizures, no stroke, no tremors, no muscle weakness, no difficulty walking,no numbness/tingling, no neuropathy Endo: No cold/heat intolerance Heme: No abnormal bruising or bleeding Psych: No depression, no anxiety, no fatigue, no mood swings Scribe Attestation: I, KEVIN Eller acted as a scribe and transcribed components of the current encounter under the direction of the Attending Provider. I have not been involved in providing any clinical treatments or patient care. Electronically Signed, KEVIN Eller OBJECTIVE Vitals: 09/08/25 0806 BP: 131/73 Pulse: 68 Resp: 18 Weight: 87.5 kg (193 lb) Height: 1.549 m (5' 1 ) Body mass index is 36.47 kg/m??. Physical Exam Vitals reviewed. Constitutional: Appearance: Normal appearance. HENT: Head: Normocephalic and atraumatic. Skin: General: Skin is warm and dry. Capillary Refill: Capillary refill takes less than 2 seconds. Findings: No bruising or erythema. Neurological: Mental Status: She is alert and oriented to person, place, and time. Gait: Gait normal. Psychiatric: Mood and Affect: Mood normal. Behavior: Behavior normal. Right Knee Exam General: Awake, Alert, Oriented x3, Well developed Appearance: - effusion, + localized swelling, +varus deformity, -masses Tenderness to palpation: + Medial joint line, -Lateral joint line, +Patellofemoral joint, +MCL, -LCL, -Posterior, - Quad Tendon, - Patellar Tendon, -Hamstring, - Gastrocnemius, ROM: 120 degrees of Flexion, Full Extension, +crepitus Strength: 4/5 Testing: -Bharati, -Daina, -Posterior drawer, + pain with Valgus stress, - Varus stress Neurovascular: NVI, -Homans Skin: normal appearance with no discoloration or wounds Gait: abnormal RADIOGRAPHS/IMAGING XR knee 1 or 2 views right 2 view of the right knee, weightbearing, demonstrates tricompartmental degenerative changes with narrowing which is most severe in the medial compartment. There are numerous osteophytes appreciated as well as subchondral cystic changes. There is no acute fracture or dislocation appreciated. Tiara Goel PAC under the supervision of Dr Herrera ASSESSMENT Problem List Items Addressed This Visit Musculoskeletal and Integument Primary osteoarthritis of right knee - Primary Relevant Orders XR knee 1 or 2 views right PLAN - continue WBAT - rest, ice, elevation -followup in 2 weeks for right knee injection ( she is s/p abx from [facility]) -return for new or worsening symptoms -XR reviewed with the patient. PROCEDURE Scribe Attestation: Camila English CMA acted as a scribe and transcribed components of the current encounter under the direction of the Attending Provider. I have not been involved in providing anyclinical treatments or patient care. Electronically SignedCamila CMA PA Attestation: Tiara English PA-C examined, discussed diagnosis and treatment options, acted as a scribe and transcribed components of the current encounter under the direction of the Attending Provider. Electronically SignedTiara PA-C 09/08/2025 Tiara Goel PA-C scribing for Alejandro Herrera MD I, Alejandro Herrera MD, have read and agree with the documentation that has been completed regarding this visit. By signing this record, I attest that the documentation was completed in my physical presence and is an accurate record of the encounter. Electronically Signed, Alejandro Herrera MD 09/08/2025 8:39 AM EST Nota Bene: [facility] [place] [facility] is undergoing an EHR transition as of this date of service. There may be a delay in uploading older paper and EHR chart data to this new system. The above encounter has been documented to the best of the provider's working knowledge of the EHR in conjunction with medical information provided by the patient (and/or the patient's family member). WORK TIER documented in this encounter Plan of Treatment Upcoming Encounters Date Type Department Care Team (Late st Contact Info) Description 09/22/2025 8:00 AM EST Office Visit [facility] Orthopedics - [address] [phone] Alejandro Herrera MD [address] [place] [address] documented as of this encounter Visit Diagnoses Diagnosis Primary osteoarthritis of right knee- Primary documented in this encounter Care Teams Epidemiology Internship Relationship Specialty Start Date End Date Enma Crump APRN [address] [place] [address] [address] PCP - General Nurse Practitioner 09/19/22 documented as of this encounter
--- NOTE | 2025-09-21 11:26 | XR_ITS ---
FINAL REPORT CLINICAL HISTORY: Left hand pain, numbness FINDINGS: AP, oblique, and lateral views of the left hand were obtained. There is no prior exam for comparison. There is no acute fracture or dislocation of the left hand. Multijoint degenerative disease is most pronounced at the first carpometacarpal joint. There is normal mineralization. No bony erosion. No soft tissue abnormality. IMPRESSION: No acute osseous abnormality of the left hand. Degenerative changes. Reviewed, Interpreted and Dictated by Adrienne Moss MD Transcribed by Jennifer Hilliard Authenticated and [facility]
--- NOTE | 2025-09-21 11:26 | XR_ITS ---
FINAL REPORT CLINICAL HISTORY: left hand pain, numbness FINDINGS: CERVICAL SPINE 5 views were obtained. There is no prior exam for comparison. There is no acute fracture or acute malalignment. Vertebral body heights are preserved. There is multilevel degenerative disc disease, most pronounced at C3-4 and C4-5. Precervical soft tissues are normal. IMPRESSION: No acute osseous abnormality of the cervical spine. Degenerative changes. Reviewed, Interpreted and Dictated by Adrienne Moss MD Transcribed by Jennifer Hilliard Authenticated and . [facility]
--- OUTSIDE RECORDS SUMMARY | 2025-09-21 11:55 | XMS_ITS | Encounter Summary ---
Author Organization [facility] Address [address] [place] [address] Care Team Providers Care Cash Processor Name Role Phone Ayden Wolfe MD Primary Care Provider [phone] Encounter Details Date Type Department Care Team (Late st Contact Info) Description 05/28/2017 External CPT II METEOROLOGY TEACHER - [facility] Social History Tobacco [...] on filedocumented in this encounter Care Teams Cash Processor Relationship Specialty Start Date End Date Ayden Wolfe MD [address] [place] [address] PCP - General Internal Medicine 07/13/16 documented as of this encounter
--- OUTSIDE RECORDS SUMMARY | 2025-09-21 11:55 | XMS_ITS | Encounter Summary ---
Author Organization [facility] Address [address] [place] [address] Care Team Providers Care Powder Compounder Name Role Phone Ayden Wolfe MD Primary Care Provider [phone] Encounter Details Date Type Department Care Team (Late st Contact Info) Description 01/17/2016 External CPT II FRAME HAND - [facility] Social History Tobacco Use [...] on filedocumented in this encounter Care Teams Powder Compounder Relationship Specialty Start Date End Date Ayden Wolfe MD [address] [place] [address] PCP - General Internal Medicine 07/13/16 documented as of this encounter
--- OUTSIDE RECORDS SUMMARY | 2025-09-21 11:55 | XMS_ITS | Encounter Summary ---
Author Organization [facility] Address [address] [place] [address] Care Team Providers Care Per Diem Clerk Name Role Phone Ayden Wolfe MD Primary Care Provider [phone] Encounter Details Date Type Department Care Team (Late st Contact Info) Description 03/31/2015 External CPT II NURSE OUTREACH CASE MANAGER - [facility] Social History Tobacco [...] on filedocumented in this encounter Care Teams Per Diem Clerk Relationship Specialty Start Date End Date Ayden Wolfe MD [address] [place] [address] PCP - General Internal Medicine 07/13/16 documented as of this encounter
--- OUTSIDE RECORDS SUMMARY | 2025-09-21 11:55 | XMS_ITS | Encounter Summary ---
Author Organization [facility] Address [address] [place] [address] Care Team Providers Care Personal Carer Name Role Phone Ayden Wolfe MD Primary Care Provider [phone] Encounter Details Date Type Department Care Team (Late st Contact Info) Description 12/26/2017 External CPT II DAMAGE APPRAISER - [facility] Social History Tobacco Use [...] on filedocumented in this encounter Care Teams Personal Carer Relationship Specialty Start Date End Date Ayden Wolfe MD [address] [place] [address] PCP - General Internal Medicine 07/13/16 documented as of this encounter
--- OUTSIDE RECORDS SUMMARY | 2025-09-21 11:55 | XMS_ITS | Encounter Summary ---
Author Organization [facility] Address [address] [place] [address] Care Team Providers Care Marine Propulsion Technician Name Role Phone Ayden Wolfe MD Primary Care Provider [phone] Encounter Details Date Type Department Care Team (Late st Contact Info) Description 03/27/2017 External CPT II SCALE INSTALLER - [facility] Social History Tobacco Use [...] on filedocumented in this encounter Care Teams Marine Propulsion Technician Relationship Specialty Start Date End Date Ayden Wolfe MD [address] [place] [address] PCP - General Internal Medicine 07/13/16 documented as of this encounter
--- OUTSIDE RECORDS SUMMARY | 2025-09-21 11:55 | XMS_ITS | Clinical Summary ---
Author Organization [employer] ([place], [place], [place], [place], [place]) Address [address] [place] [address] Care Team Providers Care Silo Man Name Role Phone Enma Crump APRN Primary [...] Encounters Date Type Department Care Team Description 09/08/2025 9:15 AM EST Office Visit [address] [address] Alejandro Herrera MD Primary osteoarthritis of right knee (Primary Dx) 09/08/2025 8:15 AM EST Ancillary Procedure [address] [address] Alejandro Herrera MD from Last 3 Months Family History Medical [...] Date Stanley rded Speak language other than Ethiopian at home Not on file 11/09/2023 Want [...] Sign Reading Time Taken Comments Blood Pressure 131/73 09/08/2025 8:06 AM EST Pulse 68 09/08/2025 8:06 AM EST Temperature 36.6 C (97.9 F) 02/06/2024 2:57 AM EDT Respiratory Rate 18 09/08/2025 8:06 AM EST Oxygen Saturation 94% 02/06/2024 2:57 AM EDT Inhaled Oxygen Concentration - - Weight 87.5 kg (193 lb) 09/08/2025 8:06 AM EST Height 154.9 cm (5' 1 ) 09/08/2025 8:06 AM EST Body Mass Index 36.47 09/08/2025 8:06 AM EST Plan of Treatment Upcoming Encounters Date Type Department Care Team (Late st Contact Info) Description 09/22/2025 8:00 AM EST Office Visit [facility] Orthoped[facility] - [address] [address] Alejandro Herrera MD [address] [place] [address] Health Maintenance Due Date Last Done [...] 08/23/2019 Tobacco Cessation Counseling and Screening (12+) 09/08/2026 09/08/2025 DTAP/TDAP/TD VACCINES (3 - T d or Tdap) 03/14/2031 03/14/2021, 02/12/1996 Breast Cancer Screening Discontinued 07/25/20, 07/24/2023, 07/21/2022, Additional history exists Procedures Procedure Name Priority Date/Time Associated Diagnosis Comments XR KNEE 1 OR 2 VIEWS RIGHT Routine 09/08/2025 8:19 AM EST Primary osteoarthritis of right knee MM DIGITAL MAMMO SCREEN WITH NANETTE BILATERAL Routine 07/25/2024 11:50 AM EDT Visit for screening mammogram from Last 3 Months or Most Recently Relevant to Health Maintenance Results * XR knee 1 or 2 [...] the supervision of Dr Herrera us Alejandro S Javier [facility] IMG DIAGNOSTIC [...] the next mammogram. At our facility, a [place] marker is positioned over a visible skin [...] STUDY: 2022 through 2015 from [facility] FINDINGS: Craniocaudal and mediolateral oblique images of both breasts were obtained in 2D and DBT modes. Synthesized views were reconstructed from DBT data. The breast tissue is almost entirely fatty. There is no evidence of dominant mass, architectural distortion, or suspicious calcifications. The mammogram was interpreted with the benefit of computer aided detection (CAD). Enma Crump APRN [facility] MAMMOGRAPHY ORDERABLES F inal Result from Last 3 Months or Most Recently Relevant to Health Maintenance Insurance MEDICARE PART A B [employer] Care Teams Silo Man Relationship Specialty Start Date End Date Melanie Crumpe, HEADING SAW OPERATOR [address] [place] [address] PCP - General Nurse Practitioner 09/19/22
--- OUTSIDE RECORDS SUMMARY | 2025-09-21 11:55 | XMS_ITS | Encounter Summary ---
Author Organization [facility] Address [address] [place] [id number] Care Team Providers Care Tacker Elastic Band Name Role Phone Ayden Wolfe MD Primary Care Provider [phone] Encounter Details Date Type Department Care Team (Late st Contact Info) Description 01/23/2019 External CPT II STOKER ERECTOR - [facility] Social History Tobacco Use [...] on filedocumented in this encounter Care Teams Tacker Elastic Band Relationship Specialty Start Date End Date Ayden Wolfe MD [address] [place] [address] PCP - General Internal Medicine 07/13/16 documented as of this encounter
--- OUTSIDE RECORDS SUMMARY | 2025-09-21 11:55 | XMS_ITS | Encounter Summary ---
Author Organization [facility] Address [address] [place] [address] Care Team Providers Care Getter Welder Name Role Phone Ayden Wolfe MD Primary Care Provider [phone] Encounter Details Date Type Department Care Team (Late st Contact Info) Description 07/17/2018 External CPT II UPHOLSTERY RESTORER - [facility] Social History Tobacco Use [...] on filedocumented in this encounter Care Teams Getter Welder Relationship Specialty Start Date End Date Ayden Wolfe MD [address] [place] [address] PCP - General Internal Medicine 07/13/16 documented as of this encounter
--- OUTSIDE RECORDS SUMMARY | 2025-09-21 11:55 | XMS_ITS | Referral Summary ---
Author Organization [employer] ([place], [place], [place], [place], [place]) Address [address] [place] [address] Care Team Providers Care Oil Heater Operator Name Role Phone CrumpEmna troy CHILD NEUROLOGIST Primary Care Provider Encounters Date Type Department Care Team Description 09/08/2025 9:15 AM EST Office Visit [address] [address] Alejandro Herrera MD Primary osteoarthritis of right knee (Primary Dx) 09/08/2025 8:15 AM EST Ancillary Procedure [address] [address] Alejandro Herrera MD from Last 3 Months Allergies Active Allergy [...] Date Stanley rded Speak language other than Liberian at home Not on file 11/09/2023 Want [...] Description 09/22/2025 8:00 AM EST Office Visit [facility] Orth[facility] - [address] [address] Alejandro Herrera MD [address] [place] [address] Procedures Procedure Name Priority Date/Time Associated [...] the next mammogram. At our facility, a false pass marker is positioned over a visible skin [...] cancer. COMPARISON STUDY: 2022 through 2015 from [facility] FINDINGS: Craniocaudal and mediolateral oblique images of both breasts were obtained in 2D and DBT modes. Synthesized views were reconstructed from DBT data. The breast tissue is almost entirely fatty. There is no evidence of dominant mass, architectural distortion, or suspicious calcifications. The mammogram was interpreted with the benefit of computer aided detection (CAD). us Enma Crump CHILD NEUROLOGIST IMG MAMMOGRAPHY ORDERABLES F inal Result from Last 3 Months or Most Recently Relevant to Health Maintenance Insurance MEDICARE PART A B [employer] Care Teams Oil Heater Operator Relationship Specialty Start Date End Date Enma Crump APRN [address] [address] PCP - General Nurse Practitioner 09/19/22
--- OUTSIDE RECORDS SUMMARY | 2025-09-21 11:55 | XMS_ITS | Encounter Summary ---
[facility] Address [address] [place] [address] Care Team Providers Care Plow Holder Name Role Phone Ayden Wolfe MD Primary Care Provider [phone] Encounter Details Date Type Department Care Team (Late st Contact Info) Description 04/28/2016 External CPT II WINE BLENDER - [facility] Social History Tobacco Use [...] on filedocumented in this encounter Care Teams Plow Holder Relationship Specialty Start Date End Date Ayden Wolfe MD [address] [place] [address] PCP - General Internal Medicine 07/13/16 documented as of this encounter
--- OUTSIDE RECORDS SUMMARY | 2025-09-21 11:55 | XMS_ITS | Clinical Summary ---
Author Organization [facility] Address [address] [place] [address] Care Team Providers Care Lab Support Service Tech Name Role Phone Enma Crump VENITA Primary Care Provider [phone] Allergies Active Allergy Reactions Criticality Noted Date [...] or (1 - 1-dose 75+ series) 2022 [id number] Vaccine (4 - 2024- season) 2025 11/15/2021, [...] age to complete this [place] [phone] Care Teams Lab Support Service Tech Relationship Specialty Start Date End Date Enma Crump APRN [address] [place] [address] PCP - General 05/01/23
--- OUTSIDE RECORDS SUMMARY | 2025-09-21 11:55 | XMS_ITS | Clinical Summary ---
Author Organization [facility] Address [address] [place] [address] Care Team Providers Care Side Panel Hanger Name Role Phone Ayden Wolfe MD Primary Care Provider [phone] Allergies Active Allergy Reactions Criticality Noted Date [...] 2024-2 6 season) 2025 12/24/2020 TDAP/TD VACCINES (2 - Td or Tdap) 03/14/2031 021, 02/12/1996 [...] - 200 mg/dL 12/22/2016 7:25 PM EST [facility] Triglycerides 142 0 - 150 mg/dL 12/22/2016 7:25 PM EST [facility] HDL Cholesterol 52 40 - 60 mg/dL 12/22/2016 7:25 PM EST [facility] LDL Cholesterol 108 0 - 130 mg/dL 12/22/2016 7:25 PM EST [facility] Blood Venipuncture / Unknown 12/22/2016 2:09 PM EST 12/22/2016 2:09 PM EST Narrative [facility] - 12/22/2016 7:25 PM EST [...] MD LAB BLOOD ORDERA BLES Final Result [facility]
[address] [place] [address], * (ABNORMAL) Hemoglobin A1c (09/17/2014 6:18 AM EST) Hemoglobin A1C 7.4(H) 4.00 - 6.00 % [facility] Comment: DF by IF @ 09/17/2014 08:13 The [place] [employer] recommends maintenance of Hemoglobin A1C at 7.0% or lower. Goals for Hemoglobin A1C reduction may need to be modified if hypoglycemia is a problem. Mean Bld Glu Estim. 162 mg/dL [facility] Blood specimen (specimen) 09/17/2014 6:18 AM EST Narrative [facility] - 09/17/2014 8:14 AM EST Specimen Type: Blood Hansel Spence MD LAB BLOOD ORDERABLES Final Resu lt Performing Organization Address [facility] Co de Phone Number [facility] [address] [place] [address], * (ABNORMAL) Occult blood x 3, stool (09/16/2014 5:57 PM EST) Fecal Occult Blood Positive(A) Negative [facility] OB Date 1 [id number] [facility] Comment:Testing performed by nursing personnel. Fecal Occult Blood No specimen received. Negative , No specimen received. [facility] Fecal Occult Blood No specimen received. Negative , No specimen received. [facility] Stool specimen (specimen) 09/16/2014 5:57 PM EST Narrative [facility] - 09/17/2014 11:19 AM EST Specimen Type: Stool Zachary Venegas MD BODY FLUIDS AND STOOLS ORDERAB LES Final Result Performing Organization Address [facility] Co de Phone Number [facility] [address] [place] [address], from Last 3 Months or Most Recently Relevant to Health Maintenance Insurance MEDICARE A & B [facility] Care Teams Side Panel Hanger Relationship Specialty Start Date End Date Ayden Wolfe MD [address] [place] [address] PCP - General Internal Medicine 07/13/16
== END 2025-09-21 23:59 | disposition home or self-care (01) ==
LOC: RAD 11:23
PROVIDERS: PCP Nurse Practitioner Family; Visit Provider Nurse Practitioner Family
DX: M79.642 Pain in left hand (principal); R20.0 Anesthesia of skin
CPT/HCPCS: 72050; 73130

== ENCOUNTER 2025-10-19 12:54 | Outpatient (CLI) | payer MEDICARE, OTHER, SELFPAY ==
--- OUTSIDE RECORDS SUMMARY | 2025-09-08 08:15 | XMS_ITS | Encounter Summary ---
Author Organization [employer] ([place], [place], [place], [place], [place]) Address [address] [place] [address] Care Team Providers Care Bolt Threader Name Role Phone CrumpEnma troy LAND MANAGEMENT FORESTER Primary Care Provider [phone] Encounter Details Date Type Department Care Team (Late st Contact Info) Description 09/08/2025 8:15 AM EST Ancillary Procedure [facility] Orthopedics - [address] [address] Alejandro Herrera MD [address] [place] [address] Social History Tobacco Use Types Packs/Day Years [...] Date Stanley rded Speak language other than Swedish at home Not on file 11/09/2023 Want [...] Care Team (Late st Contact Info) Description 11/17/2025 1:15 PM EST Office Visit [facility] Orthopedics - [address] [phone] Tiara Goel PA-C [address] [place] [address] documented as of this encounter Procedures Procedure Name Priority Date/Time Associated Diagnosis Comments XR KNEE 1 OR 2 VIEWS RIGHT Routine 09/08/2025 8:19 AM EST Primary osteoarthritis of right knee documented in this encounter Results * XR knee 1 or 2 views right (09/08/2025 8:19 AM EST) Anatomical Region Laterality Modality Thigh, Knee, Leg X-Ray Impressions 09/08/2025 8:15 AM EST 2 view of the right knee, weightbearing, demonstrates tricompartmental degenerative changes with narrowing which is most severe in the medial compartment. There are numerous osteophytes appreciated as well as subchondral cystic changes. There is no acute fracture or dislocation appreciated. Tiara Goel PAC under the supervision of Dr Javier Joya us Alejandro S Javier [facility] IMAGING ORDERAB LES Final Result documented in this encounter Visit Diagnoses Not on filedocumented in this encounter Care Teams Bolt Threader Relationship Specialty Start Date End Date CrumpEnma, LAND MANAGEMENT FORESTER [address] [address] PCP - General Nurse Practitioner 09/19/22 documented as of this encounter
--- OUTSIDE RECORDS SUMMARY | 2025-09-08 09:15 | XMS_ITS | Encounter Summary ---
Author Organization [employer] ([place], [place], [place], [place], [place]) Address [address] [place] [address] Care Team Providers Care Salon Stylist Name Role Phone Enma Crump APRN Primary Care Provider Encounter Details Date Type Department Care Team (Late st Contact Info) Description 09/08/2025 9:15 AM EST Office Visit [facility] Orthopedics - [address] [address] Alejandor Herrera MD [address] [place] [address] Primary osteoarthritis of right knee (Primary Dx) [...] were not included. NAME: Kristina Herrera CSN: [id number] : 1945 PCP: Enma Crump APRN REASON [...] fluticasone propionate (FLONASE) 50 mcg/actuation nasal spray SMARTSIG:[place](s) Both Nares GaviLyte-G 236-22.74-6.74 -5.86 gram solution [...] injection ( she is s/p abx from [facility]) -return for new or worsening symptoms [...] the patient (and/or the patient's family member). OR NURSE MANAGER documented in this encounter Plan of Treatment Upcoming Encounters Date Type Department Care Team (Late st Contact Info) Description 11/17/2025 1:15 PM EST Office Visit [facility] Orthopedics - [address] [address] Tiara Goel PA-C [address] [place] [address] documented as of this encounter Visit Diagnoses Diagnosis Primary osteoarthritis of right knee- Primary documented in this encounter Care Teams Salon Stylist Relationship Specialty Start Date End Date Enma Crump APRN [address] [address] PCP - General Nurse Practitioner 09/19/22 documented as of this encounter
--- OUTSIDE RECORDS SUMMARY | 2025-10-06 08:30 | XMS_ITS | Encounter Summary ---
Author Organization [employer] ([place], [place], [place], [place], [place]) Address [address] [place] [address] Care Team Providers Care Analytics Intern Name Role Phone Enma Crump BIODIESEL PLANT OPERATIONS ENGINEER Primary Care Provider Reason for Visit * Reason Comments Injections Right knee injection . Last injection on 06/02/2025 Encounter Details Date Type Department Care Team (Late st Contact Info) Description 10/06/2025 8:30 AM EST Office Visit [facility] - [address] [address] Tiara Goel PA-C [address] [place] [address] Primary osteoarthritis of right knee (Primary Dx) [...] Date Stanley rded Speak language other than Nigerian at home Not on file 11/09/2023 Want [...] Sign Reading Time Taken Comments Blood Pressure 146/84 10/06/2025 8:49 AM EST Pulse 87 10/06/2025 8:49 AM EST Temperature - - Respiratory Rate - - Oxygen Saturation - - Inhaled Oxygen Concentration - - Weight 87.5 kg (193 lb) 10/06/2025 8:49 AM EST Height 154.9 cm (5' 1 ) 10/06/2025 8:49 AM EST Body Mass Index 36.47 10/06/2025 8:49 AM EST documented in this encounter Functional Status * BP Answer Date of Assessment Author 146/84 10/06/2025 8:49 AM Nemo Lara * Pulse Answer Date of Assessment Author 87 10/06/2025 8:49 AM Nemo Lara * Height Answer Date of Assessment Author 61 10/06/2025 8:49 AM eNmo Lara * Weight Answer Date of Assessment Author 3088 10/06/2025 8:49 AM Nemo Lara * Tidal Volume Answer Date of Assessment Author 280 10/06/2025 8:49 AM Nemo Lara * Shock Index Answer Date of Assessment Author 0.6 10/06/2025 8:49 AM Nemo Lara * BMI (Calculated) Answer Date of Assessment Author 36.5 10/06/2025 8:49 AM Nemo Lara * BP Location Answer Date of Assessment Author Left arm 10/06/2025 8:49 AM Nemo Lara * Patient Position Answer Date of Assessment Author Sitting 10/06/2025 8:49 AM Nemo Lara * BP Answer Date of Assessment Author 146/84 10/06/2025 8:49 AM Nemo Lara * Pulse Answer Date of Assessment Author 87 10/06/2025 8:49 AM Nemo Lara * BMI (Calculated) Answer Date of Assessment Author 36.5 10/06/2025 8:49 AM Nemo Lara documented as of this encounter Mental Status * BP Answer Entry Date Author 146/84 10/06/2025 8:49 AM Nemo Lara * Pulse Answer Entry Date Author 87 10/06/2025 8:49 AM LEAD MECHANICAL ENGINEER Nemo Weber * Height Answer Entry Date Author 61 10/06/2025 8:49 AM LEAD MECHANICAL ENGINEER Nemo Weber * Weight Answer Entry Date Author 3088 10/06/2025 8:49 AM LEAD MECHANICAL ENGINEER Nemo Weber * Tidal Volume Answer Entry Date Author 280 10/06/2025 8:49 AM LEAD MECHANICAL ENGINEER Nemo Weber * Shock Index Answer Entry Date Author 0.6 10/06/2025 8:49 AM LEAD MECHANICAL ENGINEER Nemo Weber * BMI (Calculated) Answer Entry Date Author 36.5 10/06/2025 8:49 AM LEAD MECHANICAL ENGINEER Nemo Weber * BP Location Answer Entry Date Author Left arm 10/06/2025 8:49 AM LEAD MECHANICAL ENGINEER Nemo Weber * Patient Position Answer Entry Date Author Sitting 10/06/2025 8:49 AM Nemo Lara documented in this encounter Progress Notes * Tiara Goel PA-C - 10/06/2025 8:30 AM EST NAME: Kristina Herrera CSN: [id number] : 1945 PCP: Enma Crump APRN REASON FOR VISIT Injections (Right knee injection. Last injection on 06/02/2025) HPI Kristina Herrera is a 80 y.o. female who presents today for a follow-up injection in right Knee Patient's previous injection date: 06/02/25 Previous injection lasted Patient is unsure how much relief she has gotten Patient rates their pain today as 9 out of 10 Patient denies any new injuries or issues Patient would like to proceed with injection today Patient verbalized consent for today's procedure and answered the following questions as listed below: Are you Diabetic: yes Allergy to Iodine/Betadine/Shell fish: no Allergy to latex adhesive: no Allergy to steroids: no Allergy to lidocaine: no Recent Covid vaccine within the last two weeks: no Currently taking antibiotics: no Current infections or wounds: no Recent fractures or scheduled surgeries: no CURRENT MEDICATIONS Current Outpatient Medications Medication Instructions [...] fluticasone propionate (FLONASE) 50 mcg/actuation nasal spray SMARTSIG:[place](s) Both Nares GaviLyte-G 236-22.74-6.74 -5.86 gram solution [...] no fatigue, no mood swings Scribe Attestation: Nemo English CMA acted as a scribe and transcribed components of the current encounter under the direction of the Attending Provider. I have not been involved in providing any clinical treatments or patient care. Electronically Signed, Nemo Weber CMA OBJECTIVE Vitals: 10/06/25 0849 BP: (!) 146/84 Pulse: 87 Weight: 87.5 kg (193 lb) Height: 1.549 m (5' 1 ) Body mass index is 36.47 kg/m??. BP elevated today in clinic; findings reviewed with patient. Patient has known history of hypertension, education provided. Patient advised to follow up with PCP in regards to elevated readings today. Physical Exam Vitals reviewed. Constitutional: Appearance: Normal [...] Flexion, Full Extension, +crepitus Strength: 4/5 Testing: -Valgus stress, -Varus stress Neurovascular: NVI, -Homans Skin: normal appearance with no discoloration or wounds Gait: abnormal ASSESSMENT Problem List Items Addressed This Visit Musculoskeletal and Integument Primary osteoarthritis of right knee - Primary Relevant Medications lidocaine (XYLOCAINE) injection 1% (Completed) (Start on 10/06/2025 9:30 AM) methylPREDNISolone acetate (DEPO-MEDROL) injection 80 mg (Completed) (Start on 10/06/2025 9:30 AM) Other Relevant Orders Arthrocentsis aspiration/inj major jt/bursa w/o us I discussed with patient in depth the options for treatment of osteoarthritis of the knee. Treatment options that include gentle, low-impact exercise, weight loss, physical therapy to promote quadriceps strengthening, the use of NSAIDs, intra-articular steroid injections, viscosupplementation, and genicular nerve blocks were all discussed. I also discussed that if all conservative measures fail to provide satisfactory relief of symptoms, we can discuss surgical options to include arthroplasty of the knee. PLAN Return in about 6 weeks (around 11/17/2025) for additional treatment options Ice affected joint Watch for signs of infection, return to clinic if symptoms appear Return to clinic sooner if new symptoms occur as discussed or if symptoms worsen Injection performed today, as noted below Discussed MILLS injections, SOG block, TKA. Patient wishes to continue with conservative treatment with another cortisone injection. PROCEDURE Diabetes education: Yes - The risk [...] or symptoms of hyperglycemia are not controllable. Steroid Injection: Right Knee Injection: Indication: right Knee pain Consent: The risks, benefits, and alternatives of procedure were discussed with the patient including but not limited to pain, infection, and bleeding. All questions were answered and informed consent was obtained. Prep: The injection site was identified and confirmed with patient as correct extremity. The site was prepped in a standard sterile manner. The skin overlying the area was anesthetized with ethyl chloride. Procedure: The needle was inserted into above injection site, then was injected with 1cc of 1% lidocaine and 1cc of 80mg Depo-medrol Post-procedure: The patient tolerated the procedure well without complications. Post injection instructions were given and questions were answered to the best of my knowledge. Adverse effects: None. Injection was performed by: Tiara Goel PA-C Scribe Attestation: INemo CMA acted as a scribe and transcribed components of the current encounter under the direction of the Attending Provider. I have not been involved in providing any clinical treatments or patient care. Electronically Signed, Nemo Weber CMA I, Tiara Goel PA-C attest that I have examined the above patient. I have dictated the exam, diagnosis, and plan to the scribe listed above to be transcribed into this document. I have supplemented the above documentation as warranted. I attest that I have reviewed the above documentation in its entirety and concur. Electronically Signed, Tiara Goel PA-C 10/06/2025 9:05 AM EST Evelina Bene: [facility] is undergoing an EHR transition as of this date of service. There may be a delay in uploading older paper and EHR chart data to this new system. The above encounter has been documented to the best of the provider's working knowledge of the EHR in conjunction with medical information provided by the patient (and/or the patient's family member). MECHANICAL ENGINEER documented in this encounter Plan of Treatment Upcoming Encounters Date Type Department Care Team (Late st Contact Info) Description 11/17/2025 1:15 PM EST Office Visit [facility] - [address] [address] Tiara Goel PA-C [address] [place] [address] Scheduled Orders Name Type Priority Associated Diagnoses Orde r Schedule Arthrocentsis aspiration/inj major jt/bursa w/o us Procedures Routine Primary osteoarthritis of right knee Ordered: 10/06/2025 documented as of this encounter Visit Diagnoses Diagnosis Primary osteoarthritis of right knee- Primary documented in this encounter Administered Medications Inactive Administered Medications - up to 3 most recent administrations Medication Order MAR Action Action Date Dose Rate Site lidocaine (XYLOCAINE) injection 1% 1 mL Once, intra-articular, On Sun10/06/25 at 0930, For 1 doseIndications:Primary osteoarthritis of right knee Given 10/06/2025 8:52 AM EST 1 mL Right Knee methylPREDNISolone acetate (DEPO-MEDROL) injection 80 mg 80 mg Once, intra-articular, On Sun10/06/25 at 0930, For 1 doseIndications:Primary osteoarthritis of right knee Given 10/06/2025 8:53 AM EST 80 mg Right Knee documented in this encounter Care Teams Analytics Intern Relationship Specialty Start Date End Date Enma Crump, BIODIESEL PLANT OPERATIONS ENGINEER [address] [place] [id number] PCP - General Nurse Practitioner 09/19/22 documented as of this encounter
--- NOTE | 2025-10-19 13:00 | MR_ITS ---
FINAL REPORT TECHNIQUE: Multiplanar and multisequence imaging of the cervical spine was obtained. CLINICAL HISTORY: left hand numbness, cervical DDD, bulging disc FINDINGS: Exam is limited by motion artifact. Alignment is normal in the sagittal plane. Vertebral body height is preserved. Signal intensity within the substance of the spinal cord is normal. No acute bone marrow edema. No acute paraspinal abnormality. C2/3: No focal disc herniation, central canal stenosis, or neural foraminal narrowing. C3/4: An annular disc bulge is present with degenerative endplate changes and facet osteoarthropathy. Mild central stenosis. Moderate to severe left neuroforaminal narrowing. C4/5: An annular disc bulge is present with degenerative endplate changes and facet osteoarthropathy. Mild central stenosis. Mild right and moderate left neuroforaminal narrowing. C5/6: An annular disc bulge is present with degenerative endplate changes and facet osteoarthropathy. Mild central stenosis. Moderate to severe right neuroforaminal narrowing. C6/7: An annular disc bulge is present with degenerative endplate changes and facet osteoarthropathy. C7/T1: No focal disc herniation, central canal stenosis, or neural foraminal narrowing. IMPRESSION: Multilevel degenerative disc disease. Reviewed, Interpreted and Dictated by Adrienne Moss MD Transcribed by Julia Valadez Authenticated and [facility]
--- OUTSIDE RECORDS SUMMARY | 2025-10-19 13:01 | XMS_ITS | Encounter Summary ---
[facility] Organization [facility] Address [address] [place] [address] Care Team Providers Care Acetylene Burner Name Role Phone Ayden Wolfe MD Primary Care Provider [phone] Encounter Details Date Type Department Care Team (Late st Contact Info) Description 03/31/2015 External CPT II SEWER LINE PHOTO INSPECTOR - [facility] Social History Tobacco [...] on filedocumented in this encounter Care Teams Acetylene Burner Relationship Specialty Start Date End Date Ayden Wolfe MD [address] [place] [address] PCP - General Internal Medicine 07/13/16 documented as of this encounter
--- OUTSIDE RECORDS SUMMARY | 2025-10-19 13:01 | XMS_ITS | Encounter Summary ---
Author Organization [facility] Address [address] [place] [address] Care Team Providers Care Sediment Remediation Consultant Name Role Phone Ayden Wolfe MD Primary Care Provider [phone] Encounter Details Date Type Department Care Team (Late st Contact Info) Description 12/26/2017 External CPT II SERVICE CENTER REPRESENTATIVE - [facility] Social History Tobacco Use [...] on filedocumented in this encounter Care Teams Sediment Remediation Consultant Relationship Specialty Start Date End Date Ayden Wolfe MD [address] [place] [address] PCP - General Internal Medicine 07/13/16 documented as of this encounter
--- OUTSIDE RECORDS SUMMARY | 2025-10-19 13:01 | XMS_ITS | Clinical Summary ---
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 2024 Rotator cuff tendonitis, left 04/21/2025 Primary localized osteoarthritis of left knee Primary osteoarthritis of right knee 09/19/2022 Encounters Date Type Department Care Team Description 10/06/2025 8:30 AM EST Office Visit [address] [address] Tiara Goel PA-C Primary osteoarthritis of right knee (Primary Dx) 09/08/2025 9:15 AM EST Office Visit [address] [address] Alejandro Herrera MD Primary osteoarthritis of right knee (Primary Dx) 09/08/2025 8:15 AM EST Ancillary Procedure [address] [address] Alejandro Herrera MD from Last 3 Months [...] Date Stanley rded Speak language other than Palestinian at home Not on file 11/09/2023 Want [...] Pulse 87 10/06/2025 8:49 AM EST Temperature 36.6 C (97.9 F) 02/06/2024 2:57 AM EDT Respiratory Rate 18 09/08/2025 8:06 AM EST Oxygen Saturation 94% 02/06/2024 2:57 AM EDT Inhaled Oxygen Concentration - - Weight 87.5 kg (193 lb) 10/06/2025 8:49 AM EST Height 154.9 cm (5' 1 ) 10/06/2025 8:49 AM EST Body Mass Index 36.47 10/06/2025 8:49 AM EST Plan of Treatment Upcoming Encounters Date Type Department Care Team (Late st Contact Info) Description 11/17/2025 1:15 PM EST Office Visit [facility] Orthopedics - [address] [address] Tiara Goel PA-C [address] [place] [address] Health Maintenance Due Date Last Done [...] 08/23/2019 Tobacco Cessation Counseling and Screening (12+) 10/06/2026 10/06/2025 DTAP/TDAP/TD VACCINES (3 - T d or [...] the next mammogram. At our facility, a [place] marker is positioned over a visible skin [...] cancer. COMPARISON STUDY: 2022 through 2015 from [facility] FINDINGS: Craniocaudal and mediolateral oblique images [...] Health Maintenance Insurance MEDICARE PART A B [employer] Care Teams Relish Maker Relationship Specialty Start Date End Date Enma Crump APRN [phone] [address] PCP - General Nurse Practitioner 09/19/22
--- OUTSIDE RECORDS SUMMARY | 2025-10-19 13:01 | XMS_ITS | Clinical Summary ---
Author Organization [facility] Address [address] [place] [address] Care Team Providers Care Application Security Engineer Name Role Phone Enma Crump VENITA Primary Care Provider [phone] Allergies Active Allergy Reactions Criticality Noted Date [...] or (1 - 1-dose 75+ series) 2022 [id number] Vaccine (4 - 2024- season) 2025 11/15/2021, 12/24/2020, 11/26/2020 [facility]-Influenza Vaccine (#1) 2025 08/23/2019 [facility]-DTaP,Tdap,and Td Vaccines (2 - Td or Tdap) 03/14/2031 03/14/2021, 02/12/1996 HPV Vaccines (No Doses Required) Completed [facility]-HIB Vaccines Aged Out No longer e [...] age to complete this topic Insurance MEDICARE Care Teams Application Security Engineer Relationship Specialty Start Date End Date Enma Crump APRN [phone] [id number] PCP - General 05/01/23
--- OUTSIDE RECORDS SUMMARY | 2025-10-19 13:01 | XMS_ITS | Clinical Summary ---
Author Organization [facility] Address [address] [place] [address] Care Team Providers Care Concrete Rod Buster Name Role Phone Ayden Wolfe MD Primary Care Provider [phone] Allergies Active Allergy Reactions Criticality Noted Date [...] Other Yomi Bravo MD CHART REVIEW TABS Ralin l Result * Lipid Panel (12/22/2016 2:09 PM EST) Total Cholesterol 173 0 - 200 mg/dL 12/22/2016 7:25 PM EST [facility] Triglycerides 142 0 - 150 mg/dL 12/22/2016 7:25 PM EST [facility] HDL Cholesterol 52 40 - 60 mg/dL 12/22/2016 7:25 PM EST [facility] LDL Cholesterol 108 0 - 130 mg/dL 12/22/2016 7:25 PM EST [facility] Blood Venipuncture / Unknown 12/22/2016 2:09 PM EST 12/22/2016 2:09 PM EST Narrative [facility] - 12/22/2016 7:25 PM EST Cholesterol [...] MD LAB BLOOD ORDERA BLES Final Result [facility]
[address] [place] [address], * (ABNORMAL) Hemoglobin A1c (09/17/2014 6:18 AM EST) Hemoglobin A1C 7.4(H) 4.00 - 6.00 % [facility] Comment: DF by IF @ 09/17/2014 08:13 The [place] [employer] recommends maintenance of Hemoglobin A1C at 7.0% or lower. Goals for Hemoglobin A1C reduction may need to be modified if hypoglycemia is a problem. Mean Bld Glu Estim. 162 mg/dL [facility] Blood specimen (specimen) 09/17/2014 6:18 AM EST Narrative [facility] - 09/17/2014 8:14 AM EST Specimen Type: Blood Hansel Spence MD LAB BLOOD ORDERABLES Final Resu lt Performing Organization Address [facility] Co de Phone Number [facility] [address] [place] [address], * (ABNORMAL) Occult blood x 3, stool (09/16/2014 5:57 PM EST) Fecal Occult Blood Positive(A) Negative [facility] OB Date 1 [id number] [facility] Comment:Testing performed by nursing personnel. Fecal Occult Blood No specimen received. Negative , No specimen received. [facility] Fecal Occult Blood No specimen received. Negative , No specimen received. [facility] Stool specimen (specimen) 09/16/2014 5:57 PM EST Narrative [facility] - 09/17/2014 11:19 AM EST Specimen Type: Stool Zachary Venegas MD BODY FLUIDS AND STOOLS ORDERAB LES Final Result Performing Organization Address [facility] Co de Phone Number [facility] [address] [place] [address], from Last 3 Months or Most Recently Relevant to Health Maintenance Insurance MEDICARE A & B [facility] Care Teams Concrete Rod Buster Relationship Specialty Start Date End Date Ayden Wolfe MD [address] [place] [address] PCP - General Internal Medicine 07/13/16
--- OUTSIDE RECORDS SUMMARY | 2025-10-19 13:01 | XMS_ITS | Encounter Summary ---
Author Organization [facility] Address [address] [place] [address] Care Team Providers Care Human Resources Specialist Name Role Phone Ayden Wolfe MD Primary Care Provider [phone] Encounter Details Date Type Department Care Team (Late st Contact Info) Description 05/28/2017 External CPT II CUTTER AND EDGE TRIMMER - [facility] Social History Tobacco [...] on filedocumented in this encounter Care Teams Human Resources Specialist Relationship Specialty Start Date End Date Ayden Wolfe MD [address] [place] [address] PCP - General Internal Medicine 07/13/16 documented as of this encounter
--- OUTSIDE RECORDS SUMMARY | 2025-10-19 13:01 | XMS_ITS | Encounter Summary ---
Author Organization [facility] Address [address] [place] [address] Care Team Providers Care Frame Nailer Name Role Phone Ayden Wolfe MD Primary Care Provider Encounter Details Date Type Department Care Team (Late st Contact Info) Description 07/17/2018 External CPT II SALESPERSON [place] AND [place] - [facility] Social History Tobacco Use [...] on filedocumented in this encounter Care Teams Frame Nailer Relationship Specialty Start Date End Date Ayden Wolfe MD [address] [place] [address] PCP - General Internal Medicine 07/13/16 documented as of this encounter
--- OUTSIDE RECORDS SUMMARY | 2025-10-19 13:01 | XMS_ITS | Encounter Summary ---
Author Organization [facility] Address [address] [place] [address] Care Team Providers Care Construction Grip Name Role Phone Ayden Wolfe MD Primary Care Provider [phone] Encounter Details Date Type Department Care Team (Late st Contact Info) Description 01/23/2019 External CPT II BOTTLING SUPERVISOR - [facility] Social History Tobacco Use [...] on filedocumented in this encounter Care Teams Construction Grip Relationship Specialty Start Date End Date Ayden Wolfe MD [address] [place] [address] PCP - General Internal Medicine 07/13/16 documented as of this encounter
--- OUTSIDE RECORDS SUMMARY | 2025-10-19 13:01 | XMS_ITS | Encounter Summary ---
Author Organization [facility] Address [address] [place] [address] Care Team Providers Care Profile Shaper Operator Name Role Phone Ayden Wolfe MD Primary Care Provider [phone] Encounter Details Date Type Department Care Team (Late st Contact Info) Description 03/27/2017 External CPT II CLIENT RELATIONSHIP CONSULTANT - [facility] Social History Tobacco [...] on filedocumented in this encounter Care Teams Profile Shaper Operator Relationship Specialty Start Date End Date Ayden Wolfe MD [address] [place] [address] PCP - General Internal Medicine 07/13/16 documented as of this encounter
--- OUTSIDE RECORDS SUMMARY | 2025-10-19 13:02 | XMS_ITS | Data Portability ---
Author Organization [facility] Address [address] [place] [address] Care Team Providers Care Grounds Foreman Name Role Phone RAFAELA CRUMP Primary Care Provider [phone] Assessment No assessment recorded. Plan of Treatment Reminders Order Date Submit Date Provider Last Modified By Organization Details Last Modified Time Details Appointments None recorded. Lab None recorded. Referral None recorded. Procedures None recorded. Surgeries None recorded. Imaging None recorded. Medication Orders betametha sone valerate 0.1 % topical ointment 2021 [address] [facility], [address] [facility], [place], [address], 12:54:42 Patient TargetsNo targets recorded. Patient Instructions Encounter Date Encounter Id Patient Instructions Last Modified By Organization Details Last Modified Time 04/25/2022 [id number] 1. Nasal debridement performed- Full risks, complications, [...] Control Anterior Epistaxis completed FELECIA GARBER MD [address] [place] [address], [address], [facility] 04/26/2022 12:43:56 04/25/20 22 [facility] 12:34:20 04/25/20 22 Laryngoscopy Flex [facility] 04/25/2022 12:41:44 section completed Nessa Plasencia [facility] 04/25/2022 11:38:22 hysterectomy completed Nessa Plasencia [facility] 04/25/2022 11:38:28 excision of basal cell carcinoma completed Nessa Terral [facility] 04/25/2022 11:39:04 excision of squamous cell carcinoma completed Nessa [facility] 04/25/2022 11:39:14 Imaging Results None recorded. Procedure Notes None recorded. Medical Equipment None Reported. Allergies Allergen ID Allergen Name Allergen Category Reaction Reaction Severity Criticality Documentation Date Start Date Code Code System Note Provider Name and Address Organization Details Recorded Time 271820 Iodinated contrast media (substanc e) medicatio n Not available Not available Not available 04/25/2022 [id number] SNOMED Nessa Luis Angel [facility] 11:35:43 Medications Name Sig Start Date Stop [...] mass index (BMI) Body height Oxygen saturation Heart rate Systolic And Diastolic Provider Name and Address Organization Details Last Updated DateTime 2 96477.3 6 g 40 kg/m2 156.21 cm 92 % 87 /min 102/55 mm[Hg] Nessa Plasencia [facility] 11:43:06 Social History Question Answer Notes LastModified by [employer] Details LastModified Time Tobacco Smoking Status Never Smoker Nessa Plasencia [facility] 04/25/2022 11:38:13 What Was The Date Of Your Most Recent Tobacco Screening? 04/25/2022 Information not available 04/25/2022 Has Tobacco Cessation Counseling Been Provided? 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 c auterized Eczema of external auditory canal 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 Health Concerns Section Related Observation LastModified by Organization Detai ls LastModified Time None Recorded Concern Status LastModified by Organization Details LastModified Time None Recorded Advance Directives Directive None Recorded Payers Insurance Date Sequence Insurance Name Policy Number Policy Guallpa Covered Member ID Guallpa Member ID Guarantor Name 04/22/2025 2 FOR LIFE ( - MEDICARE SUPPLEMENT) Kristina Jimenez Javier [id number] Kristina Jimenez Javier 04/22/2025 1 [place] Kristina Jimenez Javier [id number] Kristina Jimenez Javier Notes Date Note [...] it has been before. FELECIA GARBER MD [address] [place], [address], [facility] 04/26/2022 12:44:33 OBGyn Episode No OBEpisode recorded.
--- OUTSIDE RECORDS SUMMARY | 2025-10-19 13:02 | XMS_ITS | Encounter Summary ---
[facility] Organization [facility] Address [address] [place] [address] Care Team Providers Care Deputy [place] Marshal Name Role Phone Ayden Wolfe MD Primary Care Provider [phone] Encounter Details Date Type Department Care Team (Late st Contact Info) Description 01/17/2016 External CPT II ROLL PANNER - [facility] Social History Tobacco Use [...] on filedocumented in this encounter Care Teams Deputy United [place] Marshal Relationship Specialty Start Date End Date Ayden Wolfe MD [address] [place] [address] PCP - General Internal Medicine 07/13/16 documented as of this encounter
--- OUTSIDE RECORDS SUMMARY | 2025-10-19 13:02 | XMS_ITS | Encounter Summary ---
[facility] Organization [facility] Address [address] [place] [address] Care Team Providers Care Power Press Tender Name Role Phone Ayden Wolfe MD Primary Care Provider Encounter Details Date Type Department Care Team (Late st Contact Info) Description 04/28/2016 External CPT II BEHAVIORAL HEALTH SPECIALIST - [facility] Social History Tobacco [...] on filedocumented in this encounter Care Teams Power Press Tender Relationship Specialty Start Date End Date Ayden Wolfe MD [address] [place] [address] PCP - General Internal Medicine 07/13/16 documented as of this encounter
--- OUTSIDE RECORDS SUMMARY | 2025-10-19 13:02 | XMS_ITS | Referral Summary ---
Author Organization [employer] ([place], [place], [place], [place], [place]) Address [address] [place] [address] Care Team Providers Care Boat Joiner Name Role Phone CrumpEnma troy VENITA Primary Care Provider Encounters Date Type Department Care Team Description 10/06/2025 8:30 AM EST Office Visit [address] [address] Tiara Goel PA-C Primary osteoarthritis of right knee (Primary Dx) 09/08/2025 9:15 AM EST Office Visit [address] [address] Alejandro Herrera MD Primary osteoarthritis of right knee (Primary Dx) 09/08/2025 8:15 AM EST Ancillary Procedure [address] [address] Alejandro Herrera MD from Last 3 Months [...] Description 11/17/2025 1:15 PM EST Office Visit [facility] Orthopedics - [address] [address] Tiara Goel PA-C [address] [place] [address] Procedures Procedure Name Priority Date/Time Associated Diagnosis [...] the supervision of Dr Herrera us Alejandro Navin Herrera MD IMG DIAGNOSTIC IMAGING ORDERAB LES [...] the next mammogram. At our facility, a [place] marker is positioned over a visible skin [...] cancer. COMPARISON STUDY: 2022 through 2015 from [facility] FINDINGS: Craniocaudal and mediolateral oblique images of both breasts were obtained in 2D and DBT modes. Synthesized views were reconstructed from DBT data. The breast tissue is almost entirely fatty. There is no evidence of dominant mass, architectural distortion, or suspicious calcifications. The mammogram was interpreted with the benefit of computer aided detection (CAD). Enma Crump APRN [facility] ORDERABLES F inal Result from Last 3 Months or Most Recently Relevant to Health Maintenance Insurance MEDICARE PART A B [employer] Care Teams Boat Joiner Relationship Specialty Start Date End Date Enma Crump APRN [phone] [address] PCP - General Nurse Practitioner 09/19/22
== END 2025-10-19 23:59 | disposition home or self-care (01) ==
LOC: RAD 12:54
PROVIDERS: PCP Nurse Practitioner Family; Visit Provider Nurse Practitioner Family
DX: M47.22 Other spondylosis with radiculopathy, cervical region (principal); M50.11 Cervical disc disorder with radiculopathy, high cervical region; M48.02 Spinal stenosis, cervical region; M25.78 Osteophyte, vertebrae
CPT/HCPCS: 72141